=== PATIENT | female | born 1950 | race Caucasian/White ===

== ENCOUNTER 2019-12-22 16:09 | Observation (INO) ==
--- OUTSIDE RECORDS SUMMARY | 2019-12-22 16:12 | External Medical Summary | Continuity of Care Document ---
:1950 Author Name Alexa Vieyra Address Unavailable Unavailable , Care Team Providers Name Role Phone Luigi Vieyra Unavailable [email or web address] [place] Jose [email or web address] Unavailable Unavailable Unavailable Unavailable Unavailable Problems High risk medication use (V58.69) (Z79.899) Peripheral neuropathy (356.9) (G62.9) Overweight (278.02) (E66.3) Depression (311) (F32.9) Joint pain in the shoulder/clavicle region (719.41) (M25.519 ) Lower back pain (724.2) (M54.5) Rheumatoid arthritis (714.0) (M06.9) Osteoarthritis of knee (715.36) (M17.10) Hypertension (401.9) (I10) Osteopenia (733.90) (M85.80) Psoriasis (696.1) (L40.9) Type 2 diabetes mellitus (250.00) (E11.9) Osteoarthritis Of The Ankle/Foot (Multiple Joints) (715.97) Septic arthritis (711.00) (M00.9) Allergies and Adverse Reactions No Known Drug Allergies (Allergy) Medications Methotrexate 2.5 MG Oral Tablet; TAKE SIX TABLETS BY M OUT ONCE A WEEK Jarrell Meyers Start: 16-Apr-2011 Quantity: 72 Refills: 1 Folic Acid 1 MG Oral Tablet; TAKE ONE TABLET BY MOUTH EVERY DAY Jarrell Meyers Start: 16-Apr-2011 Quantity: 90 Refills: 1 Celecoxib 200 MG Oral Capsule; TAKE ONE CAPSULE BY TWICE DAILY Jarrell Meyers Start: 16-Apr-2011 Quantity: 180 Refills: 1 metFORMIN HCl - 1000 MG Oral Tablet; TAKE 1 TABLET TWICE WENDY LY. Refills: 0 Cozaar 100 MG Oral Tablet; TAKE 1 TABLET DAILY. Refills: 0 Venlafaxine HCl ER 150 MG Oral Capsule E xtended Release 24 Hour; TAKE 1 CAPSULE DAILY. Refills: 0 Glimepiride 4 MG Oral Tablet; TAKE 1 TABLET TWICE DAILY. Refills: 0 Vitamin D3 25 MCG (1000 UT) Oral Capsule; TAKE 1 CAPSULE Wendy lin Refills: 0 hydroCHLOROthiazide 25 MG Oral Tablet; TAKE 1 TABLET DAILY. Refills: 0 Xeljanz 5 MG Oral Tablet; TAKE ONE TABLET BY MOUTH TWICE WENDY Jarrell Mendoza Start: 29-Aug-2013 Quantity: 180 Refills: 1 Aspirin 81 MG TABS; TAKE 1 TABLET DAILY. Refills: 0 Stresstabs/Iron TABS Refills: 0 Fish Oil CAPS Refills: 0 Vitamin C TABS Refills: 0 Vitamin B-12 TABS Refills: 0 Gabapentin 300 MG Oral Capsule; Take 1 capsule twice daily Refills: 0 NovoLOG SOLN Refills: 0 Levemir SOLN Refills: 0 Cyclobenzaprine HCl - 5 MG Oral Tablet; TAKE ONE TABLET BY MOUTH THREE TIMES DAILY NEEDED Jarrell Meyers Start: 09-Feb-2013 Quantity: 90 Refills: 1 predniSONE 5 MG Oral Tablet; TAKE 1 TABLET DAILY. Jarrell Meyers Start: 12-Jan-2013 Quantity: 90 Refills: 1 HYDROcodone-Acetaminophen 5-325 MG Oral Tablet; TAKE 1 TABLET EVERY 8 HOURS NEEDED FOR PAIN. Jarrell Meyers Start: 09-Sep-2012 Quantity: 90 Refills: 0 Procedures History of Foot Surgery Status: Complete d Immunizations Pneumococcal polysaccharide vaccine, 23 valent On: 02-Aug-20 Pneumococcal polysaccharide vaccine, 23 valent On: 02-Aug-20 Social History - Smoking Status Ex-smoker Plan of Treatment Planned Observations Planned Goals not documented Results No Known Results Results not documented
[2019-12-22] MEDS ORDERED: KETOROLAC TROMETHAMINE 15 MG/ML VIAL IV ONE (16:42)
[2019-12-22] MEDS ORDERED: methylPREDNISolone 125 MG/2 ML VIAL IV STA (16:42)
--- NOTE | 2019-12-22 16:48 | Emergency Department Note ---
Impression & Plan COPD exacerbation, URI (upper respiratory infection), Acute dyspnea, Neutropenia, Hyperglycemia due to type 2 diabetes mellitus ED Provider Note Provider: Ulises Dent MD DATE OF SERVICE: 12/22/2019 CHIEF COMPLAINT: Cough HISTORY OF PRESENT ILLNESS: Patient is a 69-year-old female with a history of diabetes, hypertension, arthritis presenting today with report of cough and loss of taste and smell. Patient states she has sinus congestion for 10 days and completed a course of amoxicillin worsening chest congestion was given a Z-Pedro yesterday. Been using her granddaughter's nebulizer without improvement. States her shortness of breath has worsened overnight and her oxygen saturations at home have been between 86 and 92%. Patient also mentions she is suffering from a headache of 6 out of 10 in pain. States pain is little bit worse if she starts to get up and walk around. Afebrile upon arrival not hypoxic on room air. Headache started yesterday and worsens her today. Not having sore throat. Not having GI symptoms. Denies abdominal pain. Patient states earlier she was dyspneic that walk across the room became an issue. This has improved some. 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 On chronic daily prednisone. Just started on her Breo by her primary doctor. Patient denies significant leg swelling. Patient denies any travel. Patient denies sick contact. No fevers reported at home and the patient states she has been taking her temperature regularly. REVIEW OF SYSTEMS: A total of 10 review of systems was obtained and negative except as stated above in the HPI. PAST MEDICAL HISTORY: As noted above MEDICATIONS: Reviewed medication list in the room with the patient and the nurses note, significant for rituximab, methotrexate, chronic prednisone SOCIAL HISTORY: Former smoker, lives at home with daughter, son-in-law, and granddaughter with CP PHYSICAL EXAM: GENERAL: alert and oriented in no acute distress on stretcher does appear somewhat fatigued Head: normocephalic and atraumatic EYES: No injection, discharge or icterus. PERRL, EOMI. NECK: Trachea midline. Supple. ENT: Mucous membranes pink and moist. Pharynx without erythema or exudate. LUNGS: Airway patent. No retractions but some slight increased work of breathing. Breath sounds generally decreased HEART: Regular rate and rhythm. No chest wall tenderness ABDOMEN: Soft and non-tender, without guarding or rebound. SKIN: Acyanotic, warm, dry, without rashes EXTREMITIES: Without swelling, tenderness or deformity except for some mild chronic stasis changes and trace bilateral pedal edema. Patient has chronic arthritic changes to her bilateral hands. NEUROLOGICAL: No focal deficits. No aphasia. No facial droop or slurred speech. Normal strength and tone in the extremities. Sensation to gross touch normal. Ambulatory. EKG: EKG shows normal sinus rhythm with a rate of 82 bpm. No PVC. No acute ST segment elevation or depression. QTC of 462. Normal axis. CONTINUOUS CARDIAC MONITORING: was ordered and showed a heart rate of 81 bpm in normal sinus rhythm Patient's hypertension was referred to the hospitalist/PCP HOSPITAL COURSE: 1632 Patient was first seen and H&P performed. Patient maintained in airborne isolation. 1918 Patient reassessed and updated outside of the door and via phone. Patient transiently dipping with hypoxia into the high 80s now on 2 L. Still looks quite fatigued. Discussed with her options at this time. Hospitalist will be contacted Patient's laboratory studies and imaging reviewed. Differential includes Reactive airway disease, pneumonia, pneumothorax, COPD, CHF, infections, cardiac ischemia, pulmonary embolism, musculoskeletal, gastrointestinal, neurological, meningitis, CVA, SAH, as well as other pathologies. IMPRESSION/MEDICAL DECISION MAKING: Patient presentation concerning for underlying respiratory pathology primarily. Does not appear to be suffering from acute CVA and I doubt acute meningitis at this juncture. Chest x-ray is completed. EKG and troponin were sent to exclude ACS. I doubt PE. No signs of fluid overload. Denies sore throat. No other focal neurological deficit at this time. Satting well on room air does report that she was lowered on a finger pulse ox that her family had at home earlier today. Improved after nebulizer at home. States he is any better inhaler she is been using some. Using Tylenol 3 with codeine for general myalgias but not regularly. Given this I gave her a small amount of Toradol and a dose of Solu- Medrol. Given her history of smoking wonder if this is underlying reactive airway disease. Given her loss of taste and smell and current guidelines proceeded with COVID testing at this time. Basic labs and flu testing was sent. Chest x-ray obtained. Laboratory studies do show slight leukopenia without noted anemia. Platelets are just above normal. Total absolute neutrophils are low at 0.05 however lymphocytes are not changed and monocytes somewhat elevated. Patient states she did state that she had a low count number and was referred to hematology. This is likely that change. Again no reported fevers or fever here. Patient has some mild hyponatremia normal renal function. Hyperglycemia is noted. Mild hyp omagnesemia is noted. No troponin elevation or evidence of hepatic dysfunction. Negative influenza testing. Negative urine study. Patient had a coughing fit and transiently desatted to 87%. Placed on oxygen for this. Ambulated the bathroom without significant desat shortly thereafter. Given a dose of magnesium here as well as an Albuterol ipratropium MDI. On reevaluation the patient still is quite fatigued and is now having transient episodes of desaturations while on the litter. Discussed with her options but concerned about her respiratory status. Feel that further inpatient care to be warranted. Discussed with the hospitalist. Covered empirically with vancomycin and cefepime given her neutropenic status and with her dyspnea. DIAGNOSIS: COPD exacerbation, shortness of breath, URI, neutropenia, hyperglycemia secondary to type 2 diabetes DISPOSITION: Evaluated by hospitalist for further inpatient care. 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 Required: No Beliefs That Will Affect Care: None Current Living Situation: Family Other Information That Helps Us Care for You: No Feels Safe at Home: Yes Safety Concerns: Feels Safe At This Time Smoking Status: Former smoker Do You Dip or Chew Tobacco: No ; Second Hand Exposure: No ; Hx Alcohol Use: No Hx Substance Use: No Allergies Allergies Allergy/AdvReac Type Severity Reaction Status Date / Time bee venom protein (honey bee) Allergy Unknown PT STATES Verified 12/22/19 17:58 HAPPEN ALONG TIME AGO Home Meds Home Medications Medication Instructions Recorded Confirmed acetaminophen-codeine 1 tab PO Q8 PRN 12/22/19 12/22/19 ammonium lactate [Skin Treatment] 1 applic TOPICAL BID 12/22/19 12/22/19 azithromycin [Zithromax Z-Pedro] 250 mg PO UD 12/22/19 12/22/19 chlorthalidone 25 mg PO DAILY 12/22/19 12/22/19 cyclobenzaprine 5 mg PO HS 12/22/19 12/22/19 gabapentin [Neurontin] 600 mg PO BID 12/22/19 12/22/19 insulin detemir U-100 [Levemir 36 unit SUBCUT BID 12/22/19 12/22/19 FlexTouch U-100 Insuln] liraglutide [Victoza 3-Pedro] 1.8 mg SUBCUT DAILY 12/22/19 12/22/19 losartan [Cozaar] 100 mg PO DAILY 12/22/19 12/22/19 metformin [Glucophage] 1,000 mg PO BID 12/22/19 12/22/19 methotrexate sodium 5 mg PO WK 12/22/19 12/22/19 potassium chloride 10 meq PO DAILY 12/22/19 12/22/19 prednisone 5 mg PO DAILY 12/22/19 12/22/19 rituximab [Rituxan] 0 mg IV MO 12/22/19 12/22/19 simvastatin 5 mg PO QPM 12/22/19 12/22/19 sulfasalazine [Azulfidine] 1,500 mg PO TID 12/22/19 12/22/19 venlafaxine [Effexor XR] 150 mg PO DAILY 12/22/19 12/22/19 Results & Data (ED) Vital Signs Vital Signs - 24 hr 12/22/19 16:12 12/22/19 16:56 12/22/19 17:00 Temperature 37 C Temperature Source Oral Pulse Rate 87 81 Pulse Rate [Apical] 80 Pulse Rate from SpO2 Sensor Pulse Rhythm Regular Pulse Rhythm [Apical] Regular Pulse Strength [Apical] Normal Respiratory Rate 22 22 22 Respiratory Effort / Characteristics Non-Labored Spontaneous Respiratory Depth Normal Respiratory Pattern Regular Blood Pressure 161/93 H Blood Pressure [Left Arm] 118/64 Blood Pressure Mean 115 Blood Pressure Mean [Left Arm] 82 Blood Pressure Position [Left Arm] Sitting Pulse Oximetry 95 99 98 Oxygen Delivery Method Room Air Nasal Cannula Nasal Cannula Oxygen Flow Rate 2 Sepsis Recent Fever Within 48 Hours No Sepsis Action Taken by Nursing No Action Required 12/22/19 17:27 12/22/19 17:30 12/22/19 17:52 Temperature Temperature Source Pulse Rate 81 Pulse Rate [Apical] 82 83 Pulse Rate from SpO2 Sensor Pulse Rhythm Regular Pulse Rhythm [Apical] Regular Regular Pulse Strength [Apical] Normal Normal Respiratory Rate 22 18 26 H Respiratory Effort / Characteristics Non-Labored Spontaneous Non-Labored Spontaneous Respiratory Depth Normal Normal Respiratory Pattern Regular Regular Blood Pressure Blood Pressure [Left Arm] 99/43 L 137/70 Blood Pressure Mean Blood Pressure Mean [Left Arm] 61 92 Blood Pressure Position [Left Arm] Lying Lying Pulse Oximetry 98 99 95 Oxygen Delivery Method Nasal Cannula Nasal Cannula Nasal Cannula Oxygen Flow Rate 2 2 1 Sepsis Recent Fever Within 48 Hours Sepsis Action Taken by Nursing 12/22/19 18:00 12/22/19 18:01 12/22/19 18:30 Temperature Temperature Source Pulse Rate 80 80 79 Pulse Rate [Apical] Pulse Rate from SpO2 Sensor 81 78 79 Pulse Rhythm Pulse Rhythm [Apical] Pulse Strength [Apical] Respiratory Rate 24 20 17 Respiratory Effort / Characteristics Respiratory Depth Respiratory Pattern Blood Pressure 121/56 L 130/75 Blood Pressure [Left Arm] Blood Pressure Mean 85 92 Blood Pressure Mean [Left Arm] Blood Pressure Position [Left Arm] Pulse Oximetry 95 93 95 Oxygen Delivery Method Nasal Cannula Nasal Cannula Nasal Cannula Oxygen Flow Rate 1 1 1 Sepsis Recent Fever Within 48 Hours Sepsis Action Taken by Nursing 12/22/19 18:31 12/22/19 19:00 12/22/19 19:29 Temperature Temperature Source Pulse Rate 80 83 Pulse Rate [Apical] 82 Pulse Rate from SpO2 Sensor 74 83 Pulse Rhythm Pulse Rhythm [Apical] Regular Pulse Strength [Apical] Respiratory Rate 20 25 H 20 Respiratory Effort / Characteristics Non-Labored Spontaneous Respiratory Depth Normal Respiratory Pattern Blood Pressure 115/63 Blood Pressure [Left Arm] Blood Pressure Mean 68 Blood Pressure Mean [Left Arm] Blood Pressure Position [Left Arm] Pulse Oximetry 95 87 L 91 Oxygen Delivery Method Nasal Cannula Nasal Cannula Oxygen Flow Rate 1 2 Sepsis Recent Fever Within 48 Hours Sepsis Action Taken by Nursing 12/22/19 19:30 12/22/19 20:00 12/22/19 20:30 Temperature Temperature Source Pulse Rate 82 81 81 Pulse Rate [Apical] Pulse Rate from SpO2 Sensor 82 82 81 Pulse Rhythm Pulse Rhythm [Apical] Pulse Strength [Apical] Respiratory Rate 27 H 20 22 Respiratory Effort / Characteristics Respiratory Depth Respiratory Pattern Blood Pressure 126/45 L 119/62 118/58 L Blood Pressure [Left Arm] Blood Pressure Mean 80 93 67 Blood Pressure Mean [Left Arm] Blood Pressure Position [Left Arm] Pulse Oximetry 89 L 93 92 Oxygen Delivery Method Oxygen Flow Rate Sepsis Recent Fever Within 48 Hours Sepsis Action Taken by Nursing Laboratory Data Result diagrams: 12/22/19 16:56 12/22/19 16:56 Lab Results 12/22/19 12/22/19 12/22/19 Range/Units 16:56 16:56 16:56 WBC 2.55 L (4.8-10.8) K/uL RBC 4.36 (4.2-5.4) M/uL Hgb 12.8 (12.0-16.0) g/dL Hct 38.4 (37-47) % MCV 88.1 (80-100) fL MCH 29.4 (25-34) pg MCHC 33.3 (32-36) g/dL RDW Std Deviation 44.3 (36.4-46.3) fL RDW Coeff of Sandra 13.7 (11.5-14.5) % Plt Count 435 H (130-400) K/uL MPV 9.9 (7.4-10.4) fL Neutrophils % (Manual) 1.8 % Lymphocytes % (Manual) 48.2 % Monocytes % (Manual) 44.7 % Basophils % (Manual) 5.3 % Neutrophils # (Manual) 0.05 L (1.4-6.5) K/uL Total Absolute Neuts 0.05 L* (1.4-6.5) K/uL Lymphocytes # (Manual) 1.23 (1.2-3.4) K/uL Total Abs Lymphocytes 1.23 (1.2-3.4) K/uL Monocytes # (Manual) 1.14 H (0.11-0.59) K/uL Basophils # (Manual) 0.14 (0-0.2) K/uL PT 11.2 (9.0-12.0) Seconds INR 1.1 (0.9-1.1) APTT 27.1 (21.0-31.0) Seconds PTT Ratio 1.0 Sodium 131 L (136-145) mmol/L Potassium 3.7 (3.5-5.1) mmol/L Chloride 94 L (98-107) mmol/L Carbon Dioxide 29 (21-32) mmol/L Anion Gap 7.0 (3-11) BUN 14 (7-18) mg/dl Creatinine 1.03 (0.6-1.2) mg/dl Est Cr Clr Drug Dosing 52.8 ml/min Est GFR ( Amer) 64.7 Est GFR (Non-Af Amer) 55.8 BUN/Creatinine Ratio 13.6 (10-20) Glucose 344 H* (70-99) mg/dl Calcium 10.2 H (8.5-10.1) mg/dl Magnesium 1.5 L (1.8-2.4) mg/dl Total Bilirubin 0.5 (0.2-1) mg/dl AST 26 (15-37) U/L ALT 22 (12-78) U/L Alkaline Phosphatase 64 (45-117) U/L Troponin I < 0.015 (0-0.045) ng/ml Total Protein 8.3 H (6.4-8.2) gm/dl Albumin 3.4 (3.4-5.0) gm/dl Globulin 4.9 H (2.5-4.0) gm/dl Albumin/Globulin Ratio 0.7 L (0.9-2) Beta-Hydroxybutyric Acd 2.53 (0.2-2.81) mg/dl Urine Color Urine Appearance (Clear) Urine pH (4.5-7.5) Ur Specific [place] (1.000-1.030) Urine Protein (Negative) Urine Glucose (UA) (Negative) Urine Ketones (Negative) Urine Blood (Negative) Urine Nitrite (Negative) Urine Bilirubin (Negative) Urine Urobilinogen (Negative) Ur Leukocyte Esterase (Negative) Influenza Type A (PCR) (Neg) Influenza Type B (PCR) (Neg) 12/22/19 12/22/19 Range/Units 16:56 17:56 WBC (4.8-10.8) K/uL RBC (4.2-5.4) M/uL Hgb (12.0-16.0) g/dL Hct (37-47) % MCV (80-100) fL MCH (25-34) pg MCHC (32-36) g/dL RDW Std Deviation (36.4-46.3) fL RDW Coeff of Sandra (11.5-14.5) % Plt Count (130-400) K/uL MPV (7.4-10.4) fL Neutrophils % (Manual) % Lymphocytes % (Manual) % Monocytes % (Manual) % Basophils % (Manual) % Neutrophils # (Manual) (1.4-6.5) K/uL Total Absolute Neuts (1.4-6.5) K/uL Lymphocytes # (Manual) (1.2-3.4) K/uL Total Abs Lymphocytes (1.2-3.4) K/uL Monocytes # (Manual) (0.11-0.59) K/uL Basophils # (Manual) (0-0.2) K/uL PT (9.0-12.0) Seconds INR (0.9-1.1) APTT (21.0-31.0) Seconds PTT Ratio Sodium (136-145) mmol/L Potassium (3.5-5.1) mmol/L Chloride (98-107) mmol/L Carbon Dioxide (21-32) mmol/L Anion Gap (3-11) BUN (7-18) mg/dl Creatinine (0.6-1.2) mg/dl Est Cr Clr Drug Dosing ml/min Est GFR ( Amer) Est GFR (Non-Af Amer) BUN/Creatinine Ratio (10-20) Glucose (70-99) mg/dl Calcium (8.5-10.1) mg/dl Magnesium (1.8-2.4) mg/dl Total Bilirubin (0.2-1) mg/dl AST (15-37) U/L ALT (12-78) U/L Alkaline Phosphatase (45-117) U/L Troponin I (0-0.045) ng/ml Total Protein (6.4-8.2) gm/dl Albumin (3.4-5.0) gm/dl Globulin (2.5-4.0) gm/dl Albumin/Globulin Ratio (0.9-2) Beta-Hydroxybutyric Acd (0.2-2.81) mg/dl Urine Color Dark Yellow Urine Appearance Clear (Clear) Urine pH 7.0 (4.5-7.5) Ur Specific [place] 1.015 (1.000-1.030) Urine Protein Negative (Negative) Urine Glucose (UA) 3+ H (Negative) Urine Ketones Negative (Negative) Urine Blood Negative (Negative) Urine Nitrite Negative (Negative) Urine Bilirubin Negative (Negative) Urine Urobilinogen Negative (Negative) Ur Leukocyte Esterase Negative (Negative) Influenza Type A (PCR) Neg for Influ A (Neg) Influenza Type B (PCR) Neg for Influ B (Neg) Administered Medications Cyclobenzaprine HCl (Flexeril) 5 mg PO DAILY@1999 [facility] Stop: 01/21/20 21:59 Last Admin: 12/22/19 22:13 Dose: 5 mg Documented by: [id number] Gabapentin (Neurontin) 600 mg PO BID@0800,1999 [facility] Stop: 01/21/20 21:59 Last Admin: 12/22/19 22:13 Dose: 600 mg Documented by: [id number] Guaifenesin (Mucinex) 1,200 mg PO Q12@0800,1999 [facility] Stop: 01/21/20 21:59 Last Admin: 12/22/19 22:13 Dose: 1,200 mg Documented by: [id number] Lactic Acid (Amlactin) 1 gm EXT BID [facility] Stop: 01/21/20 21:59 Last Admin: 12/22/19 22:11 Dose: 1 gm Documented by: [id number] Simvastatin (Zocor) 5 mg PO DAILY@1999 [facility] Stop: 01/21/20 21:59 Last Admin: 12/22/19 22:13 Dose: 5 mg Documented by: [id number] Sulfasalazine (Azulfidine) 1,500 mg PO TID@0800,1199,1999 [facility] Stop: 01/21/20 21:59 Last Admin: 12/22/19 22:12 Dose: 1,500 mg Documented by: [id number] Discontinued Medications Albuterol (Combivent Respimat) 4 puffs INH NOW STA Stop: 12/22/19 18:12 Last Admin: 12/22/19 18:33 Dose: 4 puffs Documented by: [id number] Magnesium Sulfate/Dextrose (Magnesium Sulfate / D5w) 1 gm in 100 mls @ 100 mls/hr IV ONE ONE Stop: 12/22/19 19:10 Last Infusion: 12/22/19 19:35 Dose: 0 mls/hr Documented by: [id number] Admin: 12/22/19 18:33 Dose: 100 mls/hr Documented by: [id number] Cefepime HCl (Maxipime) 2,000 mg in 20 mls @ 5 mls/min IV NOW STA; Protocol Stop: 12/22/19 19:46 Last Admin: 12/22/19 19:56 Dose: 5 mls/min Documented by: [id number] Vancomycin HCl 1,750 mg/ (Sodium Chloride) 535 mls @ 200 mls/hr IV NOW ONE Stop: 12/22/19 22:23 Last Admin: 12/22/19 19:56 Dose: 200 mls/hr Documented by: [id number] Hydrocortisone Sodium (Succinate 100 mg/ Syringe) 2 mls @ 4 mls/min IV NOW ONE Stop: 12/22/19 22:16 Last Admin: 12/22/19 22:14 Dose: 4 mls/min Documented by: [id number] Ketorolac Tromethamine (Toradol) 10 mg IV NOW ONE Stop: 12/22/19 16:43 Last Admin: 12/22/19 16:58 Dose: 10 mg Documented by: [id number] Methylprednisolone (Solumedrol) 60 mg IV NOW STA Stop: 12/22/19 16:43 Last Admin: 12/22/19 16:58 Dose: 60 mg Documented by: [id number] Discharge Plan Visit Data Chief Complaint: Cough Stated Complaint: COUGH, SOB, 0 TASTE/SMELL ED Provider: Ulises Dent Discharge Problem: COPD exacerbation, URI (upper respiratory infection), Acute dyspnea, Neutropenia, Hyperglycemia due to type 2 diabetes mellitus Patient Disposition: Admitted As Inpatient Condition: Fair Discharge Instructions Interventions: ED Discharge Assessment Last Done: 12/22/19 21:15
[2019-12-22 17:26] LABS: Hematocrit (blood only) 38.4 % (37-47); Hemoglobin 12.8 g/dL (12.0-16.0); Mean Corpuscular Hemoglobin 29.4 pg (25-34); Mean Corpuscular Hgb Conc 33.3 g/dL (32-36); Mean Corpuscular Volume 88.1 fL (80-100); Mean Platelet Volume 9.9 fL (7.4-10.4); Platelet Count 435 K/uL (130-400); RDW Coefficient of Variation 13.7 % (11.5-14.5); RDW Standard Deviation 44.3 fL (36.4-46.3); Red Blood Count 4.36 M/uL (4.2-5.4); White Blood Count 2.55 K/uL (4.8-10.8)
[2019-12-22 17:44] LABS: INR 1.1 (0.9-1.1); Partial Thromboplastin Time 27.1 Seconds (21.0-31.0); Prothrombin Time 11.2 Seconds (9.0-12.0)
[2019-12-22 17:45] LABS: ALC (manual) 1.23 K/uL (1.2-3.4); ANC (manual) 0.05 K/uL (1.4-6.5); Basophils # (manual) 0.14 K/uL (0-0.2); Basophils % (manual) 5.3 %; Lymphocytes # (manual) 1.23 K/uL (1.2-3.4); Lymphocytes % (manual) 48.2 %; Monocytes # (manual) 1.14 K/uL (0.11-0.59); Monocytes % (manual) 44.7 %; Neutrophils # (manual) 0.05 K/uL (1.4-6.5); Neutrophils % (manual) 1.8 %
[2019-12-22 17:51] LABS: Alanine Aminotransferase 22 U/L (12-78); Albumin Globulin Ratio 0.7 (0.9-2); Albumin Level 3.4 gm/dl (3.4-5.0); Alkaline Phosphatase 64 U/L (45-117); Aspartate Aminotransferase 26 U/L (15-37); BUN Creatinine Ratio 13.6 (10-20); Bilirubin,Total 0.5 mg/dl (0.2-1); Blood Urea Nitrogen 14 mg/dl (7-18); Calcium 10.2 mg/dl (8.5-10.1); Carbon Dioxide 29 mmol/L (21-32); Chloride 94 mmol/L (98-107); Creatinine Clr Calc Pharmacy 52.8 ml/min; Est GFR (African American) 64.7; Est GFR (Non-African American) 55.8; Globulin 4.9 gm/dl (2.5-4.0); Glucose 344 mg/dl (70-99); Magnesium 1.5 mg/dl (1.8-2.4); Potassium 3.7 mmol/L (3.5-5.1); Sodium 131 mmol/L (136-145); Total Protein 8.3 gm/dl (6.4-8.2); Troponin I < 0.015 ng/ml (0-0.045)
[2019-12-22 17:57] LABS: Influenza A virus by PCR Neg for Influ A (Neg); Influenza B virus by PCR Neg for Influ B (Neg)
[2019-12-22 18:02] LABS: Beta-Hydroxybutyrate 2.53 mg/dl (0.2-2.81)
[2019-12-22 18:03] LABS: Appearance Urine Clear (Clear); Bilirubin Urine Negative (Negative); Blood Urine Negative (Negative); Color Urine Dark Yellow; Glucose Urine UA 3+ (Negative); Ketones Urine Negative (Negative); Leukocyte Esterase Urine Negative (Negative); Nitrite Urine Negative (Negative); Protein Urine Negative (Negative); Specific Gravity Urine 1.015 (1.000-1.030); Urobilinogen Urine Negative (Negative)
--- NOTE | 2019-12-22 18:06 | XRay Report ---
XR chest 1V portable CLINICAL HISTORY: Dyspnea COMPARISON STUDY: 04/25/2011 FINDINGS: The heart is mildly enlarged. There is elevation of interstitium, a finding likely secondar y to mild pulmonary vascular congestion/fluid overload. Interstitial inflammatory processes could carleen ear similar, particularly given the history of loss of taste and smell. There are no pleural effusion s. There is no lobar consolidation. Arthritic changes are present within the shoulders. IMPRESSION: 1. Mild diffuse elevation of the interstitium. While likely secondary to mild congestive failure/flui d overload, and interstitial infectious/inflammatory processes could appear similar 2. No evidence of lobar consolidation ACT 112: Negative or not required by law. Electronically signed by: Anastacio Amezcua M.D. 12/22/2019 6:05 PM
[2019-12-22] MEDS ORDERED: IPRATROPIUM BROMIDE/ALBUTEROL respimat INH INH STA (18:11)
[2019-12-22] MEDS ORDERED: MAGNESIUM SULFATE / D5W 1 GM/100 ML BAG IV ONE (18:11)
[2019-12-22] MEDS ORDERED: VANCOMYCIN HCL 1,750 MG in SODIUM CHLORIDE 0.9% 500 ML IV ONE (19:43)
[2019-12-22] MEDS ORDERED: VANCOMYCIN CONSULT ACTIVE PRN ×2 (19:43→21:39)
[2019-12-22] MEDS ORDERED: CEFEPIME 2,000 MG/20 ML VIAL IV STA (19:43)
--- NOTE | 2019-12-22 21:23 | History & Physical Report ---
Date of Service December 22, 2019 Assessment & Plan (1) Acute respiratory failure with hypoxia: Acute respiratory failure with hypoxia, with pulse ox recorded a low of 87% on room air. Failure of outpatient therapy with amoxicillin then azithromycin. Continue vancomycin IV and cefepime IV begun in the ED. Influenza a and B-. COVID 19 ordered by the ED. Add biofire upper respiratory infection panel. Duonebs every 4 hours while awake and every 2 hours when necessary. Guaifenesin extended release 600 mg p.o. twice daily Continue airborne, contact and add neutropenic precautions. Add stress dose steroids, hydrocortisone 100 mg IV every 8 hours due to chronic prednisone use. Present on Admission?: Yes (2) URI (upper respiratory infection): See above Present on Admission?: Yes (3) Rheumatoid arthritis: Patient is on multiple immunosuppressive: Methotrexate, prednisone, Rituxan and Azulfidine. ANC 50 upon admission. Patient reports that she was told that 1 of her numbers was low. She has not been given Neupogen in the past. Repeat laboratories in a.m. Present on Admission?: Yes (4) Neutropenia: See above Present on Admission?: Yes (5) Hyperglycemia due to type 2 diabetes mellitus: Continue Levemir 36 units subcu twice daily. Hold Victoza and metformin. Placed on Accu-Cheks before meals and at bedtime with NovoLog coverage per scale. Check hemoglobin A1c. Present on Admission?: Yes (6) Hypomagnesemia: Given magnesium sulfate 2 g IV in the ED, for a magnesium level upon entrance of 1.5. Recheck labs in a.m. Present on Admission?: Yes (7) Neuropathy: Continue gabapentin 600 mg p.o. twice daily. Present on Admission?: Yes (8) Hyperlipidemia: Continue simvastatin 5 mg p.o. every evening Present on Admission?: Yes (9) Anxiety and depression: Continue venlafaxine Exar 150 mg p.o. daily Present on Admission?: Yes (10) Hypertension: Hold chlorthalidone. Continue losartan. Present on Admission?: Yes Admission and Anticipated Discharge Date Admission Date: 12/22/2019 Anticipated date of discharge: 12/24/19 History of Present Illness Chief Complaint: The patient presents to the emergency department with complaint of cough, loss of taste and smell, shortness of breath and dyspnea on exertion that persisted after a 10-day course of amoxicillin and the first day of a Z- Pedro. Primary Care Provider: NO PCP The patient is a 69-year-old female with a past medical history including COPD, diabetes mellitus, hypertension, arthritis, hypercholesterolemia, anxiety with depression, and neuropathy. She presents to the emergency department with the above symptoms, unresponsive to a course of amoxicillin and a beginning course o f azithromycin. She denies any recent travels or sick exposures. She is chronically immunosuppressed on methotrexate, Rituxan and sulfasalazine. Allergies Allergy/AdvReac Type Severity Reaction Status Date / Time bee venom protein (honey bee) Allergy Unknown PT STATES Verified 12/22/19 17:58 HAPPEN ALONG TIME AGO Home Medications Home Medications Medication Instructions Recorded Confirmed Type acetaminophen-codeine 1 tab PO Q8 PRN 12/22/19 12/22/19 History ammonium lactate [Skin Treatment] 1 applic TOPICAL BID 12/22/19 12/22/19 History azithromycin [Zithromax Z-Pedro] 250 mg PO UD 12/22/19 12/22/19 History chlorthalidone 25 mg PO DAILY 12/22/19 12/22/19 History cyclobenzaprine 5 mg PO HS 12/22/19 12/22/19 History gabapentin [Neurontin] 600 mg PO BID 12/22/19 12/22/19 History insulin detemir U-100 [Levemir 36 unit SUBCUT BID 12/22/19 12/22/19 History FlexTouch U-100 Insuln] liraglutide [Victoza 3-Pedro] 1.8 mg SUBCUT DAILY 12/22/19 12/22/19 History losartan [Cozaar] 100 mg PO DAILY 12/22/19 12/22/19 History metformin [Glucophage] 1,000 mg PO BID 12/22/19 12/22/19 History methotrexate sodium 5 mg PO WK 12/22/19 12/22/19 History potassium chloride 10 meq PO DAILY 12/22/19 12/22/19 History prednisone 5 mg PO DAILY 12/22/19 12/22/19 History rituximab [Rituxan] 0 mg IV MO 12/22/19 12/22/19 History simvastatin 5 mg PO QPM 12/22/19 12/22/19 History sulfasalazine [Azulfidine] 1,500 mg PO TID 12/22/19 12/22/19 History venlafaxine [Effexor XR] 150 mg PO DAILY 12/22/19 12/22/19 History Past Med/Surg History Medical History (Updated 12/23/19 @ 03:37 by Steve Tan MD) Anxiety and depression Diabetes (Chronic) Hyperlipidemia Hypertension Neuropathy Rheumatoid arthritis Social History Preferred Language: Indonesian Communication Ability: Effective Exercise Scientist Required: No Beliefs That Will Affect Care: None Current Living Situation: Family Other Information That Helps Us Care for You: No Feels Safe at Home: Yes Safety Concerns: Feels Safe At This Time Smoking Status: Former smoker Do You Dip or Chew Tobacco: No ; Second Hand Exposure: No ; Hx Alcohol Use: No Hx Substance Use: No Review of Systems Review of Systems: The patient denies chest pain, palpitations, lower extremity swelling, sore throat, fevers, chills, sweats, weight change, nausea, vomiting, diarrhea , constipation, abdominal pain, pelvic pain, blood in urine or stool, dysuria, urinary frequency or urgency, lightheadedness, dizziness, headache, memory loss, loss of consciousness, rash, abnormal bruising or bleeding, imbalance, focal or generalized weakness, numbness or tingling in arms or legs, generalized arthralgias or myalgias, back or neck pain, or night sweats. The review of systems is otherwise negative other than for that already noted above, and at least 10 systems have been reviewed. Physical Exam Physical Exam: The patient is awake, alert and oriented 3, well developed and well nourished, normocephalic and atraumatic, lying in bed and in mild acute respiratory distress. HEENT--PERRL, EOMI, mucous membranes and oropharynx normal. Neck--supple. No JVD. No bruits. Thyroid normal, trachea midline, no adenopathy. Heart--normal S1 and S2. No murmurs, rubs or gallops. Lungs--few coarse breath sounds with scattered wheezes bilaterally. Mild respiratory distress, no accessory muscle use. Abdomen--normal bowel sounds and soft. Nontender. Nondistended. Extremities--no cyanosis or clubbing. No edema. Dermatologic--normal skin turgor, normal color, no abnormal lymph nodes, no rash. Neurologic--cranial nerves II through XII grossly intact. Rheumatologic--normal range of motion. Psychiatric--normal affect. Results & Data Results & Data ([facility]) Vital Signs (Past 12 Hours) Vital Signs Temp Pulse Pulse Resp BP BP Pulse Ox 12/22/19 21:15 88 18 117/49 L 96 12/22/19 20:30 81 22 118/58 L 92 12/22/19 20:00 81 20 119/62 93 12/22/19 19:30 82 27 H 126/45 L 89 L 12/22/19 19:29 82 20 91 12/22/19 19:00 83 25 H 115/63 87 L 12/22/19 18:31 80 20 95 12/22/19 18:30 79 17 130/75 95 12/22/19 18:01 80 20 121/56 L 93 12/22/19 18:00 80 24 95 12/22/19 17:52 83 26 H 137/70 95 12/22/19 17:30 82 18 99/43 L 99 12/22/19 17:27 81 22 98 12/22/19 17:00 80 22 118/64 98 12/22/19 16:56 81 22 99 12/22/19 16:12 98.6 F 87 22 161/93 H 95 Laboratory Results Laboratory Results WBC 2.55 K/uL (4.8-10.8) L 12/22/19 16:56 RBC 4.36 M/uL (4.2-5.4) 12/22/19 16:56 Hgb 12.8 g/dL (12.0-16.0) 12/22/19 16:56 Hct 38.4 % (37-47) 12/22/19 16:56 MCV 88.1 fL (80-100) 12/22/19 16:56 MCH 29.4 pg (25-34) 12/22/19 16:56 MCHC 33.3 g/dL (32-36) 12/22/19 16:56 RDW Std Deviation 44.3 fL (36.4-46.3) 12/22/19 16:56 RDW Coeff of Sandra 13.7 % (11.5-14.5) 12/22/19 16:56 Plt Count 435 K/uL (130-400) H 12/22/19 16:56 MPV 9.9 fL (7.4-10.4) 12/22/19 16:56 Neutrophils % (Manual) 1.8 % 12/22/19 16:56 Lymphocytes % (Manual) 48.2 % 12/22/19 16:56 Monocytes % (Manual) 44.7 % 12/22/19 16:56 Basophils % (Manual) 5.3 % 12/22/19 16:56 Neutrophils # (Manual) 0.05 K/uL (1.4-6.5) L 12/22/19 16:56 Total Absolute Neuts 0.05 K/uL (1.4-6.5) L* 12/22/19 16:56 Lymphocytes # (Manual) 1.23 K/uL (1.2-3.4) 12/22/19 16:56 Total Abs Lymphocytes 1.23 K/uL (1.2-3.4) 12/22/19 16:56 Monocytes # (Manual) 1.14 K/uL (0.11-0.59) H 12/22/19 16:56 Basophils # (Manual) 0.14 K/uL (0-0.2) 12/22/19 16:56 PT 11.2 Seconds (9.0-12.0) 12/22/19 16:56 INR 1.1 (0.9-1.1) 12/22/19 16:56 APTT 27.1 Seconds (21.0-31.0) 12/22/19 16:56 PTT Ratio 1.0 12/22/19 16:56 Sodium 131 mmol/L (136-145) L 12/22/19 16:56 Potassium 3.7 mmol/L (3.5-5.1) 12/22/19 16:56 Chloride 94 mmol/L (98-107) L 12/22/19 16:56 Carbon Dioxide 29 mmol/L (21-32) 12/22/19 16:56 Anion Gap 7.0 (3-11) 12/22/19 16:56 BUN 14 mg/dl (7-18) 12/22/19 16:56 Creatinine 1.03 mg/dl (0.6-1.2) 12/22/19 16:56 Est Cr Clr Drug Dosing 52.8 ml/min 12/22/19 16:56 Est GFR ( Amer) 64.7 12/22/19 16:56 Est GFR (Non-Af Amer) 55.8 12/22/19 16:56 BUN/Creatinine Ratio 13.6 (10-20) 12/22/19 16:56 Glucose 344 mg/dl (70-99) H* 12/22/19 16:56 POC Glucose 410 mg/dl (70-99) H* 12/22/19 22:10 Calcium 10.2 mg/dl (8.5-10.1) H 12/22/19 16:56 Magnesium 1.5 mg/dl (1.8-2.4) L 12/22/19 16:56 Total Bilirubin 0.5 mg/dl (0.2-1) 12/22/19 16:56 AST 26 U/L (15-37) 12/22/19 16:56 ALT 22 U/L (12-78) 12/22/19 16:56 Alkaline Phosphatase 64 U/L (45-117) 12/22/19 16:56 Troponin I < 0.015 ng/ml (0-0.045) 12/22/19 16:56 Total Protein 8.3 gm/dl (6.4-8.2) H 12/22/19 16:56 Albumin 3.4 gm/dl (3.4-5.0) 12/22/19 16:56 Globulin 4.9 gm/dl (2.5-4.0) H 12/22/19 16:56 Albumin/Globulin Ratio 0.7 (0.9-2) L 12/22/19 16:56 Beta-Hydroxybutyric Acd 2.53 mg/dl (0.2-2.81) 12/22/19 16:56 Urine Color Dark Yellow 12/22/19 17:56 Urine Appearance Clear (Clear) 12/22/19 17:56 Urine pH 7.0 (4.5-7.5) 12/22/19 17:56 Ur Specific [place] 1.015 (1.000-1.030) 12/22/19 17:56 Urine Protein Negative (Negative) 12/22/19 17:56 Urine Glucose (UA) 3+ (Negative) H 12/22/19 17:56 Urine Ketones Negative (Negative) 12/22/19 17:56 Urine Blood Negative (Negative) 12/22/19 17:56 Urine Nitrite Negative (Negative) 12/22/19 17:56 Urine Bilirubin Negative (Negative) 12/22/19 17:56 Urine Urobilinogen Negative (Negative) 12/22/19 17:56 Ur Leukocyte Esterase Negative (Negative) 12/22/19 17:56 Nasal Screen MRSA (PCR) Negative (Negative) 12/23/19 Unknown Influenza Type A (PCR) Neg for Influ A (Neg) 12/22/19 16:56 Influenza Type B (PCR) Neg for Influ B (Neg) 12/22/19 16:56 Diagnostic Findings [place], [place] [phone] XRay Report Patient: NAVEED ALCANTARA Date: 12/22/19 MR#: [id number]: 65 MIC[address]ROE Acct ID:[id number]: Date: 1950[facility] Zip: [place] [address] Age: 69Location: ED Sex: F Room/Bed: Att Phy:Diagnosis: COUGH, SOB, 0 TASTE/SMELL Diana Phy: PCP,NOService Date: 12/22/19 Fam Phy:Interpreting Phy: Anastacio Amezcua MD Admit Phy: Ordering Phy: Ulises Dent M.D. cc: ~ XR chest 1V portable CLINICAL HISTORY: Dyspnea COMPARISON STUDY: 04/25/2011 FINDINGS: The heart is mildly enlarged. There is elevation of interstitium, a finding likely secondary to mild pulmonary vascular congestion/fluid overload. Interstitial inflammatory processes could appear similar, particularly given the history of loss of taste and smell. There are no pleural effusions. There is no lobar consolidation. Arthritic changes are present within the shoulders. IMPRESSION: 1. Mild diffuse elevation of the interstitium. While likely secondary to mild congestive failure/fluid overload, and interstitial infectious/inflammatory processes could appear similar 2. No evidence of lobar consolidation ACT 112: Negative or not required by law. Electronically signed by: Anastacio Amezcua M.D. 12/22/2019 6:05 PM Dictated: 12/22/191802 Transcribed: 12/22/191802 Code Status & VTE Plan Code Status Full code VTE Prophylaxis Plan VTE Prophylaxis will be ordered: Yes PG Care Time/CCT Total # of Minutes Spent Total Time Spent with Patient: Total time spent is greater than 50% in coordination of care (as documented) at patient's floor/unit and/or counseling patient: Coding Level of Care Code 88483 Initial Inpt Care Lvl 3 Diagnoses Acute respiratory failure with hypoxia J96.01 URI (upper respiratory infection) J06.9 URI type: unspecified URI Rheumatoid arthritis M06.9 Neutropenia D70.9 Neutropenia type: unspecified Hyperglycemia due to type 2 diabetes mellitus E11.65; Z79.4 Diabetes mellitus adjunct faculty for medical terminology insulin use: with adjunct faculty for medical terminology use Hypomagnesemia E83.42 Neuropathy G62.9 Hyperlipidemia E78.5 Anxiety and depression F41.9; F32.9 Hypertension I10 (1) URI (upper respiratory infection) URI type: unspecified URI Qualified Code(s): J06.9 - Acute upper respiratory infection, unspecified (2) Hyperglycemia due to type 2 diabetes mellitus Diabetes mellitus adjunct faculty for medical terminology insulin use: with adjunct faculty for medical terminology use Qualified Code(s): E11.65 - Type 2 diabetes mellitus with hyperglycemia; Z79.4 - intermediate project manager (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 (3) Neutropenia Neutropenia type: unspecified Qualified Code(s): D70.9 - Neutropenia, unspecified
[2019-12-22] MEDS ORDERED: CARBOHYDRATES FOR HYPOGLYCEMIA PO PRN (21:39)
[2019-12-22] MEDS ORDERED: ACETAMINOPHEN W/CODEINE #3 1 TAB PO PRN (21:39)
[2019-12-22] MEDS ORDERED: GLUCOSE 40% GEL 15 GM TUBE PO PRN (21:39)
[2019-12-22] MEDS ORDERED: DEXTROSE 50% 50 ML SYRINGE IV PRN (21:39)
[2019-12-22] MEDS ORDERED: GLUCAGON FOR INJ 1 MG VIAL SQ PRN (21:39)
[2019-12-22] MEDS ORDERED: HYDROCORTISONE SOD SUCCINATE 100 MG/2 ML VIAL IV SCH (21:39)
[2019-12-22] MEDS ORDERED: ONDANSETRON INJ 2 MG/ML 2 ML VIAL IV PRN (21:39)
[2019-12-22] MEDS ORDERED: ALUMINUM/MAGNESIUM SUSP 30 ML UDC PO PRN (21:39)
[2019-12-22] MEDS ORDERED: MAGNESIUM HYDROXIDE SUSP 30 ML UDC PO PRN (21:39)
[2019-12-22] MEDS ORDERED: GLUCOSE 10 TABS/TUBE PO PRN (21:39)
[2019-12-22] MEDS ORDERED: ACETAMINOPHEN 325 MG TAB PO PRN (21:39)
--- NOTE | 2019-12-22 22:05 | Pharmacy Report ---
Pharmacy Abx Dose Short Note - Date of Service December 22, 2019 - Assessment & Plan Assessment 69 year old F receiving VANCOMYCIN/CEFEPIME for treatment of POSSIBLE PNEUMONIA Day # 1 of antimicrobial therapy. Plan Patient meets criteria for vancomycin AUC dosing nomogram * AUC/CHARLES is the preferred PK/PD target for vancomycin * Target AUC/CHARLES = 400-600 * AUC guided dosing is effective and associated with decreased risk of nephrotoxicity Pharmacy will continue to follow and will adjust dose/frequency as necessary. Thank you.
[2019-12-22] MEDS: AMMONIUM LACTATE 12% LOTION 225 GM BTL EXT SCH (22:11)
[2019-12-22] MEDS: sulfaSALAzine 500 MG TABLET PO SCH (22:12)
[2019-12-22] MEDS: GABAPENTIN 600 MG TAB PO SCH (22:13)
[2019-12-22] MEDS: CYCLOBENZAPRINE HCL 5 MG TAB PO SCH (22:13)
[2019-12-22] MEDS: SIMVASTATIN 5 MG TAB PO SCH (22:13)
[2019-12-22] MEDS: guaiFENesin 600 MG TABCR PO SCH (22:13)
[2019-12-22] MEDS ORDERED: HYDROCORTISONE SOD 100 MG in SYRINGE 0 ML IV ONE (22:15)
[2019-12-22] MEDS: INSULIN DETEMIR FLEXPEN/FLEX TOUCH 100 UNITS/ML 3ML SQ SCH (22:35)
[2019-12-22] MEDS: INSULIN ASPART 100 UNITS/ML 3 ML PEN SC SCH (22:35)
[2019-12-23] MEDS ORDERED: HYDROCORTISONE SOD 100 MG in SYRINGE 0 ML IV SCH
[2019-12-23 05:44] LABS: Adenovirus PCR Not Detected (NotDetected); Bordetella parapertussis PCR Not Detected (NotDetected); Bordetella pertussis PCR Not Detected (NotDetected); Chlamydia pneumoniae PCR Not Detected (NotDetected); Coronavirus 229E PCR Not Detected (NotDetected); Coronavirus HKU1 PCR Not Detected (NotDetected); Coronavirus NL63 PCR Not Detected (NotDetected); Coronavirus OC43PCR Not Detected (NotDetected); Human Metapneumovirus PCR Not Detected (NotDetected); Influenza A PCR Not Detected (NotDetected); Influenza B PCR Not Detected (NotDetected); Mycoplasma pneumoniae PCR Not Detected (NotDetected); Parainfluenza Virus 1 PCR Not Detected (NotDetected); Parainfluenza Virus 2 PCR Not Detected (NotDetected); Parainfluenza Virus 3 PCR Not Detected (NotDetected); Parainfluenza Virus 4 PCR Not Detected (NotDetected); Respiratory Syncytial VirusPCR Not Detected (NotDetected)
[2019-12-23 05:46] LABS: Rhinovirus/Enterovirus PCR DETECTED (NotDetected)
[2019-12-23 07:50] LABS: Hematocrit (blood only) 40.3 % (37-47); Hemoglobin 13.4 g/dL (12.0-16.0); Mean Corpuscular Hemoglobin 28.9 pg (25-34); Mean Corpuscular Hgb Conc 33.3 g/dL (32-36); Mean Platelet Volume 9.6 fL (7.4-10.4); Nucleated RBC # (auto) 0.02 K/uL (0-0); Nucleated RBC % (auto) 0.7 %; Platelet Count 469 K/uL (130-400); RDW Coefficient of Variation 13.9 % (11.5-14.5); RDW Standard Deviation 43.8 fL (36.4-46.3); Red Blood Count 4.63 M/uL (4.2-5.4); White Blood Count 2.45 K/uL (4.8-10.8)
[2019-12-23] MEDS ORDERED: CEFEPIME 2,000 MG in SYRINGE 7.5 ML IV SCH (08:00)
[2019-12-23] MEDS ORDERED: LOSARTAN POTASSIUM 50 MG TAB PO SCH (08:00)
[2019-12-23] MEDS ORDERED: VANCOMYCIN HCL 1,000 MG in SODIUM CHLORIDE 0.9% 250 ML IV SCH (08:00)
[2019-12-23 08:01] LABS: INR 1.1 (0.9-1.1); Partial Thromboplastin Time 28.1 Seconds (21.0-31.0); Prothrombin Time 11.4 Seconds (9.0-12.0)
[2019-12-23 08:35] LABS: Basophils # (auto) 0.08 K/uL (0-0.2); Basophils % (auto) 3.3 %; Lymphocytes # (auto) 1.05 K/uL (1.2-3.4); Lymphocytes % (auto) 42.9 %; Monocytes # (auto) 1.22 K/uL (0.11-0.59); Monocytes % (auto) 49.8 %; Neutrophils # (auto) 0.03 K/uL (1.4-6.5); Neutrophils % (auto) 1.1 %
[2019-12-23] MEDS: sulfaSALAzine 500 MG TABLET PO SCH (09:11)
[2019-12-23] MEDS: guaiFENesin 600 MG TABCR PO SCH ×2 (09:12→20:21)
[2019-12-23] MEDS: VENLAFAXINE HCL XR 150 MG CAPXR PO SCH (09:12)
[2019-12-23] MEDS: POTASSIUM CHLORIDE 10 MEQ TABCR PO SCH (09:12)
[2019-12-23] MEDS: AMMONIUM LACTATE 12% LOTION 225 GM BTL EXT SCH ×2 (09:12→20:24)
[2019-12-23 09:17] LABS: Estimated Average Glucose 209 mg/dl; Hemoglobin A1C 8.9 % (4.5-5.6)
[2019-12-23 09:27] LABS: Albumin Globulin Ratio 0.7 (0.9-2); Albumin Level 3.4 gm/dl (3.4-5.0); BUN Creatinine Ratio 16.6 (10-20); Bilirubin,Total 0.5 mg/dl (0.2-1); Calcium 10.2 mg/dl (8.5-10.1); Creatinine Clr Calc Pharmacy 53.5 ml/min; Est GFR (African American) 64.7; Est GFR (Non-African American) 55.8; Globulin 4.9 gm/dl (2.5-4.0); Magnesium 1.9 mg/dl (1.8-2.4); Potassium 4.1 mmol/L (3.5-5.1); Total Protein 8.3 gm/dl (6.4-8.2)
[2019-12-23] MEDS: INSULIN ASPART 100 UNITS/ML 3 ML PEN SC SCH ×4 (09:40→20:51)
[2019-12-23] MEDS: INSULIN DETEMIR FLEXPEN/FLEX TOUCH 100 UNITS/ML 3ML SQ SCH ×2 (09:40→20:53)
[2019-12-23] MEDS ORDERED: PHARMACY GLYCEMIC MGMT CONSULT PRN (10:24)
[2019-12-23] MEDS: GABAPENTIN 600 MG TAB PO SCH ×2 (11:22→20:22)
[2019-12-23] MEDS ORDERED: COUGH DROP (SUGAR FREE) LOZ 24 LOZ/1 BOX BUCCAL PRN (11:35)
[2019-12-23] MEDS ORDERED: INSULIN DETEMIR FLEXPEN/FLEX TOUCH 100 UNITS/ML 3ML SQ ONE (12:00)
[2019-12-23] MEDS ORDERED: INSULIN HUMAN REGULAR PER UNIT 8 UNITS in SYRINGE 7.92 ML IV ONE (12:00)
--- NOTE | 2019-12-23 14:17 | Pharmacy Report ---
Pharmacy Glycemic Short Note 2 - Date of Service December 23, 2019 - Glycemic Short BSG Results (Last 24 hours): 12/22/19 12/22/19 12/23/19 16:56 22:10 07:39 Glucose 344 H* 352 H* POC Glucose 410 H* 12/23/19 12/23/19 12/23/19 08:38 08:44 11:28 Glucose POC Glucose 326 H* 350 H* 402 H* 12/23/19 12/23/19 11:30 11:33 Glucose POC Glucose 313 H* 360 H* OUTPATIENT ANTIDIABETIC REGIMEN: * Levemir 36 units SQ BID * Victoza 1.8mg SQ daily * Metformin 1gm PO BID * HbA1c: 8.9% (12/23/19) ASSESSMENT: * Ms White is a 69yo diabetic female admitted with acute respiratory failure/hy poxia. * PMH is significant for rheumatoid arthritis (on chronic prednisone 5mg daily), COPD, neuropathy. * Patient was given broad-spectrum abx empirically on admission, which have been de-escalated today. Currently on Cefepime. * Patient received SoluMedrol 60mg IV x1 dose last evening, and then SoluCortef 100mg IV q8h --> reduced to 50mg IV q8h today. Patient has had significant steroid-induced hyperglycemia (BSGs since admission: 410, 350, 402). * Supplemental Lantus provided with lunch in addition to an IV insulin bolus. Novolog parameters adjusted to provide additional correction and prandial coverage. PLAN FOR INPATIENT GLYCEMIC CONTROL: * Hold outpatient oral diabetes medications * Basal insulin * Lantus 36 units SQ this morning (home dose), plus 15 units with lunch * Lantus at HS, per scale (see MAR for details) * Bolus insulin * NovoLog per scale ACHS plus 00 and 04 until hyperglycemia has resolved * Goal Range: Low 110 mg/dL - High 150 mg/dL * Correction Factor: 15 mg/dL/unit * Nutritional / Prandial insulin per carb ratio of 1 unit per 6 grams CHO consumed PLAN FOR DISCHARGE: * Patient's A1c (8.9%) is slightly sub-optimal. * Expect that it is reasonable to resume home regimen on discharge, as long as pt does not report having episodes of hypoglycemia.
--- NOTE | 2019-12-23 15:18 | Electrocardiogram Report ---
Test Reason : Blood Pressure : / mmHG Vent. Rate : 082 BPM Atrial Rate : 082 BPM P-R Int : 138 ms QRS Dur : 080 ms QT Int : 396 ms P-R-T Axes : 048 042 030 degrees QTc Int : 462 ms Poor data quality, interpretation may be adversely affected Normal sinus rhythm Low voltage QRS Borderline ECG When compared with ECG of 25-APR-2011 11:14, No significant change was found Confirmed by Calderon Giron ([id number]) on 12/23/2019 3:18:36 PM Referred By: REFERRED SELF Confirmed By:Calderon Giron
--- NOTE | 2019-12-23 15:23 | Hospitalist Progress Note ---
Date of Service December 23, 2019 Assessment & Plan (1) Acute respiratory failure with hypoxia: Aim O2 sats > 94%. Now appears resolved. Secondary to entero/rhinovirus bronchitis with suspected reactive airway disease component COVID-19 negative. Biofire - entero/rhinovirus positive. Procalcitonin negative, no WBC, CXR non-specific therefore PNA ruled out at this stage and will de-escalate antibiotics. Continue on doxycycline due to possible underlying COPD and initially this illness started as sinus pain. Guaifenesin extended release 600 mg p.o. twice daily. (2) Reactive airway disease with acute exacerbation: Will Rx with prednisone taper once weaned of stress hydrocortisone. Likely improvement in shortness of breath, chest tightness, wheezing due to increase in steroids. Although no definitive underlying asthma or COPD as per patient she has a remote 10 pack-year smoking history Duonebs QID + PRN (3) URI (upper respiratory infection): Entero/rhinovirus, supportive care as above. (4) Rheumatoid arthritis: Patient is on multiple immunosuppressive: Methotrexate, prednisone, Rituxan and Azulfidine. Holding methotrexate (5) Raynaud disease: Noted on exam although patient reports never having it diagnosed as this. Would recommend stopping chlorthalidone and switching to vasodilator if further anti-hypertensive required. (6) Neutropenia: Suspected secondary to current viral illness although difficult to r/o sulfasalazine, methotrexate or rituximab induced as no prior CBC in [facility]. Methotrexate recently reduced to 5mg due to low WBC as per patient recollection about 1 week prior to admission. Will hold sulfasalazine for now in addition Discussed with Dr Garrett who will review patient. (7) Hyperglycemia due to type 2 diabetes mellitus: Significant hyperglycemia due to increase in steroids therefore will try to taper. HbA1C 8.9. Hold Victoza and metformin. Continue Levemir 36 units SQ twice daily. Consult pharmacy glycemic control and recommended additional 15 units with lunch. BSG ACHS with NovoLog coverage per scale. (8) Hypomagnesemia: Mg 1.9 after 2g IV in the ED Recheck Mg in AM (9) Neuropathy: Continue gabapentin 600 mg p.o. twice daily. (10) Hyperlipidemia: Continue simvastatin 5 mg p.o. every evening (11) Anxiety and depression: Continue venlafaxine Exar 150 mg p.o. daily (12) Hypertension: Hold chlorthalidone. Given ongoing low normal BP will reduce losartan to 50mg PO daily. Admission and Anticipated Discharge Date Admission Date: December 22, 2019 Anticipated date of discharge: 12/24/19 Subjective Patient reports significant improvement in her shortness of breath and chest tightness. Currently feels well enough to be discharged although she notes she is still having some wheezing. She reports previously being prescribed inhalers with an illness similar to this which helped but notes no formal diagnosis of COPD or asthma. No palpitations, orthopnea or PND. Rediscussed HPI with patient. She confirms illness started as sinus/facial pain b/l without fever for which she was treated with Augmentin. Initially she noticed some improvement over the first 3 days but then it started getting worse again. With regards to her neutropenia she does note her rental representative recently reduced her dose of methotrexate due to concern her WBC was going down. Used to take 7.5mg weekly. Currently taking 5mg weekly (takes on Thursday). She notes her last rituximab dose was in Aug/Sep. She reports having this every 4-6 months. Review of Systems Review of Systems: All systems reviewed & are unremarkable except as noted in HPI & below Physical Exam Constitutional: well developed, + obese and comfortable; + not well nourished and no acute distress Eyes: + anicteric sclerae; normal pupil size ENMT: external ear and nose normal, oropharynx normal Neck: trachea midline Respiratory: normal respiratory effort, + cough (occasional dry) and able to speak in complete sentences; no respiratory distress, no labored breathing, no retractions and does not use accessory muscles Auscultation: + diminished lung sounds (bibasal) and + wheezes (mild expiratory); no crackles, no rales and no rhonchi Cardiovascular: Rate/Rhythm: regular rate and regular rhythm Heart Sounds: no murmur Extremities: + abnormal capillary refill (very prolonged in feet b/l, pt reports this is chronic) Gastrointestinal (Abdomen): Inspection/Auscultation: normal bowel sounds; abdomen not distended Percussion/Palpation: abdomen soft; abdomen nontender, no guarding and abdomen not rigid Musculoskeletal: 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 Purple feet with prolonged capillary refill time which patient notes as chronic Neurologic: moves all extremities and awake; not confused Psychiatric: A+Ox3, euthymic affect Results & Data Results & Data ([facility]) Vital Signs (Past 12 Hours) Vital Signs Temp Pulse Pulse Resp BP BP Pulse Ox 12/23/19 11:25 37 C 80 18 125/44 L 95 12/23/19 09:16 94 12/23/19 08:46 36.6 C 75 18 124/71 97 12/23/19 04:35 36.5 C 73 20 125/77 97 PG Care Time/CCT Total # of Minutes Spent Total Time Spent with Patient: Total time spent is greater than 50% in coordination of care (as documented) at patient's floor/unit and/or counseling patient: Coding Level of Care Code 45728 Subseq Hosp Care Lvl 3 Diagnoses Acute respiratory failure with hypoxia J96.01 Reactive airway disease with acute exacerbation J45.901 URI (upper respiratory infection) J06.9 URI type: unspecified URI Rheumatoid arthritis M06.9 Raynaud disease I73.00 Neutropenia D70.9 Neutropenia type: unspecified Hyperglycemia due to type 2 diabetes mellitus E11.65; Z79.4 Diabetes mellitus meterman insulin use: with shelter use Hypomagnesemia E83.42 Neuropathy G62.9 Hyperlipidemia E78.5 Anxiety and depression F41.9; F32.9 Hypertension I10 (1) Hyperglycemia due to type 2 diabetes mellitus Diabetes mellitus meterman insulin use: with shelter use Qualified Code(s): E11.65 - Type 2 diabetes mellitus with hyperglycemia; Z79.4 - [facility] (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 (2) URI (upper respiratory infection) URI type: unspecified URI Qualified Code(s): J06.9 - Acute upper respiratory infection, unspecified (3) Neutropenia Neutropenia type: unspecified Qualified Code(s): D70.9 - Neutropenia, unspec ified
[2019-12-23] MEDS: HYDROCORTISONE SOD 50 MG in SYRINGE 0 ML IV SCH (15:50)
--- NOTE | 2019-12-23 16:56 | Oncology Consultation ---
Date of Consultation December 23, 2019 Assessment & Plan (1) Neutropenia: Ms. White is severely neutropenic. Her other cell lines are preserved and she has no circulating immature forms, so I strongly doubt she has leukemia or another myeloid neoplasm. Acute viral infections can absolutely cause neutropenia, but the timing here is interesting, as her counts may have been low prior to the onset of her viral symptoms. Medications, including antibiotics, can also cause an acute agranulocytosis, but again her cytopenias may predate her antibiotic therapy. She is on methotrexate, but her MCV is normal and we typically see macrocytosis in the case of methotrexate toxicity. I would check her B12 and folate levels. I would also check a copper level. I would also image her abdomen to look for splenomegaly. The complex of neutropenia, splenomegaly, and RA is sometimes associated with Felty syndrome, the treatment of which would involve a change in her DMARD therapy for RA. If her counts do not improve through the weekend, we could consider a bone marrow biopsy next week. Present on Admission?: Yes History of Present Illness Reason for Consultation: Neutropenia Attending Physician: Yusuf Bermudez MD History of Present Illness Ms. White is a 69 year old woman with a history of DM, HTN, COPD, and rheumatoid arthritis. She is treated for the latter disease with Rituxan every 4 months, weekly methotrexate, and sulfasalazine. She came to the ER yesterday complaining of cough, shortness of breath, and loss of sense of taste. She also has had some headaches, chills, and night sweats, though no fevers at home. These symptoms have been ongoing for about 2 weeks and persisted despite both amoxicillin and a Z-pedro. She tested negative for COVID-19 and a broad viral panel revealed an entero/rhinovirus. Notably, she has been feeling unwell a bit longer, closer to a month. Around that time, her grouter helper told her that her WBCs were low (she can't recall how low) and instructed her to lower her methotrexate dose. She denies any weight loss, palpable lymph nodes, or abnormal bleeding or bruising. She denies any abdominal pain, bloating, nausea, or changes in her bowel habits. She has chronically edematous and cold feet. She typically wears compression stockings but forgot to bring them with her. Allergies Allergy/AdvReac Type Severity Reaction Status Date / Time bee venom protein (honey bee) Allergy Unknown PT STATES Verified 12/22/19 17:58 HAPPEN ALONG TIME AGO Home Medications Home Medications Medication Instructions Recorded Confirmed Type acetaminophen-codeine 1 tab PO Q8 PRN 12/22/19 12/22/19 History ammonium lactate [Skin Treatment] 1 applic TOPICAL BID 12/22/19 12/22/19 History azithromycin [Zithromax Z-Pedro] 250 mg PO UD 12/22/19 12/22/19 History chlorthalidone 25 mg PO DAILY 12/22/19 12/22/19 History cyclobenzaprine 5 mg PO HS 12/22/19 12/22/19 History gabapentin [Neurontin] 600 mg PO BID 12/22/19 12/22/19 History insulin detemir U-100 [Levemir 36 unit SUBCUT BID 12/22/19 12/22/19 History FlexTouch U-100 Insuln] liraglutide [Victoza 3-Pedro] 1.8 mg SUBCUT DAILY 12/22/19 12/22/19 History losartan [Cozaar] 100 mg PO DAILY 12/22/19 12/22/19 History metformin [Glucophage] 1,000 mg PO BID 12/22/19 12/22/19 History methotrexate sodium 5 mg PO WK 12/22/19 12/22/19 History potassium chloride 10 meq PO DAILY 12/22/19 12/22/19 History prednisone 5 mg PO DAILY 12/22/19 12/22/19 History rituximab [Rituxan] 0 mg IV MO 12/22/19 12/22/19 History simvastatin 5 mg PO QPM 12/22/19 12/22/19 History sulfasalazine [Azulfidine] 1,500 mg PO TID 12/22/19 12/22/19 History venlafaxine [Effexor XR] 150 mg PO DAILY 12/22/19 12/22/19 History Patient History Medical History Anxiety and depression Diabetes (Chronic) Hyperlipidemia Hypertension Neuropathy Rheumatoid arthritis Social History Preferred Language: Iranian Communication Ability: Effective Cloud Security Architect Required: No Beliefs That Will Affect Care: None Current Living Situation: Family Other Information That Helps Us Care for You: No Feels Safe at Home: Yes Safety Concerns: Feels Safe At This Time Smoking Status: Former smoker Do You Dip or Chew Tobacco: No ; Second Hand Exposure: No ; Hx Alcohol Use: No Hx Substance Use: No Review of Systems Review of Systems: All systems reviewed & are unremarkable except as noted in HPI & below Physical Exam Constitutional: + obese and comfortable; no acute distress Eyes: + anicteric sclerae Respiratory: normal respiratory effort, lungs clear to auscultation Cardiovascular: RRR, no murmur, no edema She has 1+ pedal edema bilaterally, but both of her feet are cold and purple, though she moves them without issue and has no tenderness Gastrointestinal (Abdomen): Inspection/Auscultation: normal bowel sounds; abdomen not distended Percussion/Palpation: abdomen soft; abdomen nontender Skin: no rashes, warm and dry Psychiatric: A+Ox3, euthymic affect Lymphatic: no cervical or axillary lymphadenopathy Results & Data Vital Signs (Past 12 Hours) Vital Signs Temp Pulse Pulse Resp BP BP Pulse Ox 12/23/19 15:45 36.7 C 97 H 19 103/55 L 97 12/23/19 15:10 97 H 12/23/19 11:25 37 C 80 18 125/44 L 95 12/23/19 09:16 94 12/23/19 08:46 36.6 C 75 18 124/71 97 Laboratory Results Abnormal lab results 12/22/19 12/22/19 12/22/19 Range/Units 16:56 16:56 17:56 WBC 2.55 L (4.8-10.8) K/uL Plt Count 435 H (130-400) K/uL Neut # (Auto) (1.4-6.5) K/uL Lymph # (Auto) (1.2-3.4) K/uL Thayer # (Auto) (0.11-0.59) K/uL Absolute Nucleated RBC (0-0) K/uL Neutrophils # (Manual) 0.05 L (1.4-6.5) K/uL Total Absolute Neuts 0.05 L* (1.4-6.5) K/uL Monocytes # (Manual) 1.14 H (0.11-0.59) K/uL Sodium 131 L (136-145) mmol/L Chloride 94 L (98-107) mmol/L Glucose 344 H* (70-99) mg/dl POC Glucose (70-99) mg/dl Hemoglobin A1c (4.5-5.6) % Calcium 10.2 H (8.5-10.1) mg/dl Magnesium 1.5 L (1.8-2.4) mg/dl Total Protein 8.3 H (6.4-8.2) gm/dl Globulin 4.9 H (2.5-4.0) gm/dl Albumin/Globulin Ratio 0.7 L (0.9-2) Urine Glucose (UA) 3+ H (Negative) Entero/Rhino (PCR) (NotDetected) 12/22/19 12/23/19 12/23/19 Range/Units 22:10 07:39 07:39 WBC 2.45 L (4.8-10.8) K/uL Plt Count 469 H (130-400) K/uL Neut # (Auto) 0.03 L* (1.4-6.5) K/uL Lymph # (Auto) 1.05 L (1.2-3.4) K/uL Thayer # (Auto) 1.22 H (0.11-0.59) K/uL Absolute Nucleated RBC 0.02 H (0-0) K/uL Neutrophils # (Manual) (1.4-6.5) K/uL Total Absolute Neuts (1.4-6.5) K/uL Monocytes # (Manual) (0.11-0.59) K/uL Sodium (136-145) mmol/L Chloride (98-107) mmol/L Glucose (70-99) mg/dl POC Glucose 410 H* (70-99) mg/dl Hemoglobin A1c 8.9 H (4.5-5.6) % Calcium (8.5-10.1) mg/dl Magnesium (1.8-2.4) mg/dl Total Protein (6.4-8.2) gm/dl Globulin (2.5-4.0) gm/dl Albumin/Globulin Ratio (0.9-2) Urine Glucose (UA) (Negative) Entero/Rhino (PCR) (NotDetected) 12/23/19 12/23/19 12/23/19 Range/Units 07:39 08:38 08:44 WBC (4.8-10.8) K/uL Plt Count (130-400) K/uL Neut # (Auto) (1.4-6.5) K/uL Lymph # (Auto) (1.2-3.4) K/uL Thayer # (Auto) (0.11-0.59) K/uL Absolute Nucleated RBC (0-0) K/uL Neutrophils # (Manual) (1.4-6.5) K/uL Total Absolute Neuts (1.4-6.5) K/uL Monocytes # (Manual) (0.11-0.59) K/uL Sodium 133 L (136-145) mmol/L Chloride 96 L (98-107) mmol/L Glucose 352 H* (70-99) mg/dl POC Glucose 326 H* 350 H* (70-99) mg/dl Hemoglobin A1c (4.5-5.6) % Calcium 10.2 H (8.5-10.1) mg/dl Magnesium (1.8-2.4) mg/dl Total Protein 8.3 H (6.4-8.2) gm/dl Globulin 4.9 H (2.5-4.0) gm/dl Albumin/Globulin Ratio 0.7 L (0.9-2) Urine Glucose (UA) (Negative) Entero/Rhino (PCR) (NotDetected) 12/23/19 12/23/19 12/23/19 Range/Units 11:28 11:30 11:33 WBC (4.8-10.8) K/uL Plt Count (130-400) K/uL Neut # (Auto) (1.4-6.5) K/uL Lymph # (Auto) (1.2-3.4) K/uL Thayer # (Auto) (0.11-0.59) K/uL Absolute Nucleated RBC (0-0) K/uL Neutrophils # (Manual) (1.4-6.5) K/uL Total Absolute Neuts (1.4-6.5) K/uL Monocytes # (Manual) (0.11-0.59) K/uL Sodium (136-145) mmol/L Chloride (98-107) mmol/L Glucose (70-99) mg/dl POC Glucose 402 H* 313 H* 360 H* (70-99) mg/dl Hemoglobin A1c (4.5-5.6) % Calcium (8.5-10.1) mg/dl Magnesium (1.8-2.4) mg/dl Total Protein (6.4-8.2) gm/dl Globulin (2.5-4.0) gm/dl Albumin/Globulin Ratio (0.9-2) Urine Glucose (UA) (Negative) Entero/Rhino (PCR) (NotDetected) 12/23/19 12/23/19 Range/Units 16:48 Unknown WBC (4.8-10.8) K/uL Plt Count (130-400) K/uL Neut # (Auto) (1.4-6.5) K/uL Lymph # (Auto) (1.2-3.4) K/uL Thayer # (Auto) (0.11-0.59) K/uL Absolute Nucleated RBC (0-0) K/uL Neutrophils # (Manual) (1.4-6.5) K/uL Total Absolute Neuts (1.4-6.5) K/uL Monocytes # (Manual) (0.11-0.59) K/uL Sodium (136-145) mmol/L Chloride (98-107) mmol/L Glucose (70-99) mg/dl POC Glucose 172 H (70-99) mg/dl Hemoglobin A1c (4.5-5.6) % Calcium (8.5-10.1) mg/dl Magnesium (1.8-2.4) mg/dl Total Protein (6.4-8.2) gm/dl Globulin (2.5-4.0) gm/dl Albumin/Globulin Ratio (0.9-2) Urine Glucose (UA) (Negative) Entero/Rhino (PCR) DETECTED A* (NotDetected) (1) Neutropenia Neutropenia type: unspecified Qualified Code(s): D70.9 - Neutropenia, unspecified
--- NOTE | 2019-12-23 18:57 | Ultrasound Report ---
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 COMPARISON: None. : FINDINGS: Mild splenomegaly with maximum dimension 12 cm. Spleen is uniform in echogenicity. No abnormal perisp lenic fluid collections. IMPRESSION: Mild splenomegaly with a maximum dimension 12 cm. ACT 112: Negative or not required by law. The above report was generated using voice recognition software. It may contain grammatical, syntax or spelling errors. Electronically signed by: Jude Sandoval M.D. 12/23/2019 6:56 PM
[2019-12-23] MEDS: ALBUT/IPRATROP 3MG/0.5MG NEB 3 ML VIAL NEB SCH (19:00)
[2019-12-23] MEDS: CYCLOBENZAPRINE HCL 5 MG TAB PO SCH (20:21)
[2019-12-23] MEDS: SIMVASTATIN 5 MG TAB PO SCH (20:22)
[2019-12-23] MEDS: DOXYCYCLINE HYCLATE 100 MG CAP PO SCH (20:51)
[2019-12-24] MEDS: INSULIN ASPART 100 UNITS/ML 3 ML PEN SC SCH ×4 (00:33→12:29)
[2019-12-24] MEDS: HYDROCORTISONE SOD 50 MG in SYRINGE 0 ML IV SCH (00:39)
[2019-12-24] MEDS: ALBUT/IPRATROP 3MG/0.5MG NEB 3 ML VIAL NEB SCH ×2 (06:59→11:07)
[2019-12-24 07:31] LABS: Hematocrit (blood only) 38.5 % (37-47); Hemoglobin 12.4 g/dL (12.0-16.0); Mean Corpuscular Hemoglobin 29.2 pg (25-34); Mean Corpuscular Hgb Conc 32.2 g/dL (32-36); Mean Corpuscular Volume 90.6 fL (80-100); Mean Platelet Volume 9.6 fL (7.4-10.4); Nucleated RBC # (auto) 0.05 K/uL (0-0); Nucleated RBC % (auto) 0.9 %; Platelet Count 549 K/uL (130-400); RDW Coefficient of Variation 13.9 % (11.5-14.5); RDW Standard Deviation 45.5 fL (36.4-46.3); Red Blood Count 4.25 M/uL (4.2-5.4); White Blood Count 5.52 K/uL (4.8-10.8)
[2019-12-24 07:55] LABS: Basophils # (auto) 0.23 K/uL (0-0.2); Basophils % (auto) 4.2 %; Immature Granulocytes # (auto) 0.52 K/uL (0.00-0.02); Immature Granulocytes % (auto) 9.4 %; Lymphocytes # (auto) 2.15 K/uL (1.2-3.4); Lymphocytes % (auto) 38.9 %; Monocytes # (auto) 1.98 K/uL (0.11-0.59); Monocytes % (auto) 35.9 %; Neutrophils # (auto) 0.64 K/uL (1.4-6.5); Neutrophils % (auto) 11.6 %
[2019-12-24] MEDS ORDERED: sulfaSALAzine 500 MG TABLET PO SCH ×2 (08:00→09:00)
[2019-12-24] MEDS ORDERED: LOSARTAN POTASSIUM 50 MG TAB PO SCH (08:00)
[2019-12-24] MEDS ORDERED: predniSONE 10 MG TABLET PO SCH ×2 (08:00→09:00)
[2019-12-24 08:07] LABS: Albumin Level 3.2 gm/dl (3.4-5.0); BUN Creatinine Ratio 26.5 (10-20); Est GFR (African American) 71.3; Est GFR (Non-African American) 61.5; Magnesium 1.8 mg/dl (1.8-2.4); Potassium 3.5 mmol/L (3.5-5.1)
[2019-12-24 08:10] LABS: Albumin Globulin Ratio 0.7 (0.9-2); Bilirubin,Total 0.4 mg/dl (0.2-1); Globulin 4.5 gm/dl (2.5-4.0); Total Protein 7.7 gm/dl (6.4-8.2)
[2019-12-24] MEDS: INSULIN DETEMIR FLEXPEN/FLEX TOUCH 100 UNITS/ML 3ML SQ SCH (08:18)
[2019-12-24] MEDS: DOXYCYCLINE HYCLATE 100 MG CAP PO SCH (08:23)
[2019-12-24] MEDS: POTASSIUM CHLORIDE 10 MEQ TABCR PO SCH (08:24)
[2019-12-24] MEDS: VENLAFAXINE HCL XR 150 MG CAPXR PO SCH (08:24)
[2019-12-24] MEDS: GABAPENTIN 600 MG TAB PO SCH (08:24)
[2019-12-24] MEDS: guaiFENesin 600 MG TABCR PO SCH (08:25)
[2019-12-24] MEDS: AMMONIUM LACTATE 12% LOTION 225 GM BTL EXT SCH (08:30)
[2019-12-24] MEDS ORDERED: FOLIC ACID 1 MG TAB PO SCH (09:00)
--- NOTE | 2019-12-24 10:07 | Pharmacy Report ---
Pharmacy Glycemic Short Note 2 - Date of Service December 24, 2019 - Glycemic Short BSG Results (Last 24 hours): 12/23/19 12/23/19 12/23/19 11:28 11:30 11:33 Glucose POC Glucose 402 H* 313 H* 360 H* 12/23/19 12/23/19 12/24/19 16:48 20:36 00:29 Glucose POC Glucose 172 H 161 H 168 H 12/24/19 12/24/19 12/24/19 03:53 06:35 07:38 Glucose 138 H POC Glucose 121 H 149 H OUTPATIENT ANTIDIABETIC REGIMEN: * Levemir 36 units SQ BID * Victoza 1.8mg SQ daily * Metformin 1gm PO BID * HbA1c: 8.9% (12/23/19) ASSESSMENT: * Ms White is a 69yo diabetic female admitted with acute respiratory failure/hypoxia. * PMH is significant for rheumatoid arthritis (on chronic prednisone 5mg daily), COPD, neuropathy. * Patient was given broad-spectrum abx empirically on admission, which have been de-escalated to doxycycline PO. * Patient received SoluMedrol 60mg IV x1 dose last evening, and then SoluCortef 100mg IV q8h --> reduced to 50mg IV q8h yesterday and further reduced to Prednisone taper (to receive 40mg today x 2 then decrease by 10mg). Step down in steroid dosing should yield significant improvement in hyperglycemia. Will empirically decrease insulin regimen. PLAN FOR INPATIENT GLYCEMIC CONTROL: * Hold outpatient oral diabetes medications * Basal insulin: decrease * Lantus 36 units SQ BID (this is outpatient dosing) * Since outpatient dosing can often times be too much for controlled CHO intake inhouse - will set a scale to receive 30 units if BSG <140 * Bolus insulin: loosen parameters * NovoLog per scale ACHS plus 00 and 04 until hyperglycemia has resolved * Goal Range: Low 110 mg/dL - High 150 mg/dL * Correction Factor: 20 mg/dL/unit * Nutritional / Prandial insulin per carb ratio of 1 unit per 7 grams CHO consumed PLAN FOR DISCHARGE: * Patient's A1c (8.9%) is slightly sub-optimal. * Patient may need to titrate Levemir dosing vs adding bolus insulin to achieve A1c <7.5%
--- NOTE | 2019-12-24 14:59 | Discharge Summary ---
Date of Service December 24, 2019 Admission HPI Per Admitting Provider The patient is a 69-year-old female with a past medical history including COPD, diabetes mellitus, hypertension, arthritis, hypercholesterolemia, anxiety with depression, and neuropathy. She presents to the emergency department with the above symptoms, unresponsive to a course of amoxicillin and a beginning course of azithromycin. She denies any recent travels or sick exposures. She is chronically immunosuppressed on methotrexate, Rituxan and sulfasalazine. Principal Diagnosis Acute respiratory failure with hypoxia Entero/rhinovirus bronchitis Exacerbation of reactive airway disease Neutropenia Discharge Exam Constitutional well developed, + obese and comfortable; + not well nourished and no acute distress ENMT external ear and nose normal, oropharynx normal Neck trachea midline Respiratory normal respiratory effort, + cough (occasional dry) and able to speak in complete sentences; no respiratory distress, no labored breathing, no retractions and does not use accessory muscles Auscultation: + diminished lung sounds (bibasal); no crackles, no rales, no rhonchi and no wheezes Cardiovascular Rate/Rhythm: regular rate and regular rhythm Heart Sounds: no murmur Extremities: + abnormal capillary refill (very prolonged in feet b/l, pt reports this is chronic) Gastrointestinal (Abdomen) Inspection/Auscultation: normal bowel sounds; abdomen not distended Percussion/Palpation: abdomen soft; abdomen nontender, no guarding and abdomen not rigid Skin no rashes, warm and dry Neurologic moves all extremities and awake; not confused Psychiatric A+Ox3, euthymic affect Discharge Data Allergies Allergy/AdvReac Type Severity Reaction Status Date / Time bee venom protein (honey bee) Allergy Unknown PT STATES Verified 12/22/19 17:58 HAPPEN ALONG TIME AGO Consultations 12/22/19 20:15 ED Decision to Admit Stat 12/22/19 21:39 Consult Case Management - Discharge Planning Routine 12/23/19 11:58 Consult Hematology Routine 12/23/19 16:41 Consult Health Information Management Routine Ordered Studies 12/23/19 17:51 US abdomen limited Routine Hospital Course (1) Acute respiratory failure with hypoxia: Magdalene White is a 69 year old female admitted to [facility] from December 21 to 2019 due to shortness of breath, cough and hypoxia. COVID-19 testing was negative. Viral panel positive for entero- rhinovirus causing bronchitis. She was also noted to be neutropenic which improved after IV hydrocortisone given due to concern for chronic prednisone use and adrenal insufficiency. Neutropenia thought to be viral induced however sulfasalazine was temporarily held and recommended half her normal dose on dis charge. If neutrophil count dose not improve recommend referral to hematology. Given wheezing on exam and noted possible history of COPD/asthma she was treated with a tapering dose of prednisone and her inhalers were re-prescribed. No bacterial pneumonia suspected but given possible COPD diagnosis she was treated with doxycycline. Type 2 diabetes mellitus - HbA1C 8.9%. No changes to her diabetic regimen was made but recommended she calls her PCP if glucose values consistently > 200. Hypertension - recommend discontinuing chlorthalidone due to low blood pressures during this illness. Given Raynaud's could consider calcium channel kaylan if she requires a anti-hypertensive in the future. (2) Reactive airway disease with acute exacerbation: (3) URI (upper respiratory infection): (4) Rheumatoid arthritis: (5) Raynaud disease: (6) Neutropenia: (7) Hyperglycemia due to type 2 diabetes mellitus: (8) Hypomagnesemia: (9) Neuropathy: (10) Hyperlipidemia: (11) Anxiety and depression: (12) Hypertension: Total Time Total Time Spent Total Time Spent (In Minutes): 40 Total Time Includes: Examination of the Patient, Discharge Planning and Medication Reconciliation Discharge Plan Discharge Items Patient Disposition: Home - Home Health Services Reason For Visit: Shortness of breath, cough Discharge Diagnosis: Entero/rhinovirus bronchitis Exacerbation of reactive airway disease Neutropenia (low neutrophil count) Condition on Discharge: Fair Activity: Resume your previous activity Non-emergency contact: Primary Care Provider Call non-emergency contact if: you have any medication questions and your symptoms worsen Follow-up/Referrals: Lexis Liang [Other] (Follow up with CBC prior to appointment within the next 1-2 weeks. Can be telehealth.) Diet: Carb Consistent or DM2 Ambulatory Orders: Complete Blood Count with Diff (Routine) Timeframe: 1 Week Location: Determined by Patient Ordered By: Yusuf Amezcua Attending Provider Instructions: You were admitted to [facility] from December 21 to 2019 due to shortness of breath, cough and low oxygen saturations. COVID-19 testing was negative. You tested positive for entero-rhinovirus causing bronchitis. Your neutrophil count was noted to be very low which on hematology review suspect this reflects viral suppression which is temporary due to your current viral illness. Neutrophils improved to 0.64 K/uL on discharge. On discussion with hematology we recommend continuing on your recently reduced dose of methotrexate at 5mg per week but also reducing the sulfasalazine to just 1500 mg once daily (rather than twice a day) as these medications may also be contributing towards your reduced neutrophil count. After repeat blood tests in 1 week please discuss whether this can be increased back to your usual dosing with you director of collections. If your neutrophils do not return to normal please discuss possible referral to hematology with your primary care physician. Your shortness of breath improved with nebulizers and steroids therefore suspect the virus caused exacerbation of your underlying reactive airway disease (?COPD/asthma). Please continue on tapering dose prednisone and doxycycline for treatment of presumed COPD exacerbation. Bacterial pneumonia was ruled out at this time but you remain at risk from developing this during your recovery. If you start developing a fever, worsening shortness of breath or cough please call your PCP or in an emergency return to the ER. Type 2 diabetes mellitus - HbA1C 8.9%. Generally we recommend a goal of <7% and your diabetes control should be further discussed with your PCP. Current glucose measurements are likely to be higher while on prednisone. If consistently over 200 recommend discussing management with your primary care physician. Hypertension - recommend discontinuing chlorthalidone due to low blood pressures during this illness. Please follow up with your PCP for ongoing blood pressure management. Kind regards, Dr Yusuf Bermudez Pending Studies at Discharge: Yes (copper) Stand-Alone Forms: [employer], Smoking Cessation Medications and DC Order Prescriptions: New prednisone 10 mg tablet See Rx Instructions .ROUTE .COMPLEX Qty: 20 RF: 0 doxycycline hyclate 100 mg Capsule 100 mg PO BID@0800,1999 5 Days Qty: 10 RF: 0 Breo Ellipta 100-25 mcg/dose blister with device 1 puffs INH DAILY Qty: 60 RF: 0 albuterol sulfate [Ventolin HFA] 90 mcg/actuation HFA aerosol inhaler 2 puffs INH Q6H PRN (Reason: shortness of breath or wheezing) Qty: 6.7 RF: 0 Continued ammonium lactate [Skin Treatment] 12 % lotion 1 applic TOPICAL BID RF: 0 prednisone 5 mg tablet 5 mg PO DAILY RF: 0 venlafaxine [Effexor XR] 150 mg capsule,extended release 24hr 150 mg PO DAILY RF: 0 potassium chloride 10 mEq tablet extended release 10 meq PO DAILY RF: 0 acetaminophen-codeine 300-30 mg tablet 1 tab PO Q8 PRN (Reason: Pain) RF: 0 methotrexate sodium 2.5 mg tablet 5 mg PO WK RF: 0 simvastatin 5 mg tablet 5 mg PO QPM RF: 0 metformin [Glucophage] 1,000 mg tablet 1,000 mg PO BID RF: 0 gabapentin [Neurontin] 300 mg capsule 600 mg PO BID RF: 0 losartan [Cozaar] 100 mg tablet 100 mg PO DAILY RF: 0 cyclobenzaprine 5 mg tablet 5 mg PO HS RF: 0 Levemir FlexTouch U-100 Insuln 100 unit/mL (3 mL) insulin pen 36 unit SUBCUT BID RF: 0 Victoza 3-Pedro 0.6 mg/0.1 mL (18 mg/3 mL) pen injector 1.8 mg SUBCUT DAILY RF: 0 Changed sulfasalazine [Azulfidine] 500 mg tablet 1,500 mg PO DAILY Qty: 0 RF: 0 Rituxan 10 mg/mL Concentrate 0 mg IV UD Qty: 0 RF: 0 Discontinued azithromycin [Zithromax Z-Pedro] 250 mg tablet 250 mg PO UD RF: 0 chlorthalidone 25 mg tablet 25 mg PO DAILY RF: 0 Discharge Orders: Discharge Order (Routine); Ordered 12/24/19 Ordered By: Yusuf Bermudez Admission Data Admit Date/Time: 12/22/19 20:40 Attending Provider: Yusuf Bermudez Admit Provider: Steve Tan Primary Care Provider: PCP,NO Other Providers: Steve Tan ; Migue Garrett Other Interventions: Discharge Summary Assessment (RN) Last Done: 12/24/19 15:08 DC Date/Time DO NOT enter until pt leaves facility: 12/24/19 18:03 Coding Level of Care Code D/C Day Management >30 mins Diagnoses Acute respiratory failure with hypoxia J96.01 Reactive airway disease with acute exacerbation J45.901 URI (upper respiratory infection) J06.9 URI type: unspecified URI Rheumatoid arthritis M06.9 Raynaud disease I73.00 Neutropenia D70.9 Neutropenia type: unspecified Hyperglycemia due to type 2 diabetes mellitus E11.65; Z79.4 Diabetes mellitus penitentiary insulin use: with intermediate project manager use Hypomagnesemia E83.42 Neuropathy G62.9 Hyperlipidemia E78.5 Anxiety and depression F41.9; F32.9 Hypertension I10
== END 2019-12-24 18:03 | disposition home health service (06) ==
LOC: ED 16:09 → INTOOBSV 20:40 → 2W 20:40 → SUATTDRO 20:40 → 2W 21:15

== ENCOUNTER 2019-12-27 16:19 | Inpatient (IN) ==
[2019-12-27] MEDS ORDERED: ALBUT/IPRATROP 3MG/0.5MG NEB 3 ML VIAL NEB STA ×2 (16:39→18:28)
[2019-12-27 16:52] LABS: Hematocrit (blood only) 40.9 % (37-47); Mean Corpuscular Hemoglobin 28.6 pg (25-34); Mean Corpuscular Hgb Conc 31.8 g/dL (32-36); Mean Corpuscular Volume 89.9 fL (80-100); Mean Platelet Volume 9.6 fL (7.4-10.4); Nucleated RBC # (auto) 0.08 K/uL (0-0); Nucleated RBC % (auto) 0.5 %; Platelet Count 453 K/uL (130-400); RDW Coefficient of Variation 14.3 % (11.5-14.5); RDW Standard Deviation 46.6 fL (36.4-46.3); Red Blood Count 4.55 M/uL (4.2-5.4); White Blood Count 15.29 K/uL (4.8-10.8)
--- NOTE | 2019-12-27 16:58 | Emergency Department Note ---
History of Present Illness General Chief complaint: Illness Stated complaint: HYPOXIA, LETHARGIC Time Seen by Provider: 12/27/19 16:27 History of Present Illness Provider complaint: Difficulty in breathing lethargy. Onset (ago): day(s) 2 69-year-old female with history of COPD presents emergency department for difficulty breathing. She reports increasing fatigue. She also reports chest pain and heaviness. She reports cough with yellow productive sputum. No hemoptysis. No dysuria. No hematuria. No melena or hematochezia. No nausea vomiting diarrhea or abdominal pain. Home Medications Home Medications Medication Instructions Recorded Confirmed Type Levemir FlexTouch U-100 Insuln 36 unit SUBCUT BID 12/22/19 12/27/19 History Victoza 3-Pedro 1.8 mg SUBCUT DAILY 12/22/19 12/27/19 History acetaminophen-codeine 1 tab PO Q8H PRN 12/22/19 12/27/19 History ammonium lactate [Skin Treatment] 1 applic TOPICAL BID 12/22/19 12/27/19 History cyclobenzaprine 5 mg PO HS 12/22/19 12/27/19 History gabapentin [Neurontin] 600 mg PO TID 12/22/19 12/27/19 History losartan [Cozaar] 100 mg PO DAILY 12/22/19 12/27/19 History metformin [Glucophage] 1,000 mg PO BID 12/22/19 12/27/19 History methotrexate sodium 5 mg PO WK 12/22/19 12/27/19 History potassium chloride 10 meq PO DAILY 12/22/19 12/27/19 History prednisone 5 mg PO DAILY 12/22/19 12/27/19 History simvastatin 5 mg PO QPM 12/22/19 12/27/19 History venlafaxine [Effexor XR] 150 mg PO DAILY 12/22/19 12/27/19 History doxycycline hyclate 100 mg PO BID@0800,2000 5 Days #10 12/24/19 12/27/19 Rx cap fluticasone furoate-vilanterol 1 puffs INH DAILY #60 ea 12/24/19 12/27/19 Rx [Breo Ellipta] prednisone See Rx Instructions .ROUTE 12/24/19 12/27/19 Rx .COMPLEX #20 tab Rituxan 0 mg IV DIRECTED 12/27/19 12/27/19 History albuterol sulfate [Ventolin HFA] 2 puffs INH Q6H PRN 12/27/19 12/27/19 History sulfasalazine 500 mg PO QPM 12/27/19 12/27/19 History sulfasalazine [Azulfidine] 1,000 mg PO QAM 12/27/19 12/27/19 History Allergies Allergy/AdvReac Type Severity Reaction Status Date / Time bee venom protein (honey bee) Allergy Unknown Unknown Verified 12/27/19 18:03 Past Med/Surg History Medical History Anxiety and depression Diabetes (Chronic) Hyperlipidemia Hypertension Neuropathy Rheumatoid arthritis Social History Preferred Language: Yi Communication Ability: Effective Fun House Attendant Required: No Beliefs That Will Affect Care: None Current Living Situation: Family Feels Safe at Home: Yes Smoking Status: Former smoker Second Hand Exposure: No ; Hx Alcohol Use: No Hx Substance Use: No Review of Systems A total of 10 systems reviewed and were otherwise negative Physical Exam Vital Signs Vital Signs - 24 hr 12/27/19 16:29 12/27/19 16:30 12/27/19 16:32 Temperature 37 C Temperature Source Oral Pulse Rate 81 83 Pulse Rate from SpO2 Sensor 80 82 Pulse Rhythm Regular Respiratory Rate 16 22 Respiratory Effort / Characteristics SOB on Exertion Respiratory Depth Normal Blood Pressure 128/62 Blood Pressure Mean 107 Pulse Oximetry 88 L 96 96 Oxygen Delivery Method Room Air Room Air Oxygen Flow Rate Sepsis Recent Fever Within 48 Hours No Sepsis Action Taken by Nursing No Action Required Oxygen Flow Rate - Titration 3 Pulse Oximetry Post Tiitration 97 12/27/19 16:45 12/27/19 17:00 12/27/19 17:15 Temperature Temperature Source Pulse Rate 81 85 86 Pulse Rate from SpO2 Sensor 85 Pulse Rhythm Respiratory Rate 22 22 17 Respiratory Effort / Characteristics Respiratory Depth Blood Pressure 140/78 Blood Pressure Mean 90 Pulse Oximetry 87 L Oxygen Delivery Method Room Air Oxygen Flow Rate Sepsis Recent Fever Within 48 Hours Sepsis Action Taken by Nursing Oxygen Flow Rate - Titration Pulse Oximetry Post Tiitration 12/27/19 17:30 12/27/19 17:31 12/27/19 17:45 Temperature Temperature Source Pulse Rate 83 83 84 Pulse Rate from SpO2 Sensor 83 83 85 Pulse Rhythm Respiratory Rate 15 17 16 Respiratory Effort / Characteristics Respiratory Depth Blood Pressure 129/71 Blood Pressure Mean 88 Pulse Oximetry 92 93 91 Oxygen Delivery Method Oxygen Flow Rate 2 2 Sepsis Recent Fever Within 48 Hours Sepsis Action Taken by Nursing Oxygen Flow Rate - Titration Pulse Oximetry Post Tiitration 12/27/19 18:00 12/27/19 18:01 Temperature Temperature Source Pulse Rate 86 90 Pulse Rate from SpO2 Sensor 86 90 Pulse Rhythm Respiratory Rate 18 21 Respiratory Effort / Characteristics Respiratory Depth Blood Pressure 121/78 Blood Pressure Mean 97 Pulse Oximetry 92 92 Oxygen Delivery Method Oxygen Flow Rate Sepsis Recent Fever Within 48 Hours Sepsis Action Taken by Nursing Oxygen Flow Rate - Titration Pulse Oximetry Post Tiitration Physical Exam GENERAL: She is oriented to person, place, and time. She appears well-developed and well-nourished. She does not appear distressed. HENT: Exam performed. -Head: Normocephalic and atraumatic. -Right Ear: External ear normal. No mastoid tenderness. -Left Ear: External ear normal. No mastoid tenderness. -Mouth/Throat: The oropharynx is clear and moist. No trismus in the jaw. No dental abscesses or uvula swelling. No oropharyngeal exudate or tonsillar abscesses. EYES: Conjunctivae and EOM are normal. Pupils are equal, round, and reactive to light. Right eye exhibits no discharge. Left eye exhibits no discharge. No scleral icterus. NECK: Normal range of motion. Neck supple. No JVD present. No spinous process tenderness present. No carotid bruit present. No rigidity. No tracheal deviation and normal range of motion present. No Brudzinski's sign and no Kernig's sign noted. CV: Normal rate, regular rhythm, normal heart sounds and intact distal pulses. There is no peripheral edema. Palpable radial pulses bue. PULM/CHEST: Inspiratory rales and expiratory wheezes bilaterally. -Chest Wall: She exhibits no tenderness. ABD: The abdomen is soft. Bowel sounds are normal. She has no distension. No mass is present. There is no tenderness. There is no rebound, no guarding, no Su's sign and no tenderness at McBurney's point. Rovsig negative MUSC/SKEL: Normal range of motion. There is no peripheral edema, tenderness or deformity. LYMPH: No cervical adenopathy. NEURO: She is alert and oriented to person, place, and time. She has normal strength. No cranial nerve deficit or sensory deficit. Coordination and gait normal. GCS eye subscore is 4. GCS verbal subscore is 5. GCS motor subscore is 6. Cerebellar tests wnl. SKIN: Skin is warm and dry. She is not diaphoretic. PSYCH: She has a normal mood and affect. Behavior is normal. Judgment and thought content normal. Course Course 162: The patient was evaluated in room B7. A complete history and physical exam was performed. Patient was placed on night monitor and continuous pulse oximeter. Patient was found to be hypoxic on room air 88%. Patient was placed on 2 L nasal cannula which improved her oxygen saturation to 95%. EMR reviewed. Patient was admitted to the hospital on December 22, 2019 and discharge from the hospital 3 days ago on December 24, 2019. She has a history of COPD, diabetes, hypertension, arthritis, hyperlipidemia, anxiety and depression. Her rapid COVID-19 testing was negative. She is neutropenic. She is on multiple immunosuppressive drugs including methotrexate, prednisone, Rituxan. She was discharged without home oxygen but was discharged with prednisone, doxycycline, Brilinta, and albuterol inhaler. Her bio Modanisa upper respiratory panel was positive for entero-/rhinovirus. Cardiac monitoring: An order was placed for continuous cardiac monitoring. The monitor shows a rate of 90 with sinus rhythm 1750: Vital signs stable on 2 L supplemental oxygen via nasal cannula. Labs show leukocytosis of 15.29. Lactic acid elevated 2.3. Magnesium is 1.3. Needs Humira placed in the emergency department. Chest x-ray shows cardiomegaly with vascular congestion left greater than right opacities. Given the patient's recent admission, being on multiple immunosuppressive drugs, the patient would be treated for pneumonia. Vanco and cefepime will be ordered empirically. Patient will be admitted to the [facility] team. Discussed with BURTON Ha who stated to admit to Dr. Fitzgerald. Administered Medications Magnesium Sulfate/Dextrose (Magnesium Sulfate / D5w) 1 gm in 100 mls @ 100 mls/hr IV Q1H JULIAN Stop: 12/27/19 19:59 Last Admin: 12/27/19 17:53 Dose: 100 mls/hr Documented by: [id number] Discontinued Medications Albuterol (Duoneb) 3 ml NEB NOW STA Stop: 12/27/19 16:40 Last Admin: 12/27/19 17:03 Dose: 3 ml Documented by: [id number] Cefepime HCl (Maxipime) 2,000 mg in 20 mls @ 5 mls/min IV NOW STA; Protocol Stop: 12/27/19 17:49 Last Admin: 12/27/19 17:54 Dose: 5 mls/min Documented by: [id number] Critical Care Time Critical Care Time: Yes Total Critical Care Time: 49 I have personally spent greater than 49 minutes of critical care time in the direct management of this patient. This includes bedside care, interpretation of diagnostic studies, and testing, discussion with consultants, patient, and family members, and other required patient management activities. This 49 minutes is in excess of all separately billable procedures. Medical Decision Making Laboratory Data Result diagrams: 12/27/19 16:05 12/27/19 16:05 Lab Results 12/27/19 12/27/19 12/27/19 Range/Units 16:05 16:05 16:05 WBC 15.29 H (4.8-10.8) K/uL RBC 4.55 (4.2-5.4) M/uL Hgb 13.0 (12.0-16.0) g/dL Hct 40.9 (37-47) % MCV 89.9 (80-100) fL MCH 28.6 (25-34) pg MCHC 31.8 L (32-36) g/dL RDW Std Deviation 46.6 H (36.4-46.3) fL RDW Coeff of Sandra 14.3 (11.5-14.5) % Plt Count 453 H (130-400) K/uL MPV 9.6 (7.4-10.4) fL Absolute Nucleated RBC 0.08 H (0-0) K/uL Nucleated RBC % (auto) 0.5 % Neutrophils % (Manual) 70.2 % Lymphocytes % (Manual) 14.0 % Monocytes % (Manual) 8.8 % Metamyelocytes % (Man) 2.6 % Myelocytes % (Man) 4.4 % Neutrophils # (Manual) 10.73 H (1.4-6.5) K/uL Total Absolute Neuts 10.73 H (1.4-6.5) K/uL Lymphocytes # (Manual) 2.14 (1.2-3.4) K/uL Total Abs Lymphocytes 2.14 (1.2-3.4) K/uL Monocytes # (Manual) 1.35 H (0.11-0.59) K/uL Metamyelocytes # (Man) 0.40 H (0-0) K/uL Myelocytes # (Manual) 0.67 H (0-0) K/uL PT 11.0 (9.0-12.0) Seconds INR 1.0 (0.9-1.1) APTT 27.5 (21.0-31.0) Seconds PTT Ratio 1.0 VBG pH (7.36-7.41) VBG pCO2 (38-50) mmHg VBG pO2 mmHg VBG HCO3 mmol/L VBG O2 Saturation % VBG Base Excess mEq/L Barometric Pressure mm/Hg Sodium (136-145) mmol/L Potassium (3.5-5.1) mmol/L Chloride (98-107) mmol/L Carbon Dioxide (21-32) mmol/L Anion Gap (3-11) BUN (7-18) mg/dl Creatinine (0.6-1.2) mg/dl Est Cr Clr Drug Dosing ml/min Est GFR ( Amer) Est GFR (Non-Af Amer) BUN/Creatinine Ratio (10-20) Glucose (70-99) mg/dl Lactate (0.4-2.0) mmol/L Calcium (8.5-10.1) mg/dl Magnesium (1.8-2.4) mg/dl Total Bilirubin (0.2-1) mg/dl AST (15-37) U/L ALT (12-78) U/L Alkaline Phosphatase (45-117) U/L Troponin I (0-0.045) ng/ml NT-Pro-B Natriuret Pep (0-900) pg/ml Total Protein (6.4-8.2) gm/dl Albumin (3.4-5.0) gm/dl Globulin (2.5-4.0) gm/dl Albumin/Globulin Ratio (0.9-2) Procalcitonin 0.11 (0-0.5) ng/ml 12/27/19 12/27/19 12/27/19 Range/Units 16:05 16:44 16:44 WBC (4.8-10.8) K/uL RBC (4.2-5.4) M/uL Hgb (12.0-16.0) g/dL Hct (37-47) % MCV (80-100) fL MCH (25-34) pg MCHC (32-36) g/dL RDW Std Deviation (36.4-46.3) fL RDW Coeff of Sandra (11.5-14.5) % Plt Count (130-400) K/uL MPV (7.4-10.4) fL Absolute Nucleated RBC (0-0) K/uL Nucleated RBC % (auto) % Neutrophils % (Manual) % Lymphocytes % (Manual) % Monocytes % (Manual) % Metamyelocytes % (Man) % Myelocytes % (Man) % Neutrophils # (Manual) (1.4-6.5) K/uL Total Absolute Neuts (1.4-6.5) K/uL Lymphocytes # (Manual) (1.2-3.4) K/uL Total Abs Lymphocytes (1.2-3.4) K/uL Monocytes # (Manual) (0.11-0.59) K/uL Metamyelocytes # (Man) (0-0) K/uL Myelocytes # (Manual) (0-0) K/uL PT (9.0-12.0) Seconds INR (0.9-1.1) APTT (21.0-31.0) Seconds PTT Ratio VBG pH 7.41 (7.36-7.41) VBG pCO2 51 H (38-50) mmHg VBG pO2 55 mmHg VBG HCO3 31 mmol/L VBG O2 Saturation 84.3 % VBG Base Excess 5.6 mEq/L Barometric Pressure 723.6 mm/Hg Sodium 133 L (136-145) mmol/L Potassium 4.3 (3.5-5.1) mmol/L Chloride 98 (98-107) mmol/L Carbon Dioxide 32 (21-32) mmol/L Anion Gap 3.0 (3-11) BUN 14 (7-18) mg/dl Creatinine 0.91 (0.6-1.2) mg/dl Est Cr Clr Drug Dosing 60.5 ml/min Est GFR ( Amer) 75.1 Est GFR (Non-Af Amer) 64.8 BUN/Creatinine Ratio 15.3 (10-20) Glucose 163 H (70-99) mg/dl Lactate 2.3 H* (0.4-2.0) mmol/L Calcium 10.5 H (8.5-10.1) mg/dl Magnesium 1.3 L (1.8-2.4) mg/dl Total Bilirubin 0.4 (0.2-1) mg/dl AST 17 (15-37) U/L ALT 23 (12-78) U/L Alkaline Phosphatase 77 (45-117) U/L Troponin I < 0.015 (0-0.045) ng/ml NT-Pro-B Natriuret Pep 378 (0-900) pg/ml Total Protein 7.8 (6.4-8.2) gm/dl Albumin 3.2 L (3.4-5.0) gm/dl Globulin 4.6 H (2.5-4.0) gm/dl Albumin/Globulin Ratio 0.7 L (0.9-2) Procalcitonin (0-0.5) ng/ml Imaging Data Radiologist's Impression: XR chest 1V portable HISTORY: 69 years-old Female SEPSIS acute sepsis COMPARISON: Chest radiograph 12/22/2019 TECHNIQUE: Portable AP view of the chest FINDINGS: Cardiac silhouette is enlarged. Pulmonary vascular congestion with mild interstitial coarsening persists. Calcified plaque of the thoracic aortic arch. No pneumothorax or large pleural effusion. Mild right hemidiaphragmatic elevation. Mild left greater than right bibasilar opacities. IMPRESSION: 1. Cardiomegaly with pulmonary vascular congestion and interstitial coarsening suggestive of pulmonary edema versus chronic fibrotic changes. 2. Left greater than right bibasilar opacities suggest probable atelectasis/scarring. Pneumonitis considered less likely. ACT 112: Negative or not required by law. The above report was generated using voice recognition software. It may contain grammatical, syntax or spelling errors. Electronically signed by: Calvin Albrecht M.D. 12/27/2019 5:02 PM Dictated: 12/27/191700 Transcribed: 12/27/191700 ECG Data Indication: + SOB/dyspnea Rate (beats per minute): 82 Rhythm: + normal sinus ECG Intervals/blocks: + Normal QRS, + Normal VA and + Normal QT-c ECG ST segments: + Normal ST segments [facility] Narrative 1625: The patient was evaluated in room B7. A complete history and physical exam was performed. Patient was placed on night monitor and continuous pulse oximeter. Patient was found to be hypoxic on room air 88%. Patient was placed on 2 L nasal cannula which improved her oxygen saturation to 95%. EMR reviewed. Patient was admitted to the hospital on December 22, 2019 and discharge from the hospital 3 days ago on December 24, 2019. She has a history of COPD, diabetes, hypertension, arthritis, hyperlipidemia, anxiety and depression. Her rapid COVID-19 testing was negative. She is neutropenic. She is on multiple immunosuppressive drugs including methotrexate, prednisone, Rituxan. She was discharged without home oxygen but was discharged with prednisone, doxycycline, Brilinta, and albuterol inhaler. Her bio fire upper respiratory panel was positive for entero-/rhinovirus. Cardiac monitoring: An order was placed for continuous cardiac monitoring. The monitor shows a rate of 90 with sinus rhythm 1750: Vital signs stable on 2 L supplemental oxygen via nasal cannula. Labs show leukocytosis of 15.29. Lactic acid elevated 2.3. Magnesium is 1.3. Needs Humira placed in the emergency department. Chest x-ray shows cardiomegaly with vascular congestion left greater than right opacities. Given the patient's recent admission, being on multiple immunosuppressive drugs, the patient would be treated for pneumonia. Vanco and cefepime will be ordered empirically. Patient will be admitted to the [facility] hospitalist team. Discussed with BURTON Ha who stated to admit to Dr. Fitzgerald. Impression & Plan Hypoxia, COPD exacerbation, Hypomagnesemia Discharge Plan Visit Data Chief Complaint: Illness Stated Complaint: HYPOXIA, LETHARGIC ED Provider: Martin Larry Discharge Problem: Hypoxia, COPD exacerbation, Hypomagnesemia Patient Disposition: Admitted As Inpatient Forms Stand Alone Forms: My [facility] Prescriptions Prescriptions: No Action sulfasalazine 500 mg tablet 500 mg PO QPM RF: 0 sulfasalazine [Azulfidine] 500 mg tablet 1,000 mg PO QAM RF: 0 albuterol sulfate [Ventolin HFA] 90 mcg/actuation HFA aerosol inhaler 2 puffs INH Q6H PRN (Reason: Shortness Of Breath Or Wheezing) RF: 0 Rituxan 10 mg/mL concentrate 0 mg IV DIRECTED RF: 0 ammonium lactate [Skin Treatment] 12 % lotion 1 applic TOPICAL BID RF: 0 prednisone 5 mg tablet 5 mg PO DAILY RF: 0 venlafaxine [Effexor XR] 150 mg capsule,extended release 24hr 150 mg PO DAILY RF: 0 potassium chloride 10 mEq tablet extended release 10 meq PO DAILY RF: 0 acetaminophen-codeine 300-30 mg tablet 1 tab PO Q8H PRN (Reason: Pain) RF: 0 methotrexate sodium 2.5 mg tablet 5 mg PO WK RF: 0 simvastatin 5 mg tablet 5 mg PO QPM RF: 0 metformin [Glucophage] 1,000 mg tablet 1,000 mg PO BID RF: 0 gabapentin [Neurontin] 300 mg capsule 600 mg PO TID RF: 0 losartan [Cozaar] 100 mg tablet 100 mg PO DAILY RF: 0 cyclobenzaprine 5 mg tablet 5 mg PO HS RF: 0 Levemir FlexTouch U-100 Insuln 100 unit/mL (3 mL) insulin pen 36 unit SUBCUT BID RF: 0 Victoza 3-Pedro 0.6 mg/0.1 mL (18 mg/3 mL) pen injector 1.8 mg SUBCUT DAILY RF: 0 prednisone 10 mg tablet See Rx Instructions .ROUTE .COMPLEX Qty: 20 RF: 0 doxycycline hyclate 100 mg Capsule 100 mg PO BID@0800,2000 5 Days Qty: 10 RF: 0 Breo Ellipta 100-25 mcg/dose blister with device 1 puffs INH DAILY Qty: 60 RF: 0 Referrals Referrals: PCP,NO [Primary Care Provider] -
[2019-12-27 17:04] LABS: Partial Thromboplastin Time 27.5 Seconds (21.0-31.0)
--- NOTE | 2019-12-27 17:04 | XRay Report ---
XR chest 1V portable HISTORY: 69 years-old Female SEPSIS acute sepsis COMPARISON: Chest radiograph 12/22/2019 TECHNIQUE: Portable AP view of the chest FINDINGS: Cardiac silhouette is enlarged. Pulmonary vascular congestion with mild interstitial coarsening persi sts. Calcified plaque of the thoracic aortic arch. No pneumothorax or large pleural effusion. Mild ri ght hemidiaphragmatic elevation. Mild left greater than right bibasilar opacities. IMPRESSION: 1. Cardiomegaly with pulmonary vascular congestion and interstitial coarsening suggestive of pulmonar y edema versus chronic fibrotic changes. 2. Left greater than right bibasilar opacities suggest probable atelectasis/scarring. Pneumonitis con sidered less likely. ACT 112: Negative or not required by law. The above report was generated using voice recognition software. It may contain grammatical, syntax o r spelling errors. Electronically signed by: Calvin Albrecht M.D. 12/27/2019 5:02 PM
[2019-12-27 17:10] LABS: Alanine Aminotransferase 23 U/L (12-78); Albumin Level 3.2 gm/dl (3.4-5.0); Aspartate Aminotransferase 17 U/L (15-37); BUN Creatinine Ratio 15.3 (10-20); Blood Urea Nitrogen 14 mg/dl (7-18); Calcium 10.5 mg/dl (8.5-10.1); Carbon Dioxide 32 mmol/L (21-32); Chloride 98 mmol/L (98-107); Creatinine Clr Calc Pharmacy 60.5 ml/min; Est GFR (African American) 75.1; Est GFR (Non-African American) 64.8; Glucose 163 mg/dl (70-99); Magnesium 1.3 mg/dl (1.8-2.4); Potassium 4.3 mmol/L (3.5-5.1); Sodium 133 mmol/L (136-145)
[2019-12-27 17:15] LABS: Albumin Globulin Ratio 0.7 (0.9-2); Alkaline Phosphatase 77 U/L (45-117); Bilirubin,Total 0.4 mg/dl (0.2-1); Globulin 4.6 gm/dl (2.5-4.0); NT Pro B Type Natriuretic Pept 378 pg/ml (0-900); Total Protein 7.8 gm/dl (6.4-8.2); Troponin I < 0.015 ng/ml (0-0.045)
[2019-12-27 17:17] LABS: ALC (manual) 2.14 K/uL (1.2-3.4); ANC (manual) 10.73 K/uL (1.4-6.5); Lymphocytes # (manual) 2.14 K/uL (1.2-3.4); Metamyelocytes % (manual) 2.6 %; Monocytes # (manual) 1.35 K/uL (0.11-0.59); Monocytes % (manual) 8.8 %; Myelocytes # (manual) 0.67 K/uL (0-0); Myelocytes % (manual) 4.4 %; Neutrophils # (manual) 10.73 K/uL (1.4-6.5); Neutrophils % (manual) 70.2 %
[2019-12-27 17:23] LABS: Base Excess VBG 5.6 mEq/L; Oxygen Saturation VBG 84.3 %; pH VBG 7.41 (7.36-7.41)
[2019-12-27] MEDS ORDERED: CEFEPIME 2,000 MG/20 ML VIAL IV STA (17:46)
[2019-12-27] MEDS ORDERED: VANCOMYCIN CONSULT ACTIVE PRN (17:46)
[2019-12-27] MEDS ORDERED: VANCOMYCIN HCL 1,750 MG in SODIUM CHLORIDE 0.9% 500 ML IV ONE (17:46)
[2019-12-27] MEDS: MAGNESIUM SULFATE / D5W 1 GM/100 ML BAG IV SCH ×2 (17:53→19:02)
[2019-12-27] MEDS ORDERED: methylPREDNISolone 125 MG/2 ML VIAL IV SCH (18:53)
--- NOTE | 2019-12-27 18:54 | History & Physical Report ---
Date of Service December 27, 2019 Assessment & Plan (1) Acute respiratory failure with hypoxia: Presented with continued shortness of breath, productive cough, evidence of pneumonia and/or atelectasis and interstitial thickening on chest x-ray With diffuse wheezing on examination and pulse ox 88% on room air on admission with some tachypnea -Recently treated with doxycycline, prednisone burst and recent admission-bio fire positive for entero-/rhinovirus at that time and negative for COVID-19 Remains afebrile Previous notes reviewed-primary care doctor reported that PFTs from 12/2018 reported as normal but with 18% improvement with bronchodilators suggestive of small airways disease VBG here is normal with pH 7.41/51 With cardiomegaly and pulmonary vascular congestion seen on chest x-ray, however proBNP is normal and do not suspect CHF -Admit to medical floor with telemetry -Continue O2 via nasal cannula to keep pulse ox greater than 92% -Start methylprednisolone 60 mg IV every 12 hours -Antibiotics for suspected pneumonia as below -Start DuoNebs every 6 hours scheduled -Continue home Breo Ellipta -Consult pulmonology as this is her second admission in 1 week for acute hypoxic respiratory failure (2) Pneumonia: With chest x-ray showing interstitial coarsening, left greater than right opacities versus atelectasis Remains afebrile but is fatigued, with productive cough With positive entero-/rhinovirus on [facility] last time, COVID-19 negative Failed course of doxycycline Procalcitonin mildly elevated from previous at 0.11-repeat in the morning Leukocytosis likely secondary to high-dose prednisone recently She is immunocompromised given all of her immunosuppressive drugs and chronic prednisone -MRSA swab from last admission a few days ago was negative-no need to continue vancomycin although she did receive 1 dose in the ER here -Continue cefepime to cover gram-negative pneumonia and start azithromycin to cover for atypicals-of note QT was 479 on admission-check ECG in the morning -Consult pulmonology as above -Follow chest x-ray -Check Legionella antigen and mycoplasma -Follow blood cultures and will check sputum culture (3) Reactive airway disease with acute exacerbation: As above (4) Hypomagnesemia: Magnesium 1.3 on admission, unclear why -Replaced with 2 g of IV magnesium sulfate in the ER -Follow magnesium level in the morning (5) Thrombocytosis: Platelet count elevated here at 453 although is improved from previous of 549 a couple of days ago and likely secondary to acute phase reactant -Follow CBC (6) Leukocytosis: WBC count elevated here at 15 but also has been on a recent burst of prednisone Likely secondary to steroids but could be due to infection as well When she was here a few days ago, she had significant neutropenia and was seen by hematology-this was thought to be possibly secondary to viral suppression and is now resolved (7) Chronic steroid use: On prednisone 5 mg daily for RA -Now on IV Solu-Medrol as above for asthma exacerbation (8) Neuropathy: Continue home gabapentin (9) Hyperlipidemia: Continue home simvastatin (10) Anxiety and depression: Stable -Continue home Effexor (11) Hypertension: Blood pressures are controlled Recently was discontinued from her chlorthalidone for low blood pressure -Continue home losartan (12) Rheumatoid arthritis: Follows with rheumatology has chronic joint pains all over and history of right ankle fusion -On chronic prednisone as above -Also on rituximab-on hold -Also recently decreased on her dose of sulfasalazine down to 1500 mg daily- continue here -On methotrexate which is recently reduced to 5 mg once weekly-on hold while here (13) Diabetes: On Lantus and Victoza at home as well as metformin At risk for hyperglycemia here with IV steroids -Continue Lantus and add NovoLog sliding scale insulin -Holding Victoza and metformin from home Accu-Cheks q. before meals and at bedtime Diabetic diet Hemoglobin A1c checked a few days ago and was high at 8.9% Needs diabetic education and counseling (14) DVT prophylaxis: Lovenox SQ Disposition-admit to medical floor with telemetry, expected least a 2 midnight stay History of Present Illness Chief Complaint: Shortness of breath, cough, fatigue Primary Care Provider: NO PCP This patient is a 69-year-old female with a history of reactive airways disease, DM 2, HTN, rheumatoid arthritis on chronic prednisone and immunosuppressant drugs, HL, anxiety/depression, neuropathy, who was recently admitted for acute respiratory failure with hypoxia and acute bronchitis from entero-rhinovirus from 12/21-12/23. Of note, she was negative for COVID-19 at that time. She was treated with higher doses of prednisone, nebulizers, and doxycycline and discharged home on a prednisone taper and continue doxycycline. She reports since discharge she never felt any better and has continued to have a productive cough of yellow sputum and shortness of breath with wheezing. She reports a lot of fatigue but has been ambulatory and getting around her house. She denies any nausea or vomiting, no diarrhea or abdominal pain. She denies fever/sweats/chills. She has had a sore throat and tongue. Has a mild headache but no facial pain or rhinorrhea. When she presented to the ER, she was found to be diffusely wheezing and hypoxemic with a pulse ox of 88% on room air. She was placed on 2 L and came up to the mid 90s on her pulse ox. She was given a nebulizer treatment, IV magnesium, IV cefepime and vancomycin in the ER with mild improvement. She was afebrile and vital signs were otherwise stable. Allergies Allergy/AdvReac Type Severity Reaction Status Date / Time bee venom protein (honey bee) Allergy Unknown Unknown Verified 12/27/19 18:03 Home Medications Home Medications Medication Instructions Recorded Confirmed Type Levemir FlexTouch U-100 Insuln 36 unit SUBCUT BID 12/22/19 12/27/19 History Victoza 3-Pedro 1.8 mg SUBCUT DAILY 12/22/19 12/27/19 History acetaminophen-codeine 1 tab PO Q8H PRN 12/22/19 12/27/19 History ammonium lactate [Skin Treatment] 1 applic TOPICAL BID 12/22/19 12/27/19 History cyclobenzaprine 5 mg PO HS 12/22/19 12/27/19 History gabapentin [Neurontin] 600 mg PO TID 12/22/19 12/27/19 History losartan [Cozaar] 100 mg PO DAILY 12/22/19 12/27/19 History metformin [Glucophage] 1,000 mg PO BID 12/22/19 12/27/19 History methotrexate sodium 5 mg PO WK 12/22/19 12/27/19 History potassium chloride 10 meq PO DAILY 12/22/19 12/27/19 History prednisone 5 mg PO DAILY 12/22/19 12/27/19 History simvastatin 5 mg PO QPM 12/22/19 12/27/19 History venlafaxine [Effexor XR] 150 mg PO QPM 12/22/19 12/27/19 History doxycycline hyclate 100 mg PO BID@0800,2000 5 Days #10 12/24/19 12/27/19 Rx cap fluticasone furoate-vilanterol 1 puffs INH DAILY #60 ea 12/24/19 12/27/19 Rx [Breo Ellipta] prednisone See Rx Instructions .ROUTE 12/24/19 12/27/19 Rx .COMPLEX #20 tab Rituxan 0 mg IV DIRECTED 12/27/19 12/27/19 History albuterol sulfate [Ventolin HFA] 2 puffs INH Q6H PRN 12/27/19 12/27/19 History sulfasalazine 500 mg PO QPM 12/27/19 12/27/19 History sulfasalazine [Azulfidine] 1,000 mg PO QAM 12/27/19 12/27/19 History Past Med/Surg History Medical History Anxiety and depression Chronic steroid use Diabetes (Chronic) Hyperlipidemia Hypertension Neuropathy Rheumatoid arthritis Splenomegaly Surgical History History of ankle fusion History of section History of repair of left hip joint Family History (Updated 12/27/19 @ 20:07 by Rosio Grider MD) Other Family history non-contributory Social History Preferred Language: Irish Communication Ability: Effective Carding Doubler Required: No Beliefs That Will Affect Care: None marital status: / Current Living Situation: Alone 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 Feels Safe at Home: Yes Smoking Status: Former smoker packs per day: 1 ; Years Smoked: 20 ; Number of Years Since Quit: 20 ; Second Hand Exposure: No ; Hx Alcohol Use: No Hx Substance Use: No Review of Systems Review of Systems: All systems reviewed & are unremarkable except as noted in HPI & below (Also having some echoing in the right ear with a feeling of fullnes s) Denies dysuria or hematuria, no hematochezia, no nausea/vomiting/diarrhea, no abdominal pain, no chest pain, no skin rashes Has chronic joint pains but not worse than usual Physical Exam Constitutional: WD/WN, vitals as above + ill appearing and + obese Eyes: PERRL, conjunctivae normal, anicteric sclerae ENMT: external ear and nose normal, oropharynx normal Ears: + TM abnormality (Mild erythema of the right TM); no hearing impairment, no external ear abnormality and no EAC abnormality Nose: no turbinate abnormality, no nasal mucous membrane abnormality, no nasal discharge, no sinus tenderness and nasal mucous membranes not dry Mouth: + oropharynx abnormality (White exudate on the tongue and mild erythema of the posterior oropharynx) Neck: trachea midline, no thyromegaly Respiratory: normal respiratory effort Auscultation: + rhonchi (Bilateral lower lung blum right greater than left) and + wheezes (Diffuse expiratory wheezes in all lung blum); no crackles Cardiovascular: RRR, no murmur, no edema Chest (Breasts): Chest: normal inspection of chest Gastrointestinal (Abdomen): normal bowel sounds, soft, nontender, no hepatosplenomegaly Musculoskeletal: Extremities: extremities normal to inspection; no cyanosis and no clubbing Skin: + lesion (Right distal medial leg with small fluid-filled clear blister with mild surrounding erythema) and + erythema (Left lower abdomen with 5 cm circular region of mild erythema and induration surrounding a needle injection site) Neurologic: moves all extremities and awake; no focal motor deficits Psychiatric: A+Ox3, euthymic affect Lymphatic: no lymphedema Results & Data Results & Data ([facility]) Vital Signs (Past 12 Hours) Vital Signs Temp Pulse Resp BP Pulse Ox 12/27/19 18:01 90 21 92 12/27/19 18:00 86 18 121/78 92 12/27/19 17:45 84 16 91 12/27/19 17:31 83 17 93 12/27/19 17:30 83 15 129/71 92 12/27/19 17:15 86 17 87 L 12/27/19 17:00 85 22 140/78 12/27/19 16:45 81 22 12/27/19 16:32 83 22 96 12/27/19 16:30 37 C 81 16 128/62 96 12/27/19 16:29 88 L Laboratory Results 12/27/19 12/27/19 12/27/19 Range/Units 19:32 16:44 16:44 WBC (4.8-10.8) K/uL RBC (4.2-5.4) M/uL Hgb (12.0-16.0) g/dL Hct (37-47) % MCV (80-100) fL MCH (25-34) pg MCHC (32-36) g/dL RDW Std Deviation (36.4-46.3) fL RDW Coeff of Sandra (11.5-14.5) % Plt Count (130-400) K/uL MPV (7.4-10.4) fL Absolute Nucleated RBC (0-0) K/uL Nucleated RBC % (auto) % Neutrophils % (Manual) % Lymphocytes % (Manual) % Monocytes % (Manual) % Metamyelocytes % (Man) % Myelocytes % (Man) % Neutrophils # (Manual) (1.4-6.5) K/uL Total Absolute Neuts (1.4-6.5) K/uL Lymphocytes # (Manual) (1.2-3.4) K/uL Total Abs Lymphocytes (1.2-3.4) K/uL Monocytes # (Manual) (0.11-0.59) K/uL Metamyelocytes # (Man) (0-0) K/uL Myelocytes # (Manual) (0-0) K/uL PT (9.0-12.0) Seconds INR (0.9-1.1) APTT (21.0-31.0) Seconds PTT Ratio VBG pH 7.41 (7.36-7.41) VBG pCO2 51 H (38-50) mmHg VBG pO2 55 mmHg VBG HCO3 31 mmol/L VBG O2 Saturation 84.3 % VBG Base Excess 5.6 mEq/L Barometric Pressure 723.6 mm/Hg Sodium (136-145) mmol/L Potassium (3.5-5.1) mmol/L Chloride (98-107) mmol/L Carbon Dioxide (21-32) mmol/L Anion Gap (3-11) BUN (7-18) mg/dl Creatinine (0.6-1.2) mg/dl Est Cr Clr Drug Dosing ml/min Est GFR ( Amer) Est GFR (Non-Af Amer) BUN/Creatinine Ratio (10-20) Glucose (70-99) mg/dl Lactate 1.1 2.3 H* (0.4-2.0) mmol/L Calcium (8.5-10.1) mg/dl Magnesium (1.8-2.4) mg/dl Total Bilirubin (0.2-1) mg/dl AST (15-37) U/L ALT (12-78) U/L Alkaline Phosphatase (45-117) U/L Troponin I (0-0.045) ng/ml NT-Pro-B Natriuret Pep (0-900) pg/ml Total Protein (6.4-8.2) gm/dl Albumin (3.4-5.0) gm/dl Globulin (2.5-4.0) gm/dl Albumin/Globulin Ratio (0.9-2) Procalcitonin (0-0.5) ng/ml 12/27/19 12/27/19 12/27/19 Range/Units 16:05 16:05 16:05 WBC 15.29 H (4.8-10.8) K/uL RBC 4.55 (4.2-5.4) M/uL Hgb 13.0 (12.0-16.0) g/dL Hct 40.9 (37-47) % MCV 89.9 (80-100) fL MCH 28.6 (25-34) pg MCHC 31.8 L (32-36) g/dL RDW Std Deviation 46.6 H (36.4-46.3) fL RDW Coeff of Sandra 14.3 (11.5-14.5) % Plt Count 453 H (130-400) K/uL MPV 9.6 (7.4-10.4) fL Absolute Nucleated RBC 0.08 H (0-0) K/uL Nucleated RBC % (auto) 0.5 % Neutrophils % (Manual) 70.2 % Lymphocytes % (Manual) 14.0 % Monocytes % (Manual) 8.8 % Metamyelocytes % (Man) 2.6 % Myelocytes % (Man) 4.4 % Neutrophils # (Manual) 10.73 H (1.4-6.5) K/uL Total Absolute Neuts 10.73 H (1.4-6.5) K/uL Lymphocytes # (Manual) 2.14 (1.2-3.4) K/uL Total Abs Lymphocytes 2.14 (1.2-3.4) K/uL Monocytes # (Manual) 1.35 H (0.11-0.59) K/uL Metamyelocytes # (Man) 0.40 H (0-0) K/uL Myelocytes # (Manual) 0.67 H (0-0) K/uL PT 11.0 (9.0-12.0) Seconds INR 1.0 (0.9-1.1) APTT 27.5 (21.0-31.0) Seconds PTT Ratio 1.0 VBG pH (7.36-7.41) VBG pCO2 (38-50) mmHg VBG pO2 mmHg VBG HCO3 mmol/L VBG O2 Saturation % VBG Base Excess mEq/L Barometric Pressure mm/Hg Sodium 133 L (136-145) mmol/L Potassium 4.3 (3.5-5.1) mmol/L Chloride 98 (98-107) mmol/L Carbon Dioxide 32 (21-32) mmol/L Anion Gap 3.0 (3-11) BUN 14 (7-18) mg/dl Creatinine 0.91 (0.6-1.2) mg/dl Est Cr Clr Drug Dosing 60.5 ml/min Est GFR ( Amer) 75.1 Est GFR (Non-Af Amer) 64.8 BUN/Creatinine Ratio 15.3 (10-20) Glucose 163 H (70-99) mg/dl Lactate (0.4-2.0) mmol/L Calcium 10.5 H (8.5-10.1) mg/dl Magnesium 1.3 L (1.8-2.4) mg/dl Total Bilirubin 0.4 (0.2-1) mg/dl AST 17 (15-37) U/L ALT 23 (12-78) U/L Alkaline Phosphatase 77 (45-117) U/L Troponin I < 0.015 (0-0.045) ng/ml NT-Pro-B Natriuret Pep 378 (0-900) pg/ml Total Protein 7.8 (6.4-8.2) gm/dl Albumin 3.2 L (3.4-5.0) gm/dl Globulin 4.6 H (2.5-4.0) gm/dl Albumin/Globulin Ratio 0.7 L (0.9-2) Procalcitonin (0-0.5) ng/ml 12/27/19 Range/Units 16:05 WBC (4.8-10.8) K/uL RBC (4.2-5.4) M/uL Hgb (12.0-16.0) g/dL Hct (37-47) % MCV (80-100) fL MCH (25-34) pg MCHC (32-36) g/dL RDW Std Deviation (36.4-46.3) fL RDW Coeff of Sandra (11.5-14.5) % Plt Count (130-400) K/uL MPV (7.4-10.4) fL Absolute Nucleated RBC (0-0) K/uL Nucleated RBC % (auto) % Neutrophils % (Manual) % Lymphocytes % (Manual) % Monocytes % (Manual) % Metamyelocytes % (Man) % Myelocytes % (Man) % Neutrophils # (Manual) (1.4-6.5) K/uL Total Absolute Neuts (1.4-6.5) K/uL Lymphocytes # (Manual) (1.2-3.4) K/uL Total Abs Lymphocytes (1.2-3.4) K/uL Monocytes # (Manual) (0.11-0.59) K/uL Metamyelocytes # (Man) (0-0) K/uL Myelocytes # (Manual) (0-0) K/uL PT (9.0-12.0) Seconds INR (0.9-1.1) APTT (21.0-31.0) Seconds PTT Ratio VBG pH (7.36-7.41) VBG pCO2 (38-50) mmHg VBG pO2 mmHg VBG HCO3 mmol/L VBG O2 Saturation % VBG Base Excess mEq/L Barometric Pressure mm/Hg Sodium (136-145) mmol/L Potassium (3.5-5.1) mmol/L Chloride (98-107) mmol/L Carbon Dioxide (21-32) mmol/L Anion Gap (3-11) BUN (7-18) mg/dl Creatinine (0.6-1.2) mg/dl Est Cr Clr Drug Dosing ml/min Est GFR ( Amer) Est GFR (Non-Af Amer) BUN/Creatinine Ratio (10-20) Glucose (70-99) mg/dl Lactate (0.4-2.0) mmol/L Calcium (8.5-10.1) mg/dl Magnesium (1.8-2.4) mg/dl Total Bilirubin (0.2-1) mg/dl AST (15-37) U/L ALT (12-78) U/L Alkaline Phosphatase (45-117) U/L Troponin I (0-0.045) ng/ml NT-Pro-B Natriuret Pep (0-900) pg/ml Total Protein (6.4-8.2) gm/dl Albumin (3.4-5.0) gm/dl Globulin (2.5-4.0) gm/dl Albumin/Globulin Ratio (0.9-2) Procalcitonin 0.11 (0-0.5) ng/ml Diagnostic Findings Chest x-ray image personally reviewed by me and agree with the following report: XR chest 1V portable HISTORY: 69 years-old Female SEPSIS acute sepsis COMPARISON: Chest radiograph 12/22/2019 TECHNIQUE: Portable AP view of the chest FINDINGS: Cardiac silhouette is enlarged. Pulmonary vascular congestion with mild interstitial coarsening persists. Calcified plaque of the thoracic aortic arch. No pneumothorax or large pleural effusion. Mild right hemidiaphragmatic elevation. Mild left greater than right bibasilar opacities. IMPRESSION: 1. Cardiomegaly with pulmonary vascular congestion and interstitial coarsening suggestive of pulmonary edema versus chronic fibrotic changes. 2. Left greater than right bibasilar opacities suggest probable atelectasis/scarring. Pneumonitis considered less likely. ECG Additional Comments: ECG with normal sinus rhythm, QTC 479, no ischemic changes Code Status & VTE Plan Code Status Full code VTE Prophylaxis Plan VTE Prophylaxis will be ordered: Yes PG Care Time/CCT Total # of Minutes Spent Total Time Spent with Patient: Total time spent is greater than 50% in coordination of care (as documented) at patient's floor/unit and/or counseling patient: Coding Level of Care Code 98679 Initial Inpt Care Lvl 3 Diagnoses Acute respiratory failure with hypoxia J96.01 Pneumonia J18.9 Reactive airway disease with acute exacerbation J45.901 Hypomagnesemia E83.42 Thrombocytosis D47.3 Leukocytosis D72.829 Chronic steroid use Neuropathy G62.9 Hyperlipidemia E78.5 Anxiety and depression F41.9; F32.9 Hypertension I10 Rheumatoid arthritis M06.9 Diabetes E11.9 DVT prophylaxis Z29.9
[2019-12-27] MEDS ORDERED: AZITHROMYCIN 500 MG in DEXTROSE 5% 250 ML IV ONE (20:17)
[2019-12-27] MEDS ORDERED: CARBOHYDRATES FOR HYPOGLYCEMIA PO PRN (20:26)
[2019-12-27] MEDS ORDERED: ACETAMINOPHEN 325 MG TAB PO PRN (20:26)
[2019-12-27] MEDS ORDERED: DEXTROSE 50% 50 ML SYRINGE IV PRN (20:26)
[2019-12-27] MEDS ORDERED: MAGNESIUM HYDROXIDE SUSP 30 ML UDC PO PRN (20:26)
[2019-12-27] MEDS ORDERED: ACETAMINOPHEN W/CODEINE #3 1 TAB PO PRN (20:26)
[2019-12-27] MEDS ORDERED: GLUCOSE 40% GEL 15 GM TUBE PO PRN (20:26)
[2019-12-27] MEDS ORDERED: GLUCAGON FOR INJ 1 MG VIAL SQ PRN (20:26)
[2019-12-27] MEDS ORDERED: POLYETHYLENE (MIRALAX) 17 GM PACK PO PRN (20:26)
[2019-12-27] MEDS ORDERED: ALUMINUM/MAGNESIUM SUSP 30 ML UDC PO PRN (20:26)
[2019-12-27] MEDS ORDERED: GLUCOSE 10 TABS/TUBE PO PRN (20:26)
[2019-12-27] MEDS: ALBUT/IPRATROP 3MG/0.5MG NEB 3 ML VIAL NEB SCH (21:17)
[2019-12-27] MEDS: ENOXAPARIN INJ 40 MG/0.4 ML SYR SQ SCH (21:32)
[2019-12-27] MEDS: NYSTATIN SUSP 500,000 U/5 ML UDC PO SCH (21:33)
[2019-12-27] MEDS: sulfaSALAzine 500 MG TABLET PO SCH (21:33)
[2019-12-27] MEDS: SIMVASTATIN 5 MG TAB PO SCH (21:33)
[2019-12-27] MEDS: AMMONIUM LACTATE 12% LOTION 225 GM BTL EXT SCH (21:33)
[2019-12-27] MEDS: GABAPENTIN 300 MG CAP PO SCH (21:33)
[2019-12-27] MEDS: INSULIN DETEMIR FLEXPEN/FLEX TOUCH 100 UNITS/ML 3ML SQ SCH (21:34)
[2019-12-27] MEDS: INSULIN ASPART 100 UNITS/ML 3 ML PEN SC SCH (21:35)
[2019-12-27 23:08] LABS: Appearance Urine Clear (Clear); Bilirubin Urine Negative (Negative); Blood Urine Negative (Negative); Color Urine Dark Yellow; Glucose Urine UA Negative (Negative); Ketones Urine Negative (Negative); Leukocyte Esterase Urine Negative (Negative); Nitrite Urine Negative (Negative); Protein Urine Negative (Negative); Specific Gravity Urine 1.018 (1.000-1.030); Urobilinogen Urine Negative (Negative); pH Urine 5.5 (4.5-7.5)
[2019-12-27] MEDS: CEFEPIME 2,000 MG in SYRINGE 7.5 ML IV SCH (23:50)
[2019-12-28 06:20] LABS: Basophils # (auto) 0.08 K/uL (0-0.2); Basophils % (auto) 0.6 %; Eosinophils # (auto) 0.01 K/uL (0-0.5); Eosinophils % (auto) 0.1 %; Hematocrit (blood only) 37.7 % (37-47); Hemoglobin 12.1 g/dL (12.0-16.0); Immature Granulocytes # (auto) 0.69 K/uL (0.00-0.02); Immature Granulocytes % (auto) 4.8 %; Lymphocytes # (auto) 1.34 K/uL (1.2-3.4); Lymphocytes % (auto) 9.2 %; Mean Corpuscular Hemoglobin 29.2 pg (25-34); Mean Corpuscular Hgb Conc 32.1 g/dL (32-36); Mean Corpuscular Volume 90.8 fL (80-100); Mean Platelet Volume 9.4 fL (7.4-10.4); Monocytes # (auto) 0.65 K/uL (0.11-0.59); Monocytes % (auto) 4.5 %; Neutrophils # (auto) 11.74 K/uL (1.4-6.5); Neutrophils % (auto) 80.8 %; Nucleated RBC # (auto) 0.04 K/uL (0-0); Nucleated RBC % (auto) 0.3 %; Platelet Count 428 K/uL (130-400); RDW Coefficient of Variation 14.4 % (11.5-14.5); RDW Standard Deviation 47.1 fL (36.4-46.3); Red Blood Count 4.15 M/uL (4.2-5.4); White Blood Count 14.51 K/uL (4.8-10.8)
[2019-12-28 06:37] LABS: BUN Creatinine Ratio 17.7 (10-20); Creatinine Clr Calc Pharmacy 57.1 ml/min; Est GFR (African American) 72.2; Est GFR (Non-African American) 62.3; Magnesium 1.7 mg/dl (1.8-2.4); Potassium 4.7 mmol/L (3.5-5.1)
[2019-12-28] MEDS: ALBUT/IPRATROP 3MG/0.5MG NEB 3 ML VIAL NEB SCH ×4 (07:10→18:59)
[2019-12-28] MEDS: AMMONIUM LACTATE 12% LOTION 225 GM BTL EXT SCH ×2 (07:29→19:43)
[2019-12-28] MEDS: LOSARTAN POTASSIUM 50 MG TAB PO SCH (07:30)
[2019-12-28] MEDS: VENLAFAXINE HCL XR 150 MG CAPXR PO SCH (07:30)
[2019-12-28] MEDS: sulfaSALAzine 500 MG TABLET PO SCH ×2 (07:30→19:46)
[2019-12-28] MEDS: NYSTATIN SUSP 500,000 U/5 ML UDC PO SCH ×4 (07:30→19:42)
[2019-12-28] MEDS: FLUTICASONE/VILANTEROL 100/25MCG 14 PUFFS/INHALER INH SCH (07:30)
[2019-12-28] MEDS: methylPREDNISolone 60 MG in SYRINGE 0 ML IV SCH ×2 (07:30→19:43)
[2019-12-28] MEDS: GABAPENTIN 300 MG CAP PO SCH ×3 (07:30→19:44)
--- NOTE | 2019-12-28 08:06 | XRay Report ---
XR chest 2V PA/lateral CLINICAL HISTORY: 69 years-old Female presenting with f/u pneumonia. TECHNIQUE: PA and lateral views of the chest were obtained. COMPARISON: 12/27/2019. FINDINGS: Atherosclerosis of the aortic arch. Cardiac silhouette enlarged. Minimal vague linear and hazy bibasi lar opacities, left greater than right, stable from prior. No new focal opacity. No large effusion or pneumothorax. Underlying lung parenchymal heterogeneity. Degenerative changes of the thoracic spine. Advanced degenerative changes of the glenohumeral joints. Upper abdomen normal. IMPRESSION: 1. Persistent bibasilar opacities, possibly atelectasis or less likely aspiration or infiltrates. Th e appearance is unchanged. 2. Mild cardiomegaly. Parenchymal heterogeneity could relate to mild congestion or underlying chroni c lung disease. ACT 112: Negative or not required by law. Electronically signed by: Marcos Hood M.D. 12/28/2019 8:05 AM
[2019-12-28] MEDS: CEFEPIME 2,000 MG in SYRINGE 7.5 ML IV SCH (08:57)
[2019-12-28] MEDS: INSULIN ASPART 100 UNITS/ML 3 ML PEN SC SCH ×4 (08:58→19:45)
[2019-12-28] MEDS: INSULIN DETEMIR FLEXPEN/FLEX TOUCH 100 UNITS/ML 3ML SQ SCH ×2 (08:58→19:46)
--- NOTE | 2019-12-28 12:03 | Pulmonary Consultation ---
Date of Consultation December 28, 2019 Assessment & Plan (1) Acute respiratory failure with hypoxia: Patient appears to have a protracted acute respiratory illness likely bronchitis related to her recent viral infection. Her chest x-rays do demonstrate some degree of possible interstitial lung disease. I am going to obtain a high-res CT of her chest to evaluate her airways and parenchyma more closely. It would not be surprising if she has some ILD related to her rheumatoid arthritis. Currently she sounds quite bronchospastic and and I agree with continuing Solu-Medrol for today. She can likely transition to prednisone the next day or 2. I discontinued her antibiotics as her procalcitonin was negative twice and she does not have evidence of bacterial pneumonia. She also has some mild volume overload and may benefit from some gentle IV diuresis. She should also get out of the bed and participate with physical therapy. Weight loss is also advised. Continue duo nebs PRN. She will need outpatient pulmonary function testing. We would be happy to see her in the clinic as well. Pulmonary will continue to follow. Please call with questions. (2) Rheumatoid arthritis: (3) Chronic steroid use: (4) Acute dyspnea: History of Present Illness Reason for Consultation: Acute respiratory failure with 2 recent admissions Requesting Physician: Dr. Rosio Grider Attending Physician: Rosio Grider MD History of Present Illness 69-year-old female with a past medical history of rheumatoid arthritis on methotrexate, Rituxan and prednisone, type 2 diabetes mellitus and obesity who presented to the hospital due to shortness of breath. Patient was recently discharged on 12/24/2023 shortness of breath, cough and hypoxia. She had COVID- 19 testing at that time that was negative. She had a viral panel PCR that was positive for enterovirus/rhinovirus. She was presumed to have bronchitis related to a viral illness at that time. She was also found to have neutropenia and hematology was consulted. She underwent an abdominal ultrasound which demonstrated some mild splenomegaly. She was readmitted to the hospital on 12/27/2019 and started on azithromycin and cefepime for presumptive pneumonia. She was also started on Solu-Medrol and has been receiving 60 mg of IV twice daily Solu-Medrol. She relates to me that over the last 3 weeks she has had a hard time recovering from her initial illness. She denies any sick contacts. She lives with her 2 children. She has no pets. However 1 of her children has chickens outside. She denies any fevers. She does have a dry hacking cough. She does not use oxygen at home. She was a smoker roughly 15 years ago. She smoked for 20 years. Prior to this illness she denies the use of inhalers. She notes that she has been using albuterol at home and also was prescribed the Brio Ellipta inhaler. She notes some improvement with the albuterol. No recent travel history. Chest x-ray from 12/28/2019 demonstrates some mild cardiomegaly and some mild atelectasis. Procalcitonin was unremarkable. She has not had a fever since being here. Saturating in the high 90s on 2 L of nasal cannula. Lastly, patient notes that she had a bronchoscopy sometime last year at [facility] in [place]. She does not recall the mule spinner name. She also apparently had pulmonary function test previously. Allergies Allergy/AdvReac Type Severity Reaction Status Date / Time bee venom protein (honey bee) Allergy Unknown Unknown Verified 12/27/19 18:03 Home Medications Home Medications Medication Instructions Recorded Confirmed Type Levemir FlexTouch U-100 Insuln 36 unit SUBCUT BID 12/22/19 12/27/19 History Victoza 3-Pedro 1.8 mg SUBCUT DAILY 12/22/19 12/27/19 History acetaminophen-codeine 1 tab PO Q8H PRN 12/22/19 12/27/19 History ammonium lactate [Skin Treatment] 1 applic TOPICAL BID 12/22/19 12/27/19 History cyclobenzaprine 5 mg PO HS 12/22/19 12/27/19 History gabapentin [Neurontin] 600 mg PO TID 12/22/19 12/27/19 History losartan [Cozaar] 100 mg PO DAILY 12/22/19 12/27/19 History metformin [Glucophage] 1,000 mg PO BID 12/22/19 12/27/19 History methotrexate sodium 5 mg PO WK 12/22/19 12/27/19 History potassium chloride 10 meq PO DAILY 12/22/19 12/27/19 History prednisone 5 mg PO DAILY 12/22/19 12/27/19 History simvastatin 5 mg PO QPM 12/22/19 12/27/19 History venlafaxine [Effexor XR] 150 mg PO QPM 12/22/19 12/27/19 History doxycycline hyclate 100 mg PO BID@0800,1999 5 Days #10 12/24/19 12/27/19 Rx cap fluticasone furoate-vilanterol 1 puffs INH DAILY #60 ea 12/24/19 12/27/19 Rx [Breo Ellipta] prednisone See Rx Instructions .ROUTE 12/24/19 12/27/19 Rx .COMPLEX #20 tab Rituxan 0 mg IV DIRECTED 12/27/19 12/27/19 History albuterol sulfate [Ventolin HFA] 2 puffs INH Q6H PRN 12/27/19 12/27/19 History sulfasalazine 500 mg PO QPM 12/27/19 12/27/19 History sulfasalazine [Azulfidine] 1,000 mg PO QAM 12/27/19 12/27/19 History Patient History Medical History Anxiety and depression Chronic steroid use Diabetes (Chronic) Hyperlipidemia Hypertension Neuropathy Rheumatoid arthritis Splenomegaly Surgical History History of ankle fusion History of section History of repair of left hip joint Family History Other Family history non-contributory Social History Preferred Language: Comoran Communication Ability: Effective Wood Hacker Required: No Beliefs That Will Affect Care: None marital status: / Current Living Situation: Family 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 No apparent distress. Laying in bed. Eyes: PERRL, conjunctivae normal, anicteric sclerae ENMT: external ear and nose normal, oropharynx normal Neck: trachea midline, no thyromegaly Respiratory: Mild expiratory wheezes noted bilaterally. No significant tachypnea. Cardiovascular: RRR, no murmur, no edema Gastrointestinal (Abdomen): normal bowel sounds, soft, nontender, no hepatosplenomegaly Musculoskeletal: no cyanosis or clubbing, extremities motor strength 5/5 Skin: no rashes, warm and dry Neurologic: patellar DTR's 2+ bilat, sensation intact Psychiatric: A+Ox3, euthymic affect Results & Data Results & Data ([facility]) Vital Signs (Past 12 Hours) Vital Signs Temp Pulse Pulse Resp BP Pulse Ox 12/28/19 11:20 97.9 F 82 16 116/55 L 97 12/28/19 11:18 82 18 85 L 12/28/19 07:16 97.9 F 74 16 113/70 92 12/28/19 07:08 79 16 92 12/28/19 04:00 98.1 F 77 18 113/72 91 12/28/19 03:12 90 I personally reviewed the patient's laboratory data, chest imaging and recent notes PG Care Time/CCT Total # of Minutes Spent Total Time Spent with Patient: Total time spent is greater than 50% in coordination of care (as documented) at patient's floor/unit and/or counseling patient: Coding Level of Care Code 97228 Initial Inpt Care Lvl 3 Diagnoses Acute respiratory failure with hypoxia J96.01 Rheumatoid arthritis M06.9 Chronic steroid use Acute dyspnea R06.00
--- NOTE | 2019-12-28 12:16 | Electrocardiogram Report ---
Test Reason : Blood Pressure : / mmHG Vent. Rate : 082 BPM Atrial Rate : 082 BPM P-R Int : 138 ms QRS Dur : 082 ms QT Int : 406 ms P-R-T Axes : 056 071 036 degrees QTc Int : 474 ms Normal sinus rhythm Possible Left atrial enlargement Low voltage QRS Borderline ECG When compared with ECG of 22-DEC-2019 16:45, No significant change was found Confirmed by Isai Don ([id number]) on 12/28/2019 12:16:09 PM Referred By: REFERRED SELF Confirmed By:Wilfred Don
--- NOTE | 2019-12-28 12:56 | Hospitalist Progress Note ---
Date of Service December 28, 2019 Assessment & Plan (1) Acute respiratory failure with hypoxia: Presented with continued shortness of breath, productive cough, evidence of pneumonia and/or atelectasis and interstitial thickening on chest x-ray With diffuse wheezing on examination and pulse ox 88% on room air on admission with some tachypnea -Recently treated with doxycycline, prednisone burst and recent admission-Tigerlily positive for entero-/rhinovirus at that time and negative for COVID-19 Remains afebrile Previous notes reviewed-primary care doctor reported that PFTs from 12/2018 reported as normal but with 18% improvement with bronchodilators suggestive of small airways disease VBG here is normal with pH 7.41/51 With cardiomegaly and pulmonary vascular congestion seen on chest x-ray, however proBNP is normal and do not suspect CHF Improved today symptomatically, but remains on oxygen intermittently and continues with diffuse rhonchi and wheezing Appreciate pulmonology consultation-with concern for ILD given history of rheumatoid arthritis -High-resolution CT chest ordered -Continue O2 via nasal cannula to keep pulse ox greater than 92% -Continue methylprednisolone 60 mg IV every 12 hours -Antibiotics for suspected pneumonia were started but will now be discontinued as procalcitonin remains negative x2 -cont DuoNebs every 6 hours scheduled -Continue home Breo Ellipta (2) Pneumonia: With chest x-ray showing interstitial coarsening, left greater than right opacities versus atelectasis Remains afebrile but is fatigued, with productive cough With positive entero-/rhinovirus on Tigerlily last time, COVID-19 negative Failed course of doxycycline Procalcitonin mildly elevated from previous at 0.11-repeat down to 0.09 making bacterial infection not likely Leukocytosis likely secondary to high-dose prednisone She is immunocompromised given all of her immunosuppressive drugs and chronic prednisone -dc antibiotics as per Pulm (received Cefepime, Vanc, azithro -high res chest CT today ordered -follow Legionella antigen and mycoplasma -Follow blood cultures and sputum culture pending (3) Reactive airway disease with acute exacerbation: As above (4) Hypomagnesemia: Magnesium 1.3 on admission, unclear why -Replaced with 2 g of IV magnesium sulfate in the ER -Magnesium level still mildly low today at 1.7 -Give 1 g of IV magnesium sulfate and follow level in the morning (5) Thrombocytosis: Platelet count elevated here at 453 on admission although is improved from previous of 549 a couple of days ago and likely secondary to acute phase reactant Continues to trend downward today to 428 -Follow CBC (6) Leukocytosis: WBC count elevated here at 15 on admission but also has been on a recent burst of prednisone Likely secondary to steroids but could be due to infection as well WBC count down to 14.5 today When she was here a few days ago, she had significant neutropenia and was seen by hematology-this was thought to be possibly secondary to viral suppression and is now resolved (7) Chronic steroid use: On prednisone 5 mg daily for RA -Now on IV Solu-Medrol as above for asthma exacerbation (8) Neuropathy: Continue home gabapentin (9) Hyperlipidemia: Continue home simvastatin (10) Anxiety and depression: Stable -Continue home Effexor (11) Hypertension: Blood pressures are controlled Recently was discontinued from her chlorthalidone for low blood pressure -Continue home losartan (12) Rheumatoid arthritis: Follows with rheumatology has chronic joint pains all over and history of right ankle fusion -On chronic prednisone as above -Also on rituximab-on hold -Also recently decreased on her dose of sulfasalazine down to 1500 mg daily- continue here -On methotrexate which is recently reduced to 5 mg once weekly-on hold while here (13) Diabetes: With significant hyperglycemia here secondary to IV steroids On Lantus and Victoza at home as well as metformin -Continue Lantus but increase dose to 45 units twice daily today -Tighten NovoLog sliding scale insulin down to correction factor of 20 and carb ratio of 1-10 -Holding Victoza and metformin from home Accu-Cheks q. before meals and at bedtime Diabetic diet Hemoglobin A1c checked a few days ago and was high at 8.9% Needs diabetic education and counseling (14) DVT prophylaxis: Lovenox SQ Disposition-continued stay on medical floor with telemetry Admission and Anticipated Discharge Date Admission Date: December 27, 2019 Subjective Patient reports feeling much improved today. She is less short of breath and is coughing less. Denies chest pain. Still having some sensation of echo in her right ear. Denies nausea or vomiting, no abdominal pain. Telemetry with normal sinus rhythm with rates in the 70s to 80s and some PVCs I discussed the case with the flame annealing machine setter Review of Systems Review of Systems: All systems reviewed & are unremarkable except as noted in HPI & below (mouth and tongue burning is improved) Physical Exam Constitutional: WD/WN, vitals as above + obese ENMT: Mouth: + oropharynx abnormality (White exudate on the tongue and mild erythema of the posterior oropharynx much improved from previous) Neck: trachea midline, no thyromegaly Respiratory: normal respiratory effort Auscultation: + rhonchi (Bilateral lower lung blum right greater than left) and + wheezes (Diffuse expiratory wheezes in all lung blum); no crackles Cardiovascular: RRR, no murmur, no edema Chest (Breasts): Chest: normal inspection of chest Gastrointestinal (Abdomen): normal bowel sounds, soft, nontender, no hepatosplenomegaly Musculoskeletal: Extremities: extremities normal to inspection; no cyanosis and no clubbing Skin: + lesion (Right distal medial leg with small fluid-filled clear blister with mild surrounding erythema) and + erythema (Left lower abdomen with 5 cm circular region of mild erythema and induration surrounding a needle injection site much improved from previous) Neurologic: moves all extremities and awake; no focal motor deficits Psychiatric: A+Ox3, euthymic affect Lymphatic: no lymphedema Results & Data Results & Data ([facility]) Vital Signs (Past 12 Hours) Vital Signs Temp Pulse Pulse Resp BP Pulse Ox 12/28/19 11:20 36.6 C 82 16 116/55 L 97 12/28/19 11:18 82 18 85 L 12/28/19 07:16 36.6 C 74 16 113/70 92 12/28/19 07:08 79 16 92 12/28/19 04:00 36.7 C 77 18 113/72 91 12/28/19 03:12 90 Laboratory Results 12/28/19 12/28/19 12/28/19 Range/Units 16:43 16:41 11:28 WBC (4.8-10.8) K/uL RBC (4.2-5.4) M/uL Hgb (12.0-16.0) g/dL Hct (37-47) % MCV (80-100) fL MCH (25-34) pg MCHC (32-36) g/dL RDW Std Deviation (36.4-46.3) fL RDW Coeff of Sandra (11.5-14.5) % Plt Count (130-400) K/uL MPV (7.4-10.4) fL Immature Gran % (Auto) % Neut % (Auto) % Lymph % (Auto) % [place] % (Auto) % Eos % (Auto) % Baso % (Auto) % Immature Gran # (Auto) (0.00-0.02) K/uL Neut # (Auto) (1.4-6.5) K/uL Lymph # (Auto) (1.2-3.4) K/uL [place] # (Auto) (0.11-0.59) K/uL Eos # (Auto) (0-0.5) K/uL Baso # (Auto) (0-0.2) K/uL Absolute Nucleated RBC (0-0) K/uL Nucleated RBC % (auto) % Sodium (136-145) mmol/L Potassium (3.5-5.1) mmol/L Chloride (98-107) mmol/L Carbon Dioxide (21-32) mmol/L Anion Gap (3-11) BUN (7-18) mg/dl Creatinine (0.6-1.2) mg/dl Est Cr Clr Drug Dosing ml/min Est GFR ( Amer) Est GFR (Non-Af Amer) BUN/Creatinine Ratio (10-20) Glucose (70-99) mg/dl POC Glucose 295 H 302 H* 372 H* (70-99) mg/dl Lactate (0.4-2.0) mmol/L Calcium (8.5-10.1) mg/dl Magnesium (1.8-2.4) mg/dl Procalcitonin (0-0.5) ng/ml Urine Color Urine Appearance (Clear) Urine pH (4.5-7.5) Ur Specific [place] (1.000-1.030) Urine Protein (Negative) Urine Glucose (UA) (Negative) Urine Ketones (Negative) Urine Blood (Negative) Urine Nitrite (Negative) Urine Bilirubin (Negative) Urine Urobilinogen (Negative) Ur Leukocyte Esterase (Negative) Urine Legionella Ag Mycoplasma pneumon IgG Mycoplasma pneumon IgM 12/28/19 12/28/19 12/28/19 Range/Units 11:26 07:26 05:42 WBC (4.8-10.8) K/uL RBC (4.2-5.4) M/uL Hgb (12.0-16.0) g/dL Hct (37-47) % MCV (80-100) fL MCH (25-34) pg MCHC (32-36) g/dL RDW Std Deviation (36.4-46.3) fL RDW Coeff of Sandra (11.5-14.5) % Plt Count (130-400) K/uL MPV (7.4-10.4) fL Immature Gran % (Auto) % Neut % (Auto) % Lymph % (Auto) % [place] % (Auto) % Eos % (Auto) % Baso % (Auto) % Immature Gran # (Auto) (0.00-0.02) K/uL Neut # (Auto) (1.4-6.5) K/uL Lymph # (Auto) (1.2-3.4) K/uL [place] # (Auto) (0.11-0.59) K/uL Eos # (Auto) (0-0.5) K/uL Baso # (Auto) (0-0.2) K/uL Absolute Nucleated RBC (0-0) K/uL Nucleated RBC % (auto) % Sodium (136-145) mmol/L Potassium (3.5-5.1) mmol/L Chloride (98-107) mmol/L Carbon Dioxide (21-32) mmol/L Anion Gap (3-11) BUN (7-18) mg/dl Creatinine (0.6-1.2) mg/dl Est Cr Clr Drug Dosing ml/min Est GFR ( Amer) Est GFR (Non-Af Amer) BUN/Creatinine Ratio (10-20) Glucose (70-99) mg/dl POC Glucose 341 H* 228 H (70-99) mg/dl Lactate (0.4-2.0) mmol/L Calcium (8.5-10.1) mg/dl Magnesium (1.8-2.4) mg/dl Procalcitonin 0.09 (0-0.5) ng/ml Urine Color Urine Appearance (Clear) Urine pH (4.5-7.5) Ur Specific [place] (1.000-1.030) Urine Protein (Negative) Urine Glucose (UA) (Negative) Urine Ketones (Negative) Urine Blood (Negative) Urine Nitrite (Negative) Urine Bilirubin (Negative) Urine Urobilinogen (Negative) Ur Leukocyte Esterase (Negative) Urine Legionella Ag Mycoplasma pneumon IgG Mycoplasma pneumon IgM 12/28/19 12/28/19 12/27/19 Range/Units 05:42 05:42 21:41 WBC 14.51 H (4.8-10.8) K/uL RBC 4.15 L (4.2-5.4) M/uL Hgb 12.1 (12.0-16.0) g/dL Hct 37.7 (37-47) % MCV 90.8 (80-100) fL MCH 29.2 (25-34) pg MCHC 32.1 (32-36) g/dL RDW Std Deviation 47.1 H (36.4-46.3) fL RDW Coeff of Sandra 14.4 (11.5-14.5) % Plt Count 428 H (130-400) K/uL MPV 9.4 (7.4-10.4) fL Immature Gran % (Auto) 4.8 % Neut % (Auto) 80.8 % Lymph % (Auto) 9.2 % [place] % (Auto) 4.5 % Eos % (Auto) 0.1 % Baso % (Auto) 0.6 % Immature Gran # (Auto) 0.69 H (0.00-0.02) K/uL Neut # (Auto) 11.74 H (1.4-6.5) K/uL Lymph # (Auto) 1.34 (1.2-3.4) K/uL [place] # (Auto) 0.65 H (0.11-0.59) K/uL Eos # (Auto) 0.01 (0-0.5) K/uL Baso # (Auto) 0.08 (0-0.2) K/uL Absolute Nucleated RBC 0.04 H (0-0) K/uL Nucleated RBC % (auto) 0.3 % Sodium 133 L (136-145) mmol/L Potassium 4.7 (3.5-5.1) mmol/L Chloride 98 (98-107) mmol/L Carbon Dioxide 34 H (21-32) mmol/L Anion Gap 1.0 L (3-11) BUN 17 (7-18) mg/dl Creatinine 0.94 (0.6-1.2) mg/dl Est Cr Clr Drug Dosing 57.1 ml/min Est GFR ( Amer) 72.2 Est GFR (Non-Af Amer) 62.3 BUN/Creatinine Ratio 17.7 (10-20) Glucose 259 H (70-99) mg/dl POC Glucose (70-99) mg/dl Lactate (0.4-2.0) mmol/L Calcium 10.0 (8.5-10.1) mg/dl Magnesium 1.7 L (1.8-2.4) mg/dl Procalcitonin (0-0.5) ng/ml Urine Color Dark Yellow Urine Appearance Clear (Clear) Urine pH 5.5 (4.5-7.5) Ur Specific [place] 1.018 (1.000-1.030) Urine Protein Negative (Negative) Urine Glucose (UA) Negative (Negative) Urine Ketones Negative (Negative) Urine Blood Negative (Negative) Urine Nitrite Negative (Negative) Urine Bilirubin Negative (Negative) Urine Urobilinogen Negative (Negative) Ur Leukocyte Esterase Negative (Negative) Urine Legionella Ag Mycoplasma pneumon IgG Mycoplasma pneumon IgM 12/27/19 12/27/19 12/27/19 Range/Units 21:41 20:29 19:32 WBC (4.8-10.8) K/uL RBC (4.2-5.4) M/uL Hgb (12.0-16.0) g/dL Hct (37-47) % MCV (80-100) fL MCH (25-34) pg MCHC (32-36) g/dL RDW Std Deviation (36.4-46.3) fL RDW Coeff of Sandra (11.5-14.5) % Plt Count (130-400) K/uL MPV (7.4-10.4) fL Immature Gran % (Auto) % Neut % (Auto) % Lymph % (Auto) % [place] % (Auto) % Eos % (Auto) % Baso % (Auto) % Immature Gran # (Auto) (0.00-0.02) K/uL Neut # (Auto) (1.4-6.5) K/uL Lymph # (Auto) (1.2-3.4) K/uL [place] # (Auto) (0.11-0.59) K/uL Eos # (Auto) (0-0.5) K/uL Baso # (Auto) (0-0.2) K/uL Absolute Nucleated RBC (0-0) K/uL Nucleated RBC % (auto) % Sodium (136-145) mmol/L Potassium (3.5-5.1) mmol/L Chloride (98-107) mmol/L Carbon Dioxide (21-32) mmol/L Anion Gap (3-11) BUN (7-18) mg/dl Creatinine (0.6-1.2) mg/dl Est Cr Clr Drug Dosing ml/min Est GFR ( Amer) Est GFR (Non-Af Amer) BUN/Creatinine Ratio (10-20) Glucose (70-99) mg/dl POC Glucose 195 H (70-99) mg/dl Lactate 1.1 (0.4-2.0) mmol/L Calcium (8.5-10.1) mg/dl Magnesium (1.8-2.4) mg/dl Procalcitonin (0-0.5) ng/ml Urine Color Urine Appearance (Clear) Urine pH (4.5-7.5) Ur Specific [place] (1.000-1.030) Urine Protein (Negative) Urine Glucose (UA) (Negative) Urine Ketones (Negative) Urine Blood (Negative) Urine Nitrite (Negative) Urine Bilirubin (Negative) Urine Urobilinogen (Negative) Ur Leukocyte Esterase (Negative) Urine Legionella Ag Pending Mycoplasma pneumon IgG Mycoplasma pneumon IgM 12/27/19 Range/Units 16:44 WBC (4.8-10.8) K/uL RBC (4.2-5.4) M/uL Hgb (12.0-16.0) g/dL Hct (37-47) % MCV (80-100) fL MCH (25-34) pg MCHC (32-36) g/dL RDW Std Deviation (36.4-46.3) fL RDW Coeff of Sandra (11.5-14.5) % Plt Count (130-400) K/uL MPV (7.4-10.4) fL Immature Gran % (Auto) % Neut % (Auto) % Lymph % (Auto) % [place] % (Auto) % Eos % (Auto) % Baso % (Auto) % Immature Gran # (Auto) (0.00-0.02) K/uL Neut # (Auto) (1.4-6.5) K/uL Lymph # (Auto) (1.2-3.4) K/uL [place] # (Auto) (0.11-0.59) K/uL Eos # (Auto) (0-0.5) K/uL Baso # (Auto) (0-0.2) K/uL Absolute Nucleated RBC (0-0) K/uL Nucleated RBC % (auto) % Sodium (136-145) mmol/L Potassium (3.5-5.1) mmol/L Chloride (98-107) mmol/L Carbon Dioxide (21-32) mmol/L Anion Gap (3-11) BUN (7-18) mg/dl Creatinine (0.6-1.2) mg/dl Est Cr Clr Drug Dosing ml/min Est GFR ( Amer) Est GFR (Non-Af Amer) BUN/Creatinine Ratio (10-20) Glucose (70-99) mg/dl POC Glucose (70-99) mg/dl Lactate (0.4-2.0) mmol/L Calcium (8.5-10.1) mg/dl Magnesium (1.8-2.4) mg/dl Procalcitonin (0-0.5) ng/ml Urine Color Urine Appearance (Clear) Urine pH (4.5-7.5) Ur Specific [place] (1.000-1.030) Urine Protein (Negative) Urine Glucose (UA) (Negative) Urine Ketones (Negative) Urine Blood (Negative) Urine Nitrite (Negative) Urine Bilirubin (Negative) Urine Urobilinogen (Negative) Ur Leukocyte Esterase (Negative) Urine Legionella Ag Mycoplasma pneumon IgG Pending Mycoplasma pneumon IgM Pending PG Care Time/CCT Total # of Minutes Spent Total Time Spent with Patient: Total time spent is greater than 50% in coordination of care (as documented) at patient's floor/unit and/or counseling patient: Coding Level of Care Code 19430 Subseq Hosp Care Lvl 3 Diagnoses Acute respiratory failure with hypoxia J96.01 Pneumonia J18.9 Reactive airway disease with acute exacerbation J45.901 Hypomagnesemia E83.42 Thrombocytosis D47.3 Leukocytosis D72.829 Chronic steroid use Neuropathy G62.9 Hyperlipidemia E78.5 Anxiety and depression F41.9; F32.9 Hypertension I10 Rheumatoid arthritis M06.9 Diabetes E11.9 DVT prophylaxis Z29.9
--- NOTE | 2019-12-28 16:48 | CT Scan Report ---
HIGH-RESOLUTION CT SCAN OF THE CHEST WITHOUT IV CONTRAST CLINICAL HISTORY: Rheumatoid arthritis. COMPARISON STUDY: Chest x-ray dated 12/28/2019. TECHNIQUE: Inspiratory and expiratory high-resolution CT scan of the thorax was performed from the th oracic inlet to the upper abdomen. Images are reviewed in the axial, sagittal, and coronal planes. IV contrast was not administered for this examination as per the referring clinician. A dose lowering technique was utilized adhering to the principles of ALARA. The expiratory series is degraded by bladimir on artifact. CT DOSE: 960.06 mGy.cm FINDINGS: Thyroid: Imaged portions of the thyroid gland are normal in size and attenuation. Thoracic aorta: There is advanced atherosclerotic calcification of the thoracic aorta, which is pascual l in caliber and demonstrates standard 3-vessel arch anatomy. Heart: The heart is normal in size and without pericardial effusion. The coronary arteries are densel y calcified. Lungs and pleural spaces: There is mild subpleural reticulation seen at the lung bases with foci of b ibasilar parenchymal scarring. This is greatest in the right middle lobe and lingula. Mild bronchiect asis is noted in the right middle lobe and lingula. Tiny foci of tree-in-bud nodularity are seen in t he right upper lobe. There is no honeycombing. Mucus plugging is seen in the lower lobes. The trachea and central airways are clear. There is no airspace consolidation typical for pneumonia or pleural e ffusion. Multiple foci of air trapping are noted on the expiratory series. A calcified granuloma is n oted in the left upper lobe. Mediastinum: There is no mediastinal lymphadenopathy. Shyanne: Not well assessed without IV contrast. Axillae: There is no axillary lymphadenopathy. Upper abdomen: There are calcified gallstones. A tiny hiatal hernia is noted. The partially visualize d kidneys demonstrate cortical atrophy. Skeletal structures: The skeletal structures are osteopenic. Degenerative change is noted throughout the thoracic spine. Advanced arthritic change is seen in the shoulders. There are healed right-sided rib fractures. No lytic or blastic bony lesions are seen. IMPRESSION: 1. Parenchymal changes as detailed above. Although some of this could represent early changes of inte rstitial lung disease, a chronic infectious/inflammatory process such as atypical mycobacterium/MATTEO i s favored. Pulmonology follow-up is recommended. 2. Tiny foci of tree-in-bud nodularity suggest a mild infectious/inflammatory pneumonitis. 3. There is no lobar consolidation or pleural effusion. 4. Cholelithiasis. 5. Advanced coronary artery calcification. ACT 112: Negative or not required by law. Electronically signed by: Luis A Vasquez M.D. 12/28/2019 4:47 PM
[2019-12-28] MEDS: ENOXAPARIN INJ 40 MG/0.4 ML SYR SQ SCH (19:43)
[2019-12-28] MEDS: SIMVASTATIN 5 MG TAB PO SCH (19:44)
[2019-12-28] MEDS ORDERED: AZITHROMYCIN 250 MG TAB PO SCH (20:00)
[2019-12-28] MEDS ORDERED: INSULIN DETEMIR FLEXPEN/FLEX TOUCH 100 UNITS/ML 3ML SQ SCH (20:00)
[2019-12-29 06:12] LABS: Basophils # (auto) 0.04 K/uL (0-0.2); Basophils % (auto) 0.3 %; Eosinophils # (auto) 0.01 K/uL (0-0.5); Eosinophils % (auto) 0.1 %; Hematocrit (blood only) 38.9 % (37-47); Hemoglobin 12.4 g/dL (12.0-16.0); Immature Granulocytes # (auto) 0.41 K/uL (0.00-0.02); Immature Granulocytes % (auto) 3.2 %; Lymphocytes # (auto) 1.45 K/uL (1.2-3.4); Lymphocytes % (auto) 11.3 %; Mean Corpuscular Hemoglobin 28.5 pg (25-34); Mean Corpuscular Hgb Conc 31.9 g/dL (32-36); Mean Corpuscular Volume 89.4 fL (80-100); Mean Platelet Volume 9.5 fL (7.4-10.4); Monocytes # (auto) 0.69 K/uL (0.11-0.59); Monocytes % (auto) 5.4 %; Neutrophils # (auto) 10.21 K/uL (1.4-6.5); Neutrophils % (auto) 79.7 %; Platelet Count 376 K/uL (130-400); RDW Coefficient of Variation 14.2 % (11.5-14.5); RDW Standard Deviation 46.1 fL (36.4-46.3); Red Blood Count 4.35 M/uL (4.2-5.4); White Blood Count 12.81 K/uL (4.8-10.8)
[2019-12-29 06:43] LABS: Calcium 9.9 mg/dl (8.5-10.1); Creatinine Clr Calc Pharmacy 59.5 ml/min; Est GFR (African American) 75.1; Est GFR (Non-African American) 64.8; Magnesium 1.5 mg/dl (1.8-2.4); Potassium 4.1 mmol/L (3.5-5.1)
[2019-12-29] MEDS: ALBUT/IPRATROP 3MG/0.5MG NEB 3 ML VIAL NEB SCH ×4 (07:05→19:32)
[2019-12-29] MEDS: AMMONIUM LACTATE 12% LOTION 225 GM BTL EXT SCH ×2 (07:52→21:37)
[2019-12-29] MEDS: VENLAFAXINE HCL XR 150 MG CAPXR PO SCH (07:53)
[2019-12-29] MEDS: FLUTICASONE/VILANTEROL 100/25MCG 14 PUFFS/INHALER INH SCH (07:53)
[2019-12-29] MEDS: NYSTATIN SUSP 500,000 U/5 ML UDC PO SCH ×4 (07:53→21:36)
[2019-12-29] MEDS: LOSARTAN POTASSIUM 50 MG TAB PO SCH (07:53)
[2019-12-29] MEDS: sulfaSALAzine 500 MG TABLET PO SCH ×2 (07:53→21:35)
[2019-12-29] MEDS: GABAPENTIN 300 MG CAP PO SCH ×3 (07:54→21:36)
[2019-12-29] MEDS: methylPREDNISolone 60 MG in SYRINGE 0 ML IV SCH ×2 (07:54→21:43)
[2019-12-29] MEDS: INSULIN ASPART 100 UNITS/ML 3 ML PEN SC SCH ×4 (07:59→21:33)
[2019-12-29] MEDS: INSULIN DETEMIR FLEXPEN/FLEX TOUCH 100 UNITS/ML 3ML SQ SCH ×2 (08:00→21:33)
[2019-12-29] MEDS: MAGNESIUM SULFATE / D5W 1 GM/100 ML BAG IV SCH ×2 (09:54→10:59)
[2019-12-29] MEDS: MAGNESIUM CHLORIDE 64MG DELAYED REL TAB PO SCH ×2 (14:10→21:35)
--- NOTE | 2019-12-29 14:41 | Pulmonology Progress Note ---
Date of Service December 29, 2019 Assessment & Plan (1) Acute exacerbation of bronchiectasis: High-resolution CT chest performed yesterday demonstrating areas of bronchiectasis with nodular infiltrates. This may be compatible with chronic infectious etiology such as nontuberculous Mycobacterium versus ABPA/ABPM (IgE ordered although no significant peripheral eosniphilia present) versus other chronic infectious etiology. Less likely malignancy. Rheumatoid arthritis can also cause bronchiectasis along with immunosuppression. (Immunglobulin panel ordered.) She is on methotrexate which can also cause interstitial lung disease. She should follow-up with her management assistant regarding continued treatment of her rheumatoid. 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 I would like to see if she also had previous pulmonary function testing. The patient is not a very good historian. She is also very overweight which may be contributing to her dyspnea. Again, I would not be surprised that she has some degree of diastolic heart failure and probably would benefit from some as needed diuretic therapy. With regards to her bronchiectasis, I recommend continuing flutter valve treatment 4-5 times a day. I went over how to use her flutter valve today and she demonstrated the ability to use it in front of me. I also ordered for vest therapy and for twice daily nebulized hypertonic saline. Airway clearance is a staple treatment of bronchiectasis. I do not think that she is acutely infected with a typical bacterial organism and thus I do not think that antibiotics are needed acutely. If her AFB sputum in the morning is positive in the future, then she may in fact need outpatient treatment for nontuberculous Mycobacterium in the near future. For now, recommend continuing steroids then transitioning to oral prednisone at 40 mg for total 10 days. In summary, please continue airway clearance therapy with flutter valve/vest therapy/hypertonic saline, obtain 3 subsequent morning AFB sputum's and continue prednisone for a total of 10 days at 40 mg daily. (2) Abnormal CT scan, chest: (3) Acute respiratory failure with hypoxia: (4) Rheumatoid arthritis: Admission and Anticipated Discharge Date Admission Date: December 27, 2019 Subjective Patient is sitting up in bed. She is still coughing intermittently. She complains of green sputum today. She has not really been using her flutter valve very effectively. A sputum sample for AFB was ordered and was not completed. She denies any fevers. She notes that her shortness of breath is about 50% better. Physical Exam Constitutional: WD/WN, vitals as above + obese ENMT: Mouth: + oropharynx abnormality (White exudate on the tongue and mild erythema of the posterior oropharynx much improved from previous) Neck: trachea midline, no thyromegaly Respiratory: normal respiratory effort Auscultation: + rhonchi (Bilateral lower lung blum right greater than left) and + wheezes (Diffuse expiratory wheezes in all lung blum); no crackles Cardiovascular: RRR, no murmur, no edema Chest (Breasts): Chest: normal inspection of chest Gastrointestinal (Abdomen): normal bowel sounds, soft, nontender, no hepatosplenomegaly Musculoskeletal: Extremities: extremities normal to inspection; no cyanosis and no clubbing Skin: + lesion (Right distal medial leg with small fluid-filled clear blister with mild surrounding erythema) and + erythema (Left lower abdomen with 5 cm circular region of mild erythema and induration surrounding a needle injection site much improved from previous) Neurologic: moves all extremities and awake; no focal motor deficits Psychiatric: A+Ox3, euthymic affect Lymphatic: no lymphedema Results & Data Results & Data ([facility]) Vital Signs (Past 12 Hours) Vital Signs Temp Pulse Pulse Resp BP Pulse Ox 12/29/19 11:16 78 14 94 12/29/19 11:10 97.5 F L 75 18 123/74 90 12/29/19 07:32 74 12/29/19 07:11 83 18 90 12/29/19 06:15 97.9 F 75 18 130/67 91 12/29/19 03:22 98.2 F 83 20 110/64 92 PG Care Time/CCT Total # of Minutes Spent Total Time Spent with Patient: Total time spent is greater than 50% in coordination of care (as documented) at patient's floor/unit and/or counseling patient: Coding Level of Care Code 32288 Subseq Hosp Care Lvl 3 Diagnoses Acute exacerbation of bronchiectasis J47.[address] scan, chest R93.89 Acute respiratory failure with hypoxia J96.01 Rheumatoid arthritis M06.9
[2019-12-29] MEDS: SODIUM CHLOR 7% 4 ML NEB NEB SCH (19:32)
--- NOTE | 2019-12-29 20:03 | Hospitalist Progress Note ---
Date of Service December 29, 2019 Assessment & Plan (1) Acute exacerbation of bronchiectasis: With chest x-ray showing interstitial coarsening, left greater than right opacities versus atelectasis Remains afebrile but is fatigued, with productive cough which is all improving With positive entero-/rhinovirus on bio fire a few days prior to admission, COVID-19 negative Failed course of doxycycline prior to admission Procalcitonin mildly elevated from previous at 0.11-repeat down to 0.09 making bacterial infection not likely Leukocytosis likely secondary to high-dose prednisone She is immunocompromised given all of her immunosuppressive drugs and chronic prednisone High resolution CT of the chest with nodules and bronchiectasis, mucous plugging-consideration for MATTEO versus ABPA/ABPM versus other chronic infectious etiology and less likely malignancy as per pulmonology RA can also cause bronchiectasis along with immunosuppression as per pulmonology-she is on methotrexate which can also cause interstitial lung disease -IgE ordered and immunoglobulin panel ordered -We will need follow-up with rheumatology to determine if she should continue on her current regimen of medications -Request old pulmonary records to see if has had cultures, PFTs. Patient reports she had a bronchoscopy -Discontinued all previous antibiotics as per Pulm (received Cefepime, Vanc, azithro) -follow Legionella antigen and mycoplasma -Follow blood cultures and sputum culture pending -AFB of sputum ordered Supplemental O2 as needed -Continue IV Solu-Medrol for now and then convert to prednisone 40 mg daily x10- day total course (2) Abnormal CT scan, chest: As above (3) Acute respiratory failure with hypoxia: As above Persists with wheezing and rhonchi but improved from previous Now off oxygen at rest Previous notes reviewed-primary care doctor reported that PFTs from 12/2018 reported as normal but with 18% improvement with bronchodilators suggestive of small airways disease VBG here is normal with pH 7.41/51 With cardiomegaly and pulmonary vascular congestion seen on chest x-ray, however proBNP is normal and do not suspect CHF -cont DuoNebs every 6 hours scheduled -Continue home Breo Ellipta -Continue steroids as above -Will need two-step walk test prior to discharge (4) Hyponatremia: Sodium remains mildly low at 132 -Check serum osmolality, urine osmolality and urine sodium -Check TSH -No utility in checking a.m. cortisol as she has been on steroids -Legionella antigen is pending -Follow BMP (5) Hypomagnesemia: Magnesium 1.3 on admission, unclear etiology Magnesium continues to be low despite multiple rounds of IV replacement -Give another 2 g of IV magnesium sulfate today -Start magnesium chloride 64 mg p.o. twice daily -Follow level in the morning (6) Thrombocytosis: Platelet count elevated here at 453 on admission although is improved from previous of 549 a couple of days ago and likely secondary to acute phase reactant Continues to trend downward today to normal level of 376 -Follow CBC (7) Leukocytosis: WBC count elevated here at 15 on admission but also has been on a recent burst of prednisone Likely secondary to steroids but could be due to infection as well WBC count continues to trend downward to 12.8 When she was here a few days ago, she had significant neutropenia and was seen by hematology-this was thought to be possibly secondary to viral suppression and is now resolved (8) Chronic steroid use: On prednisone 5 mg daily for RA -Now on IV Solu-Medrol as above for asthma exacerbation (9) Neuropathy: Continue home gabapentin (10) Hyperlipidemia: Continue home simvastatin (11) Anxiety and depression: Stable -Continue home Effexor (12) Hypertension: Blood pressures are controlled Recently was discontinued from her chlorthalidone for low blood pressure -Continue home losartan (13) Rheumatoid arthritis: Follows with rheumatology has chronic joint pains all over and history of right ankle fusion -On chronic prednisone as above -Also on rituximab-on hold -Also recently decreased on her dose of sulfasalazine down to 1500 mg daily- continue here for now -On methotrexate which is recently reduced to 5 mg once weekly-on hold while here -She should follow-up closely with her clinical informaticist given her ongoing pulmonary issues to see if she should continue on her current regimen (14) Diabetes: With significant hyperglycemia here secondary to IV steroids which is improving now since increasing her Lantus and NovoLog On Lantus and Victoza at home as well as metformin -Continue Lantus 45 units twice daily -Continue NovoLog sliding scale insulin with correction factor of 20 and carb ratio of 1-10 -Holding Victoza and metformin from home Accu-Cheks q. before meals and at bedtime Diabetic diet Hemoglobin A1c checked a few days ago and was high at 8.9% Needs diabetic education and counseling (15) DVT prophylaxis: Lovenox SQ Disposition-continued stay on medical floor with telemetry, but will likely be ready for discharge in the next 1 to 2 days To step prior to discharge Home with home health eventually PT/OT ordered Admission and Anticipated Discharge Date Admission Date: December 27, 2019 Subjective Patient reports feeling better today, less cough and less short of breath. She is weaned off oxygen. Denies chest pain. No diarrhea or abdominal pains. She is eating. I discussed her case with the oil expert. Telemetry with normal sinus rhythm with rates in the 70s to 80s Review of Systems Review of Systems: All systems reviewed & are unremarkable except as noted in HPI & below Physical Exam Constitutional: WD/WN, vitals as above + obese Eyes: + anicteric sclerae Neck: trachea midline, no thyromegaly Respiratory: normal respiratory effort Auscultation: + rhonchi (Bilateral lower lung blum right greater than left although improved from yesterday) and + wheezes (Diffuse expiratory wheezes in all lung blum although slightly improved today); no crackles Cardiovascular: RRR, no murmur, no edema Chest (Breasts): Chest: normal inspection of chest Gastrointestinal (Abdomen): normal bowel sounds, soft, nontender, no hepatosplenomegaly Musculoskeletal: Extremities: extremities normal to inspection; no cyanosis and no clubbing Neurologic: moves all extremities and awake; no focal motor deficits Psychiatric: A+Ox3, euthymic affect Lymphatic: no lymphedema Results & Data Results & Data ([facility]) Vital Signs (Past 12 Hours) Vital Signs Temp Pulse Pulse Resp BP Pulse Ox 12/29/19 19:38 78 18 94 12/29/19 19:26 36.6 C 82 18 121/74 92 12/29/19 15:43 92 H 18 92 12/29/19 15:40 36.6 C 95 H 18 123/79 91 12/29/19 15:22 95 H 12/29/19 11:16 78 14 94 12/29/19 11:10 36.4 C L 75 18 123/74 90 Laboratory Results 12/29/19 12/29/19 12/29/19 Range/Units 16:36 11:27 07:45 WBC (4.8-10.8) K/uL RBC (4.2-5.4) M/uL Hgb (12.0-16.0) g/dL Hct (37-47) % MCV (80-100) fL MCH (25-34) pg MCHC (32-36) g/dL RDW Std Deviation (36.4-46.3) fL RDW Coeff of Sandra (11.5-14.5) % Plt Count (130-400) K/uL MPV (7.4-10.4) fL Immature Gran % (Auto) % Neut % (Auto) % Lymph % (Auto) % [place] % (Auto) % Eos % (Auto) % Baso % (Auto) % Immature Gran # (Auto) (0.00-0.02) K/uL Neut # (Auto) (1.4-6.5) K/uL Lymph # (Auto) (1.2-3.4) K/uL [place] # (Auto) (0.11-0.59) K/uL Eos # (Auto) (0-0.5) K/uL Baso # (Auto) (0-0.2) K/uL Sodium (136-145) mmol/L Potassium (3.5-5.1) mmol/L Chloride (98-107) mmol/L Carbon Dioxide (21-32) mmol/L Anion Gap (3-11) BUN (7-18) mg/dl Creatinine (0.6-1.2) mg/dl Est Cr Clr Drug Dosing ml/min Est GFR ( Amer) Est GFR (Non-Af Amer) BUN/Creatinine Ratio (10-20) Glucose (70-99) mg/dl POC Glucose 293 H 197 H 169 H (70-99) mg/dl Calcium (8.5-10.1) mg/dl Magnesium (1.8-2.4) mg/dl 12/29/19 12/29/19 Range/Units 05:37 05:37 WBC 12.81 H (4.8-10.8) K/uL RBC 4.35 (4.2-5.4) M/uL Hgb 12.4 (12.0-16.0) g/dL Hct 38.9 (37-47) % MCV 89.4 (80-100) fL MCH 28.5 (25-34) pg MCHC 31.9 L (32-36) g/dL RDW Std Deviation 46.1 (36.4-46.3) fL RDW Coeff of Sandra 14.2 (11.5-14.5) % Plt Count 376 (130-400) K/uL MPV 9.5 (7.4-10.4) fL Immature Gran % (Auto) 3.2 % Neut % (Auto) 79.7 % Lymph % (Auto) 11.3 % [place] % (Auto) 5.4 % Eos % (Auto) 0.1 % Baso % (Auto) 0.3 % Immature Gran # (Auto) 0.41 H (0.00-0.02) K/uL Neut # (Auto) 10.21 H (1.4-6.5) K/uL Lymph # (Auto) 1.45 (1.2-3.4) K/uL [place] # (Auto) 0.69 H (0.11-0.59) K/uL Eos # (Auto) 0.01 (0-0.5) K/uL Baso # (Auto) 0.04 (0-0.2) K/uL Sodium 132 L (136-145) mmol/L Potassium 4.1 (3.5-5.1) mmol/L Chloride 100 (98-107) mmol/L Carbon Dioxide 31 (21-32) mmol/L Anion Gap 1.0 L (3-11) BUN 24 H (7-18) mg/dl Creatinine 0.91 (0.6-1.2) mg/dl Est Cr Clr Drug Dosing 59.5 ml/min Est GFR ( Amer) 75.1 Est GFR (Non-Af Amer) 64.8 BUN/Creatinine Ratio 26.0 H (10-20) Glucose 252 H (70-99) mg/dl POC Glucose (70-99) mg/dl Calcium 9.9 (8.5-10.1) mg/dl Magnesium 1.5 L (1.8-2.4) mg/dl PG Care Time/CCT Total # of Minutes Spent Total Time Spent with Patient: Total time spent is greater than 50% in coordination of care (as documented) at patient's floor/unit and/or counseling patient: Coding Level of Care Code 96096 Subseq Hosp Care Lvl 3 Diagnoses Acute exacerbation of bronchiectasis J47.[address] scan, chest R93.89 Acute respiratory failure with hypoxia J96.01 Hyponatremia E87.1 Hypomagnesemia E83.42 Thrombocytosis D47.3 Leukocytosis D72.829 Chronic steroid use Neuropathy G62.9 Hyperlipidemia E78.5 Anxiety and depression F41.9; F32.9 Hypertension I10 Rheumatoid arthritis M06.9 Diabetes E11.9 DVT prophylaxis Z29.9
[2019-12-29] MEDS: SIMVASTATIN 5 MG TAB PO SCH (21:35)
[2019-12-29] MEDS: ENOXAPARIN INJ 40 MG/0.4 ML SYR SQ SCH (21:36)
[2019-12-29] MEDS: FLUTICASONE PROPIONATE NA SPR 16 GM BTL SCH (21:43)
[2019-12-29] MEDS ORDERED: COUGH DROP (SUGAR FREE) LOZ 24 LOZ/1 BOX BUCCAL STA (21:50)
[2019-12-30 05:47] LABS: Basophils # (auto) 0.04 K/uL (0-0.2); Basophils % (auto) 0.4 %; Eosinophils # (auto) 0.01 K/uL (0-0.5); Eosinophils % (auto) 0.1 %; Hematocrit (blood only) 37.4 % (37-47); Hemoglobin 12.1 g/dL (12.0-16.0); Immature Granulocytes # (auto) 0.23 K/uL (0.00-0.02); Immature Granulocytes % (auto) 2.1 %; Lymphocytes # (auto) 1.14 K/uL (1.2-3.4); Lymphocytes % (auto) 10.6 %; Mean Corpuscular Hemoglobin 28.7 pg (25-34); Mean Corpuscular Hgb Conc 32.4 g/dL (32-36); Mean Corpuscular Volume 88.8 fL (80-100); Mean Platelet Volume 9.7 fL (7.4-10.4); Monocytes # (auto) 0.37 K/uL (0.11-0.59); Monocytes % (auto) 3.4 %; Neutrophils # (auto) 8.97 K/uL (1.4-6.5); Neutrophils % (auto) 83.4 %; Platelet Count 342 K/uL (130-400); RDW Coefficient of Variation 14.4 % (11.5-14.5); RDW Standard Deviation 46.1 fL (36.4-46.3); Red Blood Count 4.21 M/uL (4.2-5.4); White Blood Count 10.76 K/uL (4.8-10.8)
[2019-12-30 06:27] LABS: BUN Creatinine Ratio 25.8 (10-20); Calcium 9.6 mg/dl (8.5-10.1); Est GFR (African American) 71.3; Est GFR (Non-African American) 61.5
[2019-12-30 06:40] LABS: Immunoglobulin M 49.4 mg/dl (40-230); Phosphorus 3.1 mg/dl (2.5-4.9); Thyroid Stimulating Hormone 0.642 uIu/ml (0.300-4.500)
[2019-12-30 07:08] LABS: Potassium 4.1 mmol/L (3.5-5.1)
[2019-12-30 07:09] LABS: Magnesium 1.8 mg/dl (1.8-2.4)
[2019-12-30] MEDS: SODIUM CHLOR 7% 4 ML NEB NEB SCH ×2 (07:10→18:44)
[2019-12-30] MEDS: ALBUT/IPRATROP 3MG/0.5MG NEB 3 ML VIAL NEB SCH ×4 (07:10→18:44)
[2019-12-30] MEDS: VENLAFAXINE HCL XR 150 MG CAPXR PO SCH (08:07)
[2019-12-30] MEDS: GABAPENTIN 300 MG CAP PO SCH ×2 (08:07→13:36)
[2019-12-30] MEDS: MAGNESIUM CHLORIDE 64MG DELAYED REL TAB PO SCH (08:07)
[2019-12-30] MEDS: LOSARTAN POTASSIUM 50 MG TAB PO SCH (08:08)
[2019-12-30] MEDS: NYSTATIN SUSP 500,000 U/5 ML UDC PO SCH ×3 (08:08→17:24)
[2019-12-30] MEDS: FLUTICASONE PROPIONATE NA SPR 16 GM BTL SCH (08:09)
[2019-12-30] MEDS: AMMONIUM LACTATE 12% LOTION 225 GM BTL EXT SCH (08:44)
[2019-12-30] MEDS: FLUTICASONE/VILANTEROL 100/25MCG 14 PUFFS/INHALER INH SCH (08:44)
[2019-12-30] MEDS: INSULIN DETEMIR FLEXPEN/FLEX TOUCH 100 UNITS/ML 3ML SQ SCH (08:45)
[2019-12-30] MEDS: sulfaSALAzine 500 MG TABLET PO SCH (08:45)
[2019-12-30] MEDS: INSULIN ASPART 100 UNITS/ML 3 ML PEN SC SCH ×3 (08:46→17:24)
[2019-12-30] MEDS ORDERED: predniSONE 20 MG TAB PO SCH (09:00)
--- NOTE | 2019-12-30 16:49 | Discharge Summary ---
Date of Service December 30, 2019 Admission HPI Per Admitting Provider This patient is a 69-year-old female with a history of reactive airways disease, DM 2, HTN, rheumatoid arthritis on chronic prednisone and immunosuppressant drugs, HL, anxiety/depression, neuropathy, who was recently admitted for acute respiratory failure with hypoxia and acute bronchitis from entero-rhinovirus from 12/21-12/23. Of note, she was negative for COVID-19 at that time. She was treated with higher doses of prednisone, nebulizers, and doxycycline and discharged home on a prednisone taper and continue doxycycline. She reports since discharge she never felt any better and has continued to have a productive cough of yellow sputum and shortness of breath with wheezing. She reports a lot of fatigue but has been ambulatory and getting around her house. She denies any nausea or vomiting, no diarrhea or abdominal pain. She denies fever/sweats/chills. She has had a sore throat and tongue. Has a mild headache but no facial pain or rhinorrhea. When she presented to the ER, she was found to be diffusely wheezing and hypoxemic with a pulse ox of 88% on room air. She was placed on 2 L and came up to the mid 90s on her pulse ox. She was given a nebulizer treatment, IV magnesium, IV cefepime and vancomycin in the ER with mild improvement. She was afebrile and vital signs were otherwise stable. Principal Diagnosis Acute exacerbation of bronchiectasis, Acute respiratory failure with hypoxia Discharge Exam Constitutional WD/WN, vitals as above + obese Eyes + anicteric sclerae ENMT Ears: + TM abnormality (Mild erythema of the right TM); no hearing impairment, no external ear abnormality and no EAC abnormality Mouth: + oropharynx abnormality (White exudate on the tongue now almost completely resolved) Neck trachea midline, no thyromegaly Respiratory normal respiratory effort Auscultation: + rhonchi (Bilateral lower lung blum right greater than left although improved from yesterday) and + wheezes (Diffuse expiratory wheezes in all lung blum although slightly improved today); no crackles Cardiovascular Rate/Rhythm: regular rate and regular rhythm Heart Sounds: no murmur Extremities: + edema (trace pitting edema feet bilat) Chest (Breasts) Chest: normal inspection of chest Gastrointestinal (Abdomen) normal bowel sounds, soft, nontender, no hepatosplenomegaly Musculoskeletal Extremities: extremities normal to inspection; no cyanosis and no clubbing Neurologic moves all extremities and awake; no focal motor deficits Psychiatric A+Ox3, euthymic affect Lymphatic no lymphedema Discharge Data Allergies Allergy/AdvReac Type Severity Reaction Status Date / Time bee venom protein (honey bee) Allergy Unknown Unknown Verified 12/27/19 18:03 Consultations 12/27/19 17:47 ED Decision to Admit Stat 12/27/19 20:26 Consult Case Management - Discharge Planning Routine Consult Pulmonology Routine 12/29/19 14:53 Consult Case Management - Discharge Planning Routine 12/29/19 19:51 Consult Health Information Management Routine Ordered Studies 12/28/19 12:30 CT chest HighResolution wo con Urgent CXR Hospital Course (1) Acute exacerbation of bronchiectasis: With chest x-ray showing interstitial coarsening, left greater than right opacities versus atelectasis Remained afebrile, with improved fatigued, with productive cough which is improved since admission With positive entero-/rhinovirus on bio fire a few days prior to admission, COVID-19 negative Failed course of doxycycline prior to admission Procalcitonin mildly elevated from previous at 0.11-repeat down to 0.09 making typical bacterial infection not likely Leukocytosis likely secondary to high-dose prednisone She is immunocompromised given all of her immunosuppressive drugs and chronic prednisone High resolution CT of the chest with nodules and bronchiectasis, mucous plugging-consideration for MATTEO versus ABPA/ABPM versus other chronic infectious etiology and less likely malignancy as per pulmonology RA can also cause bronchiectasis along with immunosuppression as per pulmonology-she is on methotrexate which can also cause interstitial lung disease -IgE ordered -pending at time of discharge -immunoglobulin panel ordered and normal -Will need follow-up with rheumatology to determine if she should continue on her current regimen of medications -Requested old pulmonary records-bronchoscopy 06/2019 with inflammation, mucus, neg bx for malignancy and +culture for H. flu and Rea which was treated -Discontinued all previous antibiotics as per Pulm (received Cefepime, Vanc, azithro) - Legionella antigen negative, mycoplasma titer pending but Biofire Mycoplasma negative -Follow blood cultures-no growth to date; and sputum culture normal wendy -AFB of sputum PENDING at time of discharge-to be followed up on by Pulm -Two step walk test performed and she DID NOT QUALIFY for oxygen at home -continue prednisone 40 mg daily x 8 more days for a total of a 10 day course of steroids and then return to her usual 5mg daily -has Pulm f/u scheduled within 1 week (2) Abnormal CT scan, chest: As above (3) Acute respiratory failure with hypoxia: As above-now resolved Previous notes reviewed-primary care doctor reported that PFTs from 12/2018 reported as normal but with 18% improvement with bronchodilators suggestive of small airways disease VBG here is normal with pH 7.41/51 With cardiomegaly and pulmonary vascular congestion seen on chest x-ray, however proBNP is normal and do not suspect CHF -received DuoNebs every 6 hours scheduled and will go home with Breo ELlipta and Albuterol MDI -no home O2 needed (4) Hyponatremia: Sodium was mildly low at 132 and now up to 135 - serum osmolality actually slightly high at 301, urine osmolality 263 and urine sodium 26 -TSH normal -Legionella antigen negative (5) Hypomagnesemia: Magnesium 1.3 on admission, unclear etiology Magnesium now improved after replacement -continue magnesium chloride 64 mg p.o. twice daily after dc (6) Thrombocytosis: Platelet count elevated here at 453 on admission although is improved from previous of 549 a couple of days prior to admission and likely secondary to acute phase reactant Continues to trend downward to normal level of 376 (7) Leukocytosis: WBC count elevated here at 15 on admission but also has been on a recent burst of prednisone Likely secondary to steroids but could be due to infection as well WBC count continues to trend downward to 12.8 When she was here a few days ago, she had significant neutropenia and was seen by hematology-this was thought to be possibly secondary to viral suppression and is now resolved (8) Chronic steroid use: On prednisone 5 mg daily for RA -was on IV Solu-Medrol as above for bronchiectasis exacerbation and now on prednisone 40mg daily x 8 more days then return to home dose (9) Neuropathy: Continue home gabapentin (10) Hyperlipidemia: Continue home simvastatin (11) Anxiety and depression: Stable -Continue home Effexor (12) Hypertension: Blood pressures are controlled Recently was discontinued from her chlorthalidone for low blood pressure -Continue home losartan (13) Rheumatoid arthritis: Follows with rheumatology has chronic joint pains all over and history of right ankle fusion -On chronic prednisone as above -Also on rituximab -Also recently decreased on her dose of sulfasalazine down to 1500 mg daily- continue for now -On methotrexate which is recently reduced to 5 mg once weekly-continue for now -She should follow-up closely with her livestock farmers given her ongoing pulmonary issues to see if she should continue on her current regimen (14) Diabetes: With significant hyperglycemia here secondary to IV steroids which is improving now since increasing her Lantus and NovoLog Now on ppo prednisone and glucose much improved On Lantus and Victoza at home as well as metformin Hemoglobin A1c checked a few days ago and was high at 8.9% Resume home regimen on discharge (15) Oral candidiasis: secondary to steroid use and Breo -rinse mouth after inhaler use -Nystatin swish and swallow for 10 more days (16) DVT prophylaxis: Lovenox SQ was provided Disposition-stable for dc to home with home health Was evaluated by PT/OT Total Time Total Time Spent Total Time Spent (In Minutes): 45 min Discussed all care with patient's granddaughter on the phone with pt's permission Total Time Includes: Examination of the Patient, Discharge Planning, Medication Reconciliation and Communication With Other Providers (Pulmonology) Discharge Plan Discharge Items Patient Disposition: Home - Home Health Services Reason For Visit: ACUTE RESPIRATORY FAILURE WITH HYPOXIA,HYPOMAGNESE Discharge Diagnosis: Acute exacerbation of bronchiectasis Condition on Discharge: Fair Activity: As commented below Bathing: No limitations Exercise/Sports: As tolerated Non-emergency contact: Primary Care Provider and Pole Tester Call non-emergency contact if: you have any medication questions, your symptoms worsen, you have a fever and your temperature is above 101 Follow-up/Referrals: daniel leung [Other] Sang Ralph MD [Physician] - 01/05/20 1:00 pm (you are scheduled for a telemedicine appoinment with the lung doctor, Dr. ralph, on January 04 at 1:00 pm please follow the information emailed to you from the office regarding set up of your portal which is needed to complete the telemdeicine call) Diet: Carb Consistent or DM2 Addtl Attending Provider Instructions: You have chronic scarring and mucus stuck in your lungs and this is called "bronchiectasis." This could be from your Rheumatoid arthritis or from the medication used to treat Rheumatoid arthritis. This puts you at risk for recurrent infections. In order to prevent infections, it is very important to try to keep the mucus cleared out of your lungs. This can be accomplished with a flutter valve to be used 4-5 times per day and with vibration therapy of the chest (please talk to your Pole Tester about obtaining a vibration vest at home). You gave a sputum sample for an atypical bacterial lung infection called MATTEO. The result is pending at the time of your discharge and the Pole Tester will follow up on this when it is available. Please contact your Boiler Erector and let him know you've been hospitalized with recurrent lung infections to see if he wants to change your medication regimen. Please finish out 8 more days of prednisone at 40mg once daily. You were tested to see if you needed oxygen before discharge and you did not. The lowest your oxygen level got with walking around was 93%. Follow up with Dr. Ralph, the Pole Tester, as scheduled for you. Please also follow up with your PCP. Pending Studies at Discharge: Yes (AFB smear, Sputum culture, Final blood cultu re result (no growth to date), ) Studies:: IgE level Stand-Alone Forms: My [facility] Medications and DC Order Prescriptions: New nystatin 100,000 unit/mL Suspension 5 ml PO 0800,1200,1600,1999 10 Days Qty: 200 RF: 0 magnesium chloride [Mag 64] 64 mg Tablet,Delayed Release (Dr/Ec) 64 mg PO BID@0800,2000 Qty: 60 RF: 0 fluticasone propionate 50 mcg/actuation [place],Suspension 2 spray NA DAILY Qty: 18.2 RF: 0 Continued sulfasalazine 500 mg tablet 500 mg PO QPM RF: 0 sulfasalazine [Azulfidine] 500 mg tablet 1,000 mg PO QAM RF: 0 albuterol sulfate [Ventolin HFA] 90 mcg/actuation HFA aerosol inhaler 2 puffs INH Q6H PRN (Reason: Shortness Of Breath Or Wheezing) RF: 0 Rituxan 10 mg/mL concentrate 0 mg IV DIRECTED RF: 0 ammonium lactate [Skin Treatment] 12 % lotion 1 applic TOPICAL BID RF: 0 prednisone 5 mg tablet 5 mg PO DAILY RF: 0 venlafaxine [Effexor XR] 150 mg capsule,extended release 24hr 150 mg PO QPM RF: 0 acetaminophen-codeine 300-30 mg tablet 1 tab PO Q8H PRN (Reason: Pain) RF: 0 methotrexate sodium 2.5 mg tablet 5 mg PO WK RF: 0 simvastatin 5 mg tablet 5 mg PO QPM RF: 0 metformin [Glucophage] 1,000 mg tablet 1,000 mg PO BID RF: 0 gabapentin [Neurontin] 300 mg capsule 600 mg PO TID RF: 0 losartan [Cozaar] 100 mg tablet 100 mg PO DAILY RF: 0 Levemir FlexTouch U-100 Insuln 100 unit/mL (3 mL) insulin pen 36 unit SUBCUT BID RF: 0 Victoza 3-Pedro 0.6 mg/0.1 mL (18 mg/3 mL) pen injector 1.8 mg SUBCUT DAILY RF: 0 Breo Ellipta 100-25 mcg/dose blister with device 1 puffs INH DAILY Qty: 60 RF: 0 Changed prednisone 10 mg tablet 40 mg PO DAILY Qty: 32 RF: 0 cyclobenzaprine 5 mg tablet 5 mg PO HS PRN (Reason: for neck pain) Qty: 0 RF: 0 Discontinued potassium chloride 10 mEq tablet extended release 10 meq PO DAILY RF: 0 doxycycline hyclate 100 mg Capsule 100 mg PO BID@0800,2000 5 Days Qty: 10 RF: 0 Discharge Orders: Discharge Order (Routine); Ordered 12/30/19 Ordered By: Rosio Grider Admission Data Admit Date/Time: 12/27/19 18:53 Attending Provider: Rosio Grider Admit Provider: Rosio Grider Primary Care Provider: PCP,NO Other Providers: Yusuf Fitzgerald Vyacheslav Coding Level of Care Code D/C Day Management >30 mins Diagnoses Acute exacerbation of bronchiectasis J47.[address] scan, chest R93.89 Acute respiratory failure with hypoxia J96.01 Hyponatremia E87.1 Hypomagnesemia E83.42 Thrombocytosis D47.3 Leukocytosis D72.829 Chronic steroid use Neuropathy G62.9 Hyperlipidemia E78.5 Anxiety and depression F41.9; F32.9 Hypertension I10 Rheumatoid arthritis M06.9 Diabetes E11.9 Oral candidiasis B37.0 DVT prophylaxis Z29.9
[2019-12-30 21:45] LABS: Mycoplasma pneumoniae Ab, IgG <=0.90 (<=0.90); Mycoplasma pneumoniae Ab, IgM 19 U/mL (<770)
== END 2019-12-30 17:30 | disposition home health service (06) | DRG 190 ==
LOC: ED 16:19 → 2W 18:53

== ENCOUNTER 2020-04-04 22:53 | Inpatient (IN) ==
[2020-04-04 23:53] LABS: Hemoglobin 12.9 g/dL (12.0-16.0); Mean Corpuscular Hemoglobin 29.9 pg (25-34); Mean Corpuscular Hgb Conc 34.9 g/dL (32-36); Mean Corpuscular Volume 85.8 fL (80-100); Mean Platelet Volume 9.4 fL (7.4-10.4); Platelet Count 225 K/uL (130-400); RDW Coefficient of Variation 14.5 % (11.5-14.5); RDW Standard Deviation 45.2 fL (36.4-46.3); Red Blood Count 4.31 M/uL (4.2-5.4); White Blood Count 3.47 K/uL (4.8-10.8)
--- NOTE | 2020-04-04 23:54 | Emergency Department Note ---
Impression & Plan Hypokalemia, Suppurative parotitis, Neutropenia ED Provider Note NAME: NAVEED ALCANTARA AGE: 69 SEX: F ARRIVES VIA: Walk-In INFORMANT: Patient ED PROVIDER(S): Shaylee Krueger DO CHIEF COMPLAINT: Fever and lump to the left side of the neck PLAN: Disposition: Admitted to the [facility] service Condition: Good MEDICAL DECISION MAKING: This is a 69-year-old female patient who presents to the emergency department with a 24-hour history of lump in the left side of her neck and intermittent fever over the past 12-16 hours. The patient is noted to be neutropenic. She does have a history of this. She was found to be hypokalemic and potassium was replaced with a K rider. Patient was found to be hyperglycemic. CT scan of the soft tissues of the neck show evidence of parotitis. Because of the patient's immunocompromise state with neutropenia and diabetes, she will be treated for separative parotitis with IV vancomycin and IV Unasyn. I discussed the case with the [facility] service. They will evaluate her for further management. Triage Nursing notes reviewed and agree them. Prior medical records reviewed Vital Signs: reviewed and stable Differential diagnosis: Cervical lymphadenopathy, Jatinder's angina, parotitis, thyroidomegaly ER treatment provided: IV Unasyn IV vancomycin IV potassium IV normal saline Laboratory studies: See below Imaging studies: As per stat rad CT of the soft tissues of the neck: Impression: Enlarged heterogeneously enhancing left parotid gland. This may represent parotitis. Notably, no calculus is seen in Stensen's duct. Right parotid gland appears normal. Likely reactive cervical lymphadenopathy involving left level 2 and and 3. Incidental wall thickening of the esophagus. Recommend correlation for esophagitis. Atherosclerosis of the carotid bifurcations. Degenerative changes seen in the cervical spine which yields varying degrees of foraminal narrowing. No high- grade spinal canal stenosis is seen. HPI: 69/F arrives for evaluation of lump in the left side of her neck. The patient noticed a painful lump in the left side of her neck approximately 24-26 hours ago. Throughout the day today, the patient noted intermittent fevers. She measured it at 100.1. She mentioned it to her granddaughter who suggested she come to the emergency department to have it evaluated. The patient states that she participated in her usual activities today but felt somewhat more fatigued. ROS: See above HPI for pertinent positives & negatives. A total of 10 systems reviewed and were otherwise negative. PAST MEDICAL HISTORY:Rheumatoid arthritis, diabetes PAST SURGICAL HISTORY:See Below FAMILY HISTORY:See Below SOCIAL HISTORY:See Below HOME MEDICATIONS:See list ALLERGIES:See list VITALS:See Below PHYSICAL EXAMINATION: HEENT: Head - normocephalic and atraumatic. Pupils are equal, round, and reactive to light. Extraocular eye muscles are intact, and sclera are anic teric. Nose - moist nasal mucosa without discharge. Mouth - moist buccal mucosa. Oropharynx is nonerythematous and there is no tonsillar exudate or edema noted. Neck: Supple; large painful palpable mass to the left side of the neck. There is some mild overlying erythema to the skin. Heart: Regular rate and rhythm. There is a normal S1 and S2 with no murmurs, clicks, or gallops appreciated. Lungs: Clear to auscultation bilaterally with no wheezes, rales, or rhonchi. Chest: There were no axillary lymph nodes palpated. Abdomen: Soft, completely nontender, nondistended, with good bowel sounds. There are no palpable pulsatile masses or hepatosplenomegaly. There is no guarding, rigidity, or rebound noted. Extremities: No evidence of cyanosis, clubbing, or edema. There are easily palpable peripheral pulses. Skin: warm and dry with good turgor and no rashes. ED COURSE: Times/Reassessments: 2325: The patient was evaluated in room C 11. A complete history and physical was performed. An order was placed for continuous cardiac monitoring. The patient was in a normal sinus rhythm at a rate of 95. An IV lock was initiated and labs were drawn as above. 0145: I reevaluated the patient at this time. She was comfortable. I explained to the patient that she would require admission to the hospital and that she would be receiving IV antibiotics. I also explained that her potassium level was low along with sodium and chloride. 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 Home Meds Home Medications Medication Instructions Recorded Confirmed Levemir FlexTouch U-100 Insuln 38 unit SUBCUT BID 12/22/19 04/05/20 acetaminophen-codeine 1 tab PO Q8H PRN 12/22/19 04/05/20 gabapentin [Neurontin] 600 mg PO TID 12/22/19 04/05/20 losartan [Cozaar] 100 mg PO DAILY 12/22/19 04/05/20 metformin [Glucophage] 1,000 mg PO BID 12/22/19 04/05/20 methotrexate sodium 5 mg PO WK 12/22/19 04/05/20 prednisone 5 mg PO DAILY 12/22/19 04/05/20 simvastatin 5 mg PO QPM 12/22/19 04/05/20 venlafaxine [Effexor XR] 150 mg PO QPM 12/22/19 04/05/20 Rituxan 0 mg IV DIRECTED 12/27/19 04/05/20 albuterol sulfate [Ventolin HFA] 2 puffs INH Q6H PRN 12/27/19 04/05/20 sulfasalazine [Azulfidine] 1,500 mg PO BID 12/27/19 04/05/20 chlorthalidone 25 mg PO DAILY 04/05/20 04/05/20 cyclobenzaprine 5 mg PO HS 04/05/20 04/05/20 liraglutide [Victoza 3-Pedro] 1.8 mg SUBCUT DAILY 04/05/20 04/05/20 Previous Rx's Medication Instructions Recorded magnesium chloride [Mag 64] 64 mg PO BID@0800,2000 #60 tab 12/30/19 lidocaine 1 patch TOP DAILY PRN #15 ea 03/08/20 oxycodone [Roxicodone] 5 mg PO Q8H PRN #9 tab 03/08/20 Results & Data (ED) Vital Signs Vital Signs - 24 hr 04/04/20 23:02 04/05/20 01:20 Temperature 37.6 C H Temperature Source Oral Pulse Rate 95 H Pulse Rate [Finger] 91 H Respiratory Rate 18 18 Respiratory Effort / Characteristics Non-Labored Spontaneous Non-Labored Respiratory Depth Normal Normal Blood Pressure 116/68 Blood Pressure [Left Arm] 125/58 L Blood Pressure Mean 84 Blood Pressure Mean [Left Arm] 80 Pulse Oximetry 96 93 Oxygen Delivery Method Room Air Room Air Sepsis Recent Fever Within 48 Hours No Sepsis New/Unexplained Change in Mental Status N/A Sepsis Action Taken by Nursing No Action Required Laboratory Data Result diagrams: 04/04/20 23:45 04/04/20 23:45 Lab Results 04/04/20 04/04/20 04/05/20 Range/Units 23:45 23:45 02:14 WBC 3.47 L (4.8-10.8) K/uL RBC 4.31 (4.2-5.4) M/uL Hgb 12.9 (12.0-16.0) g/dL Hct 37.0 (37-47) % MCV 85.8 (80-100) fL MCH 29.9 (25-34) pg MCHC 34.9 (32-36) g/dL RDW Std Deviation 45.2 (36.4-46.3) fL RDW Coeff of Sandra 14.5 (11.5-14.5) % Plt Count 225 (130-400) K/uL MPV 9.4 (7.4-10.4) fL Neutrophils % (Manual) 0.9 % Lymphocytes % (Manual) 27.8 % Reactive Lymphs % (Man) 42.6 % Monocytes % (Manual) 27.0 % Basophils % (Manual) 1.7 % Neutrophils # (Manual) 0.03 L (1.4-6.5) K/uL Total Absolute Neuts 0.03 L* (1.4-6.5) K/uL Lymphocytes # (Manual) 0.96 L (1.2-3.4) K/uL Reactive Lymphs # 1.48 K/uL Total Abs Lymphocytes 2.44 (1.2-3.4) K/uL Monocytes # (Manual) 0.94 H (0.11-0.59) K/uL Basophils # (Manual) 0.06 (0-0.2) K/uL RBC Morphology Unremarkable Sodium 130 L (136-145) mmol/L Potassium 3.0 L (3.5-5.1) mmol/L Chloride 93 L (98-107) mmol/L Carbon Dioxide 29 (21-32) mmol/L Anion Gap 8.0 (3-11) BUN 17 (7-18) mg/dl Creatinine 0.95 (0.6-1.2) mg/dl Est Cr Clr Drug Dosing 57.3 ml/min Est GFR ( Amer) 71.3 Est GFR (Non-Af Amer) 61.5 BUN/Creatinine Ratio 18.1 (10-20) Glucose 272 H (70-99) mg/dl Lactate 1.7 (0.4-2.0) mmol/L Calcium 9.1 (8.5-10.1) mg/dl Total Bilirubin 0.9 (0.2-1) mg/dl AST 15 (15-37) U/L ALT 22 (12-78) U/L Alkaline Phosphatase 49 (45-117) U/L Total Protein 7.3 (6.4-8.2) gm/dl Albumin 3.5 (3.4-5.0) gm/dl Globulin 3.8 (2.5-4.0) gm/dl Albumin/Globulin Ratio 0.9 (0.9-2) Administered Medications Acetaminophen/Codeine Phosphate (Tylenol W/Codeine #3) 1 tab PO Q8H PRN PRN Reason: Pain Stop: 05/05/20 04:20 Last Admin: 04/05/20 05:17 Dose: 1 tab Documented by: [id number] Potassium Chloride/Sodium Chloride (Normal Saline W/20 Meq Kcl) 20 meq in 1,000 mls @ 100 mls/hr IV .Q10H JULIAN Stop: 04/06/20 00:29 Last Admin: 04/05/20 05:20 Dose: 100 mls/hr Documented by: [id number] Ioversol (Optiray 320 100ml) 100 ml IV ONCE PRN PRN Reason: Interaction Checking Stop: 04/09/20 00:27 Last Admin: 04/05/20 00:28 Dose: 93 ml Documented by: [id number] Discontinued Medications Sodium Chloride (Nss) 500 mls @ 999 mls/hr IV .Q31M ONE Stop: 04/05/20 01:17 Last Infusion: 04/05/20 01:49 Dose: 0 mls/hr Documented by: [id number] Admin: 04/05/20 01:05 Dose: 999 mls/hr Documented by: [id number] Potassium Chloride (K Carlos / Wtr) 10 meq in 100 mls @ 100 mls/hr IV ONE ONE Stop: 04/05/20 01:46 Last Infusion: 04/05/20 04:39 Dose: 0 mls/hr Documented by: [id number] Admin: 04/05/20 01:06 Dose: 100 mls/hr Documented by: [id number] Ampicillin Sodium/Sulbactam Sodium 3,000 mg/ Sodium Chloride 108 mls @ 200 mls/hr IV NOW STA; Protocol Stop: 04/05/20 02:09 Last Admin: 04/05/20 04:37 Dose: Not Given Documented by: [id number] Vancomycin HCl 1,750 mg/ (Sodium Chloride) 535 mls @ 200 mls/hr IV NOW ONE Stop: 04/05/20 04:17 Last Admin: 04/05/20 03:30 Dose: 200 mls/hr Documented by: [id number] Discharge Plan Visit Data *Final* Discharge Date/Time: 04/05/20 02:00 Chief Complaint: Fever Stated Complaint: SWOLLEN GLANDES 101.1 FEVER ED Provider: Shaylee Krueger Discharge Problem: Hypokalemia, Suppurative parotitis, Neutropenia Patient Disposition: Admitted As Inpatient Discharge Problem: Neutropenia Qualifiers: Neutropenia type: unspecified Qualified Code(s): D70.9 - Neutropenia, unspecified
[2020-04-05 00:10] LABS: Albumin Level 3.5 gm/dl (3.4-5.0); BUN Creatinine Ratio 18.1 (10-20); Calcium 9.1 mg/dl (8.5-10.1); Creatinine Clr Calc Pharmacy 57.3 ml/min; Est GFR (African American) 71.3; Est GFR (Non-African American) 61.5
[2020-04-05 00:13] LABS: Albumin Globulin Ratio 0.9 (0.9-2); Bilirubin,Total 0.9 mg/dl (0.2-1); Globulin 3.8 gm/dl (2.5-4.0); Total Protein 7.3 gm/dl (6.4-8.2)
[2020-04-05] MEDS ORDERED: IOVERSOL 100ml IV PRN (00:28)
[2020-04-05] MEDS ORDERED: SODIUM CHLORIDE 0.9% 500 ML IV ONE (00:47)
[2020-04-05] MEDS ORDERED: POTASSIUM CHLORIDE / WTR 10 MEQ/100 ML PLCT IV ONE (00:47)
[2020-04-05 00:52] LABS: RBC Morphology Unremarkable
[2020-04-05 00:56] LABS: ALC (manual) 2.44 K/uL (1.2-3.4); ANC (manual) 0.03 K/uL (1.4-6.5); Basophils # (manual) 0.06 K/uL (0-0.2); Basophils % (manual) 1.7 %; Lymphocytes # (manual) 0.96 K/uL (1.2-3.4); Lymphocytes % (manual) 27.8 %; Monocytes # (manual) 0.94 K/uL (0.11-0.59); Neutrophils # (manual) 0.03 K/uL (1.4-6.5); Neutrophils % (manual) 0.9 %; Reactive Lymphocytes # (manual) 1.48 K/uL; Reactive Lymphocytes % (manual) 42.6 %
[2020-04-05] MEDS ORDERED: VANCOMYCIN CONSULT ACTIVE PRN ×2 (01:37→04:29)
[2020-04-05] MEDS ORDERED: AMPICILLIN/SULBACTAM SOD 3,000 MG in 0.9 % SODIUM CHLORIDE 100 ML IV STA (01:37)
[2020-04-05] MEDS ORDERED: VANCOMYCIN HCL 1,750 MG in SODIUM CHLORIDE 0.9% 500 ML IV ONE (01:37)
--- NOTE | 2020-04-05 03:43 | History & Physical Report ---
Date of Service April 05, 2020 Assessment & Plan (1) Parotid swelling: Patient with progressive swelling and tenderness of the left parotid gland over the last 48hours. No stone appreciated on CT imaging. ?Parotitis - could be secondary to obstruction vs infectious, bacterial/viral vs inflammatory Patient with history of RA/xerostomia, ?Sjogren's. Time couse seems rapid for malignancy. Patient is immunocompromised - on chronic steroids, Sulfasalazine, Rituxan and MTX. She is neutropenic as well. -Admit to medical floor -Encourage PO intake, patient may use heat for comfort -Vancomycin and Unasyn - broad coverage in immunocompromised host -ENT consultation appreciated -Tylenol with Codeine as needed for pain Present on Admission?: Yes (2) Neutropenia: Patient leukopenic with neutropenia and lymphopenia. Severely neutropenic with ANC=0.03. Her Hgb/Hct/MCV and MCH as well as her platelet counts are normal. She was evaluated by Heme/Onc for this issue in the past - last on 12/23/19. Thought to be secondary to acute viral infection or possibly secondary to medication effects. Recommendations were to continue monitoring and pursue additional workup such as bone marrow biopsy if neutropenia persisted. Afebrile at this time. -Neutropenic precautions -Broad spectrum antibiotics -Hematology followup on discharge for possible BMB Present on Admission?: Yes (3) Rheumatoid arthritis: Chronic. -Continue Sulfasalazine, Prednisone and MTX Present on Admission?: Yes (4) Anxiety and depression: Chronic. Stable -Continue Venlafaxine 150mg po qPM Present on Admission?: Yes (5) Neuropathy: Chronic. Stable -Continue Gabapentin 600mg po TID Present on Admission?: Yes (6) Hypertension: Blood pressure stable, 116/68 -Continue Chlorthalidone 25mg po daily -Continue Losartan 100mg po daily -Continue to monitor Present on Admission?: Yes (7) Hyponatremia: Zq=947. Cl low at 93. Patient has had this issue in the past. ?Chlorthalidone contributing to hyponatremia and hypokalemia. Per review of last DC summary from 12/30/19, Chlorthalidone was discontinued for low blood pressure -NSS as below -Monitor Na levels, I/Os Present on Admission?: Yes (8) Hypokalemia: K=3. She was administered 20mEq in ER -NSS with 20mEq KCl x 2 -Continue to monitor Present on Admission?: Yes (9) Diabetes: Blood sugar elevated at 272. Last OmrD3F=5.9 in December 2019 -Continue Levemir 38u BID -Continue Victoza -Hold Metformin -Goal blood sugar 100 - 140 F/E/N - NSS with KCl x 20mEq at 100mL/hr x 2L, K repletion, continue PO magnesium, monitor Na and K levels, CC/Heart healthy diet as tolerated Ppx - Low risk for DVT Code - Full Dispo - Admit to medical floor Present on Admission?: Yes Admission and Anticipated Discharge Date Admission Date: April 05, 2020 History of Present Illness Chief Complaint: left facial swelling Primary Care Provider: DO Magdalene Gaona is a 70yo C female with history of HTN/HLP/DM and RA on chronic steroids, Sulfasalazine and Rituxan presenting with acute swelling of left face. She reports swelling of the left side of her face which began on the evening of 04/03/20. Swelling and pain progressed which prompted her to come to the ER. She has had some subjective fevers and fatigue. Denies difficulty swallowing, neck pain or stiffness, dental pain, ear pain, cough, SOB, drooling or trismus. Denies nausea/vomiting/diarrhea/abdominal pain/CP/SOB/cough. She has hoarseness of her voice at baseline which is unchanged. Her facial swelling does not seem to be associated with meals. She denies drainage or foul taste in her mouth. Patient has RA and complains of chronic dry eye and dry mouth. She has never had parotitis or facial swelling before. Patient denies recent travel or contact with Covid-19 positive individuals. ER Course: Amp-Sulbactam, KCL, Vancomycin, NSS Allergies Allergy/AdvReac Type Severity Reaction Status Date / Time bee venom protein (honey bee) Allergy Unknown THROAT Verified 04/05/20 00:59 SWELLED, HIVES INSIDE AND OUT. Home Medications Home Medications Medication Instructions Recorded Confirmed Type Levemir FlexTouch U-100 Insuln 38 unit SUBCUT BID 12/22/19 04/05/20 History acetaminophen-codeine 1 tab PO Q8H PRN 12/22/19 04/05/20 History gabapentin [Neurontin] 600 mg PO TID 12/22/19 04/05/20 History losartan [Cozaar] 100 mg PO DAILY 12/22/19 04/05/20 History metformin [Glucophage] 1,000 mg PO BID 12/22/19 04/05/20 History methotrexate sodium 5 mg PO WK 12/22/19 04/05/20 History prednisone 5 mg PO DAILY 12/22/19 04/05/20 History simvastatin 5 mg PO QPM 12/22/19 04/05/20 History venlafaxine [Effexor XR] 150 mg PO QPM 12/22/19 04/05/20 History Rituxan 0 mg IV DIRECTED 12/27/19 04/05/20 History albuterol sulfate [Ventolin HFA] 2 puffs INH Q6H PRN 12/27/19 04/05/20 History sulfasalazine [Azulfidine] 1,500 mg PO BID 12/27/19 04/05/20 History magnesium chloride [Mag 64] 64 mg PO BID@0800,2000 #60 tab 12/30/19 04/05/20 Rx lidocaine 1 patch TOP DAILY PRN #15 ea 03/08/20 04/05/20 Rx oxycodone [Roxicodone] 5 mg PO Q8H PRN #9 tab 03/08/20 04/05/20 Rx chlorthalidone 25 mg PO DAILY 04/05/20 04/05/20 History cyclobenzaprine 5 mg PO HS 04/05/20 04/05/20 History liraglutide [Victoza 3-Pedro] 0.6 mg SUBCUT DAILY 04/05/20 04/05/20 History liraglutide [Victoza 3-Pedro] 1.8 mg SUBCUT DAILY 04/05/20 04/05/20 History Past Med/Surg History Social History Smoking Status: Never smoker Tobacco Type: Cigarettes packs per day: 1; Number of Years Since Quit: 20; Second Hand Exposure: No; Hx Alcohol Use: No Hx Substance Use: No Preferred Language: [place] Islander Communication Ability: Effective Floodplain Manager Required: No Beliefs That Will Affect Care: None marital status: / Current Living Situation: Family 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 Feels Safe at Home: Yes Review of Systems Review of Systems: All systems reviewed & are unremarkable except as noted in HPI & below Physical Exam 2 Physical Exam: General: patient resting comfortably, NAD, non-toxic in appearance, AA&O x 4 Skin: warm, dry, intact, Raynaud discoloration present at fingers and toes bilaterally HEENT: NC/AT, PERRL, EOMI, anicteric sclera, conjunctiva without injection, external ear normal to inspection and nontender, nares patent, moist mucus membranes, edentulous, no oropharyngeal lesions, no palpable mass or stone at left buccal surface, neck supple, trachea midline, no thyromegaly, firm mass present on left side of face extending from posterior auricular region to below the angle of the jaw. Firm, fixed, tender, no fluctuance or fluid appreciated, +hoarseness of voice at baseline per patient Heart: +S1/S2, regular, no m/r/g Lungs: equal air entry bilaterally, no rales/rhonchi/wheezes Abd: +BS, soft, NT/ND, no masses/organomegaly/ascites Ext: cool distal extremities with Raynaud's discoloration at fingers and toes, palpable pulses 2+, ulnar deviation of fingers, hypertrophy of MCP joints Neuro: nonfocal, patient AA&O x 4, speech intact, no facial droop, moving all extremities on command with equal strength 5/5 Results & Data Results & Data ([facility]) Vital Signs (Past 12 Hours) Vital Signs Temp Pulse Pulse Resp BP BP Pulse Ox 04/05/20 01:20 91 H 18 125/58 L 93 04/04/20 23:02 37.6 C H 95 H 18 116/68 96 Laboratory Results Lab Results 04/04/20 04/04/20 04/05/20 Range/Units 23:45 23:45 02:14 WBC 3.47 L (4.8-10.8) K/uL RBC 4.31 (4.2-5.4) M/uL Hgb 12.9 (12.0-16.0) g/dL Hct 37.0 (37-47) % MCV 85.8 (80-100) fL MCH 29.9 (25-34) pg MCHC 34.9 (32-36) g/dL RDW Std Deviation 45.2 (36.4-46.3) fL RDW Coeff of Sandra 14.5 (11.5-14.5) % Plt Count 225 (130-400) K/uL MPV 9.4 (7.4-10.4) fL Neutrophils % (Manual) 0.9 % Lymphocytes % (Manual) 27.8 % Reactive Lymphs % (Man) 42.6 % Monocytes % (Manual) 27.0 % Basophils % (Manual) 1.7 % Neutrophils # (Manual) 0.03 L (1.4-6.5) K/uL Total Absolute Neuts 0.03 L* (1.4-6.5) K/uL Lymphocytes # (Manual) 0.96 L (1.2-3.4) K/uL Reactive Lymphs # 1.48 K/uL Total Abs Lymphocytes 2.44 (1.2-3.4) K/uL Monocytes # (Manual) 0.94 H (0.11-0.59) K/uL Basophils # (Manual) 0.06 (0-0.2) K/uL RBC Morphology Unremarkable Sodium 130 L (136-145) mmol/L Potassium 3.0 L (3.5-5.1) mmol/L Chloride 93 L (98-107) mmol/L Carbon Dioxide 29 (21-32) mmol/L Anion Gap 8.0 (3-11) BUN 17 (7-18) mg/dl Creatinine 0.95 (0.6-1.2) mg/dl Est Cr Clr Drug Dosing 57.3 ml/min Est GFR ( Amer) 71.3 Est GFR (Non-Af Amer) 61.5 BUN/Creatinine Ratio 18.1 (10-20) Glucose 272 H (70-99) mg/dl Lactate 1.7 (0.4-2.0) mmol/L Calcium 9.1 (8.5-10.1) mg/dl Total Bilirubin 0.9 (0.2-1) mg/dl AST 15 (15-37) U/L ALT 22 (12-78) U/L Alkaline Phosphatase 49 (45-117) U/L Total Protein 7.3 (6.4-8.2) gm/dl Albumin 3.5 (3.4-5.0) gm/dl Globulin 3.8 (2.5-4.0) gm/dl Albumin/Globulin Ratio 0.9 (0.9-2) Diagnostic Findings CT Neck with IV contrast - per STAT-rad: Enlarged heterogenously enhancing left parotid gland. This may represent parotiditis. Notably, no calculus is seen in Stensen's duct. Right parotid gland appears normal. Likely reactive cervical lymphadenopathy involving left level II and III incidnetal wall thickening of the esophagus. Recommend correlation for esophagitis. Atherosclerosis of the carotid bifurcations. Degenerative changes in michael cervical spine which yields varying degrees of foraminal narrowing. No high grade spinal canal stenosis is seen. Code Status & VTE Plan Code Status FULL VTE Prophylaxis Plan VTE Prophylaxis will be ordered: Yes PG Care Time/CCT Total # of Minutes Spent Total Time Spent with Patient: Total time spent is greater than 50% in coordination of care (as documented) at patient's floor/unit and/or counseling patient: Coding Level of Care Code 56444 Initial Inpt Care Lvl 3 Diagnoses Parotid swelling R60.9 Neutropenia D70.9 Neutropenia type: unspecified Rheumatoid arthritis M06.9 Rheumatoid arthritis location: unspecified site Rheumatoid factor presence: unspecified presence Anxiety and depression F41.9; F32.9 Neuropathy G62.9 Hypertension I10 Hypertension type: essential hypertension Hyponatremia E87.1 Hypokalemia E87.6 Diabetes E11.42; Z79.4 Diabetes mellitus type: type 2 Diabetes mellitus mcfp insulin use: with watermelon harvesting supervisor use Diabetes mellitus complication status: with neurologic complications Diabetes mellitus complication detail: with polyneuropathy (1) Rheumatoid arthritis Rheumatoid arthritis location: unspecified site Rheumatoid factor presence: unspecified presence Qualified Code(s): M06.9 - Rheumatoid arthritis, unspecified (2) Hypertension Hypertension type: essential hypertension Qualified Code(s): I10 - Essential (primary) hypertension (3) Diabetes Diabetes mellitus type: type 2 Diabetes mellitus watermelon harvesting supervisor insulin use: with mcfp use Diabetes mellitus complication status: with neurologic complications Diabetes mellitus complication detail: with polyneuropathy Qualified Code(s): E11.42 - Type 2 diabetes mellitus with diabetic polyneuropathy; Z79.4 - snf (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 (4) Neutropenia Neutropenia type: unspecified Qualified Code(s): D70.9 - Neutropenia, unspecified
[2020-04-05] MEDS ORDERED: LIDOCAINE 5% 1 PATCH TD PRN (04:21)
[2020-04-05] MEDS ORDERED: ALBUTEROL HFA 8 GM INHALER INH PRN (04:21)
[2020-04-05] MEDS ORDERED: GLUCOSE 10 TABS/TUBE PO PRN (04:23)
[2020-04-05] MEDS ORDERED: GLUCAGON FOR INJ 1 MG VIAL SQ PRN (04:23)
[2020-04-05] MEDS ORDERED: CARBOHYDRATES FOR HYPOGLYCEMIA PO PRN (04:23)
[2020-04-05] MEDS ORDERED: DEXTROSE 50% 50 ML SYRINGE IV PRN (04:23)
[2020-04-05] MEDS ORDERED: GLUCOSE 40% GEL 15 GM TUBE PO PRN (04:23)
[2020-04-05] MEDS ORDERED: NSS + 20MEQ KCL 20 MEQ/1,000 ML BAG IV SCH (04:30)
[2020-04-05] MEDS: ACETAMINOPHEN W/CODEINE #3 1 TAB PO PRN ×3 (05:17→22:50)
--- NOTE | 2020-04-05 07:25 | CT Scan Report ---
CT soft tissue neck w con CT DOSE: 657.41 mGy.cm CLINICAL HISTORY: Painful left sided neck mass TECHNIQUE: Helical images were acquired during intravenous administration of 93 cc of Optiray 320. A dose lowering technique was utilized adhering to the principles of ALARA. COMPARISON STUDY: None. FINDINGS: There are no suspicious apical pulmonary nodules. There is mild septal thickening. No thyroid masses are visualized. There is hyperenhancement of the left parotid gland indicative of a parotiditis. There is mild infilt ration of the surrounding fat. There are no pathologically enlarged cervical lymph nodes. No necrotic nodes are evident. There are no fluid collections suspicious for abscess. There is no evidence of airway compromise. No mucosal space masses are visualized. There is borderline esophageal wall thickening. There is left nasal cavity mucosal thickening. There is mucosal thickening within the left ethmoid si nuses and left maxillary sinus. IMPRESSION: 1. Enlarged hyperenhancing left parotid gland indicative of a parotiditis. ACT 112: Negative or not required by law. Electronically signed by: Anastacio Amezcua M.D. 04/05/2020 7:24 AM
--- NOTE | 2020-04-05 08:04 | Pharmacy Report ---
Pharmacy Abx Dose Short Note - Date of Service April 05, 2020 - Assessment & Plan Assessment * 69 year old F admitted for L parotiditis, immunocompromise, neutropenia * Patient has a h/o neutropenia as well as RA and receives MTX, prednisone and rituximab * Empiric Vancomycin + Unasyn ordered on admission. Vancomycin dosing per pharmacy consult * Neutrophil count 30, no fever recorded since admission * Renal fxn appears to be at baseline Plan Vancomycin * 1750mg (~21mg/kg) loading dose given * Patient meets criteria for AUC dosing nomogram * AUC/CHARLES is the preferred PK/PD target for vancomycin Target AUC/CHARLES = 400-600 AUC guided dosing is effective and associated with decreased risk of nephrotoxicity * Trough level ordered with 4th maint dose Pharmacy will continue to follow and will adjust dose/frequency as necessary. Thank you.
[2020-04-05] MEDS ORDERED: NON-FORMULARY MEDICATION (Liraglutide [Victoza 3-Pak] 0.6 MG) SQ SCH (09:00)
[2020-04-05] MEDS ORDERED: INSULIN DETEMIR FLEXPEN/FLEX TOUCH 100 UNITS/ML 3ML SQ SCH (09:00)
[2020-04-05] MEDS: AMPICILLIN/SULBACTAM SOD 3,000 MG in 0.9 % SODIUM CHLORIDE 100 ML IV SCH ×3 (09:14→20:29)
[2020-04-05] MEDS: INSULIN ASPART 100 UNITS/ML 3 ML PEN SC SCH ×5 (09:16→23:47)
[2020-04-05] MEDS: predniSONE 5 MG TAB PO SCH (09:17)
[2020-04-05] MEDS: sulfaSALAzine 500 MG TABLET PO SCH ×2 (09:17→21:10)
[2020-04-05] MEDS: MAGNESIUM CHLORIDE 64MG DELAYED REL TAB PO SCH ×2 (09:18→21:10)
[2020-04-05] MEDS: LOSARTAN POTASSIUM 50 MG TAB PO SCH (09:18)
[2020-04-05] MEDS: GABAPENTIN 300 MG CAP PO SCH ×3 (09:18→21:12)
[2020-04-05] MEDS: VICTOZA~ORDER AWAITING ACTION SCH ×2 (09:18→16:22)
[2020-04-05] MEDS: OXYCODONE HCL IR 5 MG TAB (IMMEDIATE RELEASE) PO PRN ×2 (09:27→21:15)
--- NOTE | 2020-04-05 11:55 | ENT Consultation ---
Date of Consultation April 05, 2020 Assessment & Plan (1) Acute parotitis: - Acute parotitis without abscess or drainable collection as in Ms. White case is treated medically. Recommend IV abx to cover staph and strep which are the two most common pathogens to cause parotitis. Currently on vancomycin. Defer to medical team on abx choices. In addition, recommend hydration, sialogogues, frequent massage of the gland and warm compresses. - No surgical intervention required at this time - Will discuss patient with Dr. Heller tomorrow morning as he will be taking over inpatient services at that time for Otolaryngology. - Call for any questions. Present on Admission?: Yes History of Present Illness Attending Physician: Avani Silva MD History of Present Illness 69 yo female admitted with neutropenia and left sided parotitis. States that the left sided facial swelling started two days ago and has gradually worsened. She had CT scan of the neck which I reviewed. She has no collection or drainable abscess. Currently on IV vancomycin. She has been using warm compresses but has not had any sialogogues. Not massaging the gland. Has history of RA. Has history of chronic xerostomia. Allergies Allergy/AdvReac Type Severity Reaction Status Date / Time bee venom protein (honey bee) Allergy Unknown THROAT Verified 04/05/20 00:59 SWELLED, HIVES INSIDE AND OUT. Home Medications Home Medications Medication Instructions Recorded Confirmed Type Levemir FlexTouch U-100 Insuln 38 unit SUBCUT BID 12/22/19 04/05/20 History acetaminophen-codeine 1 tab PO Q8H PRN 12/22/19 04/05/20 History gabapentin [Neurontin] 600 mg PO TID 12/22/19 04/05/20 History losartan [Cozaar] 100 mg PO DAILY 12/22/19 04/05/20 History metformin [Glucophage] 1,000 mg PO BID 12/22/19 04/05/20 History methotrexate sodium 5 mg PO WK 12/22/19 04/05/20 History prednisone 5 mg PO DAILY 12/22/19 04/05/20 History simvastatin 5 mg PO QPM 12/22/19 04/05/20 History venlafaxine [Effexor XR] 150 mg PO QPM 12/22/19 04/05/20 History Rituxan 0 mg IV DIRECTED 12/27/19 04/05/20 History albuterol sulfate [Ventolin HFA] 2 puffs INH Q6H PRN 12/27/19 04/05/20 History sulfasalazine [Azulfidine] 1,500 mg PO BID 12/27/19 04/05/20 History magnesium chloride [Mag 64] 64 mg PO BID@0800,2000 #60 tab 12/30/19 04/05/20 Rx lidocaine 1 patch TOP DAILY PRN #15 ea 03/08/20 04/05/20 Rx oxycodone [Roxicodone] 5 mg PO Q8H PRN #9 tab 03/08/20 04/05/20 Rx chlorthalidone 25 mg PO DAILY 04/05/20 04/05/20 History cyclobenzaprine 5 mg PO HS 04/05/20 04/05/20 History liraglutide [Victoza 3-Pedro] 1.8 mg SUBCUT DAILY 04/05/20 04/05/20 History Patient History Social History Smoking Status: Former smoker Tobacco Type: Cigarettes packs per day: 1; Number of Years Since Quit: 20; Second Hand Exposure: No; Hx Alcohol Use: No Hx Substance Use: No Preferred Language: Serbian Communication Ability: Effective Tests Superintendent Required: No Beliefs That Will Affect Care: None marital status: / Current Living Situation: Alone 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 Oral cavity extremely dry. No purulence noted at left Leslee duct Neck: trachea midline, no thyromegaly Respiratory: normal respiratory effort Cardiovascular: Rate/Rhythm: regular rate Vessels: no JVD Lymphatic: + cervical lymphadenopathy Results & Data ([facility]) Vital Signs (Past 12 Hours) Vital Signs Temp Pulse Resp BP Pulse Ox 04/05/20 07:31 36.9 C 89 16 120/73 97 04/05/20 03:40 37.2 C 18 04/05/20 03:30 37.2 C 92 H 18 140/79 95 04/05/20 01:20 91 H 18 125/58 L 93
[2020-04-05] MEDS: VANCOMYCIN HCL 1,250 MG in SODIUM CHLORIDE 0.9% 250 ML IV SCH (16:16)
[2020-04-05] MEDS ORDERED: PHARMACY GLYCEMIC MGMT CONSULT PRN (18:25)
[2020-04-05] MEDS ORDERED: INSULIN HUMAN REGULAR PER UNIT 8 UNITS in SYRINGE 7.92 ML IV STA (18:46)
[2020-04-05] MEDS: POTASSIUM CHLORIDE / WTR 10 MEQ/100 ML PLCT IV SCH ×4 (19:12→23:36)
[2020-04-05] MEDS: CYCLOBENZAPRINE HCL 5 MG TAB PO SCH (21:11)
[2020-04-05] MEDS: VENLAFAXINE HCL XR 150 MG CAPXR PO SCH (21:12)
[2020-04-05] MEDS: SIMVASTATIN 5 MG TAB PO SCH (21:13)
[2020-04-05] MEDS: INSULIN DETEMIR FLEXPEN/FLEX TOUCH 100 UNITS/ML 3ML SQ SCH (21:18)
[2020-04-05] MEDS ORDERED: COUGH DROP (SUGAR FREE) LOZ 24 LOZ/1 BOX BUCCAL ONE (21:24)
--- NOTE | 2020-04-05 21:29 | Hospitalist Progress Note ---
Date of Service April 05, 2020 Assessment & Plan (1) Parotid swelling: Magdalene White is a 69 year old female diabetic w/ hx of chronic immunosuppression for RA who presents w/ 2 days of L parotid swelling in the setting of severe neutropenia. Stable. 1. Parotitis -progressive swelling and tenderness of the left parotid gland over 2 days -no abscess or drainage noted - CT soft tissue neck showed Enlarged hyperenhancing left parotid gland indicative of a parotiditis. -consulted ENT; they recommended medical management recommended and no surgical intervention at this time. plan: IV antibiotics. The parotitis is not suppurative, but the patient is immunocompromised. Vancomycin + Unasyn. 2. neutropenia with low ANC -home fever did not reach criteria for neutropenic fever -medical management of parotitis w/ abx takes immunosuppression into account -follow cbc 3. rheumatoid arthritis -at home, on MTX, sulfasalazine, and rituximab 4. Diabetes -basal + sliding scale in the hospital -attempted to titrate, but glucoses still at low 300s plan: pharmacy glycemic consult placed FEN-diabetic diet. d/c IVF SCD Full code Admission and Anticipated Discharge Date Admission Date: April 05, 2020 Supervising Physician Co-Signing Physician Notes Resident Physician Supervision Note: I independently interviewed and examined the patient and verified the woodson history and physical, reviewed labs and image studies, discussed the case with the resident Dr. Valadez and agree with the findings and care plan. Subjective Magdalene White is a 69 year old female w/ hx of RA (on MTX, sulfasalazine, and rituximab) HTN, HLD, and DM who presents w/ 2 days of acute L parotid region swelling. Was doing usual activities. No hx similar. Fever of 100.1C recorded at home. Overnight subjective: -L face swelling is painful and bothering the patient. -denies hearing loss. Reports some tinnitus. Denies fever, chills, cp, sob, other symptoms. -per nursing, issues w/ sugar control, low 300s most of day even after increasing basal and sliding scale insulin. Review of Systems Review of Systems: Constitutional: Denies fever, chills Eyes: Denies vision change ENT: Denies hearing loss. Painful at L face near ear. Cardiovascular: Denies Chest pain Respiratory: Denies shortness of breath Gastrointestinal: Denies abdominal pain, nausea, vomiting, constipation, diarrhea Genitourinary: Denies urinary symptoms including dysuria Musculoskeletal: Denies weakness Neurological: Denies headache, numbness, tingling, focal weakness Physical Exam Physical Exam: General: A&Ox3. NAD. Cooperative. Large body habitus. HEENT: L parotid region has swollen and tender region approx. 1 inch in diameter. There is some erythema over the area. No drainage. No abscesses noted in posterior oropharynx. No cervical lymphadenopathy. Pulm: CTAB. -wheezes, -rales, -rhonchi. No respiratory distress. Cardiac: RRR, -mrg. Radial pulses intact and symmetrical. Abdominal: Nontender, nondistended, soft. Skin: Bilateral feet appear red and flushed. Results & Data Results & Data ([facility]) Vital Signs (Past 12 Hours) Vital Signs Temp Pulse Resp BP Pulse Ox 04/05/20 15:55 37.1 C 85 17 100/65 93
[2020-04-05] MEDS ORDERED: MoRPHine SULFATE 2 MG/ML CARP IV PRN (23:24)
[2020-04-06] MEDS: AMPICILLIN/SULBACTAM SOD 3,000 MG in 0.9 % SODIUM CHLORIDE 100 ML IV SCH ×4 (01:16→20:44)
[2020-04-06] MEDS: INSULIN ASPART 100 UNITS/ML 3 ML PEN SC SCH ×5 (03:52→21:15)
[2020-04-06] MEDS: VANCOMYCIN HCL 1,250 MG in SODIUM CHLORIDE 0.9% 250 ML IV SCH ×2 (04:08→16:10)
[2020-04-06 05:55] LABS: Hematocrit (blood only) 42.2 % (37-47); Hemoglobin 14.1 g/dL (12.0-16.0); Mean Corpuscular Hemoglobin 29.5 pg (25-34); Mean Corpuscular Hgb Conc 33.4 g/dL (32-36); Mean Corpuscular Volume 88.3 fL (80-100); Mean Platelet Volume 10.3 fL (7.4-10.4); Nucleated RBC # (auto) 0.03 K/uL (0-0); Nucleated RBC % (auto) 0.6 %; Platelet Count 273 K/uL (130-400); RDW Coefficient of Variation 14.6 % (11.5-14.5); RDW Standard Deviation 47.1 fL (36.4-46.3); Red Blood Count 4.78 M/uL (4.2-5.4); White Blood Count 4.63 K/uL (4.8-10.8)
[2020-04-06 06:42] LABS: RBC Morphology Unremarkable
[2020-04-06 06:43] LABS: ALC (manual) 2.04 K/uL (1.2-3.4); ANC (manual) 0.37 K/uL (1.4-6.5); Basophils # (manual) 0.08 K/uL (0-0.2); Basophils % (manual) 1.8 %; Blast Cells % (manual) 0.9 %; Eosinophils # (manual) 0.37 K/uL (0-0.5); Lymphocytes # (manual) 2.04 K/uL (1.2-3.4); Lymphocytes % (manual) 44.1 %; Monocytes # (manual) 1.72 K/uL (0.11-0.59); Monocytes % (manual) 37.2 %; Neutrophils # (manual) 0.37 K/uL (1.4-6.5)
[2020-04-06 06:45] LABS: Blast # (manual) 0.04 K/uL (0-0)
[2020-04-06 06:47] LABS: BUN Creatinine Ratio 16.5 (10-20); Calcium 8.6 mg/dl (8.5-10.1); Creatinine Clr Calc Pharmacy 52.4 ml/min; Est GFR (African American) 63.9; Est GFR (Non-African American) 55.2; Potassium 3.3 mmol/L (3.5-5.1)
[2020-04-06 07:04] LABS: Estimated Average Glucose 209 mg/dl; Hemoglobin A1C 8.9 % (4.5-5.6)
--- NOTE | 2020-04-06 08:43 | Pharmacy Report ---
Glycemic Control Consultation - Date of Service April 06, 2020 - Scope Scope: Glycemic Pharmacist consulted for glycemic control and to write orders per [facility] inpatient glycemic control protocol. - Objective Weight: 85 kg Accuchecks BSG (last 24hrs): 04/05/20 04/05/20 04/05/20 08:26 08:28 08:46 Glucose POC Glucose 326 H* 288 H 345 H* 04/05/20 04/05/20 04/05/20 12:05 12:09 17:08 Glucose POC Glucose 334 H* 315 H* 325 H* 04/05/20 04/05/20 04/05/20 17:10 20:28 23:37 Glucose POC Glucose 319 H* 204 H 159 H 04/06/20 04/06/20 04/06/20 03:42 05:20 08:25 Glucose 119 H POC Glucose 114 H 166 H Laboratory Data (last 24hrs): 04/06/20 05:20 Potassium 3.3 L Carbon Dioxide 29 Anion Gap 7.0 Creatinine 1.04 Est Cr Clr Drug Dosing 52.4 HbA1c: Hemoglobin A1c 8.9 % (4.5-5.6) H 04/06/20 05:20 - Recent Pertinent Medications Outpatient Anti-diabetic Regimen: * Levemir 38 units SC BID * Victoza 1.8 mg SC daily * Metformin 1 g PO BIDM * A1c = 8.9 % (04/06/20) Risk Factors for Insulin Resistance: * Steroids: prednisone 5 mg PO daily * Infection: Acute parotitis (Unasyn and vancomycin) * Diet: T2DM - Assessment & Plan Assessment & Plan: ASSESSMENT: * AM is a 69 year old female admitted for acute parotitis requiring IV antibiotics * Patient is neutropenic possibly secondary to acute viral infection vs. medication-induced * --Outpatient medications include rituximab, prednisone, and methotrexate * Currently receiving vancomycin and Unasyn for acute parotitis * BSGs significantly elevated yesterday (ranging 159-345 mg/dL) - pharmacy consulted last evening * Patient received 172 units of insulin yesterday (78 units of basal, 86 units of correctional/prandial, and an 8 unit IV bolus) * Fasting BSG of 166 mg/dL this morning PLAN FOR INPATIENT GLYCEMIC CONTROL: * Holding outpatient oral diabetes medications * Basal insulin * Levemir 40 units SQ BID * Bolus insulin * NovoLog per scale ACHS or Q6hrs while NPO * Goal Range: Low 110 mg/dL - High 140 mg/dL * Correction Factor: 12 mg/dL/unit * Nutritional / Prandial insulin per carb ratio of 1 unit per 3.5 grams CHO consumed * Please note that the plan above was derived based on current level of insulin resistance and hospital stress. These recommendations are appropriate for inpatient admission only. Plan of care upon discharge will need to be reassessed to avoid potential outpatient hypo/hyperglycemia. Thank you.
[2020-04-06] MEDS: ACETAMINOPHEN W/CODEINE #3 1 TAB PO PRN ×2 (08:47→20:43)
[2020-04-06] MEDS: LOSARTAN POTASSIUM 50 MG TAB PO SCH (08:48)
[2020-04-06] MEDS: sulfaSALAzine 500 MG TABLET PO SCH ×2 (08:48→20:41)
[2020-04-06] MEDS: GABAPENTIN 300 MG CAP PO SCH ×3 (08:49→20:43)
[2020-04-06] MEDS: predniSONE 5 MG TAB PO SCH (08:49)
[2020-04-06] MEDS: MAGNESIUM CHLORIDE 64MG DELAYED REL TAB PO SCH ×2 (08:49→20:41)
[2020-04-06] MEDS: INSULIN DETEMIR FLEXPEN/FLEX TOUCH 100 UNITS/ML 3ML SQ SCH ×2 (08:51→21:15)
[2020-04-06] MEDS: OXYCODONE HCL IR 5 MG TAB (IMMEDIATE RELEASE) PO PRN (17:06)
--- NOTE | 2020-04-06 20:06 | Hospitalist Progress Note ---
Date of Service April 06, 2020 Assessment & Plan (1) Parotid swelling: Magdalene White is a 69 year old female diabetic w/ hx of chronic immunosuppression for RA who presents w/ 2 days of L parotid swelling in the setting of severe neutropenia. Stable. 1. Parotitis -progressive swelling and tenderness of the left parotid gland over 2 days -no abscess or drainage noted - CT soft tissue neck showed Enlarged hyperenhancing left parotid gland indicative of a parotiditis. -consulted ENT; they recommended medical management recommended and no surgical intervention at this time. plan: IV antibiotics. The parotitis is not suppurative, but the patient is immunocompromised. Vancomycin + Unasyn. 2. neutropenia with low ANC -home fever did not reach criteria for neutropenic fever -medical management of parotitis w/ abx takes immunosuppression into account -follow cbc 3. rheumatoid arthritis -at home, on MTX, sulfasalazine, and rituximab 4. Diabetes -basal + sliding scale in the hospital. pharm consulted. -glucoses improved today, mid 100s. FEN-diabetic diet. d/c'd IVF 40mg Lovenox SC Full code (2) Acute parotitis: Admission and Anticipated Discharge Date Admission Date: April 05, 2020 Supervising Physician Co-Signing Physician Notes Resident Physician Supervision Note: I independently interviewed and examined the patient and verified the woodson history and physical, reviewed labs and image studies, discussed the case with the resident Dr. Valadez and agree with the findings and care plan. Subjective Pain at L parotid region continues and has slightly worsened. Some L ear discomfort. Now, she has more pain when eating, but tolerating fluids ok. Denies fever, chills, nausea, vomiting, chest pain, shortness of breath. Review of Systems Review of Systems: Constitutional: Denies fever, chills ENT: As per HPI Cardiovascular: Denies Chest pain Respiratory: Denies shortness of breath Gastrointestinal:Denies abdominal pain, nausea, vomiting, constipation, diarrhea Genitourinary: Denies urinary symptoms including dysuria Musculoskeletal: Denies weakness Neurological: Denies headache, numbness, tingling, focal weakness Physical Exam Physical Exam: General: A&Ox3. NAD. Cooperative. HEENT: L parotid region has swollen and tender region approx. There is some erythema over the area. No drainage. Pulm: CTAB A&P. -wheezes, -rales, -rhonchi. No respiratory distress. Cardiac: RRR, -mrg. Radial pulses intact and symmetrical. Abdominal: Nontender, nondistended, soft. Results & Data Results & Data ([facility]) Vital Signs (Past 12 Hours) Vital Signs Temp Pulse Resp BP Pulse Ox 04/06/20 15:45 36.4 C L 75 17 104/66 95
[2020-04-06] MEDS: CYCLOBENZAPRINE HCL 5 MG TAB PO SCH (20:42)
[2020-04-06] MEDS: SIMVASTATIN 5 MG TAB PO SCH (20:42)
[2020-04-06] MEDS: VENLAFAXINE HCL XR 150 MG CAPXR PO SCH (20:42)
[2020-04-06] MEDS ORDERED: ENOXAPARIN INJ 40 MG/0.4 ML SYR SQ ONE (22:00)
[2020-04-07] MEDS: AMPICILLIN/SULBACTAM SOD 3,000 MG in 0.9 % SODIUM CHLORIDE 100 ML IV SCH ×4 (01:57→20:38)
[2020-04-07] MEDS ORDERED: VANCOMYCIN TROUGH ONE (03:30)
[2020-04-07 04:04] LABS: Hematocrit (blood only) 36.7 % (37-47); Hemoglobin 12.4 g/dL (12.0-16.0); Mean Corpuscular Hemoglobin 29.4 pg (25-34); Mean Corpuscular Hgb Conc 33.8 g/dL (32-36); Mean Platelet Volume 9.9 fL (7.4-10.4); Nucleated RBC # (auto) 0.02 K/uL (0-0); Nucleated RBC % (auto) 0.4 %; Platelet Count 259 K/uL (130-400); RDW Coefficient of Variation 15.1 % (11.5-14.5); RDW Standard Deviation 46.1 fL (36.4-46.3); Red Blood Count 4.22 M/uL (4.2-5.4)
[2020-04-07 04:22] LABS: ANC (manual) 1.06 K/uL (1.4-6.5); Basophils % (manual) 1.7 %; Eosinophils # (manual) 0.39 K/uL (0-0.5); Eosinophils % (manual) 6.9 %; Lymphocytes % (manual) 48.3 %; Monocytes # (manual) 1.16 K/uL (0.11-0.59); Monocytes % (manual) 20.7 %; Myelocytes # (manual) 0.19 K/uL (0-0); Myelocytes % (manual) 3.4 %; Neutrophils # (manual) 1.06 K/uL (1.4-6.5); RBC Morphology Unremarkable
[2020-04-07 04:25] LABS: BUN Creatinine Ratio 18.9 (10-20); Calcium 8.4 mg/dl (8.5-10.1); Creatinine Clr Calc Pharmacy 49.1 ml/min; Est GFR (African American) 59.1
[2020-04-07] MEDS: VANCOMYCIN HCL 1,250 MG in SODIUM CHLORIDE 0.9% 250 ML IV SCH ×2 (05:29→16:28)
[2020-04-07] MEDS: ACETAMINOPHEN W/CODEINE #3 1 TAB PO PRN (07:22)
--- NOTE | 2020-04-07 08:24 | Pharmacy Report ---
Pharmacy Abx Dose Short Note - Date of Service April 07, 2020 - Assessment & Plan Laboratory Tests 04/07/20 04/07/20 04/07/20 03:40 03:40 04:42 WBC 5.60 Neutrophils # (Manual) 1.06 L Creatinine 1.11 Est Cr Clr Drug Dosing 49.1 Vancomycin Trough 17.6 Assessment 69 year old F receiving IV Vancomycin & Unasyn for treatment of L parotid infection, pt immunocompromised with neutropenia. Day # 3 of antimicrobial therapy. Afebrile, renal function stable. Blood Cultures show no growth after 48 hours. Plan Vancomycin * Patient meets criteria for vancomycin AUC dosing nomogram AUC/CHARLES is the preferred PK/PD target for vancomycin Target AUC/CHARLES = 400-600 Trough level of 17.6 mcg/mL is predicted to achieve target AUC/CHARLES AUC guided dosing is effective and associated with decreased risk of nephrotoxicity * Trough level ordered for: 04/09/20 Pharmacy will continue to follow and will adjust dose/frequency as necessary. Thank you.
[2020-04-07] MEDS ORDERED: NovoLIN-N (NPH) PER UNIT CHARGE SQ ONE (08:30)
[2020-04-07] MEDS: GABAPENTIN 300 MG CAP PO SCH ×3 (09:04→20:45)
[2020-04-07] MEDS: predniSONE 5 MG TAB PO SCH (09:05)
[2020-04-07] MEDS: LOSARTAN POTASSIUM 50 MG TAB PO SCH (09:05)
[2020-04-07] MEDS: MAGNESIUM CHLORIDE 64MG DELAYED REL TAB PO SCH ×2 (09:06→20:45)
[2020-04-07] MEDS: sulfaSALAzine 500 MG TABLET PO SCH ×2 (09:06→20:45)
[2020-04-07] MEDS: INSULIN DETEMIR FLEXPEN/FLEX TOUCH 100 UNITS/ML 3ML SQ SCH ×2 (09:12→21:17)
[2020-04-07] MEDS: INSULIN ASPART 100 UNITS/ML 3 ML PEN SC SCH ×4 (09:13→21:17)
--- NOTE | 2020-04-07 09:49 | Pharmacy Report ---
Pharmacy Glycemic Short Note 2 - Date of Service April 07, 2020 - Glycemic Short BSG Results (Last 24 hours): 04/06/20 04/06/20 04/06/20 12:02 17:13 21:06 Glucose POC Glucose 208 H 164 H 153 H 04/07/20 03:40 Glucose 99 POC Glucose OUTPATIENT ANTIDIABETIC REGIMEN: * Levemir 38 units SC BID * Victoza 1.8 mg SC daily * Metformin 1 g PO BIDM * A1c = 8.9 % (04/06/20) Risk Factors for Insulin Resistance: * Steroids: prednisone 5 mg PO daily * Infection: Acute parotitis (Unasyn and vancomycin) * Diet: T2DM ASSESSMENT: * AM is a 69 year old female admitted for acute parotitis requiring IV antibiotics * Patient is currently receiving an average of 133 units of insulin per day: * 80 units of basal insulin * 53 units of prandial/correctional insulin * BSGs ranging 144- 208 over the past 24hrs * Risk factors for insulin resistance are constant over the past 24hrs * Steroid dosing unchanged * Continues on IV antibiotics for acute parotitis * From 04/06: Per discussion with life educator, mealtime insulin may be difficult given patient's arthritis. However, patient is agreeable to once daily NPH to be given with prednisone in order to help bring her BSGs into a safer range. Will consider this while inpatient in order to make appropriate discharge recommendation. * Start NPH 15 units SQ once daily in the morning (to be given with prednisone) * Will need to back off Novolog carb coverage as NPH dose is titrated PLAN FOR INPATIENT GLYCEMIC CONTROL: * Hold outpatient oral diabetes medications * Basal insulin * Lantus 40 units SQ BID * NPH 15 units SQ this morning x 1 (reassess dose tomorrow) * Bolus insulin - loosen CR * NovoLog per scale ACHS or Q6hrs while NPO * Goal Range: Low 110 mg/dL - High 140 mg/dL * Correction Factor: 12 mg/dL/unit * Nutritional / Prandial insulin per carb ratio of 1 unit per 4 grams CHO consumed PLAN FOR DISCHARGE: * A1c = 8.9% (04/06/20) * Patient experiencing post prandial hyperglycemia at home ( specifically with lunch and dinner). She is agreeable to the addition of once daily NPH to help combat steroid induced hyperglycemia. * dose to be determined (starte 04/07) Thank you.
--- NOTE | 2020-04-07 14:34 | Hospitalist Progress Note ---
Date of Service April 07, 2020 Assessment & Plan (1) Parotid swelling: Magdalene White is a 69 year old female diabetic w/ hx of chronic immunosuppression for RA who presents w/ 2 days of L parotid swelling in the setting of severe neutropenia. Stable. 1. Parotitis -progressive swelling and tenderness of the left parotid gland over 2 days -no abscess or drainage noted - CT soft tissue neck showed Enlarged hyperenhancing left parotid gland indicative of a parotiditis. -consulted ENT; they recommended medical management recommended and no surgical intervention at this time. plan: IV antibiotics. The parotitis is not suppurative, but the patient is immunocompromised. Vancomycin + Unasyn. 2. Left arm cellulitis - New-onset erythematous, edematous area that is painful to touch - Concern for cellulitis/?thrombophlebitis from IV site. - Already on abx - monitor clinically 3. neutropenia with low ANC -home fever did not reach criteria for neutropenic fever -medical management of parotitis w/ abx takes immunosuppression into account -follow cbc 4. rheumatoid arthritis -at home, on MTX, sulfasalazine, and rituximab, prednisone (hemodynamically stable - not need for stress dose) 5. Diabetes -basal + sliding scale in the hospital. pharm consulted. -glucoses improved today, mid 100s. FEN-diabetic diet. d/c'd IVF 40mg Lovenox SC Full code (2) Acute parotitis: (3) Skin abnormality: Admission and Anticipated Discharge Date Admission Date: April 05, 2020 Supervising Physician Co-Signing Physician Notes Resident Physician Supervision Note: I independently interviewed and examined the patient and verified the woodson history and physical, reviewed labs and image studies, discussed the case with the resident Dr. Gerardo and agree with the findings and care plan. Subjective Mrs. White continues to have L parotid region pain. She reports more pain when eating but has tolerated oral intake well. Her only new complaint today is a lump on her left arm in the triceps area. She says it is painful to the touch. Denies recent hiking, tick bites, fever, chills, nausea, vomiting, chest pain, shortness of breath. Review of Systems Review of Systems: Constitutional: Denies fever, chills ENT: per HPI Cardiovascular: Denies Chest pain Respiratory: Denies shortness of breath Gastrointestinal:Denies abdominal pain, nausea, vomiting, constipation, diarrhea Genitourinary: Denies urinary symptoms including dysuria Musculoskeletal: Denies weakness Neurological: Denies headache, numbness, tingling, focal weakness Skin: per HPI Physical Exam Constitutional: WD/WN, vitals as above no acute distress, seated comfortably at bedside chair. ENMT: Tenderness in L parotid area. Pain with movement of jaw. Respiratory: normal respiratory effort, lungs clear to auscultation Cardiovascular: RRR, no murmur, no edema Heart Sounds: normal S1 and normal S2 Musculoskeletal: no cyanosis or clubbing, extremities motor strength 5/5 Skin: warm, reddish, well-demarcated lump on upper left triceps, painful to palpation Psychiatric: A+Ox3, euthymic affect Speech: normal rate/rhythm/volume of speech Results & Data Results & Data ([facility]) Vital Signs (Past 12 Hours) Vital Signs Temp Pulse Resp BP Pulse Ox 04/07/20 06:55 37.2 C 84 16 110/68 92 Resident Activity Tracking Resident Involvement: Resident Care Provided Care Provided: Adult Hospital Medicine
[2020-04-07] MEDS: CYCLOBENZAPRINE HCL 5 MG TAB PO SCH (20:45)
[2020-04-07] MEDS: SIMVASTATIN 5 MG TAB PO SCH (20:45)
[2020-04-07] MEDS: VENLAFAXINE HCL XR 150 MG CAPXR PO SCH (20:45)
[2020-04-08] MEDS: AMPICILLIN/SULBACTAM SOD 3,000 MG in 0.9 % SODIUM CHLORIDE 100 ML IV SCH ×3 (01:25→13:41)
[2020-04-08] MEDS: VANCOMYCIN HCL 1,250 MG in SODIUM CHLORIDE 0.9% 250 ML IV SCH (05:22)
[2020-04-08 08:11] LABS: Basophils # (auto) 0.09 K/uL (0-0.2); Basophils % (auto) 1.6 %; Eosinophils # (auto) 0.15 K/uL (0-0.5); Eosinophils % (auto) 2.7 %; Hematocrit (blood only) 36.9 % (37-47); Hemoglobin 12.4 g/dL (12.0-16.0); Immature Granulocytes # (auto) 0.26 K/uL (0.00-0.02); Immature Granulocytes % (auto) 4.7 %; Lymphocytes # (auto) 2.24 K/uL (1.2-3.4); Lymphocytes % (auto) 40.3 %; Mean Corpuscular Hemoglobin 28.9 pg (25-34); Mean Corpuscular Hgb Conc 33.6 g/dL (32-36); Mean Platelet Volume 9.3 fL (7.4-10.4); Monocytes # (auto) 0.99 K/uL (0.11-0.59); Monocytes % (auto) 17.8 %; Neutrophils # (auto) 1.83 K/uL (1.4-6.5); Neutrophils % (auto) 32.9 %; Platelet Count 268 K/uL (130-400); RDW Coefficient of Variation 14.4 % (11.5-14.5); RDW Standard Deviation 44.8 fL (36.4-46.3); Red Blood Count 4.29 M/uL (4.2-5.4); White Blood Count 5.56 K/uL (4.8-10.8)
--- NOTE | 2020-04-08 08:19 | Hospitalist Progress Note ---
Date of Service April 08, 2020 Assessment & Plan (1) Parotid swelling: Magdalene White is a 69 year old female diabetic w/ hx of chronic immunosuppression for RA who presents w/ 2 days of L parotid swelling in the setting of severe neutropenia. Stable. 1. Parotitis -swelling and tenderness of the left parotid gland over 2 days -no abscess or drainage noted - pain and swelling have improved from yesterday - CT soft tissue neck showed Enlarged hyperenhancing left parotid gland indicative of a parotiditis. -consulted ENT; they recommended medical management recommended and no surgical intervention at this time. plan: IV antibiotics with possible transition to PO antibiotics today pending repeat PE later today?. The parotitis is not suppurative, but the patient is immunocompromised. Vancomycin + Unasyn, transition to Augmentin - today is abx day 4 2. Left arm cellulitis - New-onset erythematous, edematous area that is painful to touch - Concern for cellulitis/?thrombophlebitis from IV site. - Already on abx - continue to monitor clinically 3. neutropenia with low ANC, resolved -home fever did not reach criteria for neutropenic fever -medical management of parotitis w/ abx takes immunosuppression into account -ANC up to 1.83 today -continue to follow cbc 4. rheumatoid arthritis -at home, on MTX, sulfasalazine, and rituximab, prednisone (hemodynamically stable - no need for stress dose) 5. Diabetes -basal + sliding scale in the hospital. pharm consulted. -glucoses improved today, 80s -neuropathy of bilateral lower extremities: counseled today about regular foot exams and follow up in outpatient setting FEN-diabetic diet. d/c'd IVF 40mg Lovenox SC Full code Dispo: possible discharge later today pending repeat physical exam to monitor for left parotid/left arm swelling/redness/tenderness (2) Acute parotitis: (3) Skin abnormality: Admission and Anticipated Discharge Date Admission Date: April 05, 2020 Subjective Magdalene White is a 69 year old female diabetic w/ hx of chronic immunosuppression for RA who presents w/ 2 days of L parotid swelling in the setting of severe neutropenia. She is doing well with no acute events overnight. Continuing on Vanc/Unasyn IV for parotitis and left arm cellulitis. Reports decreased left ear pain and left cheek pain/swelling. Reports stable mild tenderness of lesion on left upper arm. Review of Systems Constitutional: no fever and no chills Respiratory: no dyspnea and no wheezing Cardiovascular: no chest pain and no palpitations Gastrointestinal: no nausea and no vomiting Genitourinary: no difficulty urinating Physical Exam Constitutional: WD/WN, vitals as above ENMT: moderate pain to palpation of left tragus and left parotid gland area Neck: normal visual inspection Respiratory: normal respiratory effort, lungs clear to auscultation Cardiovascular: RRR, no murmur, no edema Vessels: dorsalis pedis pulses present Gastrointestinal (Abdomen): Inspection/Auscultation: normal bowel sounds; abdomen not distended Percussion/Palpation: abdomen nontender Musculoskeletal: Head/Neck/Chest: normocephalic and head atraumatic Skin: ~3x5 cm warm, erythematous, mildly indurated lesion on left posterior upper arm, no fluctuance, no drainage Bilateral feet swelling Neurologic: decreased sensation in bilateral feet Psychiatric: A+Ox3, euthymic affect Lymphatic: + cervical lymphadenopathy Results & Data Results & Data ([facility]) Vital Signs (Past 12 Hours) Vital Signs Temp Pulse Resp BP BP Pulse Ox 04/08/20 07:08 37.0 C 74 16 105/59 L 94 04/07/20 23:35 37.3 C 77 16 123/72 94 04/07/20 20:37 74 122/72 CBC w Diff Results Results CBC w Diff: RBC 4.29 M/uL (4.2-5.4) 04/08/20 WBC 5.56 K/uL (4.8-10.8) 04/08/20 Hgb 12.4 g/dL (12.0-16.0) 04/08/20 Hct 36.9 % (37-47) L 04/08/20 MCV 86.0 fL (80-100) 04/08/20 MCH 28.9 pg (25-34) 04/08/20 MCHC 33.6 g/dL (32-36) 04/08/20 RDW Standard Deviation 44.8 fL (36.4-46.3) 04/08/20 RDW Coefficient of Variation 14.4 % (11.5-14.5) 04/08/20 Plt Count 268 K/uL (130-400) 04/08/20 MPV 9.3 fL (7.4-10.4) 04/08/20 Nucleated Red Blood Cells % (auto) 0.4 % 04/07/20 Nucleated RBC Absolute Count (auto) 0.02 K/uL (0-0) H 04/07/20 Neutrophils (%) (Auto) 32.9 % 04/08/20 Lymphocytes (%) (Auto) 40.3 % 04/08/20 Monocytes # (Auto) 0.99 K/uL (0.11-0.59) H 04/08/20 Eosinophils # (Auto) 0.15 K/uL (0-0.5) 04/08/20 Immature Granulocyte % (Auto) 4.7 % 04/08/20 Neutrophils # (Auto) 1.83 K/uL (1.4-6.5) 04/08/20 Lymphocytes # (Auto) 2.24 K/uL (1.2-3.4) 04/08/20 Monocytes # (Auto) 0.99 K/uL (0.11-0.59) H 04/08/20 Eosinophils # (Auto) 0.15 K/uL (0-0.5) 04/08/20 Basophils # (Auto) 0.09 K/uL (0-0.2) 04/08/20 Immature Granulocyte # (Auto) 0.26 K/uL (0.00-0.02) H 04/08/20 ANC 1.06 K/uL (1.4-6.5) L 04/07/20 ALC 2.70 K/uL (1.2-3.4) 04/07/20 Neutrophils % (Manual) 19.0 % 04/07/20 Lymphocytes % (Manual) 48.3 % 04/07/20 Reactive Lymphocytes % (Manual) 42.6 % 04/04/20 Monocytes % (Manual) 20.7 % 04/07/20 Eosinophils % (Manual) 6.9 % 04/07/20 Basophils % (Manual) 1.7 % 04/07/20 Metamyelocytes % (manual) 2.6 % 12/27/19 Myelocytes % (Manual) 3.4 % 04/07/20 Blast Cells % (Manual) 0.9 % 04/06/20 Neutrophils # (Manual) 1.06 K/uL (1.4-6.5) L 04/07/20 Lymphocytes # (Manual) 2.70 K/uL (1.2-3.4) 04/07/20 Reactive Lymphocytes # 1.48 K/uL 04/04/20 Monocytes # (Manual) 1.16 K/uL (0.11-0.59) H 04/07/20 Eosinophils # (Manual) 0.39 K/uL (0-0.5) 04/07/20 Basophils # (Manual) 0.10 K/uL (0-0.2) 04/07/20 Metamyelocytes # (Manual) 0.40 K/uL (0-0) H 12/27/19 Myelocytes # (Manual) 0.19 K/uL (0-0) H 04/07/20 Blast Cells # (Manual) 0.04 K/uL (0-0) H 04/06/20 Hypersegmented Neutrophils 1+ 01/06/20 Red Blood Cell Morphology Unremarkable 04/07/20 Chemistry (BMP) Results BMP Results: Sodium 140 mmol/L (136-145) 04/08/20 Potassium 3.5 mmol/L (3.5-5.1) 04/08/20 Chloride 105 mmol/L (98-107) 04/08/20 BUN 15 mg/dl (7-18) 04/08/20 Creatinine 0.79 mg/dl (0.6-1.2) 04/08/20 Glucose 99 mg/dl (70-99) 04/07/20
[2020-04-08 08:50] LABS: Creatinine Clr Calc Pharmacy 68.9 ml/min; Est GFR (African American) 89.1; Est GFR (Non-African American) 76.9; Potassium 3.5 mmol/L (3.5-5.1)
[2020-04-08] MEDS ORDERED: metHOTREXate sodium 2.5 MG TAB PO SCH (09:00)
[2020-04-08] MEDS ORDERED: NovoLIN-N (NPH) PER UNIT CHARGE SQ ONE (09:00)
[2020-04-08] MEDS: INSULIN DETEMIR FLEXPEN/FLEX TOUCH 100 UNITS/ML 3ML SQ SCH (09:41)
[2020-04-08] MEDS: INSULIN ASPART 100 UNITS/ML 3 ML PEN SC SCH ×2 (09:41→13:40)
[2020-04-08] MEDS: GABAPENTIN 300 MG CAP PO SCH ×2 (09:46→13:40)
[2020-04-08] MEDS: predniSONE 5 MG TAB PO SCH (09:47)
[2020-04-08] MEDS: sulfaSALAzine 500 MG TABLET PO SCH (09:47)
[2020-04-08] MEDS: LOSARTAN POTASSIUM 50 MG TAB PO SCH (09:48)
[2020-04-08] MEDS: MAGNESIUM CHLORIDE 64MG DELAYED REL TAB PO SCH (09:48)
--- NOTE | 2020-04-08 14:12 | Discharge Summary ---
Date of Service April 08, 2020 Admission HPI Per Admitting Provider Magdalene Wihte is a 70yo C female with history of HTN/HLP/DM and RA on chronic steroids, Sulfasalazine and Rituxan presenting with acute swelling of left face. She reports swelling of the left side of her face which began on the evening of 04/03/20. Swelling and pain progressed which prompted her to come to the ER. She has had some subjective fevers and fatigue. Denies difficulty swallowing, neck pain or stiffness, dental pain, ear pain, cough, SOB, drooling or trismus. Denies nausea/vomiting/diarrhea/abdominal pain/CP/SOB/cough. She has hoarseness of her voice at baseline which is unchanged. Her facial swelling does not seem to be associated with meals. She denies drainage or foul taste in her mouth. Patient has RA and complains of chronic dry eye and dry mouth. She has never had parotitis or facial swelling before. Patient denies recent travel or contact with Covid-19 positive individuals. ER Course: Amp-Sulbactam, KCL, Vancomycin, NSS Admission Exam Per Admitting Provider General: patient resting comfortably, NAD, non-toxic in appearance, AA&O x 4 Skin: warm, dry, intact, Raynaud discoloration present at fingers and toes bilaterally HEENT: NC/AT, PERRL, EOMI, anicteric sclera, conjunctiva without injection, external ear normal to inspection and nontender, nares patent, moist mucus membranes, edentulous, no oropharyngeal lesions, no palpable mass or stone at left buccal surface, neck supple, trachea midline, no thyromegaly, firm mass present on left side of face extending from posterior auricular region to below the angle of the jaw. Firm, fixed, tender, no fluctuance or fluid appreciated, +hoarseness of voice at baseline per patient Heart: +S1/S2, regular, no m/r/g Lungs: equal air entry bilaterally, no rales/rhonchi/wheezes Abd: +BS, soft, NT/ND, no masses/organomegaly/ascites Ext: cool distal extremities with Raynaud's discoloration at fingers and toes, palpable pulses 2+, ulnar deviation of fingers, hypertrophy of MCP joints Neuro: nonfocal, patient AA&O x 4, speech intact, no facial droop, moving all extremities on command with equal strength 5/5 Principal Diagnosis Acute Parotitis Discharge Exam Constitutional WD/WN, vitals as above ENMT preauricular lymphadenopathy with moderate tenderness to palpation of tragus and parotid gland area Neck normal visual inspection Respiratory normal respiratory effort, lungs clear to auscultation Cardiovascular RRR, no murmur, no edema Vessels: dorsalis pedis pulses present Gastrointestinal (Abdomen) Inspection/Auscultation: normal bowel sounds; abdomen not distended Percussion/Palpation: abdomen nontender Musculoskeletal Head/Neck/Chest: normocephalic and head atraumatic Psychiatric A+Ox3, euthymic affect Lymphatic + cervical lymphadenopathy Discharge Data Allergies Allergy/AdvReac Type Severity Reaction Status Date / Time bee venom protein (honey bee) Allergy Unknown THROAT Verified 04/05/20 00:59 SWELLED, HIVES INSIDE AND OUT. Consultations 04/05/20 01:42 ED Decision to Admit Stat 04/05/20 04:11 Consult Physician Routine Ordered Studies 04/04/20 23:34 CT soft tissue neck w con Urgent Hospital Course (1) Parotid swelling: Magdalene White is a 69 year old female diabetic w/ hx of chronic immunosuppression for RA who presented to [facility] on 04/05/2020 with two days of L parotid swelling in the setting of severe neutropenia. She was treated with Vancomycin/Unasyn for nonsupperative parotitis that was diagnosed via CT. She also developed a warm, erythematous, mildly indurated patch on her left posterior upper arm on 04/07 that was thought to be cellulitis vs thrombophlebitis. She was continued on the same IV antibiotics for coverage of L parotitis as well as possible left arm cellulitis. Cellulitis and L parotid swelling, tenderness, and associated lymphadenopathy have all improved during hospitalization. She will be discharged to her home, as she lives alone and has no issues with ADLs or iADLs. (2) Acute parotitis: (3) Skin abnormality: Total Time Total Time Spent Total Time Spent (In Minutes): See Attending Attestation Discharge Plan Discharge Items Patient Disposition: Home - Self-Care Reason For Visit: PAROTITIS, LEUKOPENIA, HYPOKALEMIA Discharge Diagnosis: Acute Parotitis Condition on Discharge: Good Activity: Resume your previous activity Non-emergency contact: Primary Care Provider Call non-emergency contact if: you have any medication questions, your symptoms worsen, your pain is worsening and you have a fever Follow-up/Referrals: Lexis Liang DO [Primary Care Provider] - Diet: Carb Consistent or DM2 and Heart Healthy Addtl Attending Provider Instructions: You were admitted to [facility] on 04/05/2020 with an infection of your left parotid gland (on your left cheek). This diagnosis was confirmed by imaging, and you were started on IV antibiotics for treatment of this infection. You also developed a possible superficial skin infection (cellulitis) on the back of your left upper arm. This infection, as well as your parotid gland infection, has improved with IV antibiotic therapy during your hospitalization. You will be discharged with an oral antibiotic, called Augmentin, that you should take as prescribed (twice daily) for 10 days, starting tonight. Please contact your PCP if you develop fever or worsening cheek pain/swelling, or worsening left arm pain/swelling. Pending Studies at Discharge: No Stand-Alone Forms: My [facility], Smoking Cessation Medications and DC Order Prescriptions: New amoxicillin-pot clavulanate [Augmentin] 875-125 mg tablet 1 tab PO BID 10 Days Qty: 20 RF: 0 insulin NPH isoph U-100 human 100 unit/mL suspension 15 units SQ DAILY Qty: 10 RF: 3 Continued sulfasalazine [Azulfidine] 500 mg tablet 1,500 mg PO BID RF: 0 albuterol sulfate [Ventolin HFA] 90 mcg/actuation HFA aerosol inhaler 2 puffs INH Q6H PRN (Reason: Shortness Of Breath Or Wheezing) RF: 0 Rituxan 10 mg/mL concentrate 0 mg IV DIRECTED RF: 0 magnesium chloride [Mag 64] 64 mg Tablet,Delayed Release (Dr/Ec) 64 mg PO BID@0800,2000 Qty: 60 RF: 0 chlorthalidone 25 mg tablet 25 mg PO DAILY RF: 0 cyclobenzaprine 5 mg tablet 5 mg PO HS RF: 0 Victoza 3-Pedro 0.6 mg/0.1 mL (18 mg/3 mL) pen injector 1.8 mg SUBCUT DAILY RF: 0 prednisone 5 mg tablet 5 mg PO DAILY RF: 0 venlafaxine [Effexor XR] 150 mg capsule,extended release 24hr 150 mg PO QPM RF: 0 acetaminophen-codeine 300-30 mg tablet 1 tab PO Q8H PRN (Reason: Pain) RF: 0 methotrexate sodium 2.5 mg tablet 5 mg PO WK RF: 0 simvastatin 5 mg tablet 5 mg PO QPM RF: 0 metformin [Glucophage] 1,000 mg tablet 1,000 mg PO BID RF: 0 gabapentin [Neurontin] 300 mg capsule 600 mg PO TID RF: 0 losartan [Cozaar] 100 mg tablet 100 mg PO DAILY RF: 0 Levemir FlexTouch U-100 Insuln 100 unit/mL (3 mL) insulin pen 38 unit SUBCUT BID RF: 0 lidocaine 5 % adhesive patch,medicated 1 patch TOP DAILY PRN (Reason: pain) Qty: 15 RF: 0 oxycodone [Roxicodone] 5 mg tablet 5 mg PO Q8H PRN (Reason: pain) Qty: 9 RF: 0 Discharge Orders: Discharge Order (Routine); Ordered 04/08/20 Ordered By: Heiu Dudley/Other Patient Handouts: Diabetes: Keeping Feet Healthy, Diabetes: Inspecting Your Feet, Diabetes: Living Your Life, ED Salivary Gland Infection, Isophane Insulin NPH injection Admission Data Admit Date/Time: 04/05/20 03:07 Attending Provider: Avani Silva Admit Provider: Deandra Rios Primary Care Provider: Lexis Liang Other Providers: Deandra Rios ; Davin Husain Other Interventions: Discharge Summary Assessment (RN) Last Done: 04/08/20 15:12 DC Date/Time DO NOT enter until pt leaves facility: 04/08/20 15:58 Supervising Physician Co-Signing Physician Notes Resident Physician Supervision Note: I independently interviewed and examined the patient and verified the woodson history and physical, reviewed labs and image studies, discussed the case with the resident Dr. Rivera and agree with the findings and care plan. Resident Activity Tracking Resident Involvement: Resident Care Provided Care Provided: Adult Hospital Medicine
[2020-04-09] MEDS ORDERED: VANCOMYCIN TROUGH ONE (03:30)
== END 2020-04-08 15:58 | disposition home or self-care (01) | DRG 155 ==
LOC: ED 22:53 → 3E 04-05 02:00 → SUATTDRO 04-05 03:07

== ENCOUNTER 2022-11-25 11:50 | Inpatient (IN) ==
[2022-11-25] MEDS ORDERED: SODIUM CHLORIDE 0.9% 1000ML 500 ML IV SCH (12:45)
--- NOTE | 2022-11-25 13:01 | XRay Report ---
XR chest 1V portable HISTORY: 72 years-old Female Sepsis acute sepsis COMPARISON: 12/28/2019 TECHNIQUE: AP view of the chest FINDINGS: Cardiac silhouette is enlarged. Atherosclerosis of the aorta. Progressively worsened reticular inters titial coarsening. No pneumothorax, large pleural effusion or lobar airspace consolidation. Healed ch ronic fracture deformity of the mid left humerus. Degenerative changes of the shoulders and spine. IMPRESSION: Cardiomegaly with reticular interstitial opacities have progressively worsened compared t o the study from 2019. Worsening fibrosis versus a nonspecific superimposed infectious or inflammator y pneumonitis considered. ACT 112: Negative or not required by law. The above report was generated using voice recognition software. It may contain grammatical, syntax o r spelling errors. Electronically signed by: Naveen Albrecht M.D. 11/25/2022 12:59 PM
[2022-11-25 13:12] LABS: Basophils # (auto) 0.11 K/uL (0-0.2); Basophils % (auto) 0.6 %; Eosinophils # (auto) 0.01 K/uL (0-0.50); Eosinophils % (auto) 0.1 %; Immature Granulocytes # (auto) 0.31 K/uL (0.01-0.20); Immature Granulocytes % (auto) 1.7 %; Lymphocytes # (auto) 0.74 K/uL (1.2-3.4); Mean Corpuscular Hemoglobin 24.9 pg (25.0-34.0); Mean Corpuscular Hgb Conc 31.4 g/dL (32.0-36.0); Mean Corpuscular Volume 79.2 fL (80.0-100.0); Monocytes % (auto) 4.8 %; Neutrophils # (auto) 16.51 K/uL (1.40-6.50); Neutrophils % (auto) 88.8 %; Platelet Count 371 K/uL (130-400); RDW Coefficient of Variation 18.3 % (11.5-14.5); RDW Standard Deviation 50.3 fL (36.4-46.3); Red Blood Count 4.42 M/uL (4.20-5.40); White Blood Count 18.58 K/ul (4.8-10.8)
[2022-11-25 13:28] LABS: Alanine Aminotransferase 10 U/L (7-52); Albumin Level 3.4 gm/dl (3.4-5.0); Alkaline Phosphatase 78 U/L (34-104); Anion Gap 13 (3-11); Aspartate Aminotransferase 15 U/L (13-39); BUN Creatinine Ratio 17.1 (10-20); Bilirubin Direct 0.3 mg/dl (0-0.2); Blood Urea Nitrogen 19 mg/dl (6-23); Calcium 9.3 mg/dl (8.5-10.1); Carbon Dioxide 28 mmol/L (21-32); Chloride 93 mmol/L (98-107); Est GFR (African American) 57.9 ml/min; Est GFR (Non-African American) 49.9 ml/min; Glucose 212 mg/dl (70-99(Fasting)); Magnesium 1.1 mg/dl (1.7-2.4); Sodium 134 mmol/L (136-145); Total Protein 6.8 gm/dl (6.0-8.3)
[2022-11-25 13:51] LABS: Troponin I High Sensitivity 22.8 pg/ml (0-14)
[2022-11-25] MEDS ORDERED: VANCOMYCIN HCL 1,500 MG in SODIUM CHLORIDE 0.9% 500 ML IV ONE (13:57)
[2022-11-25] MEDS ORDERED: CEFEPIME 2,000 MG/20 ML VIAL IV STA (13:57)
[2022-11-25] MEDS ORDERED: SODIUM CHLORIDE 0.9% 1000ML 1,000 ML IV ONE ×2 (13:57→16:06)
[2022-11-25] MEDS ORDERED: VANCOMYCIN CONSULT ACTIVE PRN (13:57)
[2022-11-25] MEDS ORDERED: SODIUM CHLORIDE 0.9% 1000ML 500 ML IV ONE (14:00)
[2022-11-25 14:19] LABS: Appearance Urine Turbid (Clear); Bacteria Urine Automated Negative (Negative); Bilirubin Urine Negative (Negative); Blood Urine Negative (Negative); Color Urine Dark Yellow; Epithelial Cell Urine Auto >30 /lpf (0-5); Glucose Urine UA Negative (Negative); Ketones Urine Trace (Negative); Leukocyte Esterase Urine Trace (Negative); Nitrite Urine Negative (Negative); Protein Urine 2+ (Negative); RBC Urine Automated 0-4 /hpf (0-4); Specific Gravity Urine 1.023 (1.000-1.030); Urobilinogen Urine Negative (Negative)
[2022-11-25] MEDS ORDERED: OPTIRAY 320 500ml IV ONE (14:38)
--- NOTE | 2022-11-25 15:27 | CT Scan Report ---
CT angio chest PE protocol CT DOSE: 584.75 mGy.cm HISTORY: 72 years-old Female with SOB, recent left rib fx, hypoxic, septic. Acute shortness of sherita th with sepsis TECHNIQUE: Multiple CTA images of the chest were obtained after the intravenous administration of 110 ml Optiray. Coronal and sagittal MIPS were obtained from the axial data set and were submitted for review. All measurements were obtained according to NASCET criteria. A dose lowering technique was u tilized adhering to the principles of ALARA. COMPARISON: Chest radiograph of same day, chest CT 12/28/2019 FINDINGS: CTA: The heart is normal in size without pericardial effusion. Moderate coronary artery calcifications. At herosclerosis of the thoracic aorta without aneurysm. Patency of the imaged great vessels. No pulmona ry emboli identified. CT CHEST: No dominant thyroid nodule identified. Enlarged mediastinal lymph nodes include an index right paratr acheal lymph node on image 209 measuring 1.3 cm, previously 8 mm. Subcarinal conglomerate lymphadenop athy measures up to 3.3 x 1.7 cm, also increased in size from prior. Mild associate bilateral hilar l ymphadenopathy. Trace pleural effusions. No pneumothorax. Bronchial wall thickening with extensive bilateral reticulo nodular opacities/perifissural micronodules. Mixed groundglass densities with bibasilar predominant c onsolidation, most pronounced within the left greater than right basal segments of the lower lobes wi th air bronchograms. Cholelithiasis. No acute process of the imaged upper abdomen. Hepatic steatosis. Degenerative changes of the shoulders and spine. Healing subacute appearing fractures of the left third through sixth rib s, some of which demonstrate minimal displacement. Mild superior endplate compression of the T6 verte bral body with mild inferior endplate compression at T3, new from prior. No retropulsion. IMPRESSION: 1. No pulmonary emboli identified. 2. Progressively worsened extensive reticular nodular densities with perifissural micronodules and br onchial wall thickening compared to the 2019 study compatible with a chronic infectious or inflammato ry pneumonitis/bronchiolitis. Follow-up with pulmonology recommended. 3. There are new superimposed bilateral airspace opacities, most pronounced within the left greater t chaudrhy right lower lobes suggestive of multifocal pneumonia. 4. Pathologically enlarged mediastinal and hilar lymph nodes. 5. Trace pleural effusions. 6. Cholelithiasis. 7. Healing subacute left-sided rib fractures. Age-indeterminate mild T3 and T6 compression deformitie s without retropulsion are new from prior. ACT 112: Negative or not required by law. The above report was generated using voice recognition software. It may contain grammatical, syntax o r spelling errors. Electronically signed by: Naveen Albrecht M.D. 11/25/2022 3:26 PM
--- NOTE | 2022-11-25 16:17 | Emergency Department Note ---
Impression & Plan Sepsis, Multifocal pneumonia ED Provider Note INFORMANT: Patient and daughter ED PROVIDER(S): Luis Gaitan MD CHIEF COMPLAINT: Dizziness PLAN: Disposition: Admitted Condition: Guarded Outpatient prescription management: none Referral: None MEDICAL DECISION MAKING: Patient presented to the emergency department complaining of dizziness and not feeling well. This was worse with standing. She did have some respiratory symptoms. Patient's vital signs revealed hypotension. Patient was also hypoxic. Chest x-ray was performed because she had low O2 saturations and this was concerning for worsening chronic lung disease but also superimposed infection. With her low blood pressure patient was started on fluid resuscitation. Cultures were obtained. Blood work revealed a significant leukocytosis. Mild anemia. She had elevated inflammatory markers. Patient's lactate was elevated. She was given multiple boluses of fluid to meet the 30 mg/kg requirement. Patient's troponin was positive and her magnesium was low. She was given IV cefepime and vancomycin for broad-spectrum antibiotic coverage. The patient also was given IV magnesium. The patient's blood pressure did improve. She was still mildly low however record review indicates that she was hovering between 95 and 105 last April. Patient's condition warranted chest CT imaging and this was performed. This revealed multifocal pneumonia but no thromboembolic disease. Patient is going to require hospitalization. [facility] Patient was e valuated in the ER admitted for further management. Discussed with military technology manager After review of the information above and other included data, I feel the patient is admission. Triage Nursing notes reviewed and agree them. Vital Signs: reviewed and remarkable for hypotension and hypoxia Prior /Outside records reviewed: none Differential diagnosis: Sepsis, UTI, pneumonia, metabolic, electrolyte abnormalities, cardiac sources, intracerebral event, toxicologic, neurologic, as well as other pathologies. Diagnostics, as interpreted by me: ECG: Twelve-lead ECG reveals normal sinus rhythm at 95 bpm. Low voltage QRS. No ST elevation or depression. Cardiac Monitoring: Cardiac monitoring ordered by me: The patient was placed on continuous cardiac monitoring and observed. It revealed a normal sinus rhythm at 97 beats per minute without ectopy or evidence of dysrhythmia. Medical decision rules: none Imaging studies: Chest x-ray and CT scan of the chest concerning for multifocal pneumonia. HPI: The patient is a 72year old female who presents to the Emergency Room with complaints of dizziness and fatigue. This started about a week ago and is worsening. Daughter notes that the patient had a concussion from a fall about a month ago. Patient denies any new headaches or falls. Daughter notes no confusion. She also had broken ribs noted on prior ED visit at [place]. The patient also notes the following associated symptoms, pain in the left lower back in the area of the broken ribs, cough, shortness of breath. The patient has been using a lidocaine patch for relieving factors. Current pain is rated as 0/10. Pt denies LOC, headache, fevers, chills, diaphoresis, visual changes, neck pain, chest pain, nausea, vomiting, abdominal pain, back pain, melena, hematochezia, urinary symptoms, numbness, lymphadenopathy, rash, or other complaints. PAST MEDICAL HISTORY: See Below, bronchiectasis PAST SURGICAL HISTORY: See Below, SOCIAL HISTORY: See Below, retired HOME MEDICATIONS: See Below ALLERGIES: See Below VITALS: See Below PHYSICAL EXAMINATION: GENERAL: Awake, tired appearing, in no distress HENT: Normocephalic, atraumatic. Oropharynx unremarkable. EYES: Normal conjunctiva. Sclera non-icteric. NECK: Inspection normal. Non-tender. Supple. No nuchal rigidity. FROM. No masses. RESPIRATORY: Scattered rhonchi bilaterally. No wheezes. Increased respiratory effort. CARDIAC: Normal rate. Normal rhythm. No murmurs. No rubs. Extremities warm and well perfused. Pulses equal. No JVD. GI: Soft, non-distended. No tenderness to palpation. No rebound or guarding. No masses. RECTAL: Deferred. MUSCULOSKELETAL: Atraumatic. Chest examination reveals no tenderness. The back is symmetrical on inspection without obvious abnormality. Lidocaine patch noted in the left lower rib area. Mild tenderness to palpation in that area. There is no CVA tenderness to palpation. No joint edema. LOWER EXTREMITIES: Calves are equal size bilaterally and non-tender. No edema. No discoloration. NEURO: Normal sensorium. No sensory or motor deficits noted. SKIN: No rash or jaundice noted. CRITICAL CARE: I have personally spent greater than 40 minutes of critical care time in the di rect management of this patient. This includes bedside care, interpretation of diagnostic studies, and testing, discussion with consultants, patient, and family members, and other required patient management activities. These minutes are in excess of all separately billable procedures. Past Med/Surg History Medical History (Updated 11/25/22 @ 17:35 by Christopher Castrejon PA-C) Abnormal CT scan, chest Acute exacerbation of bronchiectasis Anxiety and depression Bronchiectasis without complication Chronic steroid use Diabetes Hyperlipidemia Hypertension Neuropathy Rheumatoid arthritis Rheumatoid arthritis Splenomegaly Surgical History History of ankle fusion History of section History of repair of left hip joint Family History Other Family history non-contributory Social History Smoking Status: Never smoker Tobacco Type: Cigarettes packs per day: 1; Second Hand Exposure: No; Hx Alcohol Use: No Hx Substance Use: No Preferred Language: Spanish Communication Ability: Effective Hand Trimmer Required: No Beliefs That Will Affect Care: None marital status: Current Living Situation: Alone 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 Home Meds Home Medications Medication Instructions Recorded Confirmed acetaminophen 300 mg-codeine 30 mg 1 tab PO Q8H PRN Pain 12/22/19 11/25/22 tablet gabapentin 300 mg capsule 600 mg PO BID 12/22/19 11/25/22 (Neurontin) insulin detemir U-100 100 unit/mL 22 unit subcut DAILYBB 12/22/19 11/25/22 (3 mL) subcutaneous pen (Levemir FlexTouch U-100 Insulin) methotrexate sodium 2.5 mg tablet 10 mg PO WK 12/22/19 11/25/22 prednisone 5 mg tablet 5 mg PO DAILY 12/22/19 11/25/22 simvastatin 5 mg tablet 5 mg PO QPM 12/22/19 11/25/22 venlafaxine 150 mg 150 mg PO QPM 12/22/19 11/25/22 capsule,extended release 24 hr (Effexor XR) albuterol sulfate 90 mcg/actuation 2 puffs inhalation Q6H PRN 12/27/19 11/25/22 aerosol inhaler (Ventolin HFA) Shortness Of Breath Or Wheezing rituximab 10 mg/mL 0 mg IV DIRECTED 12/27/19 11/25/22 concentrate,intravenous (Rituxan) sulfasalazine 500 mg tablet 1,500 mg PO BID 12/27/19 11/25/22 (Azulfidine) chlorthalidone 25 mg tablet 25 mg PO DAILY 04/05/20 11/25/22 cyclobenzaprine 5 mg tablet 5 mg PO HS 04/05/20 11/25/22 cevimeline 30 mg capsule 30 mg PO TID 11/25/22 11/25/22 famotidine 40 mg tablet 40 mg PO BID 11/25/22 11/25/22 hydroxychloroquine 200 mg tablet 200 mg PO BID 11/25/22 11/25/22 insulin NPH isoph U-100 human 100 15 units subcut QDB diabetes 11/25/22 11/25/22 unit/mL subcutaneous suspension losartan 50 mg tablet 50 mg PO DAILY 11/25/22 11/25/22 magnesium oxide 400 mg (241.3 mg 400 mg PO BID 11/25/22 11/25/22 magnesium) tablet metformin 1,000 mg tablet 1,000 mg PO BID 11/25/22 11/25/22 oxycodone 5 mg tablet 5 mg PO Q6H PRN Pain 11/25/22 11/25/22 potassium chloride 10 mEq 10 meq PO DAILY 11/25/22 11/25/22 tablet,extended release semaglutide 1 mg/dose (4 mg/3 mL) 1 mg subcut WK 11/25/22 11/25/22 subcutaneous pen injector (Ozempic) Previous Rx's Medication Instructions Recorded lidocaine 5 % topical patch 1 patch topical DAILY PRN pain #15 03/08/20 ea Results & Data (ED) Vital Signs Vital Signs - 24 hr 11/25/22 12:25 11/25/22 12:39 11/25/22 13:44 Pulse Rate 98 H 97 H 87 Pulse Rate [Apical] Pulse Rate from SpO2 Sensor Pulse Rhythm Regular Pulse Rhythm [Apical] Pulse Strength [Apical] Respiratory Rate 18 16 Respiratory Effort / Characteristics Non-Labored Spontaneous Respiratory Depth Normal Blood Pressure 75/48 L Blood Pressure [Right Arm] Blood Pressure Mean 57 Blood Pressure Mean [Right Arm] Blood Pressure Position Sitting Pulse Oximetry 86 L 95 Oxygen Delivery Method Room Air Nasal Cannula Oxygen Flow Rate 2 Sepsis Recent Fever Within 48 Hours No Sepsis New/Unexplained Change in Mental Status N/A Sepsis Action Taken by Nursing No Action Required 11/25/22 12:36 11/25/22 12:36 11/25/22 12:40 Pulse Rate 95 H Pulse Rate [Apical] Pulse Rate from SpO2 Sensor 95 H Pulse Rhythm Pulse Rhythm [Apical] Pulse Strength [Apical] Respiratory Rate 23 Respiratory Effort / Characteristics Respiratory Depth Blood Pressure 83/50 L 78/42 L Blood Pressure [Right Arm] Blood Pressure Mean 61 54 Blood Pressure Mean [Right Arm] Blood Pressure Position Pulse Oximetry 93 Oxygen Delivery Method Oxygen Flow Rate Sepsis Recent Fever Within 48 Hours Sepsis New/Unexplained Change in Mental Status Sepsis Action Taken by Nursing 11/25/22 12:40 11/25/22 12:50 11/25/22 13:00 Pulse Rate 94 H 89 Pulse Rate [Apical] Pulse Rate from SpO2 Sensor 89 Pulse Rhythm Pulse Rhythm [Apical] Pulse Strength [Apical] Respiratory Rate 24 20 Respiratory Effort / Characteristics Respiratory Depth Blood Pressure 87/60 L Blood Pressure [Right Arm] Blood Pressure Mean 69 Blood Pressure Mean [Right Arm] Blood Pressure Position Pulse Oximetry 92 Oxygen Delivery Method Oxygen Flow Rate Sepsis Recent Fever Within 48 Hours Sepsis New/Unexplained Change in Mental Status Sepsis Action Taken by Nursing 11/25/22 13:00 11/25/22 13:10 11/25/22 13:20 Pulse Rate 89 91 H 91 H Pulse Rate [Apical] Pulse Rate from SpO2 Sensor 90 90 90 Pulse Rhythm Pulse Rhythm [Apical] Pulse Strength [Apical] Respiratory Rate 24 24 24 Respiratory Effort / Characteristics Respiratory Depth Blood Pressure Blood Pressure [Right Arm] Blood Pressure Mean Blood Pressure Mean [Right Arm] Blood Pressure Position Pulse Oximetry 95 92 92 Oxygen Delivery Method Oxygen Flow Rate Sepsis Recent Fever Within 48 Hours Sepsis New/Unexplained Change in Mental Status Sepsis Action Taken by Nursing 11/25/22 13:30 11/25/22 13:30 11/25/22 15:55 Pulse Rate 87 Pulse Rate [Apical] 80 Pulse Rate from SpO2 Sensor 87 Pulse Rhythm Pulse Rhythm [Apical] Regular Pulse Strength [Apical] Normal Respiratory Rate 23 16 Respiratory Effort / Characteristics Non-Labored Spontaneous Respiratory Depth Normal Blood Pressure 95/54 L Blood Pressure [Right Arm] 89/50 L Blood Pressure Mean 67 Blood Pressure Mean [Right Arm] 63 Blood Pressure Position Pulse Oximetry 95 94 Oxygen Delivery Method Nasal Cannula Oxygen Flow Rate 2 Sepsis Recent Fever Within 48 Hours Sepsis New/Unexplained Change in Mental Status Sepsis Action Taken by Nursing 11/25/22 16:35 11/25/22 16:42 Pulse Rate 81 Pulse Rate [Apical] 97 H Pulse Rate from SpO2 Sensor Pulse Rhythm Pulse Rhythm [Apical] Pulse Strength [Apical] Respiratory Rate 16 Respiratory Effort / Characteristics Non-Labored Spontaneous Respiratory Depth Normal Blood Pressure Blood Pressure [Right Arm] 93/55 L Blood Pressure Mean Blood Pressure Mean [Right Arm] 67 Blood Pressure Position Pulse Oximetry 99 Oxygen Delivery Method Room Air Oxygen Flow Rate Sepsis Recent Fever Within 48 Hours Sepsis New/Unexplained Change in Mental Status Sepsis Action Taken by Nursing Laboratory Data 11/25/22 12:35 11/25/22 12:35 Lab Results 11/25/22 11/25/22 11/25/22 Range/Units 12:35 12:35 12:35 WBC 18.58 H (4.8-10.8) K/ul RBC 4.42 (4.20-5.40) M/uL Hgb 11.0 L (12.0-16.0) g/dl Hct 35.0 L (37.0-47.0) % MCV 79.2 L (80.0-100.0) fL MCH 24.9 L (25.0-34.0) pg MCHC 31.4 L (32.0-36.0) g/dL RDW Std Deviation 50.3 H (36.4-46.3) fL RDW Coeff of Sandra 18.3 H (11.5-14.5) % Plt Count 371 (130-400) K/uL MPV 9.0 L (9.4-12.4) fL Immature Gran % (Auto) 1.7 % Neut % (Auto) 88.8 % Lymph % (Auto) 4.0 % Hitchcock % (Auto) 4.8 % Eos % (Auto) 0.1 % Baso % (Auto) 0.6 % Neut # (Auto) 16.51 H (1.40-6.50) K/uL Lymph # (Auto) 0.74 L (1.2-3.4) K/uL Hitchcock # (Auto) 0.90 H (0.11-0.59) K/uL Eos # (Auto) 0.01 (0-0.50) K/uL Baso # (Auto) 0.11 (0-0.2) K/uL Immature Gran # (Auto) 0.31 H (0.01-0.20) K/uL Sodium 134 L (136-145) mmol/L Potassium 4.0 (3.5-5.1) mmol/L Chloride 93 L (98-107) mmol/L Carbon Dioxide 28 (21-32) mmol/L Anion Gap 13 H (3-11) BUN 19 (6-23) mg/dl Creatinine 1.11 (0.6-1.2) mg/dl Est Cr Clr Drug Dosing Not Reportable Est GFR ( Amer) 57.9 ml/min Est GFR (Non-Af Amer) 49.9 ml/min BUN/Creatinine Ratio 17.1 (10-20) Glucose 212 H (70-99(Fasting)) mg/dl POC Glucose (70-99) mg/dl Lactate (0.4-2.0) mmol/L Calcium 9.3 (8.5-10.1) mg/dl Magnesium 1.1 L (1.7-2.4) mg/dl Total Bilirubin 1.0 (0.2-1.0) mg/dl Direct Bilirubin 0.3 H (0-0.2) mg/dl AST 15 (13-39) U/L ALT 10 (7-52) U/L Alkaline Phosphatase 78 (34-104) U/L Troponin I High Sens 22.8 H (0-14) pg/ml Total Protein 6.8 (6.0-8.3) gm/dl Albumin 3.4 (3.4-5.0) gm/dl Procalcitonin 0.81 H (0-0.5) ng/ml TSH (0.300-4.500) uIu/ml Random Cortisol mcg/dl Urine Color Urine Appearance (Clear) Urine pH (4.5-7.5) Ur Specific Leary (1.000-1.030) Urine Protein (Negative) Urine Glucose (UA) (Negative) Urine Ketones (Negative) Urine Blood (Negative) Urine Nitrite (Negative) Urine Bilirubin (Negative) Urine Urobilinogen (Negative) Ur Leukocyte Esterase (Negative) Urine WBC (Auto) (0-5) /hpf Urine RBC (Auto) (0-4) /hpf U Hyaline Cast (Auto) (0-5) /lpf U Epithel Cells (Auto) (0-5) /lpf Urine Bacteria (Auto) (Negative) Adenovirus (PCR) (NotDetected) B. pertussis DNA (PCR) (NotDetected) B.parapertussis DNA PCR (NotDetected) C. pneumoniae DNA (PCR) (NotDetected) Coronavirus OC43 (PCR) (NotDetected) Coronavirus HKU1 (PCR) (NotDetected) Coronavirus 229E (PCR) (NotDetected) SARS-CoV-2 (PCR) (NotDetected) Coronavirus NL63 (PCR) (NotDetected) Human Metapneumovir PCR (NotDetected) Influenza Type A (PCR) (NotDetected) Influenza Type B (PCR) (NotDetected) M. pneumoniae (PCR) (NotDetected) Parainfluenza 1 (PCR) (NotDetected) Parainfluenza 2 (PCR) (NotDetected) Parainfluenza 3 (PCR) (NotDetected) Parainfluenza 4 (PCR) (NotDetected) RSV (PCR) (NotDetected) Entero/Rhino (PCR) (NotDetected) 11/25/22 11/25/22 11/25/22 Range/Units 12:35 13:14 13:42 WBC (4.8-10.8) K/ul RBC (4.20-5.40) M/uL Hgb (12.0-16.0) g/dl Hct (37.0-47.0) % MCV (80.0-100.0) fL MCH (25.0-34.0) pg MCHC (32.0-36.0) g/dL RDW Std Deviation (36.4-46.3) fL RDW Coeff of Sandra (11.5-14.5) % Plt Count (130-400) K/uL MPV (9.4-12.4) fL Immature Gran % (Auto) % Neut % (Auto) % Lymph % (Auto) % Hitchcock % (Auto) % Eos % (Auto) % Baso % (Auto) % Neut # (Auto) (1.40-6.50) K/uL Lymph # (Auto) (1.2-3.4) K/uL Hitchcock # (Auto) (0.11-0.59) K/uL Eos # (Auto) (0-0.50) K/uL Baso # (Auto) (0-0.2) K/uL Immature Gran # (Auto) (0.01-0.20) K/uL Sodium (136-145) mmol/L Potassium (3.5-5.1) mmol/L Chloride (98-107) mmol/L Carbon Dioxide (21-32) mmol/L Anion Gap (3-11) BUN (6-23) mg/dl Creatinine (0.6-1.2) mg/dl Est Cr Clr Drug Dosing Est GFR ( Amer) ml/min Est GFR (Non-Af Amer) ml/min BUN/Creatinine Ratio (10-20) Glucose (70-99(Fasting)) mg/dl POC Glucose (70-99) mg/dl Lactate 4.2 H* (0.4-2.0) mmol/L Calcium (8.5-10.1) mg/dl Magnesium (1.7-2.4) mg/dl Total Bilirubin (0.2-1.0) mg/dl Direct Bilirubin (0-0.2) mg/dl AST (13-39) U/L ALT (7-52) U/L Alkaline Phosphatase (34-104) U/L Troponin I High Sens (0-14) pg/ml Total Protein (6.0-8.3) gm/dl Albumin (3.4-5.0) gm/dl Procalcitonin (0-0.5) ng/ml TSH (0.300-4.500) uIu/ml Random Cortisol 13.11 mcg/dl Urine Color Dark Yellow Urine Appearance Turbid A (Clear) Urine pH 5.0 (4.5-7.5) Ur Specific Leary 1.023 (1.000-1.030) Urine Protein 2+ H (Negative) Urine Glucose (UA) Negative (Negative) Urine Ketones Trace H (Negative) Urine Blood Negative (Negative) Urine Nitrite Negative (Negative) Urine Bilirubin Negative (Negative) Urine Urobilinogen Negative (Negative) Ur Leukocyte Esterase Trace H (Negative) Urine WBC (Auto) 1-5 (0-5) /hpf Urine RBC (Auto) 0-4 (0-4) /hpf U Hyaline Cast (Auto) 10-30 H (0-5) /lpf U Epithel Cells (Auto) >30 H (0-5) /lpf Urine Bacteria (Auto) Negative (Negative) Adenovirus (PCR) (NotDetected) B. pertussis DNA (PCR) (NotDetected) B.parapertussis DNA PCR (NotDetected) C. pneumoniae DNA (PCR) (NotDetected) Coronavirus OC43 (PCR) (NotDetected) Coronavirus HKU1 (PCR) (NotDetected) Coronavirus 229E (PCR) (NotDetected) SARS-CoV-2 (PCR) (NotDetected) Coronavirus NL63 (PCR) (NotDetected) Human Metapneumovir PCR (NotDetected) Influenza Type A (PCR) (NotDetected) Influenza Type B (PCR) (NotDetected) M. pneumoniae (PCR) (NotDetected) Parainfluenza 1 (PCR) (NotDetected) Parainfluenza 2 (PCR) (NotDetected) Parainfluenza 3 (PCR) (NotDetected) Parainfluenza 4 (PCR) (NotDetected) RSV (PCR) (NotDetected) Entero/Rhino (PCR) (NotDetected) 11/25/22 11/25/22 11/25/22 Range/Units 15:04 17:38 17:38 WBC (4.8-10.8) K/ul RBC (4.20-5.40) M/uL Hgb (12.0-16.0) g/dl Hct (37.0-47.0) % MCV (80.0-100.0) fL MCH (25.0-34.0) pg MCHC (32.0-36.0) g/dL RDW Std Deviation (36.4-46.3) fL RDW Coeff of Sandra (11.5-14.5) % Plt Count (130-400) K/uL MPV (9.4-12.4) fL Immature Gran % (Auto) % Neut % (Auto) % Lymph % (Auto) % Hitchcock % (Auto) % Eos % (Auto) % Baso % (Auto) % Neut # (Auto) (1.40-6.50) K/uL Lymph # (Auto) (1.2-3.4) K/uL Hitchcock # (Auto) (0.11-0.59) K/uL Eos # (Auto) (0-0.50) K/uL Baso # (Auto) (0-0.2) K/uL Immature Gran # (Auto) (0.01-0.20) K/uL Sodium (136-145) mmol/L Potassium (3.5-5.1) mmol/L Chloride (98-107) mmol/L Carbon Dioxide (21-32) mmol/L Anion Gap (3-11) BUN (6-23) mg/dl Creatinine (0.6-1.2) mg/dl Est Cr Clr Drug Dosing Est GFR ( Amer) ml/min Est GFR (Non-Af Amer) ml/min BUN/Creatinine Ratio (10-20) Glucose (70-99(Fasting)) mg/dl POC Glucose (70-99) mg/dl Lactate 3.1 H* 1.6 (0.4-2.0) mmol/L Calcium (8.5-10.1) mg/dl Magnesium (1.7-2.4) mg/dl Total Bilirubin (0.2-1.0) mg/dl Direct Bilirubin (0-0.2) mg/dl AST (13-39) U/L ALT (7-52) U/L Alkaline Phosphatase (34-104) U/L Troponin I High Sens (0-14) pg/ml Total Protein (6.0-8.3) gm/dl Albumin (3.4-5.0) gm/dl Procalcitonin (0-0.5) ng/ml TSH 0.692 (0.300-4.500) uIu/ml Random Cortisol mcg/dl Urine Color Urine Appearance (Clear) Urine pH (4.5-7.5) Ur Specific Leary (1.000-1.030) Urine Protein (Negative) Urine Glucose (UA) (Negative) Urine Ketones (Negative) Urine Blood (Negative) Urine Nitrite (Negative) Urine Bilirubin (Negative) Urine Urobilinogen (Negative) Ur Leukocyte Esterase (Negative) Urine WBC (Auto) (0-5) /hpf Urine RBC (Auto) (0-4) /hpf U Hyaline Cast (Auto) (0-5) /lpf U Epithel Cells (Auto) (0-5) /lpf Urine Bacteria (Auto) (Negative) Adenovirus (PCR) (NotDetected) B. pertussis DNA (PCR) (NotDetected) B.parapertussis DNA PCR (NotDetected) C. pneumoniae DNA (PCR) (NotDetected) Coronavirus OC43 (PCR) (NotDetected) Coronavirus HKU1 (PCR) (NotDetected) Coronavirus 229E (PCR) (NotDetected) SARS-CoV-2 (PCR) (NotDetected) Coronavirus NL63 (PCR) (NotDetected) Human Metapneumovir PCR (NotDetected) Influenza Type A (PCR) (NotDetected) Influenza Type B (PCR) (NotDetected) M. pneumoniae (PCR) (NotDetected) Parainfluenza 1 (PCR) (NotDetected) Parainfluenza 2 (PCR) (NotDetected) Parainfluenza 3 (PCR) (NotDetected) Parainfluenza 4 (PCR) (NotDetected) RSV (PCR) (NotDetected) Entero/Rhino (PCR) (NotDetected) 11/25/22 11/25/22 11/25/22 Range/Units 17:49 18:31 18:34 WBC (4.8-10.8) K/ul RBC (4.20-5.40) M/uL Hgb (12.0-16.0) g/dl Hct (37.0-47.0) % MCV (80.0-100.0) fL MCH (25.0-34.0) pg MCHC (32.0-36.0) g/dL RDW Std Deviation (36.4-46.3) fL RDW Coeff of Sandra (11.5-14.5) % Plt Count (130-400) K/uL MPV (9.4-12.4) fL Immature Gran % (Auto) % Neut % (Auto) % Lymph % (Auto) % Hitchcock % (Auto) % Eos % (Auto) % Baso % (Auto) % Neut # (Auto) (1.40-6.50) K/uL Lymph # (Auto) (1.2-3.4) K/uL Hitchcock # (Auto) (0.11-0.59) K/uL Eos # (Auto) (0-0.50) K/uL Baso # (Auto) (0-0.2) K/uL Immature Gran # (Auto) (0.01-0.20) K/uL Sodium (136-145) mmol/L Potassium (3.5-5.1) mmol/L Chloride (98-107) mmol/L Carbon Dioxide (21-32) mmol/L Anion Gap (3-11) BUN (6-23) mg/dl Creatinine (0.6-1.2) mg/dl Est Cr Clr Drug Dosing Est GFR ( Amer) ml/min Est GFR (Non-Af Amer) ml/min BUN/Creatinine Ratio (10-20) Glucose (70-99(Fasting)) mg/dl POC Glucose 135 H (70-99) mg/dl Lactate (0.4-2.0) mmol/L Calcium (8.5-10.1) mg/dl Magnesium (1.7-2.4) mg/dl Total Bilirubin (0.2-1.0) mg/dl Direct Bilirubin (0-0.2) mg/dl AST (13-39) U/L ALT (7-52) U/L Alkaline Phosphatase (34-104) U/L Troponin I High Sens 15.0 H D (0-14) pg/ml Total Protein (6.0-8.3) gm/dl Albumin (3.4-5.0) gm/dl Procalcitonin (0-0.5) ng/ml TSH (0.300-4.500) uIu/ml Random Cortisol mcg/dl Urine Color Urine Appearance (Clear) Urine pH (4.5-7.5) Ur Specific Leary (1.000-1.030) Urine Protein (Negative) Urine Glucose (UA) (Negative) Urine Ketones (Negative) Urine Blood (Negative) Urine Nitrite (Negative) Urine Bilirubin (Negative) Urine Urobilinogen (Negative) Ur Leukocyte Esterase (Negative) Urine WBC (Auto) (0-5) /hpf Urine RBC (Auto) (0-4) /hpf U Hyaline Cast (Auto) (0-5) /lpf U Epithel Cells (Auto) (0-5) /lpf Urine Bacteria (Auto) (Negative) Adenovirus (PCR) Not Detected (NotDetected) B. pertussis DNA (PCR) Not Detected (NotDetected) B.parapertussis DNA PCR Not Detected (NotDetected) C. pneumoniae DNA (PCR) Not Detected (NotDetected) Coronavirus OC43 (PCR) Not Detected (NotDetected) Coronavirus HKU1 (PCR) Not Detected (NotDetected) Coronavirus 229E (PCR) Not Detected (NotDetected) SARS-CoV-2 (PCR) Not Detected (NotDetected) Coronavirus NL63 (PCR) Not Detected (NotDetected) Human Metapneumovir PCR Not Detected (NotDetected) Influenza Type A (PCR) Not Detected (NotDetected) Influenza Type B (PCR) Not Detected (NotDetected) M. pneumoniae (PCR) Not Detected (NotDetected) Parainfluenza 1 (PCR) Not Detected (NotDetected) Parainfluenza 2 (PCR) Not Detected (NotDetected) Parainfluenza 3 (PCR) Not Detected (NotDetected) Parainfluenza 4 (PCR) Not Detected (NotDetected) RSV (PCR) Not Detected (NotDetected) Entero/Rhino (PCR) DETECTED A* (NotDetected) Administered Medications Magnesium Sulfate/Dextrose (Magnesium Sulfate / D5w) 1 gm in 100 mls @ 50 mls/hr IV Q2H JULIAN Stop: 11/25/22 20:29 Last Infusion: 11/25/22 19:52 Dose: 0 mls/hr Documented By: Admin: 11/25/22 17:44 Dose: 50 mls/hr Documented By: PIERRE Discontinued Medications Guaifenesin (Guaifenesin Sugar Free 200 Mg/10 Ml Udc) 200 mg PO NOW ONE Stop: 11/25/22 17:31 Last Admin: 11/25/22 19:04 Dose: 200 mg Documented By: VALORIE Hydrocortisone Sodium Succinate (Hydrocortisone Sod Succinate 100 Mg/2 Ml Vial) 50 mg IV NOW STA Stop: 11/25/22 16:32 Last Admin: 11/25/22 17:31 Dose: 50 mg Documented By: AMS Sodium Chloride (Nss 1000ml) 500 mls @ 999 mls/hr IV .Q31M JULIAN Stop: 11/25/22 13:15 Last Infusion: 11/25/22 14:06 Dose: 0 mls/hr Documented By: Admin: 11/25/22 12:45 Dose: 999 mls/hr Documented By: S Sodium Chloride (Nss 1000ml) 1,000 mls @ 999 mls/hr IV .Q1H1M ONE Stop: 11/25/22 14:57 Last Infusion: 11/25/22 18:38 Dose: 0 mls/hr Documented By: Admin: 11/25/22 14:06 Dose: 999 mls/hr Documented By: PIERRE Cefepime HCl (Maxipime) 2,000 mg in 20 mls @ 5 mls/min IV NOW STA; Protocol Stop: 11/25/22 14:00 Last Admin: 11/25/22 15:01 Dose: 5 mls/min Documented By: PIERRE Vancomycin HCl 1,500 mg/ (Sodium Chloride) 530 mls @ 200 mls/hr IV NOW ONE Stop: 11/25/22 16:35 Last Admin: 11/25/22 15:47 Dose: 200 mls/hr Documented By: AMS Sodium Chloride (Nss 1000ml) 500 mls @ 999 mls/hr IV .Q31M ONE Stop: 11/25/22 14:30 Last Infusion: 11/25/22 18:38 Dose: 0 mls/hr Documented By: Admin: 11/25/22 15:25 Dose: 999 mls/hr Documented By: AMS Sodium Chloride (Nss 1000ml) 1,000 mls @ 999 mls/hr IV .Q1H1M ONE Stop: 11/25/22 17:06 Last Infusion: 11/25/22 18:38 Dose: 0 mls/hr Documented By: Admin: 11/25/22 16:45 Dose: 999 mls/hr Documented By: PIERRE Metronidazole (Flagyl) 500 mg in 100 mls @ 100 mls/hr IV NOW ONE Stop: 11/25/22 18:14 Last Admin: 11/25/22 19:04 Dose: 100 mls/hr Documented By: VALORIE Ioversol (Optiray 320 500ml) 110 ml IV ONCE ONE Stop: 11/25/22 14:39 Last Admin: 11/25/22 14:39 Dose: 110 ml Documented By: RACHAEL Imaging Data Radiologist's Impression: Chest X-Ray 11/25/22 12:40 XR chest 1V portable HISTORY: 72 years-old Female Sepsis acute sepsis COMPARISON: 12/28/2019 TECHNIQUE: AP view of the chest FINDINGS: Cardiac silhouette is enlarged. Atherosclerosis of the aorta. Progressively w orsened reticular interstitial coarsening. No pneumothorax, large pleural effusion or lobar airspace consolidation. Healed chronic fracture deformity of the mid left humerus. Degenerative changes of the shoulders and spine. IMPRESSION: Cardiomegaly with reticular interstitial opacities have progressively worsened compared to the study from 2019. Worsening fibrosis versus a nonspecific superimposed infectious or inflammatory pneumonitis considered. ACT 112: Negative or not required by law. The above report was generated using voice recognition software. It may contain grammatical, syntax or spelling errors. Electronically signed by: Naveen Albrecht M.D. 11/25/2022 12:59 PM Chest CTA 11/25/22 13:59 CT angio chest PE protocol CT DOSE: 584.75 mGy.cm HISTORY: 72 years-old Female with SOB, recent left rib fx, hypoxic, septic. Acute shortness of breath with sepsis TECHNIQUE: Multiple CTA images of the chest were obtained after the intravenous administration of 110 ml Optiray. Coronal and sagittal MIPS were obtained from the axial data set and were submitted for review. All measurements were obtained according to NASCET criteria. A dose lowering technique was utilized adhering to the principles of ALARA. COMPARISON: Chest radiograph of same day, chest CT 12/28/2019 FINDINGS: CTA: The heart is normal in size without pericardial effusion. Moderate coronary artery calcifications. Atherosclerosis of the thoracic aorta without aneurysm. Patency of the imaged great vessels. No pulmonary emboli identified. CT CHEST: No dominant thyroid nodule identified. Enlarged mediastinal lymph nodes include an index right paratracheal lymph node on image 209 measuring 1.3 cm, previously 8 mm. Subcarinal conglomerate lymphadenopathy measures up to 3.3 x 1.7 cm, also increased in size from prior. Mild associate bilateral hilar lymphadenopathy. Trace pleural effusions. No pneumothorax. Bronchial wall thickening with extensive bilateral reticulonodular opacities/perifissural micronodules. Mixed groundglass densities with bibasilar predominant consolidation, most pronounced within the left greater than right basal segments of the lower lobes with air bronchograms. Cholelithiasis. No acute process of the imaged upper abdomen. Hepatic steatosis. Degenerative changes of the shoulders and spine. Healing subacute appearing fractures of the left third through sixth ribs, some of which demonstrate minimal displacement. Mild superior endplate compression of the T6 vertebral body with mild inferior endplate compression at T3, new from prior. No retropulsion. IMPRESSION: 1. No pulmonary emboli identified. 2. Progressively worsened extensive reticular nodular densities with perifissural micronodules and bronchial wall thickening compared to the 2020 study compatible with a chronic infectious or inflammatory pneumonitis/bronchiolitis. Follow-up with pulmonology recommended. 3. There are new superimposed bilateral airspace opacities, most pronounced within the left greater than right lower lobes suggestive of multifocal pneumonia. 4. Pathologically enlarged mediastinal and hilar lymph nodes. 5. Trace pleural effusions. 6. Cholelithiasis. 7. Healing subacute left-sided rib fractures. Age-indeterminate mild T3 and T6 compression deformities without retropulsion are new from prior. ACT 112: Negative or not required by law. The above report was generated using voice recognition software. It may contain grammatical, syntax or spelling errors. Electronically signed by: Naveen Albrecht M.D. 11/25/2022 3:26 PM Discharge Plan Visit Data Chief Complaint: Vertigo Stated Complaint: DIZZY,HX CONCUSSION ED Provider: Luis Gaitan Discharge Problem: Sepsis, Multifocal pneumonia Forms Stand Alone Forms: [facility] Prescriptions Prescriptions: No Action sulfasalazine [Azulfidine] 500 mg tablet 1,500 mg PO BID Rx Instructions: PT STATES "TAKING", UNABLE TO VERIFY THIS MED. albuterol sulfate [Ventolin HFA] 90 mcg/actuation HFA aerosol inhaler 2 puffs INH Q6H PRN (Reason: Shortness Of Breath Or Wheezing) Rituxan 10 mg/mL concentrate 0 mg IV DIRECTED Rx Instructions: EVERY 4 MONTHS DIRECTED BY chlorthalidone 25 mg tablet 25 mg PO DAILY cyclobenzaprine 5 mg tablet 5 mg PO HS prednisone 5 mg tablet 5 mg PO DAILY venlafaxine [Effexor XR] 150 mg capsule,extended release 24hr 150 mg PO QPM acetaminophen-codeine 300-30 mg tablet 1 tab PO Q8H PRN (Reason: Pain) methotrexate sodium 2.5 mg tablet 10 mg PO WK Rx Instructions: TAKE THIS MEDICATION EVERY THURSDAY simvastatin 5 mg tablet 5 mg PO QPM gabapentin [Neurontin] 300 mg capsule 600 mg PO BID Rx Instructions: TAKES AT DINNER AND HS, MAY TAKE ADDITIONAL DOSE IF NEEDED FOR PAIN. Levemir FlexTouch U-100 Insuln 100 unit/mL (3 mL) insulin pen 22 unit SUBCUT DAILYBB lidocaine 5 % adhesive patch,medicated 1 patch TOP DAILY PRN (Reason: pain) Qty: 15 0RF Rx Instructions: leave on most painful area for 12 hrs losartan 50 mg tablet 50 mg PO DAILY famotidine 40 mg tablet 40 mg PO BID potassium chloride 10 mEq tablet extended release 10 meq PO DAILY magnesium oxide 400 mg (241.3 mg magnesium) tablet 400 mg PO BID metformin 1,000 mg tablet 1,000 mg PO BID cevimeline 30 mg capsule 30 mg PO TID hydroxychloroquine 200 mg tablet 200 mg PO BID oxycodone 5 mg tablet 5 mg PO Q6H PRN (Reason: Pain) Ozempic 1 mg/dose (4 mg/3 mL) pen injector 1 mg SUBCUT WK Rx Instructions: TAKES ON SATURDAYS insulin NPH isoph U-100 human 100 unit/mL suspension 15 units SQ QDB Rx Instructions: ADMINISTER WITH PREDNISONE, DAILY Referrals Referrals: Pascual Perez CRNP [Primary Care Provider] -
[2022-11-25] MEDS ORDERED: HYDROCORTISONE SOD SUCCINATE 100 MG/2 ML VIAL IV STA (16:31)
[2022-11-25] MEDS ORDERED: GLUCOSE 40% GEL 15 GM TUBE PO PRN (17:04)
[2022-11-25] MEDS ORDERED: GLUCAGON FOR INJ 1 MG VIAL SQ PRN (17:04)
[2022-11-25] MEDS ORDERED: DEXTROSE 50% 50 ML SYRINGE IV PRN (17:04)
[2022-11-25] MEDS ORDERED: GLUCOSE 10 TAB/TUBE PO PRN (17:04)
--- NOTE | 2022-11-25 17:11 | History & Physical Report ---
Date of Service November 25, 2022 Assessment & Plan (1) Sepsis: Plan: -Admit to the PCU on tele -The patient is currently afebrile, with soft but improved BP and currently stable on RA -At this time it appears the source of the patient's sepsis is her multifocal pneumonia -She has a significant leukocytosis with left shift, initial lactate of 4.2, down to 3.1 after initial IV fluids -BP is still soft with systolics in the 90's and diastolics in the 50's -The patient has a history of chronic Prednisone therapy, will give her a stress dose of 50 mg IV Hydrocortisone for possible adrenal insufficiency -S/P 2L NSS bolus in the ED, was receiving a 3rd L, will stop and switch to LR at 100 mL/hr x 2 bags for now -Was initially given a dose of vancomycin and Cefepime in the ED, will continue with 2g Cefepime q8h, add on Flagyl IV q8h for anaerobic coverage, and obtain MRSA swab >If MRSA swab is positive will add additional MRSA coverage -Continue to trend lactate until it clears, repeat lactate ordered on admission, was initially at 4.2 --> 3.1 at 2 hour repeat and initial 2L NSS bolus -Will continue with incentive spirometry, flutter therapy, QID DuoNebs prn, scheduled Robitussin, and prn O2 to keep SpO2 at or above 95% -Will obtain full respiratory biofire, legionella urine testing, and sputum culture with gram stain -Follow blood and urine cultures as well -Will consult Pulmonology to follow with her chronic respiratory disease and mediastinal lymphadenopathy with possible bronchiolitis on CT of the chest and her immunocompromised state -Start BL SCD's for DVT PPX, hold chemical PPX until CT of the head results -AM CBC, CMP, Mag, PT/INR (2) Dizziness: Plan: -Patient has been experiencing dizziness with imbalance while walking over the past week -Patient denies symptoms at rest, unilateral weakness/numbness/tingling, vision/hearing/taste changes -Differential includes but is not limited to acute stroke, continued symptoms from recent concussion, vestibular abnormality, orthostatic hypotension, malignancy -The patient had a fall and hit her head approximately 1 month ago in [place], was apparently diagnosed with a severe concussion and discharged the same day from the ED -Will obtain STAT Head CT for further evaluation, if needed will get MRI of the brain -Fall precautions ordered, will obtain orthostatic vitals -PT/OT consults ordered (3) Rheumatoid arthritis: Plan: -Hold methotrexate, sulfasalazine, Hydroxychloroquine, and rituxan with her acute illness (4) Hypomagnesemia: Plan: -Noted to be 1.1 today in the ED, potassium is stable at 4.0 -Likely due to poor oral intake recently and continued diuretic use -Was ordered 2gm IV mag by the ED, has not yet been started -Will order an additional 2gm IV to be given starting at 8 pm when first 2 bags have been given -Continue to monitor daily electrolytes (5) Elevated troponin: Plan: -Initial high sen trop elevated at 22.8, no acute ST segment or T-wave changes -Patient is asymptomatic -Likely due to demand from her acute illness, will repeat another high sen trop STAT -Continue to monitor on tele (6) Hypertension: Plan: -Initial hypotensive on arrival at 75/48 -Improved after her initial sepsis fluid bolus -Random cortisol level ordered STAT on admission -Will give 50 mg IV Hydrocortisone for possible adrenal insufficiency -Continue to monitor -Hold amlodipine and losartan for now (7) Multifocal pneumonia: Plan: -See sepsis (8) Hyperlipidemia: Plan: -Continue statin (9) Anxiety and depression: Plan: -Continue Venlafaxine (10) Diabetes: Plan: -Hold metformin and Ozempic -Monitor BSG ACHS, goal is 110-160 with steroid therapy -Start with 10 units Lantus BID, correction factor of 50 and carb ratio of 15 -DM II diet -Adjust regimen as needed Plan The patient was discussed with Dr. Clayton at the time of the admission History of Present Illness Chief Complaint: Dizziness/ambulatory dysfunction Primary Care Provider: FOREIGN Parikh White is a 72 year old female with a PMH significant for RA on Sulfasalazine, Rituxan, methotrexate, and hydroxychloroquine, Raynaud disease, Severe reactive lung disease on chronic prednisone therapy, DM II, HTN, hyperlipidemia, anxiety and depression who presented to the [facility] ED on 11/25/22 with a chief complaint of dizziness and ambulatory dysfunction. In the ED the patient was found to be hypotensive at 75/48 and hypoxic at 86% on RA. Labs were remarkable for a leukocytosis of 18 with left shift of 16, Hgb of 11 (down from 13.6 as of 09/12/20), platelets of 371, lymphocyte count of 0.74, stable cr of 1.11, glucose of 212, corrected sodium of 136, mag of 1.1, AG of 13 with bicarb of 28, lactate of 3.1, LFTs WNL, initial high sensitivity trop of 22.8, procal of 0.81, UA with turbid color, 2+ protein, trace ketones, negative bacteria and negative nitrites. Chest xray was read as Cardiomegaly with reticular interstitial opacities have progressively worsened compared to the study from 2020. Worsening fibrosis versus a nonspecific superimposed infectious or inflammatory pneumonitis considered.. CTA of the chest with PE protocol was read as 1. No pulmonary emboli identified. 2. Progressively worsened extensive reticular nodular densities with perifissural micronodules and bronchial wall thickening compared to the 2020 study compatible with a chronic infectious or inflammatory pneumonitis/bronchiol itis. Follow-up with pulmonology recommended. 3. There are new superimposed bilateral airspace opacities, most pronounced within the left greater than right lower lobes suggestive of multifocal pneumonia. 4. Pathologically enlarged mediastinal and hilar lymph nodes. 5. Trace pleural effusions. 6. Cholelithiasis. 7. Healing subacute left-sided rib fractures. Age-indeterminate mild T3 and T6 compression deformities without retropulsion are new from prior.. Prior to admission the patient was given a total of 2L NSS bolus and ordered an additional liter of NSS was being started, one dose of vancomycin, one dose of cefepime, and ordered 2 bags of IV magnesium. At the time of the exam the patient was lying in bed in no acute distress with her Daughter sitting bedside, history was obtained from both. They state that over the past 3-4 days the patient has been experiencing dizziness and ambulatory dysfunction. The patient states that she is asymptomatic at rest and does not think that her symptoms start until she begins to walk. She states that she will experienced a [id number] sensation where she feels intermittently confused. She denies any changes in the vision, hearing, taste, smell, or sensation when these episodes occur. She denies loss of consciousness or permanent confusion when these episodes occur. They explain that she had a fall approximately one month ago in [place] where she hit her head and was diagnosed with a severe concussion; She is no on anticoagulation. She states that she did receive imaging of her brain and was discharged from the ED the same day. She denies recent fevers or chills, chest pain, heart palpitations, abd pain, nausea, vomiting, diarrhea, dysuria, hematuria, melena, LE swelling or other falls since last month. She has a chronic dry cough with her reactive airway disease but has been experiencing a productive cough with yellow-green sputum over the past week. The patient states that she is currently asymptomatic at rest and feels slightly better than when she came into the ED. She and her daughter explain that she was at the [facility] earlier today to receive a routine injection in her left eye for macular degeneration, there were no complications. She currently has some eye discomfort which she states occurs after every eye injection. She wishes to be a Full Code and for her Daughter and her Son to make decisions for her if she could not make them herself. Of note, at the beginning of my exam the patient was on 4L NC. Upon inspection it was noted that the patient has acrylic nails on the hand which had the pulse oximetry sensor. A pulse oximetry sticker was placed on the patient's forehead and she was noted to be stable on RA for the rest of my exam. Please refer to Dr. Clayton's attestation for any changes to the treatment plan Allergies Allergy/AdvReac Type Severity Reaction Status Date / Time bee venom protein (honey bee) Allergy Unknown THROAT Verified 11/25/22 15:48 SWELLED, HIVES INSIDE AND OUT. Home Medications Medication Instructions Recorded Confirmed Type acetaminophen 300 mg-codeine 30 mg 1 tab PO Q8H PRN Pain 12/22/19 11/25/22 History tablet gabapentin 300 mg capsule 600 mg PO BID 12/22/19 11/25/22 History (Neurontin) insulin detemir U-100 100 unit/mL 22 unit subcut DAILYBB 12/22/19 11/25/22 History (3 mL) subcutaneous pen (Levemir FlexTouch U-100 Insulin) methotrexate sodium 2.5 mg tablet 10 mg PO WK 12/22/19 11/25/22 History prednisone 5 mg tablet 5 mg PO DAILY 12/22/19 11/25/22 History simvastatin 5 mg tablet 5 mg PO QPM 12/22/19 11/25/22 History venlafaxine 150 mg 150 mg PO QPM 12/22/19 11/25/22 History capsule,extended release 24 hr (Effexor XR) albuterol sulfate 90 mcg/actuation 2 puffs inhalation Q6H PRN 12/27/19 11/25/22 History aerosol inhaler (Ventolin HFA) Shortness Of Breath Or Wheezing rituximab 10 mg/mL 0 mg IV DIRECTED 12/27/19 11/25/22 History concentrate,intravenous (Rituxan) sulfasalazine 500 mg tablet 1,500 mg PO BID 12/27/19 11/25/22 History (Azulfidine) lidocaine 5 % topical patch 1 patch topical DAILY PRN pain #15 03/08/20 11/25/22 Rx ea chlorthalidone 25 mg tablet 25 mg PO DAILY 04/05/20 11/25/22 History cyclobenzaprine 5 mg tablet 5 mg PO HS 04/05/20 11/25/22 History cevimeline 30 mg capsule 30 mg PO TID 11/25/22 11/25/22 History famotidine 40 mg tablet 40 mg PO BID 11/25/22 11/25/22 History hydroxychloroquine 200 mg tablet 200 mg PO BID 11/25/22 11/25/22 History insulin NPH isoph U-100 human 100 15 units subcut QDB diabetes 11/25/22 11/25/22 History unit/mL subcutaneous suspension losartan 50 mg tablet 50 mg PO DAILY 11/25/22 11/25/22 History magnesium oxide 400 mg (241.3 mg 400 mg PO BID 11/25/22 11/25/22 History magnesium) tablet metformin 1,000 mg tablet 1,000 mg PO BID 11/25/22 11/25/22 History oxycodone 5 mg tablet 5 mg PO Q6H PRN Pain 11/25/22 11/25/22 History potassium chloride 10 mEq 10 meq PO DAILY 11/25/22 11/25/22 History tablet,extended release semaglutide 1 mg/dose (4 mg/3 mL) 1 mg subcut WK 11/25/22 11/25/22 History subcutaneous pen injector (Ozempic) Past Med/Surg History Medical History (Updated 11/25/22 @ 17:35 by Christopher Castrejon PA-C) Abnormal CT scan, chest Acute exacerbation of bronchiectasis Anxiety and depression Bronchiectasis without complication Chronic steroid use Diabetes Hyperlipidemia Hypertension Neuropathy Rheumatoid arthritis Rheumatoid arthritis Splenomegaly Surgical History History of ankle fusion History of section History of repair of left hip joint Family History Other Family history non-contributory Social History Smoking Status: Never smoker Tobacco Type: Cigarettes packs per day: 1; Second Hand Exposure: No; Hx Alcohol Use: No Hx Substance Use: No Preferred Language: Lao Communication Ability: Effective Flat Bed Knitter Required: No Beliefs That Will Affect Care: None marital status: Current Living Situation: Alone 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 Physical Exam Physical Exam: Physical Exam: General: In no acute distress, stated age, is ill appearing but non-toxic HEENT: Normocephalic, atraumatic, no scleral icterus, pupils around round, symmetrical, and reactive to light, left eye currently with some irritation but the patient denies vision changes, moist mucus membranes, trachea midline, no thyromegaly Chest/Pulm: No respiratory distress, symmetrical chest expansion, scattered rhonchi and wheezing noted throughout Cardiac: RRR, no murmurs noted Abdomen: Negative for ascites and bruising, normoactive bowel sounds, soft, non-tender to palpation throughout Musculoskeletal: Patient with limited ROM and chronic pain from previous LUE injury and surgery, otherwise no acute trauma noted Extremities: Radial, dorsalis pedis, and posterior tibial pulses are intact and symmetrical, no edema noted in the BL LE's Skin: Warm, dry, no rashes, patient with well-healing skin tear on the left great toe which is currently scabbed and without signs of infection Neuro: Alert and oriented to person, place, month, year, and president, no focal defects, CN II-XII tested and intact, no tremors noted, symmetrical strength in the BL LE's Psych: No acute distress, calm and cooperative during the exam Results & Data Results & Data Vital Signs (Past 12 Hours) Vital Signs Pulse Pulse Resp BP BP Pulse Ox O2 Del Method 11/25/22 16:42 97 H 16 93/55 L 99 Room Air 11/25/22 16:35 81 11/25/22 15:55 80 16 89/50 L 94 Nasal Cannula 11/25/22 13:30 87 23 95 11/25/22 13:30 95/54 L 11/25/22 13:20 91 H 24 92 11/25/22 13:10 91 H 24 92 11/25/22 13:00 89 24 95 11/25/22 13:00 87/60 L 11/25/22 12:50 89 20 92 11/25/22 12:40 94 H 24 11/25/22 12:40 78/42 L 11/25/22 12:36 95 H 23 93 11/25/22 12:36 83/50 L 11/25/22 13:44 87 16 95 Nasal Cannula 11/25/22 12:39 97 H 11/25/22 12:25 98 H 18 75/48 L 86 L Room Air O2 Flow Rate 11/25/22 16:42 11/25/22 16:35 11/25/22 15:55 2 11/25/22 13:30 11/25/22 13:30 11/25/22 13:20 11/25/22 13:10 11/25/22 13:00 11/25/22 13:00 11/25/22 12:50 11/25/22 12:40 11/25/22 12:40 11/25/22 12:36 11/25/22 12:36 11/25/22 13:44 2 11/25/22 12:39 11/25/22 12:25 Laboratory Results Abnormal lab results 11/25/22 11/25/22 11/25/22 Range/Units 12:35 12:35 12:35 WBC 18.58 H (4.8-10.8) K/ul Hgb 11.0 L (12.0-16.0) g/dl Hct 35.0 L (37.0-47.0) % MCV 79.2 L (80.0-100.0) fL MCH 24.9 L (25.0-34.0) pg MCHC 31.4 L (32.0-36.0) g/dL RDW Std Deviation 50.3 H (36.4-46.3) fL RDW Coeff of Sandra 18.3 H (11.5-14.5) % MPV 9.0 L (9.4-12.4) fL Neut # (Auto) 16.51 H (1.40-6.50) K/uL Lymph # (Auto) 0.74 L (1.2-3.4) K/uL Walton # (Auto) 0.90 H (0.11-0.59) K/uL Immature Gran # (Auto) 0.31 H (0.01-0.20) K/uL Sodium 134 L (136-145) mmol/L Chloride 93 L (98-107) mmol/L Anion Gap 13 H (3-11) Glucose 212 H (70-99(Fasting)) mg/dl Lactate (0.4-2.0) mmol/L Magnesium 1.1 L (1.7-2.4) mg/dl Direct Bilirubin 0.3 H (0-0.2) mg/dl Troponin I High Sens 22.8 H (0-14) pg/ml Procalcitonin 0.81 H (0-0.5) ng/ml Urine Appearance (Clear) Urine Protein (Negative) Urine Ketones (Negative) Ur Leukocyte Esterase (Negative) U Hyaline Cast (Auto) (0-5) /lpf U Epithel Cells (Auto) (0-5) /lpf 11/25/22 11/25/22 11/25/22 Range/Units 13:14 13:42 15:04 WBC (4.8-10.8) K/ul Hgb (12.0-16.0) g/dl Hct (37.0-47.0) % MCV (80.0-100.0) fL MCH (25.0-34.0) pg MCHC (32.0-36.0) g/dL RDW Std Deviation (36.4-46.3) fL RDW Coeff of Sandra (11.5-14.5) % MPV (9.4-12.4) fL Neut # (Auto) (1.40-6.50) K/uL Lymph # (Auto) (1.2-3.4) K/uL Walton # (Auto) (0.11-0.59) K/uL Immature Gran # (Auto) (0.01-0.20) K/uL Sodium (136-145) mmol/L Chloride (98-107) mmol/L Anion Gap (3-11) Glucose (70-99(Fasting)) mg/dl Lactate 4.2 H* 3.1 H* (0.4-2.0) mmol/L Magnesium (1.7-2.4) mg/dl Direct Bilirubin (0-0.2) mg/dl Troponin I High Sens (0-14) pg/ml Procalcitonin (0-0.5) ng/ml Urine Appearance Turbid A (Clear) Urine Protein 2+ H (Negative) Urine Ketones Trace H (Negative) Ur Leukocyte Esterase Trace H (Negative) U Hyaline Cast (Auto) 10-30 H (0-5) /lpf U Epithel Cells (Auto) >30 H (0-5) /lpf Diagnostic Findings Chest X-Ray 11/25/22 12:40 XR chest 1V portable HISTORY: 72 years-old Female Sepsis acute sepsis COMPARISON: 12/28/2019 TECHNIQUE: AP view of the chest FINDINGS: Cardiac silhouette is enlarged. Atherosclerosis of the aorta. Progressively worsened reticular interstitial coarsening. No pneumothorax, large pleural effusion or lobar airspace consolidation. Healed chronic fracture deformity of the mid left humerus. Degenerative changes of the shoulders and spine. IMPRESSION: Cardiomegaly with reticular interstitial opacities have progressively worsened compared to the study from 2019. Worsening fibrosis versus a nonspecific superimposed infectious or inflammatory pneumonitis considered. ACT 112: Negative or not required by law. The above report was generated using voice recognition software. It may contain grammatical, syntax or spelling errors. Electronically signed by: Naveen Albrecht M.D. 11/25/2022 12:59 PM Chest CTA 11/25/22 13:59 CT angio chest PE protocol CT DOSE: 584.75 mGy.cm HISTORY: 72 years-old Female with SOB, recent left rib fx, hypoxic, septic. Acute shortness of breath with sepsis TECHNIQUE: Multiple CTA images of the chest were obtained after the intravenous administration of 110 ml Optiray. Coronal and sagittal MIPS were obtained from the axial data set and were submitted for review. All measurements were obtained according to NASCET criteria. A dose lowering technique was utilized ad gen to the principles of ALARA. COMPARISON: Chest radiograph of same day, chest CT 12/28/2019 FINDINGS: CTA: The heart is normal in size without pericardial effusion. Moderate coronary osman ry calcifications. Atherosclerosis of the thoracic aorta without aneurysm. Patency of the imaged great vessels. No pulmonary emboli identified. CT CHEST: No dominant thyroid nodule identified. Enlarged mediastinal lymph nodes include an index right paratracheal lymph node on image 209 measuring 1.3 cm, previously 8 mm. Subcarinal conglomerate lymphadenopathy measures up to 3.3 x 1.7 cm, also increased in size from prior. Mild associate bilateral hilar lymphadenopathy. Trace pleural effusions. No pneumothorax. Bronchial wall thickening with extensive bilateral reticulonodular opacities/perifissural micronodules. Mixed groundglass densities with bibasilar predominant consolidation, most pronounced within the left greater than right basal segments of the lower lobes with air bronchograms. Cholelithiasis. No acute process of the imaged upper abdomen. Hepatic steatosis. Degenerative changes of the shoulders and spine. Healing subacute appearing fractures of the left third through sixth ribs, some of which demonstrate minimal displacement. Mild superior endplate compression of the T6 vertebral body with mild inferior endplate compression at T3, new from prior. No retropulsion. IMPRESSION: 1. No pulmonary emboli identified. 2. Progressively worsened extensive reticular nodular densities with perifissural micronodules and bronchial wall thickening compared to the 2019 s tudy compatible with a chronic infectious or inflammatory pneumonitis/bronchiolitis. Follow-up with pulmonology recommended. 3. There are new superimposed bilateral airspace opacities, most pronounced within the left greater than right lower lobes suggestive of multifocal pneumonia. 4. Pathologically enlarged mediastinal and hilar lymph nodes. 5. Trace pleural effusions. 6. Cholelithiasis. 7. Healing subacute left-sided rib fractures. Age-indeterminate mild T3 and T6 compression deformities without retropulsion are new from prior. ACT 112: Negative or not required by law. The above report was generated using voice recognition software. It may contain grammatical, syntax or spelling errors. Electronically signed by: Naveen Albrecht M.D. 11/25/2022 3:26 PM ECG Additional Comments: Normal sinus rhythm Possible Left atrial enlargement Low voltage QRS Borderline ECG When compared with ECG of 27-DEC-2019 16:51, Nonspecific T wave abnormality now evident in Anterior leads Code Status & VTE Plan Code Status Full code VTE Prophylaxis Plan VTE Prophylaxis will be ordered: Yes Supervising Physician Co-Signing Physician Notes Patient seen and examined, chart reviewed, case discussed with Christopher Castrejon PA-C and I agree with the assessment and plan as above except as otherwise noted Labs and images reviewed Magdalene is a 72-year-old female with history of rheumatoid arthritis on immunosuppressants, Raynaud's, restrictive lung disease on chronic prednisone, DM 2, hypertension, hyperlipidemia who presented with dizziness and ambulatory dysfunction. She was hypotensive and hypoxic on ER assessment. She is admitted for sepsis with leukocytosis and left shift. CT consistent with multifocal pneumonia. At bedside assessment she is nondistressed, feeling much improved following fluids and antibiotics. Lungs are diffusely coarse, skin is warm and dry, cap refill is brisk. Heart rate is with regular rate at time of assessment. Given chronic prednisone use and hypotension despite fluids she was given IV hydrocortisone for secondary AI. Agree with continuing broad-spectrum antibiotics with additional anaerobic coverage due to severe presentation and history of restrictive lung disease. MRSA nares pending, if negative additional vancomycin.. PG Care Time/CCT Total # of Minutes Spent Total Time Spent with Patient: Total time spent is greater than 50% in coordination of care (as documented) at patient's floor/unit and/or counseling patient: [place] [address] INT INP/OBS CARE 3/75MIN Patient Type Established Medical Decision Making High Complexity Diagnoses Sepsis A41.9 Dizziness R42 Rheumatoid arthritis M06.9 Rheumatoid arthritis location: unspecified site Rheumatoid factor presence: unspecified presence Hypomagnesemia E83.42 Elevated troponin R77.8 Hypertension I10 Hypertension type: essential hypertension Multifocal pneumonia J18.9 Hyperlipidemia E78.5 Anxiety and depression F41.9; F32.9 Diabetes E11.42; Z79.4 Diabetes mellitus complication detail: with polyneuropathy Diabetes mellitus complication status: with neurologic complications Diabetes mellitus skilled nursing insulin use: with skilled nursing use Diabetes mellitus type: type 2 (3) Rheumatoid arthritis Rheumatoid arthritis location: unspecified site Rheumatoid factor presence: unspecified presence Qualified Code(s): M06.9 - Rheumatoid arthritis, unspecified (6) Hypertension Hypertension type: essential hypertension Qualified Code(s): I10 - Essential (primary) hypertension (10) Diabetes Diabetes mellitus complication detail: with polyneuropathy Diabetes mellitus complication status: with neurologic complications 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
[2022-11-25] MEDS ORDERED: metroNIDAZOLE 500 MG/100 ML BAG IV ONE (17:15)
[2022-11-25] MEDS ORDERED: ARTIFICIAL TEARS OP PRN (17:29)
[2022-11-25] MEDS ORDERED: guaiFENesin SUGAR FREE 200 MG/10 ML UDC PO ONE (17:30)
[2022-11-25] MEDS: MAGNESIUM SULFATE / D5W 1 GM/100 ML BAG IV SCH ×3 (17:44→22:33)
[2022-11-25 19:49] LABS: Adenovirus PCR Not Detected (NotDetected); Bordetella parapertussis PCR Not Detected (NotDetected); Bordetella pertussis PCR Not Detected (NotDetected); Chlamydia pneumoniae PCR Not Detected (NotDetected); Coronavirus 229E PCR Not Detected (NotDetected); Coronavirus CoV-2 (COVID19)PCR Not Detected (NotDetected); Coronavirus HKU1 PCR Not Detected (NotDetected); Coronavirus NL63 PCR Not Detected (NotDetected); Coronavirus OC43PCR Not Detected (NotDetected); Human Metapneumovirus PCR Not Detected (NotDetected); Influenza A PCR Not Detected (NotDetected); Influenza B PCR Not Detected (NotDetected); Mycoplasma pneumoniae PCR Not Detected (NotDetected); Parainfluenza Virus 1 PCR Not Detected (NotDetected); Parainfluenza Virus 2 PCR Not Detected (NotDetected); Parainfluenza Virus 3 PCR Not Detected (NotDetected); Parainfluenza Virus 4 PCR Not Detected (NotDetected); Respiratory Syncytial VirusPCR Not Detected (NotDetected)
[2022-11-25 19:55] LABS: Rhinovirus/Enterovirus PCR DETECTED (NotDetected)
[2022-11-25] MEDS: ALBUT/IPRATROP 3MG/0.5MG NEB 3 ML VIAL NEB SCH (20:16)
[2022-11-25] MEDS ORDERED: LIDOCAINE 5% 1 PATCH TD PRN (21:49)
[2022-11-25] MEDS: INSULIN ASPART PER UNIT CHARGE SC SCH (22:27)
[2022-11-25] MEDS: LANTUS PER UNIT CHARGE SQ SCH (22:28)
[2022-11-25] MEDS: LACTATED RINGER'S 1,000 ML IV SCH (22:30)
[2022-11-25] MEDS: CYCLOBENZAPRINE HCL 5 MG TAB PO SCH (22:34)
[2022-11-25] MEDS: DOCUSATE SODIUM 100 MG CAP PO SCH (22:34)
[2022-11-25] MEDS: GABAPENTIN 300 MG CAP PO SCH (22:35)
[2022-11-25] MEDS: VENLAFAXINE HCL XR 150 MG CAPXR PO SCH (22:35)
[2022-11-25] MEDS: FAMOTIDINE 40 MG TABLET PO SCH (22:35)
[2022-11-25] MEDS: SIMVASTATIN 5 MG TAB PO SCH (22:35)
[2022-11-25] MEDS: guaiFENesin SUGAR FREE 200 MG/10 ML UDC PO SCH (23:36)
[2022-11-26] MEDS: MAGNESIUM SULFATE / D5W 1 GM/100 ML BAG IV SCH (00:11)
--- NOTE | 2022-11-26 00:37 | CT Scan Report ---
Exam(s): CT HEAD Without Contrast EXAM: CT Head Without Intravenous Contrast CLINICAL HISTORY: Reason for exam: recent fall, dizziness, ambulatory dysfunction. TECHNIQUE: Axial computed tomography images of the head/brain without intravenous contrast. CTDI is 36.19 mGy and DLP is 537.48 mGy-cm. Automated exposure control was utilized for the study. A dose lowering technique was utilized adhering to the principles of ALARA. COMPARISON: None. FINDINGS: Brain: Mild generalized brain atrophy. Slight decreased attenuation within the deep white matter consistent with mild microangiopathic white matter disease. No hemorrhage. Ventricles: Unremarkable. No ventriculomegaly. Bones/joints: Unremarkable. No acute fracture. Soft tissues: Unremarkable. Sinuses: Mucosal thickening of bilateral ethmoidal sinuses. Remainder of the visualized paranasal sinuses are clear. Mastoid air cells: Unremarkable as visualized. No mastoid effusion. IMPRESSION: Chronic changes as described. No acute intracranial hemorrhage or space-occupying lesion. Electronically signed by: Jeanna Smalls MD 11/26/22 00:36 AM
[2022-11-26] MEDS ORDERED: VANCOMYCIN HCL 1,250 MG in SODIUM CHLORIDE 0.9% 250 ML IV SCH (01:00)
[2022-11-26] MEDS: metroNIDAZOLE 500 MG/100 ML BAG IV SCH ×3 (01:58→17:46)
[2022-11-26] MEDS ORDERED: CEFEPIME 2,000 MG in SYRINGE 0 ML IV SCH (04:00)
[2022-11-26] MEDS ORDERED: SODIUM CHLORIDE 0.9% 1000ML 500 ML IV ONE (04:28)
[2022-11-26] MEDS: guaiFENesin SUGAR FREE 200 MG/10 ML UDC PO SCH ×2 (04:51→11:22)
[2022-11-26] MEDS: ALBUT/IPRATROP 3MG/0.5MG NEB 3 ML VIAL NEB SCH ×4 (07:15→18:59)
--- NOTE | 2022-11-26 07:19 | Pulmonary Consultation ---
Date of Consultation November 26, 2022 Assessment & Plan (1) Rhinovirus infection: (2) Multifocal pneumonia: (3) Sepsis: (4) Abnormal CT scan, chest: (5) Rheumatoid arthritis: Rheumatoid arthritis location: unspecified site Rheumatoid factor presence: unspecified presence Qualified Code(s): M06.9 - Rheumatoid arthritis, unspecified (6) Acute exacerbation of bronchiectasis: Plan CT chest 11/25/2022 personally reviewed: Diffuse tree-in-bud opacities appreciated bilaterally Traction bronchiectasis bilateral upper lobes Bronchiectasis bilateral lower lobes with consolidative process especially in the left lower lobe Mediastinal lymphadenopathy especially station 7 CAT scan is worse compared to HRCT done 12/28/2019 -- Multilobar pneumonia Affecting especially bilateral lower lobes pneumonia more on the left lower lobe Respiratory bio fire negative for everything except for entero/Rhino virus Nasal MRSA negative Procalcitonin 0.81 -- Chronic bronchiectasis Continue with hypertonic saline nebulized, flutter valve Patient has not been using chest vest therapy at home because of recent fall leading to chest tenderness -- Rheumatoid arthritis On 10 mg methotrexate, rituximab and sulfasalazine On chronic 5 mg prednisone Plan: DC vancomycin given negative nasal MRSA, add atypical coverage with doxycycline Hypertonic saline, flutter valve and Mucinex Continue with prednisone, I do not think need for stress dose steroids right now. Continue with cefepime, can consider discontinuing Flagyl We will see how the patient is doing tomorrow. If she still not getting better then we will consider bronchoscopy given the immunosuppressed status. Case was discussed with primary team Please note the above document was generated using voice recognition software. It may contain grammatical, syntax or spelling errors.Any formal questions or concerns about the content, text or information contained within the body of this dictation should be directly addressed to the provider for clarification. History of Present Illness Attending Physician: Marcos Clayton MD History of Present Illness 72-year-old female coming to pulmonary for worsening shortness of breath Past medical history: Bronchiectasis with multiple pulmonary nodules, rheumatoid arthritis on rituximab, methotrexate and sulfasalazine, Raynaud's disease, On chronic 5 mg of prednisone, hypertension, dyslipidemia, anxiety, depression Pulmonary consulted for abnormal chest CT Patient follows up with Dr. Sarmiento as an outpatient. Previous note reviewed At the time of examination patient says that she is doing better since she came to the hospital She has been coughing up and bringing up greenish phlegm. Denies any chest pain Shortness of breath is there on exertion. No headache, no blurry vision No dysuria, no diarrhea Patient has been compliant with her inhalers Social history: Approximately 95-lvhl-spup smoking history. No pets at home Allergies Allergy/AdvReac Type Severity Reaction Status Date / Time bee venom protein (honey bee) Allergy Unknown THROAT Verified 11/25/22 15:48 SWELLED, HIVES INSIDE AND OUT. Home Medications Medication Instructions Recorded Confirmed Type acetaminophen 300 mg-codeine 30 mg 1 tab PO Q8H PRN Pain 12/22/19 11/25/22 History tablet gabapentin 300 mg capsule 600 mg PO BID 12/22/19 11/25/22 History (Neurontin) insulin detemir U-100 100 unit/mL 22 unit subcut DAILYBB 12/22/19 11/25/22 History (3 mL) subcutaneous pen (Levemir FlexTouch U-100 Insulin) methotrexate sodium 2.5 mg tablet 10 mg PO WK 12/22/19 11/25/22 History prednisone 5 mg tablet 5 mg PO DAILY 12/22/19 11/25/22 History simvastatin 5 mg tablet 5 mg PO QPM 12/22/19 11/25/22 History venlafaxine 150 mg 150 mg PO QPM 12/22/19 11/25/22 History capsule,extended release 24 hr (Effexor XR) albuterol sulfate 90 mcg/actuation 2 puffs inhalation Q6H PRN 12/27/19 11/25/22 History aerosol inhaler (Ventolin HFA) Shortness Of Breath Or Wheezing rituximab 10 mg/mL 0 mg IV DIRECTED 12/27/19 11/25/22 History concentrate,intravenous (Rituxan) sulfasalazine 500 mg tablet 1,500 mg PO BID 12/27/19 11/25/22 History (Azulfidine) lidocaine 5 % topical patch 1 patch topical DAILY PRN pain #15 03/08/20 11/25/22 Rx ea chlorthalidone 25 mg tablet 25 mg PO DAILY 04/05/20 11/25/22 History cyclobenzaprine 5 mg tablet 5 mg PO HS 04/05/20 11/25/22 History cevimeline 30 mg capsule 30 mg PO TID 11/25/22 11/25/22 History famotidine 40 mg tablet 40 mg PO BID 11/25/22 11/25/22 History hydroxychloroquine 200 mg tablet 200 mg PO BID 11/25/22 11/25/22 History insulin NPH isoph U-100 human 100 15 units subcut QDB diabetes 11/25/22 11/25/22 History unit/mL subcutaneous suspension losartan 50 mg tablet 50 mg PO DAILY 11/25/22 11/25/22 History magnesium oxide 400 mg (241.3 mg 400 mg PO BID 11/25/22 11/25/22 History magnesium) tablet metformin 1,000 mg tablet 1,000 mg PO BID 11/25/22 11/25/22 History oxycodone 5 mg tablet 5 mg PO Q6H PRN Pain 11/25/22 11/25/22 History potassium chloride 10 mEq 10 meq PO DAILY 11/25/22 11/25/22 History tablet,extended release semaglutide 1 mg/dose (4 mg/3 mL) 1 mg subcut WK 11/25/22 11/25/22 History subcutaneous pen injector (Ozempic) Patient History Medical History (Updated 11/26/22 @ 13:34 by Sandra Lee PA-C) Abnormal CT scan, chest Acute exacerbation of bronchiectasis Anxiety and depression Bronchiectasis without complication Chronic steroid use Diabetes Hyperlipidemia Hypertension Neuropathy Rheumatoid arthritis Rheumatoid arthritis Splenomegaly Surgical History History of ankle fusion History of section History of repair of left hip joint Family History Other Family history non-contributory Social History Smoking Status: Former smoker Tobacco Type: Cigarettes packs per day: 1; Second Hand Exposure: No; Hx Alcohol Use: No Hx Substance Use: No Preferred Language: Persian Communication Ability: Effective 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 Beliefs That Will Affect Care: None marital status: Current Living Situation: Alone 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 Feels Safe at Home: Yes Assistive Devices: Denture - Upper and Denture - Lower Review of Systems Review of Systems: All systems reviewed & are unremarkable except as noted in HPI & below Physical Exam Physical Exam: Constitutional: No acute distress HEENT: EOMI, PERRLA Respiratory system: Decreased air entry bilaterally, no wheeze, positive rhonchi, positive crackles bilateral lower lobes CVS: S1-S2 positive, no murmurs or gallops Abdomen: Soft, nontender, nondistended, positive bowel sounds x4 Extremities: +2 pulses bilaterally radialis/ dorsalis pedis, no cyanosis, no edema, rheumatoid changes appreciated in bilateral hands Neuro: Awake alert oriented x3 Psych: Normal mood and affect G/U: No Bruce Skin: no rashes, warm and dry Lymphatic: no cervical or axillary lymphadenopathy Results & Data Results & Data Vital Signs (Past 12 Hours) Vital Signs Temp Pulse Resp BP Pulse Ox O2 Del Method 11/26/22 06:00 95/68 L 11/26/22 03:26 36.5 C 72 18 89/55 L 94 Room Air 11/25/22 21:30 Room Air 11/25/22 21:39 36.5 C 79 20 99/65 L 95 Room Air 11/25/22 20:00 74 20 85/43 L 90 Room Air Laboratory Results 11/26/22 06:38 11/26/22 06:38 PG Care Time/CCT Total # of Minutes Spent Total Time Spent with Patient: Total time spent is greater than 50% in coordination of care (as documented) at patient's floor/unit and/or counseling patient: Coding Level of Care Code 58727 INT INP/OBS CARE 375MIN Diagnoses Rhinovirus infection B34.8 Multifocal pneumonia J18.[address] scan, chest R93.89 Rheumatoid arthritis M06.9 Rheumatoid arthritis location: unspecified site Rheumatoid factor presence: unspecified presence Acute exacerbation of bronchiectasis J47.1
--- NOTE | 2022-11-26 07:43 | Hospitalist Progress Note ---
Date of Service November 26, 2022 Assessment & Plan (1) Sepsis: Plan: Soft BPs on admit, source felt 2nd to multifocal PNA w/ significant leukocytosis on admit and lactic of 4.2 (resolved on repeat after IVF, 2L NSS bolus in ER, 3rd on admit, and given 2bags LR @ 100cc/hr) ??sepsis in patient w/ chronic steroid use/hypotension on admit in setting of active infection w/ viral process, possible gram negative bacilli pneumonia (monitor final sputum culture) CTA Chest NEGATIVE for PE, noted progressively worsened extensive reticular nodular densities with perifissural micronodules and bronchial wall thickening compared to the 2019 study compatible with a chronic infectious or inflammatory pneumonitis/bronchiolitis. Follow-up with pulmonology recommended. There are new superimposed bilateral airspace opacities, most pronounced within the left greater than right lower lobes suggestive of multifocal pneumonia. Remains on Cefepime/Doxy/Flagyl for abx - MRSA nares NEGATIVE Biofire POSITIVE for rhinovirus/enterovirus Blood cultures pending Sputum cx pending Legionella urine pending Continue pulmonary toilet/incentive spirometer/flutter valve Duonebs +mucinex as well as hypertonic saline to help clear secretions Pulmonology to follow with her chronic respiratory disease and mediastinal lymphadenopathy with possible bronchiolitis on CT of the chest and her immunocompromised state --> possible bronchoscopy on Thursday CT head negative -- started Lovenox for DVT prophylaxis Supplemental O2 to maintain sats -- required 3L this morning --> CXR little fluffy/wheezing and resumed her chlorthalidone and discontinued further IVF --> Ordered hydrocortisone 50mg IV q8h for low -bp/chronic steroid use -- BP improved to 125/82 this afternoon as had been getting multiple IVF boluses overnight for borderline hypotension and requiring supplemental O2 this morning (note arcylic nails, use forehead probe) (2) Rhinovirus infection: Plan: as above isolation precautions (3) Dizziness: Plan: Patient has been experiencing dizziness with imbalance while walking over the past week -Patient denies symptoms at rest, unilateral weakness/numbness/tingling, vision/hearing/taste changes -The patient had a fall and hit her head approximately 1 month ago in [place], was apparently diagnosed with a severe concussion and discharged the same day from the ED CT head NEGATIVE Orthostatic VS positive -- IVF provided as above, no further symptoms and eating/drinking and discontinued further IVF -- ?if from combination dehydration from poor PO intake [employer] Denied any symptoms of such to myself today -- if ongoing issues can consider MRI brain Fall precautions, PT/OT (4) Rheumatoid arthritis: Plan: Hold methotrexate, sulfasalazine, Hydroxychloroquine, and rituxan with her acute illness f/u rheum at d/c for timing to resume pulm on consult as above (5) Hypomagnesemia: Plan: Mag 1.1 on admit, IV replacement ordered. K wnl Mag 2.0 on repeat (giving oral K replacement for 3.3 on AM BMP) Monitor labs in AM and on telemetry -- had been SR w/ PACs overnight in the 70s (6) Elevated troponin: Plan: Initial high sen trop elevated at 22.8, no acute ST segment or T-wave changes --> repeat 15 Patient is asymptomatic Likely demand ischemia from above illness, no CP reported Monitor on tele Also checked iron studies to r/o other causes of SOB (7) Hypertension: Plan: Initial hypotensive on arrival at 75/48, IVF bolus as above Random cortisol not significantly deplete however on chronic steroids and ordered hydrocortisone 50mg Q8H Will continue IV hydrocortisone and hold her PO prednisone for now for possible adrenal insufficiency Holding amloidpine/losartan for now -- keeping up with PO intake and likely can resume in AM (8) Multifocal pneumonia: Plan: -See sepsis , abx and sputum cx as outlined (9) Hyperlipidemia: Plan: -Continue statin (10) Anxiety and depression: Plan: -Continue Venlafaxine (11) Diabetes: Plan: Hold metformin and Ozempic -Monitor BSG ACHS, goal is 110-160 with steroid therapy -Start with 10 units Lantus BID, correction factor of 50 and carb ratio of 15 -DM II diet -Adjust regimen as needed (12) Anemia: Plan: in patient w/ chronic steroid use, MCV 79.2 on admit labs, currently 80.7 iron panel checked -- IRON low 27, trans % sat 13, ferritin pending but likely to be elevated in setting of infection as above Holding off IV venofer while BCx pending but likely benefit from dose prior to d/c as well as PO supplementation at d/c check fecal occult for completeness remains on pepcid BID, consider adding protonix if needed (cautious w/ low mag on admit) Monitor CBC in AM (13) Pneumonia: Plan: Suspected Gram-negative pneumoniacausing sepsis in an immunocompromised patient on top of viral process as above abx as outlined supplemental O2/pulm toilet monitor course Plan Continued inpatient stay Admission and Anticipated Discharge Date Admission Date: November 25, 2022 Supervising Physician Co-Signing Physician Notes The patient was seen by me. The chart was reviewed. Case discussed with VINCENT Goldstein. Agree with assessment and plan Subjective Patient eval this morning. Continued cough but reports breathing somewhat improved. Had been up to 3L NC, but currently back to room air. Seen by pulmonology this morning and possible bronch for Thursday. Discussed hypertonic saline, also improvement in PO appetite and resuming chlorthalidone and discontinuing further IVF. Given IV solumedrol given chronic steroid use this morning and low BP, improved and no lightheaded/dizziness reported. Will continue for now and transition back to her usual prednisone tomorrow or thursday. No fever/chills. No chest pain, abdominal pain, nausea at present. Questions/concerns addressed. Physical Exam Physical Exam: General: WD, chronically ill appearing female sitting up in chair eating lunch, NAD HEENT: head normocephalic, atraumatic, mmm, trachea midline Resp: upper airway congestion/rales, anterior chest>posterior, posterior wheezing, +cough, no distress, +clubbing CV: RRR, +murmur, no significant r/g, trace LE edema, pulses palpable GI: +BS, soft/NT MSK/Neuro: no focal deficit Psych: AOx3, cooperative with exam Results & Data Results & Data Vital Signs (Past 12 Hours) Vital Signs Temp Pulse Resp BP Pulse Ox O2 Del Method 11/26/22 07:16 84 16 83 L Room Air 11/26/22 06:00 95/68 L 11/26/22 03:26 36.5 C 72 18 89/55 L 94 Room Air 11/25/22 21:30 Room Air 11/25/22 21:39 36.5 C 79 20 99/65 L 95 Room Air 11/25/22 20:00 74 20 85/43 L 90 Room Air Laboratory Results 11/26/22 11/26/22 11/26/22 Range/Units 11:24 10:08 10:08 WBC (4.8-10.8) K/ul RBC (4.20-5.40) M/uL Hgb (12.0-16.0) g/dl Hct (37.0-47.0) % MCV (80.0-100.0) fL MCH (25.0-34.0) pg MCHC (32.0-36.0) g/dL RDW Std Deviation (36.4-46.3) fL RDW Coeff of Sandra (11.5-14.5) % Plt Count (130-400) K/uL MPV (9.4-12.4) fL Immature Gran % (Auto) % Neut % (Auto) % Lymph % (Auto) % [place] % (Auto) % Eos % (Auto) % Baso % (Auto) % Neut # (Auto) (1.40-6.50) K/uL Lymph # (Auto) (1.2-3.4) K/uL [place] # (Auto) (0.11-0.59) K/uL Eos # (Auto) (0-0.50) K/uL Baso # (Auto) (0-0.2) K/uL Immature Gran # (Auto) (0.01-0.20) K/uL Platelet Estimate (Normal) PT (9.0-12.0) Seconds INR (0.9-1.1) Sodium (136-145) mmol/L Potassium (3.5-5.1) mmol/L Chloride (98-107) mmol/L Carbon Dioxide (21-32) mmol/L Anion Gap (3-11) BUN (6-23) mg/dl Creatinine (0.6-1.2) mg/dl Est Cr Clr Drug Dosing Est GFR ( Amer) ml/min Est GFR (Non-Af Amer) ml/min BUN/Creatinine Ratio (10-20) Glucose (70-99(Fasting)) mg/dl POC Glucose 152 H (70-99) mg/dl Lactate (0.4-2.0) mmol/L Calcium (8.5-10.1) mg/dl Magnesium (1.7-2.4) mg/dl Iron 27 L (35-150) mcg/dl TIBC 215 L (250-450) mcg/dl Unsaturated IBC 188 (155-355) mcg/dl Transferrin % Sat 13 L (15-50) % Ferritin Pending Total Bilirubin (0.2-1.0) mg/dl Direct Bilirubin (0-0.2) mg/dl AST (13-39) U/L ALT (7-52) U/L Alkaline Phosphatase (34-104) U/L Troponin I High Sens (0-14) pg/ml Total Protein (6.0-8.3) gm/dl Albumin (3.4-5.0) gm/dl Globulin (2.5-4.0) gm/dl Albumin/Globulin Ratio (0.9-2) Folate 19.29 (>5.38) ng/ml Procalcitonin (0-0.5) ng/ml TSH (0.300-4.500) uIu/ml Random Cortisol mcg/dl Urine Color Urine Appearance (Clear) Urine pH (4.5-7.5) Ur Specific [place] (1.000-1.030) Urine Protein (Negative) Urine Glucose (UA) (Negative) Urine Ketones (Negative) Urine Blood (Negative) Urine Nitrite (Negative) Urine Bilirubin (Negative) Urine Urobilinogen (Negative) Ur Leukocyte Esterase (Negative) Urine WBC (Auto) (0-5) /hpf Urine RBC (Auto) (0-4) /hpf U Hyaline Cast (Auto) (0-5) /lpf U Epithel Cells (Auto) (0-5) /lpf Urine Bacteria (Auto) (Negative) Nasal Screen MRSA (PCR) (Negative) Adenovirus (PCR) (NotDetected) B. pertussis DNA (PCR) (NotDetected) B.parapertussis DNA PCR (NotDetected) C. pneumoniae DNA (PCR) (NotDetected) Coronavirus OC43 (PCR) (NotDetected) Coronavirus HKU1 (PCR) (NotDetected) Coronavirus 229E (PCR) (NotDetected) SARS-CoV-2 (PCR) (NotDetected) Coronavirus NL63 (PCR) (NotDetected) Human Metapneumovir PCR (NotDetected) Influenza Type A (PCR) (NotDetected) Influenza Type B (PCR) (NotDetected) Urine Legionella Ag M. pneumoniae (PCR) (NotDetected) Parainfluenza 1 (PCR) (NotDetected) Parainfluenza 2 (PCR) (NotDetected) Parainfluenza 3 (PCR) (NotDetected) Parainfluenza 4 (PCR) (NotDetected) RSV (PCR) (NotDetected) Entero/Rhino (PCR) (NotDetected) 11/26/22 11/26/22 11/26/22 Range/Units 07:25 06:38 06:38 WBC (4.8-10.8) K/ul RBC (4.20-5.40) M/uL Hgb (12.0-16.0) g/dl Hct (37.0-47.0) % MCV (80.0-100.0) fL MCH (25.0-34.0) pg MCHC (32.0-36.0) g/dL RDW Std Deviation (36.4-46.3) fL RDW Coeff of Sandra (11.5-14.5) % Plt Count (130-400) K/uL MPV (9.4-12.4) fL Immature Gran % (Auto) % Neut % (Auto) % Lymph % (Auto) % [place] % (Auto) % Eos % (Auto) % Baso % (Auto) % Neut # (Auto) (1.40-6.50) K/uL Lymph # (Auto) (1.2-3.4) K/uL [place] # (Auto) (0.11-0.59) K/uL Eos # (Auto) (0-0.50) K/uL Baso # (Auto) (0-0.2) K/uL Immature Gran # (Auto) (0.01-0.20) K/uL Platelet Estimate (Normal) PT 11.6 (9.0-12.0) Seconds INR 1.1 (0.9-1.1) Sodium 141 (136-145) mmol/L Potassium 3.3 L (3.5-5.1) mmol/L Chloride 106 (98-107) mmol/L Carbon Dioxide 27 (21-32) mmol/L Anion Gap 8 (3-11) BUN 15 (6-23) mg/dl Creatinine 0.74 D (0.6-1.2) mg/dl Est Cr Clr Drug Dosing 65.2 Est GFR ( Amer) 94.5 ml/min Est GFR (Non-Af Amer) 81.5 ml/min BUN/Creatinine Ratio 20.3 H (10-20) Glucose 89 (70-99(Fasting)) mg/dl POC Glucose 72 (70-99) mg/dl Lactate (0.4-2.0) mmol/L Calcium 8.1 L (8.5-10.1) mg/dl Magnesium 2.0 (1.7-2.4) mg/dl Iron (35-150) mcg/dl TIBC (250-450) mcg/dl Unsaturated IBC (155-355) mcg/dl Transferrin % Sat (15-50) % Ferritin Total Bilirubin 0.4 D (0.2-1.0) mg/dl Direct Bilirubin (0-0.2) mg/dl AST 13 (13-39) U/L ALT 8 (7-52) U/L Alkaline Phosphatase 57 (34-104) U/L Troponin I High Sens (0-14) pg/ml Total Protein 5.8 L (6.0-8.3) gm/dl Albumin 2.9 L (3.4-5.0) gm/dl Globulin 2.9 (2.5-4.0) gm/dl Albumin/Globulin Ratio 1.0 (0.9-2) Folate (>5.38) ng/ml Procalcitonin (0-0.5) ng/ml TSH (0.300-4.500) uIu/ml Random Cortisol mcg/dl Urine Color Urine Appearance (Clear) Urine pH (4.5-7.5) Ur Specific [place] (1.000-1.030) Urine Protein (Negative) Urine Glucose (UA) (Negative) Urine Ketones (Negative) Urine Blood (Negative) Urine Nitrite (Negative) Urine Bilirubin (Negative) Urine Urobilinogen (Negative) Ur Leukocyte Esterase (Negative) Urine WBC (Auto) (0-5) /hpf Urine RBC (Auto) (0-4) /hpf U Hyaline Cast (Auto) (0-5) /lpf U Epithel Cells (Auto) (0-5) /lpf Urine Bacteria (Auto) (Negative) Nasal Screen MRSA (PCR) (Negative) Adenovirus (PCR) (NotDetected) B. pertussis DNA (PCR) (NotDetected) B.parapertussis DNA PCR (NotDetected) C. pneumoniae DNA (PCR) (NotDetected) Coronavirus OC43 (PCR) (NotDetected) Coronavirus HKU1 (PCR) (NotDetected) Coronavirus 229E (PCR) (NotDetected) SARS-CoV-2 (PCR) (NotDetected) Coronavirus NL63 (PCR) (NotDetected) Human Metapneumovir PCR (NotDetected) Influenza Type A (PCR) (NotDetected) Influenza Type B (PCR) (NotDetected) Urine Legionella Ag M. pneumoniae (PCR) (NotDetected) Parainfluenza 1 (PCR) (NotDetected) Parainfluenza 2 (PCR) (NotDetected) Parainfluenza 3 (PCR) (NotDetected) Parainfluenza 4 (PCR) (NotDetected) RSV (PCR) (NotDetected) Entero/Rhino (PCR) (NotDetected) 11/26/22 11/25/22 11/25/22 Range/Units 06:38 23:30 21:56 WBC 7.16 D (4.8-10.8) K/ul RBC 4.15 L (4.20-5.40) M/uL Hgb 10.3 L (12.0-16.0) g/dl Hct 33.5 L (37.0-47.0) % MCV 80.7 (80.0-100.0) fL MCH 24.8 L (25.0-34.0) pg MCHC 30.7 L (32.0-36.0) g/dL RDW Std Deviation 52.4 H (36.4-46.3) fL RDW Coeff of Sandra 18.5 H (11.5-14.5) % Plt Count 296 (130-400) K/uL MPV 9.3 L (9.4-12.4) fL Immature Gran % (Auto) 0.8 % Neut % (Auto) 80.7 % Lymph % (Auto) 12.3 % [place] % (Auto) 4.5 % Eos % (Auto) 0.7 % Baso % (Auto) 1.0 % Neut # (Auto) 5.78 (1.40-6.50) K/uL Lymph # (Auto) 0.88 L (1.2-3.4) K/uL [place] # (Auto) 0.32 (0.11-0.59) K/uL Eos # (Auto) 0.05 (0-0.50) K/uL Baso # (Auto) 0.07 (0-0.2) K/uL Immature Gran # (Auto) 0.06 (0.01-0.20) K/uL Platelet Estimate Normal (Normal) PT (9.0-12.0) Seconds INR (0.9-1.1) Sodium (136-145) mmol/L Potassium (3.5-5.1) mmol/L Chloride (98-107) mmol/L Carbon Dioxide (21-32) mmol/L Anion Gap (3-11) BUN (6-23) mg/dl Creatinine (0.6-1.2) mg/dl Est Cr Clr Drug Dosing Est GFR ( Amer) ml/min Est GFR (Non-Af Amer) ml/min BUN/Creatinine Ratio (10-20) Glucose (70-99(Fasting)) mg/dl POC Glucose 159 H (70-99) mg/dl Lactate (0.4-2.0) mmol/L Calcium (8.5-10.1) mg/dl Magnesium (1.7-2.4) mg/dl Iron (35-150) mcg/dl TIBC (250-450) mcg/dl Unsaturated IBC (155-355) mcg/dl Transferrin % Sat (15-50) % Ferritin Total Bilirubin (0.2-1.0) mg/dl Direct Bilirubin (0-0.2) mg/dl AST (13-39) U/L ALT (7-52) U/L Alkaline Phosphatase (34-104) U/L Troponin I High Sens (0-14) pg/ml Total Protein (6.0-8.3) gm/dl Albumin (3.4-5.0) gm/dl Globulin (2.5-4.0) gm/dl Albumin/Globulin Ratio (0.9-2) Folate (>5.38) ng/ml Procalcitonin (0-0.5) ng/ml TSH (0.300-4.500) uIu/ml Random Cortisol mcg/dl Urine Color Urine Appearance (Clear) Urine pH (4.5-7.5) Ur Specific [place] (1.000-1.030) Urine Protein (Negative) Urine Glucose (UA) (Negative) Urine Ketones (Negative) Urine Blood (Negative) Urine Nitrite (Negative) Urine Bilirubin (Negative) Urine Urobilinogen (Negative) Ur Leukocyte Esterase (Negative) Urine WBC (Auto) (0-5) /hpf Urine RBC (Auto) (0-4) /hpf U Hyaline Cast (Auto) (0-5) /lpf U Epithel Cells (Auto) (0-5) /lpf Urine Bacteria (Auto) (Negative) Nasal Screen MRSA (PCR) (Negative) Adenovirus (PCR) (NotDetected) B. pertussis DNA (PCR) (NotDetected) B.parapertussis DNA PCR (NotDetected) C. pneumoniae DNA (PCR) (NotDetected) Coronavirus OC43 (PCR) (NotDetected) Coronavirus HKU1 (PCR) (NotDetected) Coronavirus 229E (PCR) (NotDetected) SARS-CoV-2 (PCR) (NotDetected) Coronavirus NL63 (PCR) (NotDetected) Human Metapneumovir PCR (NotDetected) Influenza Type A (PCR) (NotDetected) Influenza Type B (PCR) (NotDetected) Urine Legionella Ag Pending M. pneumoniae (PCR) (NotDetected) Parainfluenza 1 (PCR) (NotDetected) Parainfluenza 2 (PCR) (NotDetected) Parainfluenza 3 (PCR) (NotDetected) Parainfluenza 4 (PCR) (NotDetected) RSV (PCR) (NotDetected) Entero/Rhino (PCR) (NotDetected) 11/25/22 11/25/22 11/25/22 Range/Units 20:45 18:34 18:31 WBC (4.8-10.8) K/ul RBC (4.20-5.40) M/uL Hgb (12.0-16.0) g/dl Hct (37.0-47.0) % MCV (80.0-100.0) fL MCH (25.0-34.0) pg MCHC (32.0-36.0) g/dL RDW Std Deviation (36.4-46.3) fL RDW Coeff of Sandra (11.5-14.5) % Plt Count (130-400) K/uL MPV (9.4-12.4) fL Immature Gran % (Auto) % Neut % (Auto) % Lymph % (Auto) % [place] % (Auto) % Eos % (Auto) % Baso % (Auto) % Neut # (Auto) (1.40-6.50) K/uL Lymph # (Auto) (1.2-3.4) K/uL [place] # (Auto) (0.11-0.59) K/uL Eos # (Auto) (0-0.50) K/uL Baso # (Auto) (0-0.2) K/uL Immature Gran # (Auto) (0.01-0.20) K/uL Platelet Estimate (Normal) PT (9.0-12.0) Seconds INR (0.9-1.1) Sodium (136-145) mmol/L Potassium (3.5-5.1) mmol/L Chloride (98-107) mmol/L Carbon Dioxide (21-32) mmol/L Anion Gap (3-11) BUN (6-23) mg/dl Creatinine (0.6-1.2) mg/dl Est Cr Clr Drug Dosing Est GFR ( Amer) ml/min Est GFR (Non-Af Amer) ml/min BUN/Creatinine Ratio (10-20) Glucose (70-99(Fasting)) mg/dl POC Glucose 135 H (70-99) mg/dl Lactate (0.4-2.0) mmol/L Calcium (8.5-10.1) mg/dl Magnesium (1.7-2.4) mg/dl Iron (35-150) mcg/dl TIBC (250-450) mcg/dl Unsaturated IBC (155-355) mcg/dl Transferrin % Sat (15-50) % Ferritin Total Bilirubin (0.2-1.0) mg/dl Direct Bilirubin (0-0.2) mg/dl AST (13-39) U/L ALT (7-52) U/L Alkaline Phosphatase (34-104) U/L Troponin I High Sens (0-14) pg/ml Total Protein (6.0-8.3) gm/dl Albumin (3.4-5.0) gm/dl Globulin (2.5-4.0) gm/dl Albumin/Globulin Ratio (0.9-2) Folate (>5.38) ng/ml Procalcitonin (0-0.5) ng/ml TSH (0.300-4.500) uIu/ml Random Cortisol mcg/dl Urine Color Urine Appearance (Clear) Urine pH (4.5-7.5) Ur Specific [place] (1.000-1.030) Urine Protein (Negative) Urine Glucose (UA) (Negative) Urine Ketones (Negative) Urine Blood (Negative) Urine Nitrite (Negative) Urine Bilirubin (Negative) Urine Urobilinogen (Negative) Ur Leukocyte Esterase (Negative) Urine WBC (Auto) (0-5) /hpf Urine RBC (Auto) (0-4) /hpf U Hyaline Cast (Auto) (0-5) /lpf U Epithel Cells (Auto) (0-5) /lpf Urine Bacteria (Auto) (Negative) Nasal Screen MRSA (PCR) Negative (Negative) Adenovirus (PCR) Not Detected (NotDetected) B. pertussis DNA (PCR) Not Detected (NotDetected) B.parapertussis DNA PCR Not Detected (NotDetected) C. pneumoniae DNA (PCR) Not Detected (NotDetected) Coronavirus OC43 (PCR) Not Detected (NotDetected) Coronavirus HKU1 (PCR) Not Detected (NotDetected) Coronavirus 229E (PCR) Not Detected (NotDetected) SARS-CoV-2 (PCR) Not Detected (NotDetected) Coronavirus NL63 (PCR) Not Detected (NotDetected) Human Metapneumovir PCR Not Detected (NotDetected) Influenza Type A (PCR) Not Detected (NotDetected) Influenza Type B (PCR) Not Detected (NotDetected) Urine Legionella Ag M. pneumoniae (PCR) Not Detected (NotDetected) Parainfluenza 1 (PCR) Not Detected (NotDetected) Parainfluenza 2 (PCR) Not Detected (NotDetected) Parainfluenza 3 (PCR) Not Detected (NotDetected) Parainfluenza 4 (PCR) Not Detected (NotDetected) RSV (PCR) Not Detected (NotDetected) Entero/Rhino (PCR) DETECTED A* (NotDetected) 11/25/22 11/25/22 11/25/22 Range/Units 17:49 17:38 17:38 WBC (4.8-10.8) K/ul RBC (4.20-5.40) M/uL Hgb (12.0-16.0) g/dl Hct (37.0-47.0) % MCV (80.0-100.0) fL MCH (25.0-34.0) pg MCHC (32.0-36.0) g/dL RDW Std Deviation (36.4-46.3) fL RDW Coeff of Sandra (11.5-14.5) % Plt Count (130-400) K/uL MPV (9.4-12.4) fL Immature Gran % (Auto) % Neut % (Auto) % Lymph % (Auto) % [place] % (Auto) % Eos % (Auto) % Baso % (Auto) % Neut # (Auto) (1.40-6.50) K/uL Lymph # (Auto) (1.2-3.4) K/uL [place] # (Auto) (0.11-0.59) K/uL Eos # (Auto) (0-0.50) K/uL Baso # (Auto) (0-0.2) K/uL Immature Gran # (Auto) (0.01-0.20) K/uL Platelet Estimate (Normal) PT (9.0-12.0) Seconds INR (0.9-1.1) Sodium (136-145) mmol/L Potassium (3.5-5.1) mmol/L Chloride (98-107) mmol/L Carbon Dioxide (21-32) mmol/L Anion Gap (3-11) BUN (6-23) mg/dl Creatinine (0.6-1.2) mg/dl Est Cr Clr Drug Dosing Est GFR ( Amer) ml/min Est GFR (Non-Af Amer) ml/min BUN/Creatinine Ratio (10-20) Glucose (70-99(Fasting)) mg/dl POC Glucose (70-99) mg/dl Lactate 1.6 (0.4-2.0) mmol/L Calcium (8.5-10.1) mg/dl Magnesium (1.7-2.4) mg/dl Iron (35-150) mcg/dl TIBC (250-450) mcg/dl Unsaturated IBC (155-355) mcg/dl Transferrin % Sat (15-50) % Ferritin Total Bilirubin (0.2-1.0) mg/dl Direct Bilirubin (0-0.2) mg/dl AST (13-39) U/L ALT (7-52) U/L Alkaline Phosphatase (34-104) U/L Troponin I High Sens 15.0 H D (0-14) pg/ml Total Protein (6.0-8.3) gm/dl Albumin (3.4-5.0) gm/dl Globulin (2.5-4.0) gm/dl Albumin/Globulin Ratio (0.9-2) Folate (>5.38) ng/ml Procalcitonin (0-0.5) ng/ml TSH 0.692 (0.300-4.500) uIu/ml Random Cortisol mcg/dl Urine Color Urine Appearance (Clear) Urine pH (4.5-7.5) Ur Specific [place] (1.000-1.030) Urine Protein (Negative) Urine Glucose (UA) (Negative) Urine Ketones (Negative) Urine Blood (Negative) Urine Nitrite (Negative) Urine Bilirubin (Negative) Urine Urobilinogen (Negative) Ur Leukocyte Esterase (Negative) Urine WBC (Auto) (0-5) /hpf Urine RBC (Auto) (0-4) /hpf U Hyaline Cast (Auto) (0-5) /lpf U Epithel Cells (Auto) (0-5) /lpf Urine Bacteria (Auto) (Negative) Nasal Screen MRSA (PCR) (Negative) Adenovirus (PCR) (NotDetected) B. pertussis DNA (PCR) (NotDetected) B.parapertussis DNA PCR (NotDetected) C. pneumoniae DNA (PCR) (NotDetected) Coronavirus OC43 (PCR) (NotDetected) Coronavirus HKU1 (PCR) (NotDetected) Coronavirus 229E (PCR) (NotDetected) SARS-CoV-2 (PCR) (NotDetected) Coronavirus NL63 (PCR) (NotDetected) Human Metapneumovir PCR (NotDetected) Influenza Type A (PCR) (NotDetected) Influenza Type B (PCR) (NotDetected) Urine Legionella Ag M. pneumoniae (PCR) (NotDetected) Parainfluenza 1 (PCR) (NotDetected) Parainfluenza 2 (PCR) (NotDetected) Parainfluenza 3 (PCR) (NotDetected) Parainfluenza 4 (PCR) (NotDetected) RSV (PCR) (NotDetected) Entero/Rhino (PCR) (NotDetected) 11/25/22 11/25/22 11/25/22 Range/Units 15:04 13:42 13:14 WBC (4.8-10.8) K/ul RBC (4.20-5.40) M/uL Hgb (12.0-16.0) g/dl Hct (37.0-47.0) % MCV (80.0-100.0) fL MCH (25.0-34.0) pg MCHC (32.0-36.0) g/dL RDW Std Deviation (36.4-46.3) fL RDW Coeff of Sandra (11.5-14.5) % Plt Count (130-400) K/uL MPV (9.4-12.4) fL Immature Gran % (Auto) % Neut % (Auto) % Lymph % (Auto) % [place] % (Auto) % Eos % (Auto) % Baso % (Auto) % Neut # (Auto) (1.40-6.50) K/uL Lymph # (Auto) (1.2-3.4) K/uL [place] # (Auto) (0.11-0.59) K/uL Eos # (Auto) (0-0.50) K/uL Baso # (Auto) (0-0.2) K/uL Immature Gran # (Auto) (0.01-0.20) K/uL Platelet Estimate (Normal) PT (9.0-12.0) Seconds INR (0.9-1.1) Sodium (136-145) mmol/L Potassium (3.5-5.1) mmol/L Chloride (98-107) mmol/L Carbon Dioxide (21-32) mmol/L Anion Gap (3-11) BUN (6-23) mg/dl Creatinine (0.6-1.2) mg/dl Est Cr Clr Drug Dosing Est GFR ( Amer) ml/min Est GFR (Non-Af Amer) ml/min BUN/Creatinine Ratio (10-20) Glucose (70-99(Fasting)) mg/dl POC Glucose (70-99) mg/dl Lactate 3.1 H* 4.2 H* (0.4-2.0) mmol/L Calcium (8.5-10.1) mg/dl Magnesium (1.7-2.4) mg/dl Iron (35-150) mcg/dl TIBC (250-450) mcg/dl Unsaturated IBC (155-355) mcg/dl Transferrin % Sat (15-50) % Ferritin Total Bilirubin (0.2-1.0) mg/dl Direct Bilirubin (0-0.2) mg/dl AST (13-39) U/L ALT (7-52) U/L Alkaline Phosphatase (34-104) U/L Troponin I High Sens (0-14) pg/ml Total Protein (6.0-8.3) gm/dl Albumin (3.4-5.0) gm/dl Globulin (2.5-4.0) gm/dl Albumin/Globulin Ratio (0.9-2) Folate (>5.38) ng/ml Procalcitonin (0-0.5) ng/ml TSH (0.300-4.500) uIu/ml Random Cortisol mcg/dl Urine Color Dark Yellow Urine Appearance Turbid A (Clear) Urine pH 5.0 (4.5-7.5) Ur Specific [place] 1.023 (1.000-1.030) Urine Protein 2+ H (Negative) Urine Glucose (UA) Negative (Negative) Urine Ketones Trace H (Negative) Urine Blood Negative (Negative) Urine Nitrite Negative (Negative) Urine Bilirubin Negative (Negative) Urine Urobilinogen Negative (Negative) Ur Leukocyte Esterase Trace H (Negative) Urine WBC (Auto) 1-5 (0-5) /hpf Urine RBC (Auto) 0-4 (0-4) /hpf U Hyaline Cast (Auto) 10-30 H (0-5) /lpf U Epithel Cells (Auto) >30 H (0-5) /lpf Urine Bacteria (Auto) Negative (Negative) Nasal Screen MRSA (PCR) (Negative) Adenovirus (PCR) (NotDetected) B. pertussis DNA (PCR) (NotDetected) B.parapertussis DNA PCR (NotDetected) C. pneumoniae DNA (PCR) (NotDetected) Coronavirus OC43 (PCR) (NotDetected) Coronavirus HKU1 (PCR) (NotDetected) Coronavirus 229E (PCR) (NotDetected) SARS-CoV-2 (PCR) (NotDetected) Coronavirus NL63 (PCR) (NotDetected) Human Metapneumovir PCR (NotDetected) Influenza Type A (PCR) (NotDetected) Influenza Type B (PCR) (NotDetected) Urine Legionella Ag M. pneumoniae (PCR) (NotDetected) Parainfluenza 1 (PCR) (NotDetected) Parainfluenza 2 (PCR) (NotDetected) Parainfluenza 3 (PCR) (NotDetected) Parainfluenza 4 (PCR) (NotDetected) RSV (PCR) (NotDetected) Entero/Rhino (PCR) (NotDetected) 11/25/22 11/25/22 11/25/22 Range/Units 12:35 12:35 12:35 WBC (4.8-10.8) K/ul RBC (4.20-5.40) M/uL Hgb (12.0-16.0) g/dl Hct (37.0-47.0) % MCV (80.0-100.0) fL MCH (25.0-34.0) pg MCHC (32.0-36.0) g/dL RDW Std Deviation (36.4-46.3) fL RDW Coeff of Sandra (11.5-14.5) % Plt Count (130-400) K/uL MPV (9.4-12.4) fL Immature Gran % (Auto) % Neut % (Auto) % Lymph % (Auto) % [place] % (Auto) % Eos % (Auto) % Baso % (Auto) % Neut # (Auto) (1.40-6.50) K/uL Lymph # (Auto) (1.2-3.4) K/uL [place] # (Auto) (0.11-0.59) K/uL Eos # (Auto) (0-0.50) K/uL Baso # (Auto) (0-0.2) K/uL Immature Gran # (Auto) (0.01-0.20) K/uL Platelet Estimate (Normal) PT (9.0-12.0) Seconds INR (0.9-1.1) Sodium 134 L (136-145) mmol/L Potassium 4.0 (3.5-5.1) mmol/L Chloride 93 L (98-107) mmol/L Carbon Dioxide 28 (21-32) mmol/L Anion Gap 13 H (3-11) BUN 19 (6-23) mg/dl Creatinine 1.11 (0.6-1.2) mg/dl Est Cr Clr Drug Dosing Not Reportable Est GFR ( Amer) 57.9 ml/min Est GFR (Non-Af Amer) 49.9 ml/min BUN/Creatinine Ratio 17.1 (10-20) Glucose 212 H (70-99(Fasting)) mg/dl POC Glucose (70-99) mg/dl Lactate (0.4-2.0) mmol/L Calcium 9.3 (8.5-10.1) mg/dl Magnesium 1.1 L (1.7-2.4) mg/dl Iron (35-150) mcg/dl TIBC (250-450) mcg/dl Unsaturated IBC (155-355) mcg/dl Transferrin % Sat (15-50) % Ferritin Total Bilirubin 1.0 (0.2-1.0) mg/dl Direct Bilirubin 0.3 H (0-0.2) mg/dl AST 15 (13-39) U/L ALT 10 (7-52) U/L Alkaline Phosphatase 78 (34-104) U/L Troponin I High Sens 22.8 H (0-14) pg/ml Total Protein 6.8 (6.0-8.3) gm/dl Albumin 3.4 (3.4-5.0) gm/dl Globulin (2.5-4.0) gm/dl Albumin/Globulin Ratio (0.9-2) Folate (>5.38) ng/ml Procalcitonin 0.81 H (0-0.5) ng/ml TSH (0.300-4.500) uIu/ml Random Cortisol 13.11 mcg/dl Urine Color Urine Appearance (Clear) Urine pH (4.5-7.5) Ur Specific [place] (1.000-1.030) Urine Protein (Negative) Urine Glucose (UA) (Negative) Urine Ketones (Negative) Urine Blood (Negative) Urine Nitrite (Negative) Urine Bilirubin (Negative) Urine Urobilinogen (Negative) Ur Leukocyte Esterase (Negative) Urine WBC (Auto) (0-5) /hpf Urine RBC (Auto) (0-4) /hpf U Hyaline Cast (Auto) (0-5) /lpf U Epithel Cells (Auto) (0-5) /lpf Urine Bacteria (Auto) (Negative) Nasal Screen MRSA (PCR) (Negative) Adenovirus (PCR) (NotDetected) B. pertussis DNA (PCR) (NotDetected) B.parapertussis DNA PCR (NotDetected) C. pneumoniae DNA (PCR) (NotDetected) Coronavirus OC43 (PCR) (NotDetected) Coronavirus HKU1 (PCR) (NotDetected) Coronavirus 229E (PCR) (NotDetected) SARS-CoV-2 (PCR) (NotDetected) Coronavirus NL63 (PCR) (NotDetected) Human Metapneumovir PCR (NotDetected) Influenza Type A (PCR) (NotDetected) Influenza Type B (PCR) (NotDetected) Urine Legionella Ag M. pneumoniae (PCR) (NotDetected) Parainfluenza 1 (PCR) (NotDetected) Parainfluenza 2 (PCR) (NotDetected) Parainfluenza 3 (PCR) (NotDetected) Parainfluenza 4 (PCR) (NotDetected) RSV (PCR) (NotDetected) Entero/Rhino (PCR) (NotDetected) Diagnostic Findings Chest CTA 11/25/22 13:59 CT angio chest PE protocol CT DOSE: 584.75 mGy.cm HISTORY: 72 years-old Female with SOB, recent left rib fx, hypoxic, septic. Acute shortness of breath with sepsis TECHNIQUE: Multiple CTA images of the chest were obtained after the intravenous administration of 110 ml Optiray. Coronal and sagittal MIPS were obtained from the axial data set and were submitted for review. All measurements were obtained according to NASCET criteria. A dose lowering technique was utilized adhering to the principles of ALARA. COMPARISON: Chest radiograph of same day, chest CT 12/28/2019 FINDINGS: CTA: The heart is normal in size without pericardial effusion. Moderate coronary artery calcifications. Atherosclerosis of the thoracic aorta without aneurysm. Patency of the imaged great vessels. No pulmonary emboli identified. CT CHEST: No dominant thyroid nodule identified. Enlarged mediastinal lymph nodes include an index right paratracheal lymph node on image 209 measuring 1.3 cm, previously 8 mm. Subcarinal conglomerate lymphadenopathy measures up to 3.3 x 1.7 cm, also increased in size from prior. Mild associate bilateral hilar lymphadenopathy. Trace pleural effusions. No pneumothorax. Bronchial wall thickening with ext ensive bilateral reticulonodular opacities/perifissural micronodules. Mixed groundglass densities with bibasilar predominant consolidation, most pronounced within the left greater than right basal segments of the lower lobes with air bronchograms. Cholelithiasis. No acute process of the imaged upper abdomen. Hepatic steatosis. Degenerative changes of the shoulders and spine. Healing subacute appearing fractures of the left third through sixth ribs, some of which demonstrate minimal displacement. Mild superior endplate compression of the T6 vertebral body with mild inferior endplate compression at T3, new from prior. No retropulsion. IMPRESSION: 1. No pulmonary emboli identified. 2. Progressively worsened extensive reticular nodular densities with perifissural micronodules and bronchial wall thickening compared to the 2019 study compatible with a chronic infectious or inflammatory pneumonitis/bronchiolitis. Follow-up with pulmonology recommended. 3. There are new superimposed bilateral airspace opacities, most pronounced within the left greater than right lower lobes suggestive of multifocal pneumonia. 4. Pathologically enlarged mediastinal and hilar lymph nodes. 5. Trace pleural effusions. 6. Cholelithiasis. 7. Healing subacute left-sided rib fractures. Age-indeterminate mild T3 and T6 compression deformities without retropulsion are new from prior. ACT 112: Negative or not required by law. The above report was generated using voice recognition software. It may contain grammatical, syntax or spelling errors. Electronically signed by: Naveen Albrecht M.D. 11/25/2022 3:[address] 11/25/22 17:01 Exam(s): CT HEAD Without Contrast EXAM: CT Head Without Intravenous Contrast CLINICAL HISTORY: Reason for exam: recent fall, dizziness, ambulatory dysfunction. TECHNIQUE: Axial computed tomography images of the head/brain without intravenous contrast. CTDI is 36.19 mGy and DLP is 537.48 mGy-cm. Automated exposure control was utilized for the study. A dose lowering technique was utilized adhering to the principles of ALARA. COMPARISON: None. FINDINGS: Brain: Mild generalized brain atrophy. Slight decreased attenuation within the deep white matter consistent with mild microangiopathic white matter disease. No hemorrhage. Ventricles: Unremarkable. No ventriculomegaly. Bones/joints: Unremarkable. No acute fracture. Soft tissues: Unremarkable. Sinuses: Mucosal thickening of bilateral ethmoidal sinuses. Remainder of the visualized paranasal sinuses are clear. Mastoid air cells: Unremarkable as visualized. No mastoid effusion. IMPRESSION: Chronic changes as described. No acute intracranial hemorrhage or space-occupying lesion. Electronically signed by: Jeanna Smalls MD 11/26/22 00:36 AM PG Care Time/CCT Total # of Minutes Spent Total Time Spent with Patient: Total time spent is greater than 50% in coordination of care (as documented) at patient's floor/unit and/or counseling patient: Coding Level of Care Code 47039 SUB INP/OBS CARE 3/50MIN Diagnoses Sepsis A41.9 Rhinovirus infection B34.8 Dizziness R42 Rheumatoid arthritis M06.9 Rheumatoid arthritis location: unspecified site Rheumatoid factor presence: unspecified presence Hypomagnesemia E83.42 Elevated troponin R77.8 Hypertension I10 Hypertension type: essential hypertension Multifocal pneumonia J18.9 Hyperlipidemia E78.5 Anxiety and depression F41.9; F32.9 Diabetes E11.42; Z79.4 Diabetes mellitus complication detail: with polyneuropathy Diabetes mellitus complication status: with neurologic complications Diabetes mellitus technician terminal and repeater insulin use: with skilled nursing use Diabetes mellitus type: type 2 Anemia D64.9 Pneumonia J18.9 (4) Rheumatoid arthritis Rheumatoid arthritis location: unspecified site Rheumatoid factor presence: unspecified presence Qualified Code(s): M06.9 - Rheumatoid arthritis, unspecified (7) Hypertension Hypertension type: essential hypertension Qualified Code(s): I10 - Essential (primary) hypertension (11) Diabetes Diabetes mellitus complication detail: with polyneuropathy Diabetes mellitus complication status: with neurologic complications Diabetes mellitus skilled nursing insulin use: with skilled nursing use Diabetes mellitus type: type 2 Qualified Code(s): E11.42 - Type 2 diabetes mellitus with diabetic polyneuropathy; Z79.4 - [facility] (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
[2022-11-26] MEDS ORDERED: HYDROCORTISONE SOD 50 MG in SYRINGE 0 ML IV SCH (07:45)
[2022-11-26 07:54] LABS: Albumin Level 2.9 gm/dl (3.4-5.0); BUN Creatinine Ratio 20.3 (10-20); Bilirubin,Total 0.4 mg/dl (0.2-1.0); Calcium 8.1 mg/dl (8.5-10.1); Creatinine Clr Calc Pharmacy 65.2 ml/min; Est GFR (African American) 94.5 ml/min; Est GFR (Non-African American) 81.5 ml/min; Globulin 2.9 gm/dl (2.5-4.0); Potassium 3.3 mmol/L (3.5-5.1); Total Protein 5.8 gm/dl (6.0-8.3)
[2022-11-26 08:01] LABS: Basophils # (auto) 0.07 K/uL (0-0.2); Eosinophils # (auto) 0.05 K/uL (0-0.50); Eosinophils % (auto) 0.7 %; Hematocrit (blood only) 33.5 % (37.0-47.0); Hemoglobin 10.3 g/dl (12.0-16.0); Immature Granulocytes # (auto) 0.06 K/uL (0.01-0.20); Immature Granulocytes % (auto) 0.8 %; Lymphocytes # (auto) 0.88 K/uL (1.2-3.4); Lymphocytes % (auto) 12.3 %; Mean Corpuscular Hemoglobin 24.8 pg (25.0-34.0); Mean Corpuscular Hgb Conc 30.7 g/dL (32.0-36.0); Mean Corpuscular Volume 80.7 fL (80.0-100.0); Mean Platelet Volume 9.3 fL (9.4-12.4); Monocytes # (auto) 0.32 K/uL (0.11-0.59); Monocytes % (auto) 4.5 %; Neutrophils # (auto) 5.78 K/uL (1.40-6.50); Neutrophils % (auto) 80.7 %; Platelet Count 296 K/uL (130-400); Platelet Estimate Normal (Normal); RDW Coefficient of Variation 18.5 % (11.5-14.5); RDW Standard Deviation 52.4 fL (36.4-46.3); Red Blood Count 4.15 M/uL (4.20-5.40); White Blood Count 7.16 K/ul (4.8-10.8)
[2022-11-26 08:05] LABS: INR 1.1 (0.9-1.1); Prothrombin Time 11.6 Seconds (9.0-12.0)
[2022-11-26] MEDS: DOCUSATE SODIUM 100 MG CAP PO SCH ×2 (08:47→22:02)
[2022-11-26] MEDS: LACTATED RINGER'S 1,000 ML IV SCH (08:47)
[2022-11-26] MEDS: DOXYCYCLINE HYCLATE 100 MG in DEXTROSE 5% 100 ML IV SCH ×2 (08:47→21:43)
[2022-11-26] MEDS: INSULIN ASPART PER UNIT CHARGE SC SCH ×4 (08:49→21:49)
[2022-11-26] MEDS: FAMOTIDINE 40 MG TABLET PO SCH ×2 (08:49→21:46)
[2022-11-26] MEDS ORDERED: predniSONE 5 MG TAB PO SCH (09:00)
[2022-11-26] MEDS ORDERED: POTASSIUM CHLORIDE CRTAB 20 MEQ TABCR PO STA ×2 (09:11→11:42)
[2022-11-26] MEDS: LANTUS PER UNIT CHARGE SQ SCH ×2 (09:21→21:49)
[2022-11-26] MEDS: GABAPENTIN 300 MG CAP PO SCH ×2 (11:21→21:44)
[2022-11-26] MEDS ORDERED: CHLORTHALIDONE 25 MG TAB PO SCH (11:45)
--- NOTE | 2022-11-26 11:51 | Electrocardiogram Report ---
Test Reason : Blood Pressure : / mmHG Vent. Rate : 095 BPM Atrial Rate : 095 BPM P-R Int : 122 ms QRS Dur : 088 ms QT Int : 370 ms P-R-T Axes : 075 082 033 degrees QTc Int : 464 ms Normal sinus rhythm Possible Left atrial enlargement Low voltage QRS Borderline ECG When compared with ECG of 27-DEC-2019 16:51, Nonspecific T wave abnormality now evident in Anterior leads Confirmed by Isai Don ([id number]) on 11/26/2022 11:50:52 AM Referred By: REFERRED SELF Confirmed By:Wilfred Don
[2022-11-26] MEDS: SODIUM CHLOR 7% 4 ML NEB NEB SCH ×2 (11:56→19:00)
[2022-11-26] MEDS: CEFEPIME 2,000 MG in SYRINGE 0 ML IV SCH ×2 (13:00→21:50)
--- NOTE | 2022-11-26 15:08 | XRay Report ---
SINGLE VIEW CHEST CLINICAL HISTORY: Hypoxia FINDINGS: An AP, portable, upright chest radiograph is compared to chest x-ray and chest CT dated 11/06. The examination is degraded by portable technique and apical lordotic positioning. The heart is enlarged noting atherosclerotic calcification of the thoracic aorta. There is pulmonary vascular congestion. Chronic interstitial thickening and nodularity is again noted. There is increasing superi mposed airspace consolidation in both lungs. Small pleural effusions are suspected. No pneumothorax i s seen. The bony thorax is grossly intact. Advanced arthritic change is seen in the shoulders. IMPRESSION: 1. Cardiomegaly with pulmonary vascular congestion. 2. There are increasing bilateral airspace opacities as compared to yesterday. This could represent p ulmonary edema and/or worsening multifocal pneumonia. Clinical correlation will be essential and radi ographic follow-up to resolution is recommended. 3. Suspect small pleural effusions. ACT 112: Negative or not required by law. Electronically signed by: Luis A Vasquez M.D. 11/26/2022 3:07 PM
[2022-11-26 16:16] LABS: Ferritin 452.2 ng/ml (8-388)
[2022-11-26] MEDS: FORMOTEROL 20 MCG/2 ML VIAL INH SCH (18:59)
[2022-11-26] MEDS: SIMVASTATIN 5 MG TAB PO SCH (21:46)
[2022-11-26] MEDS: guaiFENesin 600 MG TABCR PO SCH (21:47)
[2022-11-26] MEDS: VENLAFAXINE HCL XR 150 MG CAPXR PO SCH (21:47)
[2022-11-26] MEDS: CYCLOBENZAPRINE HCL 5 MG TAB PO SCH (21:48)
[2022-11-27] MEDS: ALBUT/IPRATROP 3MG/0.5MG NEB 3 ML VIAL NEB SCH ×6 (00:10→19:28)
[2022-11-27] MEDS: metroNIDAZOLE 500 MG/100 ML BAG IV SCH (03:06)
[2022-11-27] MEDS ORDERED: FUROSEMIDE INJ 20 MG/2 ML VIAL IV ONE (03:57)
[2022-11-27] MEDS ORDERED: POTASSIUM CHLORIDE / WTR 10 MEQ/100 ML PLCT IV SCH (04:00)
[2022-11-27] MEDS ORDERED: SODIUM CHLOR 7% 4 ML NEB NEB ONE (04:29)
[2022-11-27] MEDS ORDERED: POTASSIUM CHLORIDE CRTAB 20 MEQ TABCR PO STA (04:44)
[2022-11-27 05:01] LABS: Albumin Globulin Ratio 0.9 (0.9-2); Albumin Level 3.2 gm/dl (3.4-5.0); Bilirubin,Total 0.6 mg/dl (0.2-1.0); Calcium 8.4 mg/dl (8.6-10.3); Creatinine Clr Calc Pharmacy 62.2 ml/min; Est GFR (Non-African American) 77.7 ml/min; Globulin 3.4 gm/dl (2.5-4.0); Magnesium 1.3 mg/dl (1.7-2.4); Potassium 3.4 mmol/L (3.5-5.1); Total Protein 6.6 gm/dl (6.0-8.3)
[2022-11-27] MEDS ORDERED: LORazepam 2 MG/1 ML VIAL IV STA (05:22)
[2022-11-27 05:35] LABS: iSTAT Allen Test Pass; iSTAT Art Bld Gas pCO2 Correct 50 mmHg (35-46); iSTAT Art Bld Gas pH Corrected 7.338 (7.35-7.45); iSTAT Arterial Blood Gas HCO3 27 meg/L (19-24); iSTAT Arterial Blood Gas pCO2 49 mmHg (35-46); iSTAT Arterial Blood Gas pH 7.34 (7.35-7.45); iSTAT Arterial Blood Gas pO2 83 mmHg (80-95); iSTAT Arterial Blood Gas pO2 C 85; iSTAT Carbon Dioxide 28 mmol/L (24-31); iSTAT FiO2 40 %; iSTAT Hematocrit 34 % (37-47); iSTAT Hemoglobin 11.6 g/dl (12.0-16.0); iSTAT Potassium 3.5 mmol/L (3.3-5.0); iSTAT Site R Radial; iSTAT Sodium 137 mmol/L (135-144)
[2022-11-27] MEDS: CEFEPIME 2,000 MG in SYRINGE 0 ML IV SCH (05:47)
--- NOTE | 2022-11-27 05:48 | Communication Note ---
Date of Service: November 27, 2022 Urgent message received from nursing at approximately 03:00 stating that the patient the patient was struggling to breath. She had been given Duoneb prior to my arrival. On my arrival, pt is alert and oriented x3 but certain appears diaphoretic, mottled, and struggling to breathe. Seems to have been gradual in onset but now requiring 6 L of O2 compared to 3L previously to saturate above 90%. Physical exam is as follows: Constitutional: In respiratory distress HEENT: PERRL Respiratory system:Decreased air entry bilaterally, decreased breath sounds in the lower lobes b/l. [place]. Crackles at the bases. CVS: RRR no murmurs Abdomen: Soft, nontender, nondistended Extremities: +2 pulses bilaterally radialis/ dorsalis pedis Neuro: Awake alert oriented x3 Psych: Anxious mood and affect Due to increase O2 demand and struggle with breathing, ordered stat ABG, EKG, chest XR, and Troponin. Chest xr was improved from yesterday but still showed c ardiomegaly with vascular congestion. EKG showed no ST changes and had no significant change per my interpretation. Troponin was elevated at over 200. ABG significant for acidosis with a pH of 7.3. Interventions: 20mg of IV lasix give 40 meq potassium oral, hypertonic saline nebulizer, bipap, powers catheter, percussive vest, ativan. Switched nasal cannula to bipap with pressures at 16/8 at 40% FIO2. Pt was saturating at 94% with these settings but RR was high 20's, low 30's. Pt continued to struggle to breath. Ordered stat chest CTA with PE protocol. In the meantime, discussed case with on-call farmworker cranberry and recommended transfer to ICU for impending respiratory failure. Transfer orders were placed and farmworker cranberry consulted, appreciated recommendations.
[2022-11-27] MEDS ORDERED: RAPID SEQUENCE INDUCTION BAG ONE (06:03)
[2022-11-27 06:06] LABS: Basophils # (auto) 0.14 K/uL (0-0.2); Basophils % (auto) 0.7 %; Eosinophils # (auto) 0.05 K/uL (0-0.50); Eosinophils % (auto) 0.3 %; Hematocrit (blood only) 34.8 % (37.0-47.0); Hemoglobin 10.7 g/dl (12.0-16.0); Immature Granulocytes # (auto) 0.39 K/uL (0.01-0.20); Lymphocytes # (auto) 1.96 K/uL (1.2-3.4); Lymphocytes % (auto) 10.1 %; Mean Corpuscular Hemoglobin 24.9 pg (25.0-34.0); Mean Corpuscular Hgb Conc 30.7 g/dL (32.0-36.0); Mean Corpuscular Volume 81.1 fL (80.0-100.0); Mean Platelet Volume 8.9 fL (9.4-12.4); Monocytes # (auto) 1.25 K/uL (0.11-0.59); Monocytes % (auto) 6.4 %; Neutrophils # (auto) 15.64 K/uL (1.40-6.50); Neutrophils % (auto) 80.5 %; Platelet Count 474 K/uL (130-400); RDW Coefficient of Variation 18.6 % (11.5-14.5); RDW Standard Deviation 52.6 fL (36.4-46.3); Red Blood Count 4.29 M/uL (4.20-5.40); White Blood Count 19.43 K/ul (4.8-10.8)
[2022-11-27] MEDS ORDERED: fentaNYL citrate 2,500 MCG/250 ML BAG IV ONE (06:23)
[2022-11-27] MEDS ORDERED: PROPOFOL IV EMULSION 10 MG/ML 100 ML VIAL IV ONE (06:24)
[2022-11-27] MEDS ORDERED: STAT IV Infusion **Titration per Protocol STA ×2 (06:36→09:51)
--- NOTE | 2022-11-27 06:36 | Communication Note ---
Date of Service: November 27, 2022 Reason for Transfer: Impending Respiratory Arrest in the setting of Acute Respiratory Failure, Tachycardia 72 YOF admitted for multilobar pneumonia and rhinovirus. Patient has chronic bronchiectasis as well and was receiving therapy with hypertonic saline, her home nebulizers and broad spectrum antibiotics. Patient was evaluated yesterday by Pulmonary with patient subjectively and objectively improving. This morning patient had acute onset of dyspnea and hypoxia, with increase in her oxygen demand that rapidly escalated to BiPAP. Patient initially appeared to respond to this with oxygenation as well as ventilation rate that decreased to the 20s. Around 0600 patient progressed to obtundation, diaphoresis, and HR of 160-17- which appears as sinus rythm. Patient was transferred to the ICU. She would awake to voice for short period of time. Decision was made to intubate the patient, Dr. Krueger from [facility] was notified and arrived to bedside (See her separate documentation). Patient also arrived without working IV so emergent "clean" access was obtained in the right groin by myself. Following Access RSI was performed and patient intubated. She is currently with adequate BP she is oxygenating well on -.40% FIO2. She will continue on broad spectrum abx with likely plan for bronchoscopy this morning. Consider imaging vs. prophyl actically anticoagulating for possibility of PE, however with her minimal o2 requirements consider this less likely but can not rule out. FULL ICU consult to follow this morning. Husam CARRASQUILLO (ACNP-) Coding Level of Care Code None
--- NOTE | 2022-11-27 06:36 | Procedure Note ---
Procedure Note Date of Service November 27, 2022 Note ARTERIAL LINE PROCEDURE NOTE: Procedure: Arterial Line Placement Proceduralist: Husam CARRASQUILLO ([facility] Attending: Dr. Godinez Indication: Monitoring on Pressors Anesthesia: [x]None/[]Lidocaine 1% Emergent consent was implied as patient is FULL CODE with impending respiratory arrest, required for frequent ABGS and Hemodynamic Monitoring Patients RIGHT wrist was prepped and draped in the usual sterile fashion. Ultrasound guidance was used to aid needle placement. A 20g Arrow arterial line was introduced into the RIGHT RADIAL artery, brisk flash of blood was noted, the wire was advanced without resistance, the catheter was threaded, and the needle was removed with appropriate blood return. Pressure Tubing was attached with appropriate waveform. The patient tolerated the procedure well. Blood Loss: Minimal Complications: None immediate Procedural Ultrasound Guidance: Procedure Date: Indication: Direct Visualization of arterial line placement Proceduralist: Husam Oconnor Attending: Dr. Godinez Artery Identified: YES Direct Visualization of needle in artery: YES Complications: NONE Patient tolerated procedure: WELL Coding CPT Codes Tubes, Drains, and Vasc Access - Tubes, Drains, and Vasc Access: [id number] Arterial Cath/Cannulation Sampling/Monitoring/Transfusion ([id number]) Tubes, Drains, and Vasc Access - Tubes, Drains, and Vasc Access: [id number] Ultrasound Guidance For Vascular ([id number]) [facility] [place] Procedure Codes (Charges) Tubes, Drains, and Vasc Access Procedure 1: Tubes, Drains, and Vasc Access: [id number] Arterial Cath/Cannulation Sampling/Monitoring/Transfusion Procedure 2: Tubes, Drains, and Vasc Access: [id number] Ultrasound Guidance For Vascular
--- NOTE | 2022-11-27 06:36 | Procedure Note ---
Procedure Note Date of Service November 27, 2022 Note Procedure: RIGHT FEMORAL VEIN CENTRAL LINE Proceduralist: Husam CARRASQUILLO ([facility]) Attending: Dr. Godinez Indication: Emergent access for impending respiratory arrest Anesthesia: [x]None Emergent was implied as patient had no vascular access and required intubation for impending respiratory arrest. This line was emergent and was not placed under full sterile barriers: Patients right groin was cleansed using Chloraprep. The FEMORAL Vein and FEMORAL Artery were identified using ultrasound. the FEMORAL vein was cannulated under direct ultrasound guidance using an introducer needle on a syringe. Good venous blood return was maintained prior to removal of syringe from introducer needle. Using Seldinger Technique, a guide wire was advanced through the introducer needle without resistance. The introducer needle was removed. A small incision was made in penetrating fashion at the guide wire insertion site utilizing an 11 blade scalpel. The dilator was advanced to the vessel without resistance. The dilator was exchanged for the triple lumen catheter which was advanced into the vessel without resistance. The guide wire was removed intact from the catheter without issue. Claves were placed on each catheter tip with confirmation of good blood flow from each lumen. Each port was easily flushed with sterile saline. The catheter was placed at 20 cm and sutured in place. BioPatch was applied to the catheter and a sterile Tegaderm dressing was applied over the catheter with careful attention to sterility. Patient tolerated procedure well. No immediate complications were met. Post procedure x-ray was completed, placement was appropriate and no pneumothorax was noted. Images obtained are saved for permanent record Procedural Ultrasound Guidance: Procedure Date: Indication: Direct Visualizaiton for Central Line Placement Proceduralist: Husam CARRASQUILLO ([facility]) Attending: Dr. Godinez Artery AND Vein visualized: YES Compressible Vein: YES Guidewire or Short Catheter seen in vein prior to dilation: YES Images were not saved to permanent record as this was emergent procedure. Coding CPT Codes Tubes, Drains, and Vasc Access - Tubes, Drains, and Vasc Access: [id number] Ultrasound Guidance For Vascular ([id number]) Tubes, Drains, and Vasc Access - Tubes, Drains, and Vasc Access: [id number] Insertion Of Non-tunneled Catheter Age 6 Yrs> ([id number]) [facility] Procedure Codes (Charges) Tubes, Drains, and Vasc Access Procedure 1: Tubes, Drains, and Vasc Access: [id number] Ultrasound Guidance For Vascular Procedure 2: Tubes, Drains, and Vasc Access: [id number] Insertion Of Non-tunneled Catheter Age 6 Yrs>
[2022-11-27] MEDS: NOREPINEPHRINE/D5W 4 MG/250 ML PLCT IV SCH ×2 (06:59→14:35)
[2022-11-27] MEDS: MAGNESIUM SULFATE / D5W 1 GM/100 ML BAG IV SCH ×4 (06:59→07:41)
[2022-11-27] MEDS: fentaNYL citrate 2,500 MCG/250 ML BAG IV SCH (07:00)
[2022-11-27] MEDS: propofoL 1,000 MG/100 ML VIAL IV SCH ×2 (07:01→14:37)
[2022-11-27] MEDS: FORMOTEROL 20 MCG/2 ML VIAL INH SCH ×2 (07:15→19:28)
[2022-11-27] MEDS: SODIUM CHLOR 7% 4 ML NEB NEB SCH ×2 (07:15→19:28)
--- NOTE | 2022-11-27 07:18 | XRay Report ---
XR chest 1V portable CLINICAL HISTORY: new intubation and central line placement TECHNIQUE: Single frontal radiograph of the chest was obtained. Comparison: Comparison is made to chest radiograph 11/27/2022 FINDINGS: Endotracheal tube is at the jerod. Enteric tube tip and side-port lie within the stomach. The cardio mediastinal silhouette is enlarged and calcification aorta is noted. Reticular interstitial opacities are seen. There is blunting of the costophrenic angles bilaterally may represent scarring or trace e ffusion. IMPRESSION: 1. Endotracheal tube is at the jerod and can be withdrawn approximately 3 cm for improved positioni ng. Enteric tube is in satisfactory position. No central line is clearly seen. 2. Cardiomegaly and pulmonary fibrotic changes. Bilateral effusions cannot be entirely excluded. ACT 112: Negative or not required by law. Electronically signed by: Bennie Mcintyre M.D. 11/27/2022 7:17 AM
--- NOTE | 2022-11-27 07:24 | XRay Report ---
XR chest 1V portable CLINICAL HISTORY: sob TECHNIQUE: Single frontal radiograph of the chest was obtained. Comparison: Comparison is made to chest radiograph 11/26/2022 FINDINGS: No lines and tubes are seen. Cardiomegaly is noted. The aortic arch is calcified. Interstitial opacit ies are seen. In addition there are increasing bilateral airspace opacities. No evidence of pleural e ffusion or pneumothorax. IMPRESSION: Worsening bilateral airspace opacities which may represent worsening pneumonia. ACT 112: Negative or not required by law. Electronically signed by: Bennie Mcitnyre M.D. 11/27/2022 7:22 AM
[2022-11-27] MEDS: INSULIN ASPART PER UNIT CHARGE SC SCH ×4 (07:38→21:50)
--- NOTE | 2022-11-27 07:49 | Critical Care Progress Note ---
Date of Service November 27, 2022 Assessment & Plan (1) Rhinovirus infection: (2) Multifocal pneumonia: (3) Sepsis: (4) Abnormal CT scan, chest: (5) Rheumatoid arthritis: (6) Acute exacerbation of bronchiectasis: Plan Reason Critically Ill: 72-year-old female past medical history of bronchiectasis, COPD, rheumatoid arthritis on rituximab, methotrexate, sulfasalazine and chronic mammogram prednisone was admitted to hospital with worsening shortness of breath and was found to have multi lobar pneumonia. Patient was found to be in severe respiratory distress was intubated and sent to the ICU for further management Neuro - [facility] ICU: Negative Sedation:-Propofol and fentanyl --History of anxiety/depression On venlafaxine at home Cardiac - --Elevated troponin Likely type II OK EKG shows sinus rhythm with PACs Repeat EKG and trend troponins --History of hypertension Hold blood pressure medication --Prolonged QTc Avoid QT prolonging medication Keep the potassium greater than 4, magnesium greater than 2, phosphorus greater than 3 Respiratory - CT chest 11/25/2022 personally reviewed: Diffuse tree-in-bud opacities appreciated bilaterally Traction bronchiectasis bilateral upper lobes Bronchiectasis bilateral lower lobes with consolidative process especially in the left lower lobe Mediastinal lymphadenopathy especially station 7 CAT scan is worse compared to HRCT done 12/28/2019 -- VDRF Likely secondary to multifocal pneumonia Continue with ventilatory support Keep RASS -1 Daily sedation holidays and SBT's -- Chronic bronchiectasis Continue with hypertonic saline nebulized, flutter valve Patient has not been using chest vest therapy at home because of recent fall leading to chest tenderness GI - -- GERD Continue with pantoprazole RENAL/LYTES - -- Monitor BUNs/creatinine Replace electrolytes as per ICU protocol - Continue with Bruce ENDO/Rheum - -- On chronic 5 mg prednisone Given that she is intubated now we will give her 40 mg of Solu-Medrol on a daily basis -- Rheumatoid arthritis On 10 mg methotrexate, rituximab and sulfasalazine On chronic 5 mg prednisone HEME - -- Normocytic anemia Monitor H&H ID - -- Multilobar pneumonia Affecting especially bilateral lower lobes pneumonia more on the left lower lobe Respiratory bio fire negative for everything except for entero/Rhino virus Nasal MRSA negative Procalcitonin 0.81 --Prophylaxis VTE: Heparin to be started after bronc GI: Pantoprazole Lines: Femoral TLC, right radial Diet: Tube feeds Plan: ABG 7.36/48/74 on 40% FiO2, tidal volume 400, respiratory rate of 18 Chest x-ray postintubation shows ET tube 1 cm above the jerod, with retracted by 2 cm. Patient likely had ventilatory failure from underlying multifocal pneumonia. There is a gradient but it is very mild. Unlikely to be pulmonary emboli but will order CTA as patient is prone for pulmonary embolism I will also order Doppler bilateral lower extremity Solu-Medrol 40 mg on a daily basis will be started as patient is on chronic pre dnisone and now she is in a stressful situation being intubated. Continue with doxycycline as well as cefepime Plan was to have a bronchoscopy tomorrow but given the patient is intubated we will do bronchoscopy today. We will start the patient on tube feeds I have personally spent 63 minutes of critical care time in the direct management of this patient. This is a life/limb threatening event. This includes time spent evaluating patient, direct bedside care, chart review, placing orders, interpretation of diagnostic studies, discussion with consultants, patient, and family members, as well as other required patient management activities. This time is exclusive of all separately billable procedures, and teaching time and separate from and in addition to any other critical care service time. Please note the above document was generated using voice recognition software. It may contain grammatical, syntax or spelling errors.Any formal questions or concerns about the content, text or information contained within the body of this dictation should be directly addressed to the provider for clarification. Admission and Anticipated Discharge Date Admission Date: November 25, 2022 Subjective Patient seen and examined at bedside. Patient was breathing with the vent. Her map was in the high 60s to low 70s. She was not on any vasopressors. Heart rate was in the low 100s. Saturation was 98% on 40%, I went down to 35% Review of Systems Review of Systems: Unobtainable due to endotracheal tube Physical Exam Physical Exam: Constitutional: No acute distress HEENT: PERRLA, + ETT Respiratory system: Decreased air entry bilaterally, no wheeze, positive rhonchi, positive crackles bilateral lower lobes (Velvro like) CVS: S1-S2 positive, no murmurs or gallops Abdomen: Soft, nontender, nondistended, positive bowel sounds x4 Extremities: +2 pulses bilaterally radialis/ dorsalis pedis, rheumatoid changes appreciated in bilateral hands, no edema, mottled bilateral feet Neuro: Intubated, sedated Psych: Unable to assess G/U: Positive Bruce Skin: no rashes, warm and dry Lymphatic: no cervical or axillary lymphadenopathy Results & Data Results & Data Vital Signs (Past 12 Hours) Vital Signs Temp Pulse Pulse Resp BP Pulse Ox O2 Del Method 11/27/22 05:10 120 H 38 H 95 11/27/22 06:15 170 H 18 96 11/27/22 06:37 169 H 18 94 11/27/22 00:00 86 11/27/22 03:19 110 H 28 H 93 Nasal Cannula 11/27/22 03:00 37.4 C 98 H 21 138/78 98 Nasal Cannula 11/27/22 00:11 94 H 22 91 Nasal Cannula 11/26/22 23:00 36.8 C 91 H 18 124/68 91 Nasal Cannula O2 Flow Rate FiO2 11/27/22 05:10 40 11/27/22 06:15 40 11/27/22 06:37 40 11/27/22 00:00 11/27/22 03:19 3 11/27/22 03:00 11/27/22 00:11 2 11/26/22 23:00 Laboratory Results 11/27/22 04:17 11/27/22 04:17 Coding Level of Care Code 39154 CRITICAL CARE 1ST 30-74M Diagnoses Rhinovirus infection B34.8 Multifocal pneumonia J18.[address] scan, chest R93.89 Rheumatoid arthritis M06.9 Rheumatoid arthritis location: unspecified site Rheumatoid factor presence: unspecified presence Acute exacerbation of bronchiectasis J47.1 Time Spent (min) 63 (5) Rheumatoid arthritis Rheumatoid arthritis location: unspecified site Rheumatoid factor presence: unspecified presence Qualified Code(s): M06.9 - Rheumatoid arthritis, unspecified
[2022-11-27] MEDS ORDERED: MAGNESIUM SULFATE / D5W 1 GM/100 ML BAG IV SCH (08:00)
[2022-11-27] MEDS: DOCUSATE SODIUM 100 MG CAP PO SCH (08:16)
--- NOTE | 2022-11-27 08:16 | Emergency Department Note ---
ED Visit Note Endotracheal Intubation-I was requested to come to the ICU for patient who was in respiratory failure requiring endotracheal intubation. Indication: Respiratory failure. The patient was on BiPAP prior to the procedure. Suction, airway equipment, RSI drugs, respiratory equipment, and appropriate personnel were prepared prior to the initiation of the procedure. A time out was taken. Preintubation O2 saturation was 91%. Induction was performed with IV etomidate and IV rocuronium. After observing the clinical benefit of the medications, the airway was easily visualized utilizing a 3.0 glide scope. A 7.5 size ETT tube was placed atraumatically to 24 cm using standard technique. The cuff inflated without signs of malfunction. There were bilateral breath sounds, positive colormetric change, no gastric sounds, and post procedure pulse oximetry was 98%. There were no complications. .
[2022-11-27] MEDS: POTASSIUM CHLORIDE / WTR 20 MEQ/100 ML PLCT IV SCH ×2 (08:17→10:43)
[2022-11-27] MEDS: guaiFENesin 600 MG TABCR PO SCH (08:23)
[2022-11-27 08:47] LABS: Phosphorus 3.9 mg/dl (2.5-4.9)
[2022-11-27] MEDS ORDERED: methylPREDNISolone 40 MG in SYRINGE 0 ML IV SCH (09:00)
--- NOTE | 2022-11-27 09:19 | Ultrasound Report ---
BILATERAL LOWER EXTREMITY VENOUS DOPPLER CLINICAL HISTORY: Concern for VTE COMPARISON STUDY: Left lower extremity venous Doppler ultrasound March 08, 2020. TECHNIQUE: Sonography of the deep venous system of the bilateral lower extremities was performed. Co mpression and augmentation were evaluated. FINDINGS: The bilateral common femoral, superficial femoral and popliteal veins were compressible. A ugmentation was normal. Right groin vessels were suboptimally assessed due to central line. Flow was shown within the deep calf vessels. IMPRESSION: No evidence of deep venous thrombus within the bilateral lower extremities. ACT 112: Negative or not required by law. Electronically signed by: James Mancera M.D. 11/27/2022 9:18 AM
[2022-11-27] MEDS ORDERED: OPTIRAY 320 500ml IV ONE (09:25)
--- NOTE | 2022-11-27 09:57 | CT Scan Report ---
CT ANGIOGRAPHY OF THE CHEST, PULMONARY EMBOLUS PROTOCOL CLINICAL HISTORY: Hypoxia. Evaluate for pulmonary embolus. COMPARISON STUDY: Chest CT November 25, 2022 and chest radiograph performed earlier today. Chest CT Dec. TECHNIQUE: Following IV administration of 120 mL of Optiray, helical axial images of the chest were o btained utilizing the pulmonary embolus protocol. Maximal intensity projections and sagittal and cor onal reformats were viewed on an independent 3D workstation. IV contrast was administered without co mplication. Automated exposure control was utilized for the study. A dose lowering technique was ut ilized adhering to the principles of ALARA. CT DOSE: 564.94 mGy.cm FINDINGS: No pulmonary emboli are identified. However, the lower lobe pulmonary arteries are subopti chapin assessed due to mixing artifact. There is no pericardial effusion. Small bilateral pleural effu sions have developed. There is no pneumothorax. Positioning of the endotracheal and nasogastric tubes is satisfactory. Interlobular septal thickening is again noted. There has been progression of multif ocal airspace opacities within the lungs. These are most pronounced within the bilateral lower lobes. Multifocal tree-in-bud nodules are again noted. Mildly enlarged mediastinal and bilateral hilar lymp h nodes are unchanged. There is no axillary lymphadenopathy. Multiple healing left-sided rib fracture s are again noted. A mild T6 compression deformity is unchanged. IMPRESSION: 1. No pulmonary emboli identified although lower lobe pulmonary arteries suboptimally assessed due to mixing artifact. 2. Interval development of small bilateral pleural effusions with progression of interstitial pulmona ry edema. 3. Increase in multifocal airspace opacities suggestive of pneumonia. Tree-in-bud nodules throughout the lungs are also likely infectious. Findings superimposed upon chronic interstitial changes within the lungs. 4. No change in mildly enlarged mediastinal and bilateral hilar lymph nodes. ACT 112: Negative or not required by law. Electronically signed by: James Mancera M.D. 11/27/2022 9:56 AM
[2022-11-27] MEDS: fentaNYL BOLUS from BAG IV PRN ×2 (10:05→10:08)
[2022-11-27] MEDS: PIPERACILLIN/TAZOBACTAM 4.5 GM CI (over 4 hours) IV SCH ×2 (10:34→17:05)
--- NOTE | 2022-11-27 10:36 | Procedure Note ---
Procedure Note: Bronchoscopy Procedure PREOPERATIVE DIAGNOSIS: Multilobar pneumonia POSTOPERATIVE DIAGNOSIS: Multilobar pneumonia with mucous plugging PROCEDURE PERFORMED: Flexible fiberoptic bronchoscopy with bronchoalveolar lavage and brushings COMPLICATIONS: None. INDICATION: Rule out atypical infection in the immunosuppressed patient with PROCEDURE: After obtaining an informed consent from patient's daughter, patient was preoxygenated while on the vent. The patient had appropriate oxygen, blood pressure, heart rate, and respiratory rate monitoring applied and monitored continuously throughout the procedure. Patient was given total of 50 mcg of fentanyl during the procedure The trachea appeared normal.The bronchoscope was then advanced through the jerod, which was sharp. The scope was then advanced into the right main stem and each segment, subsegement in the right upper lobe, right middle lobe and right lower lobe were visualized. There was mild to moderate amounts of greenish-yellow secretions noted. There were no other findings including evidence of mass, anatomic distortions, or hemorrhage. The bronchoscope was subsequently withdrawn and advanced into the left mainstem. Significant amount of grayish-yellow thin secretions were appreciated starting at left main and going into the left lower lobe. Again, each segment and subsegment was well visualized. No specific masses or other lesions were identified throughout the tracheobronchial tree on the left. There was moderate to severe amount of grayish-yellow thin secretions appreciated which were suctioned out The bronchoscope was then wedged in the left lower lobe anterior segment and bronchoalveolar lavage samples were obtained. 90 ml of saline was instilled and 40 ml of fluid was aspirated back.The bronchoscope was withdrawn and the area was suctioned clear. The bronchoscope was then wedged in the left lower lobe lateral and posterior segment and bronchoalveolar lavage samples were obtained. 80 ml of saline was instilled and 40 ml of fluid was aspirated back.The bronchoscope was withdrawn and the area was suctioned clear. The bronchoscope was then re-advanced into the left lower lobe anterior lateral segment and bronchial brushings were obtained. The bronchoscope was then withdrawn to the mainstem. The area was suctioned clear. The bronchoscope was then withdrawn. The patient tolerated the procedure well without evidence of desaturation or complications. Bronchoalveolar lavage samples were sent for cell count, Gram stain and bacterial culture, AFB culture and smear, fungal culture and smear cryptococcus and cytology. Recommendations: Follow-up micro, cytology and pathology Follow-up chest x-ray Please note the above document was generated using voice recognition software. It may contain grammatical, syntax or spelling errors.Any formal questions or concerns about the content, text or information contained within the body of this dictation should be directly addressed to the provider for clarification. [facility] [place]arges) Pulmonary/Thoracic Procedure 1: Pulmonary and Thoracic: 45900 Dx bronchoscopy/BAL Procedure 2: Pulmonary and Thoracic: 78297 Dx bronchoscopy/brush Procedure 3: Pulmonary and Thoracic: 82342 Bronchoscopy, clear airways
--- NOTE | 2022-11-27 10:51 | XRay Report ---
XR chest 1V portable CLINICAL HISTORY: Post Bronchoscopy TECHNIQUE: Single frontal radiograph of the chest was obtained. Comparison: Comparison is made to chest radiograph 11/27/2022 FINDINGS: Endotracheal tube has been withdrawn and the tip now lies 4 cm in the jerod, in satisfactory positio n. Enteric tube is stable. Cardiomegaly is noted. The aortic arch is calcified. Stable interstitial o pacities. IMPRESSION: 1. No acute abnormalities seen in particular no evidence of pneumothorax. 2. Stable cardiomegaly and pulmonary fibrotic changes. 3. Interval withdrawal of endotracheal tube. The tube is now in satisfactory position. ACT 112: Negative or not required by law. Electronically signed by: Bennie Mcintyre M.D. 11/27/2022 10:48 AM
[2022-11-27] MEDS: VASOPRESSIN 20 UNITS in 0.9 % SODIUM CHLORIDE 100 ML IV SCH ×2 (10:55→18:09)
[2022-11-27] MEDS: guaiFENesin SUGAR FREE 200 MG/10 ML UDC PO SCH ×3 (10:56→21:27)
[2022-11-27] MEDS: LANTUS PER UNIT CHARGE SQ SCH ×2 (11:00→21:51)
[2022-11-27] MEDS: DOXYCYCLINE HYCLATE 100 MG in DEXTROSE 5% 100 ML IV SCH ×2 (11:04→21:26)
[2022-11-27] MEDS: PANTOprazole 40 MG in SYRINGE 0 ML IV SCH (11:04)
[2022-11-27 12:37] LABS: Fluid Mono/Macrophage 5 %; Lymphocyte Body Fluid Man 2 %; Neutrophil Body Fluid Man 93 %
[2022-11-27] MEDS ORDERED: PEPTAMEN INTENSE VHP 1.0 CAL 1,000 ML BAG OG SCH (12:45)
[2022-11-27] MEDS: TUBE FEEDING WATER FLUSH OG SCH ×3 (12:55→23:47)
[2022-11-27] MEDS ORDERED: ROCURONIUM BROMIDE 10 MG/ML 5 ML VIAL IV ONE (13:22)
[2022-11-27] MEDS ORDERED: ETOMIDATE 2 MG/ML 20 ML VIAL IV ONE (13:22)
--- NOTE | 2022-11-27 14:10 | Electrocardiogram Report ---
Test Reason : Blood Pressure : / mmHG Vent. Rate : 109 BPM Atrial Rate : 109 BPM P-R Int : 148 ms QRS Dur : 066 ms QT Int : 328 ms P-R-T Axes : 050 -19 021 degrees QTc Int : 441 ms Poor data quality, interpretation may be adversely affected Sinus tachycardia with Premature atrial complexes Low voltage QRS Cannot rule out Anteroseptal infarct , age undetermined Abnormal ECG When compared with ECG of 25-NOV-2022 12:32, Premature atrial complexes are now Present Minimal criteria for Anteroseptal infarct are now Present Confirmed by Isai Don ([id number]) on 11/27/2022 2:09:53 PM Referred By: REFERRED SELF Confirmed By:Wilfred Don
--- NOTE | 2022-11-27 14:13 | Electrocardiogram Report ---
Test Reason : Blood Pressure : / mmHG Vent. Rate : 104 BPM Atrial Rate : 104 BPM P-R Int : 132 ms QRS Dur : 094 ms QT Int : 390 ms P-R-T Axes : 061 092 015 degrees QTc Int : 512 ms Sinus tachycardia with Premature atrial complexes Possible Left atrial enlargement Rightward axis Low voltage QRS Incomplete right bundle branch block Abnormal ECG Confirmed by Isai Don ([id number]) on 11/27/2022 2:13:27 PM Referred By: REFERRED SELF Confirmed By:Wilfred Don
--- NOTE | 2022-11-27 14:41 | Hospitalist Progress Note ---
Date of Service November 27, 2022 Assessment & Plan (1) Sepsis: Plan: With shock. Currently on cefepime, doxycycline, Flagyl. Vasopressor support as needed to maintain adequate MAP. 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 Due to sepsis and septic shock. Supportive care. Treat underlying infection. Maintain blood pressure with pressor support. CT head NEGATIVE (3) Rheumatoid arthritis: Plan: Hold methotrexate, sulfasalazine, Hydroxychloroquine, and rituxan with her acute illness . She is steroid-dependent. Now on intravenous hydrocortisone (4) Hypomagnesemia: Plan: Intravenous supplementation. Serial labs (5) Elevated troponin: Plan: Telemetry. Serial EKGs. Doubt acute coronary syndrome. (6) Hypertension: Plan: Oral antihypertensives are on hold. She is now hypotensive on vasopressor support. (7) Multifocal pneumonia: Plan: Continue antibiotic coverage with cefepime, doxycycline, metronidazole. Luken's trap sputum culture. (8) Hyperlipidemia: Plan: Treated with statin therapy (9) Anxiety and depression: Plan: Treated with venlafaxine (10) Diabetes: Plan: Holding metformin and Ozempic. Basal insulin. Accu-Cheks with sliding scale coverage. Currently intubated and n.p.o. (11) Anemia: Plan: Iron deficiency documented. Holding on IV venofer while BCx pending but likely benefit from parenteral iron prior to d/c as well as PO supplementation at d/c. FOB pending. Protonix therapy (12) Pneumonia: Plan: Suspected Gram-negative pneumoniacausing sepsis in an immunocompromised patient. Possible viral component. Currently on cefepime, doxycycline, Flagyl. Luken's trap sputum culture pending (13) Gastroenteritis: Plan: Probably viral etiology. Supportive care (14) Acute respiratory failure with hypoxia: Plan: Currently requiring ventilator support. Serial chest x-rays and serial ABGs. Wean as tolerated Plan To be determined Admission and Anticipated Discharge Date Admission Date: November 25, 2022 Subjective Intubated now and sedated. Diffuse bilateral lower extremity mottling. She is on vasopressor support. She is receiving intravenous hydrocortisone due to her steroid dependence. She remains on cefepime, doxycycline, Flagyl. Appreciate critical care management Review of Systems Review of Systems: The patient is intubated and sedated and cannot answer any questions regarding review of systems Physical Exam Physical Exam: General-intubated and sedated s HEENT-head atraumatic and normocephalic, pupils equal and reactive to light Neck-no lymphadenopathy or thyromegaly, trachea midline Chest-scattered bilateral rhonchi. No wheezing Cardiac-regular rate and rhythm, normal S1 and S2 Abdomen- hypoactive bowel sounds but present. Nondistended Extremities-extensive bilateral lower extremity mottling Neuro-cannot assess due to sedated state Psych-cannot assess due to sedated state Results & Data Results & Data Vital Signs (Past 12 Hours) Vital Signs Temp Pulse Pulse Resp BP BP Pulse Ox 11/27/22 14:16 85 18 95 11/27/22 14:16 126/88 11/27/22 14:15 37.1 C 86 18 95 11/27/22 14:01 88 18 95 11/27/22 14:00 88 18 96 11/27/22 13:45 85 18 97 11/27/22 13:45 115/81 11/27/22 13:30 84 18 99 11/27/22 13:30 124/78 11/27/22 13:15 83 18 99 11/27/22 13:15 114/73 11/27/22 13:00 82 18 100 11/27/22 13:00 114/82 11/27/22 12:46 107/79 11/27/22 12:46 85 18 98 11/27/22 12:45 85 18 100 11/27/22 12:30 88 18 99 11/27/22 12:30 114/73 11/27/22 12:15 88 18 99 11/27/22 12:15 107/77 11/27/22 12:00 85 18 97 11/27/22 12:00 108/83 11/27/22 11:45 89 18 95 11/27/22 11:45 110/80 11/27/22 11:31 88 18 95 11/27/22 11:31 111/64 11/27/22 11:30 88 18 96 11/27/22 11:15 90 18 96 11/27/22 11:15 125/78 11/27/22 11:00 90 18 96 11/27/22 11:00 118/84 11/27/22 10:45 94 H 18 98 11/27/22 10:45 106/76 11/27/22 10:30 95 H 18 97 11/27/22 10:30 107/72 11/27/22 10:16 101 H 16 99 11/27/22 10:16 131/80 11/27/22 10:15 98 H 16 100 11/27/22 10:01 113/67 11/27/22 10:01 98 H 18 92 11/27/22 10:00 99 H 18 92 11/27/22 09:45 103 H 18 92 11/27/22 09:45 132/84 11/27/22 09:44 101 H 18 92 11/27/22 09:44 126/85 11/27/22 09:38 105 H 18 11/27/22 09:15 109 H 18 95 11/27/22 09:00 101 H 18 96 11/27/22 11:20 88 18 95 11/27/22 10:30 11/27/22 08:45 100 H 18 95 11/27/22 08:30 101 H 18 94 11/27/22 08:15 102 H 18 98 11/27/22 08:15 104/71 11/27/22 08:00 103 H 18 99 11/27/22 07:45 103 H 18 99 11/27/22 07:30 99 H 18 99 11/27/22 07:30 94/67 L 11/27/22 07:15 146 H 18 98 11/27/22 07:15 102/71 11/27/22 07:00 147 H 18 97 11/27/22 08:30 11/27/22 05:10 120 H 38 H 95 11/27/22 06:15 170 H 18 96 11/27/22 06:37 169 H 18 94 11/27/22 03:19 110 H 28 H 93 11/27/22 03:00 37.4 C 98 H 21 138/78 98 O2 Del Method O2 Flow Rate FiO2 11/27/22 14:16 11/27/22 14:16 11/27/22 14:15 Mechanical Vent 0.4 11/27/22 14:01 11/27/22 14:00 11/27/22 13:45 11/27/22 13:45 11/27/22 13:30 11/27/22 13:30 11/27/22 13:15 11/27/22 13:15 11/27/22 13:00 11/27/22 13:00 11/27/22 12:46 11/27/22 12:46 11/27/22 12:45 11/27/22 12:30 11/27/22 12:30 11/27/22 12:15 11/27/22 12:15 11/27/22 12:00 11/27/22 12:00 11/27/22 11:45 11/27/22 11:45 11/27/22 11:31 11/27/22 11:31 11/27/22 11:30 11/27/22 11:15 11/27/22 11:15 11/27/22 11:00 11/27/22 11:00 11/27/22 10:45 11/27/22 10:45 11/27/22 10:30 11/27/22 10:30 11/27/22 10:16 11/27/22 10:16 11/27/22 10:15 11/27/22 10:01 11/27/22 10:01 11/27/22 10:00 11/27/22 09:45 11/27/22 09:45 11/27/22 09:44 11/27/22 09:44 11/27/22 09:38 11/27/22 09:15 11/27/22 09:00 11/27/22 11:20 40 11/27/22 10:30 Mechanical Vent 11/27/22 08:45 11/27/22 08:30 11/27/22 08:15 11/27/22 08:15 11/27/22 08:00 11/27/22 07:45 11/27/22 07:30 Mechanical Vent 11/27/22 07:30 11/27/22 07:15 11/27/22 07:15 11/27/22 07:00 11/27/22 08:30 Mechanical Vent 0.35 11/27/22 05:10 40 11/27/22 06:15 40 11/27/22 06:37 40 11/27/22 03:19 Nasal Cannula 3 11/27/22 03:00 Nasal Cannula Laboratory Results 11/27/22 04:17 11/27/22 04:17 PG Care Time/CCT Total # of Minutes Spent Total Time Spent with Patient: Total time spent is greater than 50% in coordination of care (as documented) at patient's floor/unit and/or counseling patient: Coding Level of Care Code 87217 SUB INP/OBS CARE 3/50MIN Diagnoses Sepsis A41.9 Dizziness R42 Rheumatoid arthritis M06.9 Rheumatoid arthritis location: unspecified site Rheumatoid factor presence: unspecified presence Hypomagnesemia E83.42 Elevated troponin R77.8 Hypertension I10 Hypertension type: essential hypertension Multifocal pneumonia J18.9 Hyperlipidemia E78.5 Anxiety and depression F41.9; F32.9 Diabetes E11.42; Z79.4 Diabetes mellitus type: type 2 Diabetes mellitus nursing home insulin use: with nursing home use Diabetes mellitus complication status: with neurologic complications Diabetes mellitus complication detail: with polyneuropathy Anemia D64.9 Pneumonia J18.9 Gastroenteritis K52.9 Acute respiratory failure with hypoxia J96.01 (3) Rheumatoid arthritis Rheumatoid arthritis location: unspecified site Rheumatoid factor presence: unspecified presence Qualified Code(s): M06.9 - Rheumatoid arthritis, unspecified (6) Hypertension Hypertension type: essential hypertension Qualified Code(s): I10 - Essential (primary) hypertension (10) Diabetes Diabetes mellitus type: type 2 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
[2022-11-27 16:13] LABS: BUN Creatinine Ratio 13.3 (10-20); Calcium 8.3 mg/dl (8.6-10.3); Creatinine Clr Calc Pharmacy 57.7 ml/min; Est GFR (African American) 82.2 ml/min; Est GFR (Non-African American) 70.9 ml/min; Phosphorus 3.7 mg/dl (2.5-4.9); Potassium 4.3 mmol/L (3.5-5.1)
[2022-11-27] MEDS: HYDROCORTISONE SOD 50 MG in SYRINGE 0 ML IV SCH (17:04)
[2022-11-27] MEDS ORDERED: PHARMACY GLYCEMIC MGMT CONSULT PRN (18:35)
[2022-11-27] MEDS: SIMVASTATIN 5 MG TAB PO SCH (21:27)
[2022-11-28] MEDS: INSULIN ASPART PER UNIT CHARGE SC SCH ×6 (00:42→20:34)
[2022-11-28] MEDS: TUBE FEEDING WATER FLUSH OG SCH ×6 (01:13→20:10)
[2022-11-28] MEDS: propofoL 1,000 MG/100 ML VIAL IV SCH ×3 (01:53→19:14)
[2022-11-28] MEDS: HYDROCORTISONE SOD 50 MG in SYRINGE 0 ML IV SCH ×3 (01:54→17:52)
[2022-11-28] MEDS: VASOPRESSIN 20 UNITS in 0.9 % SODIUM CHLORIDE 100 ML IV SCH (01:54)
[2022-11-28] MEDS: PIPERACILLIN/TAZOBACTAM 4.5 GM CI (over 4 hours) IV SCH ×3 (01:55→17:53)
[2022-11-28 03:53] LABS: iSTAT Art Bld Gas pCO2 Correct 43 mmHg (35-46); iSTAT Art Bld Gas pH Corrected 7.415 (7.35-7.45); iSTAT Arterial Blood Gas HCO3 28 meg/L (19-24); iSTAT Arterial Blood Gas pCO2 42 mmHg (35-46); iSTAT Arterial Blood Gas pH 7.43 (7.35-7.45); iSTAT Arterial Blood Gas pO2 86 mmHg (80-95); iSTAT Arterial Blood Gas pO2 C 91; iSTAT Carbon Dioxide 29 mmol/L (24-31); iSTAT FiO2 40 %; iSTAT Hematocrit 29 % (37-47); iSTAT Hemoglobin 9.9 g/dl (12.0-16.0); iSTAT Potassium 3.2 mmol/L (3.3-5.0); iSTAT Site Art Line; iSTAT Sodium 136 mmol/L (135-144)
[2022-11-28] MEDS: guaiFENesin SUGAR FREE 200 MG/10 ML UDC PO SCH ×4 (04:00→20:10)
[2022-11-28 05:05] LABS: Basophils # (auto) 0.06 K/uL (0-0.2); Basophils % (auto) 0.4 %; Hematocrit (blood only) 29.8 % (37.0-47.0); Hemoglobin 9.4 g/dl (12.0-16.0); Immature Granulocytes % (auto) 1.3 %; Lymphocytes % (auto) 8.4 %; Mean Corpuscular Hgb Conc 31.5 g/dL (32.0-36.0); Mean Corpuscular Volume 79.3 fL (80.0-100.0); Mean Platelet Volume 9.2 fL (9.4-12.4); Monocytes # (auto) 1.32 K/uL (0.11-0.59); Monocytes % (auto) 8.5 %; Neutrophils # (auto) 12.68 K/uL (1.40-6.50); Neutrophils % (auto) 81.4 %; Platelet Count 464 K/uL (130-400); RDW Coefficient of Variation 18.8 % (11.5-14.5); RDW Standard Deviation 52.3 fL (36.4-46.3); Red Blood Count 3.76 M/uL (4.20-5.40); White Blood Count 15.56 K/ul (4.8-10.8)
[2022-11-28 05:43] LABS: Albumin Globulin Ratio 0.9 (0.9-2); Albumin Level 2.8 gm/dl (3.4-5.0); BUN Creatinine Ratio 14.3 (10-20); Bilirubin,Total 0.5 mg/dl (0.2-1.0); Calcium 8.2 mg/dl (8.6-10.3); Creatinine Clr Calc Pharmacy 62.6 ml/min; Est GFR (Non-African American) 77.7 ml/min; Magnesium 1.6 mg/dl (1.7-2.4); Phosphorus 2.2 mg/dl (2.5-4.9); Potassium 3.3 mmol/L (3.5-5.1); Total Protein 5.8 gm/dl (6.0-8.3)
[2022-11-28] MEDS ORDERED: POTASSIUM PHOS 3 MMOL/1 ML INFUSION IV STA (06:46)
[2022-11-28] MEDS ORDERED: POTASSIUM CHLORIDE 20 MEQ/15 ML UDC PO STA (06:46)
[2022-11-28] MEDS ORDERED: POTASSIUM PHOSPHATE 21 MMOL in SODIUM CHLORIDE 0.9% 500 ML IV ONE (07:15)
[2022-11-28] MEDS: FORMOTEROL 20 MCG/2 ML VIAL INH SCH ×2 (07:16→19:34)
[2022-11-28] MEDS: ALBUT/IPRATROP 3MG/0.5MG NEB 3 ML VIAL NEB SCH ×4 (07:16→19:34)
[2022-11-28] MEDS: SODIUM CHLOR 7% 4 ML NEB NEB SCH ×2 (07:16→19:34)
--- NOTE | 2022-11-28 07:37 | Critical Care Progress Note ---
Date of Service November 28, 2022 Assessment & Plan (1) Rhinovirus infection: (2) Multifocal pneumonia: (3) Sepsis: (4) Abnormal CT scan, chest: (5) Rheumatoid arthritis: (6) Acute exacerbation of bronchiectasis: Plan Reason Critically Ill: 72-year-old female past medical history of bronchiectasis, COPD, rheumatoid arthritis on rituximab, methotrexate, sulfasalazine and chronic mammogram prednisone was admitted to hospital with worsening shortness of breath and was found to have multi lobar pneumonia. Patient was found to be in severe respiratory distress was intubated and sent to the ICU for further management Neuro - [facility] ICU: Negative Sedation:-Propofol and fentanyl --History of anxiety/depression On venlafaxine at home Cardiac - --Septic shock Likely due to multilobar pneumonia Continue with vasopressor support to keep MAP greater than 65 Patient also getting stress dose hydrocortisone given the chronic use of prednisone --Elevated troponin Likely type II PR EKG shows sinus rhythm with PACs Repeat EKG and trend troponins --History of hypertension Hold blood pressure medication --Prolonged QTc Avoid QT prolonging medication Keep the potassium greater than 4, magnesium greater than 2, phosphorus greater than 3 Respiratory - CT chest 11/25/2022 personally reviewed: Diffuse tree-in-bud opacities appreciated bilaterally Traction bronchiectasis bilateral upper lobes Bronchiectasis bilateral lower lobes with consolidative process especially in the left lower lobe Mediastinal lymphadenopathy especially station 7 CAT scan is worse compared to HRCT done 12/28/2019 -- VDRF Intubated 11/27/2022 Likely secondary to multifocal pneumonia Continue with ventilatory support Keep RASS -1 Daily sedation holidays and SBT's -- Chronic bronchiectasis Continue with hypertonic saline nebulized, flutter valve Patient has not been using chest vest therapy at home because of recent fall leading to chest tenderness GI - -- GERD Continue with pantoprazole RENAL/LYTES - -- Monitor BUNs/creatinine Replace electrolytes as per ICU protocol - Continue with Bruce ENDO/Rheum - -- On chronic 5 mg prednisone Given that she is intubated now we will give her 40 mg of Solu-Medrol on a daily basis -- Rheumatoid arthritis On 10 mg methotrexate, rituximab and sulfasalazine On chronic 5 mg prednisone HEME - -- Normocytic anemia Monitor H&H ID - -- Multilobar pneumonia Affecting especially bilateral lower lobes pneumonia more on the left lower lobe Respiratory bio fire negative for everything except for entero/Rhino virus Nasal MRSA negative Procalcitonin 0.81 Blood cultures negative to date S/p bronchoscopy 11/28/2022, follow-up cultures Musculoskeletal - -- Mottled skin bilateral lower extremities This is likely from patient's underlying history of rheumatoid arthritis Arterial duplex 11/27/22 did not show any signs of arterial stenosis --Prophylaxis VTE: Lovenox GI: Pantoprazole Lines: Femoral TLC, right radial Diet: Tube feeds Plan: In/out: -956, urine output 2775 ABG 7.43/42/86 on PEEP of 5, 40% Tmax 38.3 Continue with hydrocortisone 50 mg every 8 hours Continue with Zosyn and doxycycline Follow-up blood culture as well as bronc culture Tylenol as needed for fever Potassium, magnesium as well as phosphorus being replaced We will try to get a PICC line today I have personally spent 45 minutes of critical care time in the direct management of this patient. This is a life/limb threatening event. This includes time spent evaluating patient, direct bedside care, chart review, placing orders, interpretation of diagnostic studies, discussion with consultants, patient, and family members, as well as other required patient management activities. This time is exclusive of all separately billable procedures, and teaching time and separate from and in addition to any other critical care service time. Please note the above document was generated using voice recognition software. It may contain grammatical, syntax or spelling errors.Any formal questions or concerns about the content, text or information contained within the body of this dictation should be directly addressed to the provider for clarification Admission and Anticipated Discharge Date Admission Date: November 25, 2022 Subjective Patient seen and examined at bedside. No acute distress, no adverse events overnight Patient has been spiking fever Tmax 38.4 Was on Levophed 0.03, fentanyl 50, propofol 25 the time of examination with MAP in the low 70s to high 60s. She was waking up and following commands. Denied any headache, no chest pain Has been getting tube feeds Review of Systems Review of Systems: Unobtainable due to endotracheal tube Physical Exam Physical Exam: Constitutional: No acute distress HEENT: PERRLA, + ETT Respiratory system: Decreased air entry bilaterally, positive rhonchi, mild expiratory wheeze, positive crackles bilateral lower lobes (Velvro like) CVS: S1-S2 positive, no murmurs or gallops Abdomen: Soft, nontender, nondistended, positive bowel sounds x4 Extremities: +2 pulses bilaterally radialis/ dorsalis pedis, rheumatoid changes appreciated in bilateral hands, no edema, mottled bilateral feet (better than yesterday) Neuro: Intubated, sedated, RASS -1 Psych: Unable to assess G/U: Positive Bruce Skin: no rashes, warm and dry Lymphatic: no cervical or axillary lymphadenopathy Results & Data Results & Data Vital Signs (Past 12 Hours) Vital Signs Temp Pulse Resp BP Pulse Ox O2 Del Method O2 Flow Rate 11/28/22 04:30 38.0 C H 82 18 98 11/28/22 04:30 112/72 11/28/22 04:20 38.0 C H 78 16 99 11/28/22 04:15 38.0 C H 87 18 98 11/28/22 04:15 111/71 11/28/22 04:10 38.0 C H 78 18 98 11/28/22 04:00 38.0 C H 83 18 98 11/28/22 04:00 111/71 11/28/22 03:50 38.0 C H 78 16 98 11/28/22 03:45 38.0 C H 78 18 98 11/28/22 03:45 111/70 11/28/22 03:40 38.0 C H 78 18 98 11/28/22 03:30 38.0 C H 83 18 98 11/28/22 03:30 109/67 11/28/22 03:20 38.0 C H 85 16 98 11/28/22 03:15 112/71 11/28/22 03:15 38.0 C H 79 18 99 11/28/22 03:10 38.0 C H 80 18 99 11/28/22 03:00 38.0 C H 79 18 98 11/28/22 03:00 112/71 11/28/22 02:50 38.1 C H 79 16 99 11/28/22 02:45 109/71 11/28/22 02:45 38.1 C H 79 18 99 11/28/22 02:40 38.1 C H 78 18 98 11/28/22 02:30 38.1 C H 78 18 98 11/28/22 02:30 110/70 03/24/23 02:20 38.2 C H 79 16 98 11/28/22 02:15 107/67 11/28/22 02:15 38.2 C H 82 18 98 11/28/22 02:10 38.2 C H 80 18 98 11/28/22 02:00 38.4 C H 79 18 98 11/28/22 02:00 104/68 11/28/22 01:50 38.4 C H 89 16 98 11/28/22 01:45 38.4 C H 81 18 97 11/28/22 01:45 114/72 11/28/22 01:40 38.4 C H 81 18 97 11/28/22 01:30 38.5 C H 83 18 86 L 11/28/22 01:30 105/69 11/28/22 01:20 38.5 C H 16 11/28/22 01:10 38.5 C H 85 11 L 98 11/28/22 01:00 38.5 C H 84 11 L 95 11/28/22 00:50 38.4 C H 83 12 96 11/28/22 00:40 38.4 C H 81 18 95 11/28/22 00:30 38.4 C H 86 18 96 11/28/22 00:20 38.4 C H 83 18 96 11/28/22 00:15 38.4 C H 82 11 L 97 11/28/22 00:15 126/75 11/28/22 00:10 38.4 C H 82 19 96 11/28/22 00:00 38.4 C H 82 18 96 11/27/22 23:50 38.3 C H 82 18 97 11/28/22 03:25 80 19 99 11/28/22 00:00 82 11/28/22 01:05 11/27/22 23:30 38.3 C H 121/78 11/27/22 23:30 82 18 97 11/27/22 23:15 82 18 97 11/27/22 23:15 125/86 11/27/22 23:00 85 14 96 11/27/22 22:00 83 13 97 11/27/22 21:00 88 18 98 11/27/22 21:00 124/77 11/27/22 20:45 92 H 18 98 11/27/22 20:45 124/71 11/27/22 20:30 133/76 11/27/22 20:30 84 18 99 11/27/22 20:00 86 18 99 11/27/22 20:00 125/87 Mechanical Vent 40 11/27/22 19:45 87 18 100 11/27/22 19:45 131/81 11/27/22 23:13 82 18 96 11/27/22 23:02 Mechanical Vent 11/27/22 19:40 78 18 100 FiO2 11/28/22 04:30 11/28/22 04:30 11/28/22 04:20 11/28/22 04:15 11/28/22 04:15 11/28/22 04:10 11/28/22 04:00 11/28/22 04:00 11/28/22 03:50 11/28/22 03:45 11/28/22 03:45 11/28/22 03:40 11/28/22 03:30 11/28/22 03:30 11/28/22 03:20 11/28/22 03:15 11/28/22 03:15 11/28/22 03:10 11/28/22 03:00 11/28/22 03:00 11/28/22 02:50 11/28/22 02:45 11/28/22 02:45 11/28/22 02:40 11/28/22 02:30 11/28/22 02:30 11/28/22 02:20 11/28/22 02:15 11/28/22 02:15 11/28/22 02:10 11/28/22 02:00 11/28/22 02:00 11/28/22 01:50 11/28/22 01:45 11/28/22 01:45 11/28/22 01:40 11/28/22 01:30 11/28/22 01:30 11/28/22 01:20 11/28/22 01:10 11/28/22 01:00 11/28/22 00:50 11/28/22 00:40 11/28/22 00:30 11/28/22 00:20 11/28/22 00:15 11/28/22 00:15 11/28/22 00:10 11/28/22 00:00 11/27/22 23:50 11/28/22 03:25 40 11/28/22 00:00 11/28/22 01:05 40 11/27/22 23:30 11/27/22 23:30 11/27/22 23:15 11/27/22 23:15 11/27/22 23:00 11/27/22 22:00 11/27/22 21:00 11/27/22 21:00 11/27/22 20:45 11/27/22 20:45 11/27/22 20:30 11/27/22 20:30 11/27/22 20:00 11/27/22 20:00 11/27/22 19:45 11/27/22 19:45 11/27/22 23:13 40 11/27/22 23:02 40 11/27/22 19:40 40 Laboratory Results 11/28/22 04:41 11/28/22 04:41 Coding Level of Care Code 28966 CRITICAL CARE 1ST 30-74M Diagnoses Rhinovirus infection B34.8 Multifocal pneumonia J18.[address] scan, chest R93.89 Rheumatoid arthritis M06.9 Rheumatoid arthritis location: unspecified site Rheumatoid factor presence: unspecified presence Acute exacerbation of bronchiectasis J47.1 Time Spent (min) 45 (5) Rheumatoid arthritis Rheumatoid arthritis location: unspecified site Rheumatoid factor presence: unspecified presence Qualified Code(s): M06.9 - Rheumatoid arthritis, unspecified
[2022-11-28] MEDS: MAGNESIUM SULFATE / D5W 1 GM/100 ML BAG IV SCH ×3 (07:42→11:06)
[2022-11-28] MEDS: fentaNYL citrate 2,500 MCG/250 ML BAG IV SCH (07:43)
[2022-11-28] MEDS: fentaNYL BOLUS from BAG IV PRN ×2 (08:10→20:00)
[2022-11-28] MEDS: ACETAMINOPHEN 1,000 MG/100 ML VIAL IV PRN (08:16)
[2022-11-28] MEDS: NOREPINEPHRINE/D5W 4 MG/250 ML PLCT IV SCH (08:30)
[2022-11-28] MEDS ORDERED: FUROSEMIDE INJ 20 MG/2 ML VIAL IV ONE ×2 (08:30→18:00)
--- NOTE | 2022-11-28 08:47 | Ultrasound Report ---
US arterial duplex LE BI CLINICAL HISTORY: Bilateral lower extremity ischemia/discoloration. COMPARISON STUDY: None. FINDINGS: Suboptimal evaluation of the bilateral lower extremity arterial systems due to the patient' s overlying bandages and limited positioning. Specifically, the right common femoral artery was not w ell visualized. The right superficial femoral artery is labeled as the right common femoral artery on this study and appears patent. There are normal biphasic to triphasic waveforms seen throughout the visualized bilateral lower extremity are chose systems. No high-grade stenosis or occlusion identifie d. Mild scattered calcified plaque is noted. Bilateral peroneal arteries are suboptimally assessed bu t likely patent. IMPRESSION: No high-grade stenosis or occlusion within the visualized bilateral lower extremity osman rial systems. ACT 112: Negative or not required by law. Electronically signed by: Jose Alberto Rowland M.D. 11/28/2022 8:46 AM
--- NOTE | 2022-11-28 09:10 | XRay Report ---
XR chest 1V portable HISTORY: Respiratory failure. Follow-up. COMPARISON: Chest 11/27/2021. FINDINGS: Endotracheal tube terminates approximately 2.6 cm from the jerod. Nasogastric tube termina leland below the diaphragm. The tip is not included on this study. There are low lung volumes. No pneumo thorax. Patchy bilateral airspace opacities with interstitial thickening and small bilateral pleural effusions are again noted. The heart remains borderline enlarged. Calcifications again noted within t he aortic knob. IMPRESSION: 1. Satisfactory support line placement. 2. No significant change in the pulmonary edema and patchy bilateral airspace opacities. 3. Small bilateral pleural effusions persist. ACT 112: Negative or not required by law. Electronically signed by: Jose Alberto Rowland M.D. 11/28/2022 9:09 AM
[2022-11-28] MEDS: DOXYCYCLINE HYCLATE 100 MG in DEXTROSE 5% 100 ML IV SCH ×2 (09:28→20:10)
[2022-11-28] MEDS: LANTUS PER UNIT CHARGE SQ SCH (09:31)
[2022-11-28] MEDS: ENOXAPARIN INJ 40 MG/0.4 ML SYR SQ SCH (09:32)
[2022-11-28] MEDS: MULTI VIT W/MINERALS LIQUID 15 ML UDP PO SCH (09:43)
[2022-11-28] MEDS: PANTOprazole 40 MG in SYRINGE 0 ML IV SCH (11:07)
[2022-11-28 11:14] LABS: Estimated Average Glucose 160 mg/dl; Hemoglobin A1C 7.2 % (4.5-5.6)
[2022-11-28] MEDS: PROPOFOL BOLUS FROM BAG IV PRN ×2 (11:42→12:34)
--- NOTE | 2022-11-28 12:07 | Pharmacy Report ---
Pharmacy Glycemic Short Note 2 - Date of Service November 28, 2022 - Glycemic Short BSG Results (Last 24 hours): 11/27/22 11/27/22 11/27/22 11:39 15:23 15:23 Glucose 347 H* Cancelled POC Glucose POC Glucose (other) 295 H 11/27/22 11/27/22 11/28/22 18:10 21:35 00:37 Glucose POC Glucose POC Glucose (other) 362 H* 364 H* 290 H 11/28/22 11/28/22 11/28/22 04:01 04:41 08:15 Glucose 184 H POC Glucose POC Glucose (other) 192 H 189 H 11/28/22 11:38 Glucose POC Glucose 224 H POC Glucose (other) OUTPATIENT ANTIDIABETIC REGIMEN: * Metformin 1000 mg PO BID * Ozempic 1 mg SC weekly * Levemir 22 units SC daily with breakfast * NPH 15 units SC daily with prednisone * HbA1c: 7.2% (10/31/22) ASSESSMENT: * 72 yo F admitted on 11/25/22 secondary to sepsis. Worsening shortness of breath on 11/27/22 so patient was intubated and transferred to ICU. Pharmacy was consulted to assist with inpatient glycemic management at that time. T2DM as outpatient with controlled A1c on current outpatient regimen. * BSGs yesterday were: [phone] mg/dL. Uncontrolled hyperglycemia likely related to stress of events that occurred throughout the day. Was sta rted on Hydrocortisone 50 mg IV every 8 hours which continues today. * At the time of glycemic consult, basal was increased by 50% last evening. Novolog was also tightened to reflect weight/stress of 3. * Fasting BSG this AM was 189 mg/dL. Lunchtime BSG up to 224 mg/dL. Remains intubated and on pressors. Remains on broad spectrum abx and steroids. * Changed bolus insulin to q4h to cover for tube feeds which are currently running at 20 cc/hr. Also, tightened goal range to 110-140 to provide more bolus insulin. With lunchtime hyperglycemia, decided to tighten the carb ratio. Will trial this for the remainder of the day. * Continued with current basal dose in the AM. Will scale the PM basal dose to be based upon BSG given only intake is tube feeds. PLAN FOR INPATIENT GLYCEMIC CONTROL: * Hold outpatient oral diabetes medications * Basal insulin * Lantus 15 units SC AM * Lantus 0-15 units SC PM (see eMAR for more details) * Bolus insulin * NovoLog per scale ACHS or Q6hrs while NPO * Goal Range: Low 110 mg/dL - High 140 mg/dL * Correction Factor: 20 mg/dL/unit * Nutritional / Prandial insulin per carb ratio of 1 unit per 5 grams CHO consumed
--- NOTE | 2022-11-28 15:45 | Hospitalist Progress Note ---
Date of Service November 28, 2022 Assessment & Plan (1) Sepsis: Plan: With shock. Currently on doxycycline and Zosyn. Vasopressor support as needed to maintain adequate MAP. Management per manager report (2) Dizziness: Plan: Present on admission. Due to sepsis and septic shock. Supportive care. Treat underlying infection. Maintain blood pressure with pressor support. CT head NEGATIVE (3) Rheumatoid arthritis: Plan: Hold methotrexate, sulfasalazine, Hydroxychloroquine, and rituxan with her acute illness . She is steroid-dependent. Now on intravenous hydrocortisone (4) Hypomagnesemia: Plan: Intravenous supplementation. Serial labs (5) Elevated troponin: Plan: Telemetry. Serial EKGs. Doubt acute coronary syndrome. (6) Hypertension: Plan: Oral antihypertensives are on hold. She is now hypotensive on vasopressor support. (7) Multifocal pneumonia: Plan: Continue antibiotic coverage with doxycycline and Zosyn. She underwent broncho scopy on 11/27 (8) Hyperlipidemia: Plan: Treated with statin therapy (9) Anxiety and depression: Plan: Treated with venlafaxine (10) Diabetes: Plan: Holding metformin and Ozempic. Basal insulin. Accu-Cheks with sliding scale coverage. Currently intubated and n.p.o. (11) Anemia: Plan: Iron deficiency documented. Holding on IV venofer while BCx pending but likely benefit from parenteral iron prior to d/c as well as PO supplementation at d/c. FOB pending. Protonix therapy (12) Pneumonia: Plan: Suspected Gram-negative pneumoniacausing sepsis in an immunocompromised patient. Possible viral component. Currently on doxycycline and Zosyn. (13) Gastroenteritis: Plan: Probably viral etiology. Supportive care (14) Acute respiratory failure with hypoxia: Plan: Currently requiring ventilator support. Serial chest x-rays and serial ABGs. Wean as tolerated Plan To be determined Admission and Anticipated Discharge Date Admission Date: November 25, 2022 Subjective The patient remains intubated and sedated on pressor support. Review of Systems Review of Systems: The patient is intubated and sedated and cannot answer any questions regarding review of systems Physical Exam Physical Exam: General-intubated and sedated HEENT-head atraumatic and normocephalic, pupils equal and reactive to light Neck-no lymphadenopathy or thyromegaly, trachea midline Chest-scattered bilateral rhonchi. No wheezing Cardiac-regular rate and rhythm, normal S1 and S2 Abdomen- hypoactive bowel sounds but present. Nondistended Extremities-extensive bilateral lower extremity mottling Neuro-cannot assess due to sedated state Psych-cannot assess due to sedated state Results & Data Results & Data Vital Signs (Past 12 Hours) Vital Signs Temp Pulse Resp BP Pulse Ox O2 Del Method O2 Flow Rate 11/28/22 14:00 37.9 C H 85 14 97/58 L 96 Mechanical Vent 11/28/22 13:45 37.9 C H 77 14 88/49 L 95 Mechanical Vent 11/28/22 13:30 37.9 C H 84 14 100/55 L 95 Mechanical Vent 11/28/22 13:15 38.0 C H 86 14 87/52 L 95 Mechanical Vent 11/28/22 13:00 38.0 C H 87 14 90/50 L 95 Mechanical Vent 11/28/22 12:51 38.1 C H 85 13 91/52 L 95 Mechanical Vent 11/28/22 12:45 38.1 C H 88 13 89/49 L 95 Mechanical Vent 11/28/22 12:30 38.1 C H 97 H 16 104/74 93 Mechanical Vent 11/28/22 12:15 38.1 C H 106 H 16 99/64 L 92 Mechanical Vent 11/28/22 12:00 38.0 C H 108 H 18 105/84 92 Mechanical Vent 11/28/22 11:45 37.9 C H 103 H 15 103/61 92 Mechanical Vent 11/28/22 11:34 37.9 C H 108 H 22 104/80 96 Mechanical Vent 11/28/22 11:15 37.9 C H 87 15 109/61 97 Mechanical Vent 11/28/22 11:00 37.8 C H 76 13 91/62 L 97 Mechanical Vent 11/28/22 10:45 37.9 C H 81 14 93/59 L 97 Mechanical Vent 11/28/22 10:30 37.9 C H 76 14 96/62 L 96 Mechanical Vent 11/28/22 08:00 Mechanical Vent 11/28/22 08:00 11/28/22 11:05 75 15 98 11/28/22 10:15 37.9 C H 75 14 90/51 L 96 Mechanical Vent 11/28/22 10:00 37.9 C H 81 14 94/58 L 95 Mechanical Vent 11/28/22 09:45 38.0 C H 79 14 93/57 L 97 Mechanical Vent 11/28/22 09:30 38.1 C H 79 14 90/57 L 97 Mechanical Vent 11/28/22 09:15 38.1 C H 84 14 97/62 L 97 Mechanical Vent 11/28/22 09:00 38.2 C H 86 14 97/58 L 96 Mechanical Vent 11/28/22 08:45 38.3 C H 94 H 14 115/71 94 Mechanical Vent 11/28/22 08:30 38.3 C H 79 11 L 95/55 L 97 Mechanical Vent 11/28/22 08:25 38.3 C H 82 13 94/57 L 95 Mechanical Vent 35 11/28/22 08:15 38.4 C H 96 H 12 105/63 97 Mechanical Vent 35 11/28/22 08:01 38.4 C H 105 H 16 105/62 96 Mechanical Vent 35 11/28/22 07:45 38.3 C H 77 18 107/59 L 98 Mechanical Vent 11/28/22 07:30 38.2 C H 82 15 124/90 97 Mechanical Vent 11/28/22 07:21 38.2 C H 77 16 117/72 100 Mechanical Vent 11/28/22 07:15 38.2 C H 88 16 116/71 94 Mechanical Vent 11/28/22 07:00 38.1 C H 85 14 115/74 98 Mechanical Vent 11/28/22 09:33 14 11/28/22 07:20 81 18 98 11/28/22 04:30 38.0 C H 82 18 98 11/28/22 04:30 112/72 11/28/22 04:20 38.0 C H 78 16 99 11/28/22 04:15 38.0 C H 87 18 98 11/28/22 04:15 111/71 11/28/22 04:10 38.0 C H 78 18 98 11/28/22 04:00 38.0 C H 83 18 98 11/28/22 04:00 111/71 11/28/22 03:50 38.0 C H 78 16 98 11/28/22 03:45 38.0 C H 78 18 98 11/28/22 03:45 111/70 FiO2 11/28/22 14:00 35 11/28/22 13:45 35 11/28/22 13:30 35 11/28/22 13:15 35 11/28/22 13:00 35 11/28/22 12:51 35 11/28/22 12:45 35 11/28/22 12:30 35 11/28/22 12:15 35 11/28/22 12:00 35 11/28/22 11:45 35 11/28/22 11:34 35 11/28/22 11:15 35 11/28/22 11:00 35 11/28/22 10:45 35 11/28/22 10:30 35 11/28/22 08:00 35 11/28/22 08:00 35 11/28/22 11:05 35 11/28/22 10:15 35 11/28/22 10:00 35 11/28/22 09:45 35 11/28/22 09:30 35 11/28/22 09:15 35 11/28/22 09:00 35 11/28/22 08:45 35 11/28/22 08:30 35 11/28/22 08:25 11/28/22 08:15 11/28/22 08:01 11/28/22 07:45 35 11/28/22 07:30 35 11/28/22 07:21 40 11/28/22 07:15 40 11/28/22 07:00 40 11/28/22 09:33 35 11/28/22 07:20 40 11/28/22 04:30 11/28/22 04:30 11/28/22 04:20 11/28/22 04:15 11/28/22 04:15 11/28/22 04:10 11/28/22 04:00 11/28/22 04:00 11/28/22 03:50 11/28/22 03:45 11/28/22 03:45 Laboratory Results 11/28/22 04:41 PG Care Time/CCT Total # of Minutes Spent Total Time Spent with Patient: Total time spent is greater than 50% in coordination of care (as documented) at patient's floor/unit and/or counseling patient: Coding Level of Care Code 13081 SUB INP/OBS CARE 3/50MIN Diagnoses Sepsis A41.9 Dizziness R42 Rheumatoid arthritis M06.9 Rheumatoid arthritis location: unspecified site Rheumatoid factor presence: unspecified presence Hypomagnesemia E83.42 Elevated troponin R77.8 Hypertension I10 Hypertension type: essential hypertension Multifocal pneumonia J18.9 Hyperlipidemia E78.5 Anxiety and depression F41.9; F32.9 Diabetes E11.42; Z79.4 Diabetes mellitus type: type 2 Diabetes mellitus jail insulin use: with jail use Diabetes mellitus complication status: with neurologic complications Diabetes mellitus complication detail: with polyneuropathy Anemia D64.9 Pneumonia J18.9 Gastroenteritis K52.9 Acute respiratory failure with hypoxia J96.01 (3) Rheumatoid arthritis Rheumatoid arthritis location: unspecified site Rheumatoid factor presence: unspecified presence Qualified Code(s): M06.9 - Rheumatoid arthritis, unspecified (6) Hypertension Hypertension type: essential hypertension Qualified Code(s): I10 - Essential (primary) hypertension (10) Diabetes Diabetes mellitus type: type 2 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
[2022-11-28 15:54] LABS: BUN Creatinine Ratio 12.6 (10-20); Calcium 8.5 mg/dl (8.6-10.3); Creatinine Clr Calc Pharmacy 55.4 ml/min; Est GFR (African American) 77.7 ml/min; Magnesium 2.1 mg/dl (1.7-2.4); Phosphorus 2.6 mg/dl (2.5-4.9); Potassium 3.5 mmol/L (3.5-5.1)
[2022-11-28] MEDS ORDERED: MAGNESIUM SULFATE / D5W 1 GM/100 ML BAG IV ONE (16:05)
[2022-11-28] MEDS: POTASSIUM CHLORIDE / WTR 20 MEQ/100 ML PLCT IV SCH ×3 (16:37→20:08)
[2022-11-28] MEDS: SIMVASTATIN 5 MG TAB PO SCH (20:10)
[2022-11-28] MEDS ORDERED: LANTUS PER UNIT CHARGE SQ SCH (21:00)
[2022-11-29] MEDS: NOREPINEPHRINE/D5W 4 MG/250 ML PLCT IV SCH (00:25)
[2022-11-29] MEDS: INSULIN ASPART PER UNIT CHARGE SC SCH ×7 (00:48→20:00)
[2022-11-29] MEDS: TUBE FEEDING WATER FLUSH OG SCH ×3 (00:49→08:14)
[2022-11-29] MEDS: PIPERACILLIN/TAZOBACTAM 4.5 GM CI (over 4 hours) IV SCH ×3 (02:10→17:34)
[2022-11-29] MEDS: HYDROCORTISONE SOD 50 MG in SYRINGE 0 ML IV SCH ×3 (02:18→17:16)
[2022-11-29] MEDS: propofoL 1,000 MG/100 ML VIAL IV SCH ×3 (02:43→09:25)
[2022-11-29 04:03] LABS: iSTAT Allen Test Pass; iSTAT Arterial Blood Gas HCO3 33 meg/L (19-24); iSTAT Arterial Blood Gas pCO2 53 mmHg (35-46); iSTAT Arterial Blood Gas pH 7.41 (7.35-7.45); iSTAT Arterial Blood Gas pO2 87 mmHg (80-95); iSTAT Carbon Dioxide 35 mmol/L (24-31); iSTAT FiO2 35 %; iSTAT Site R Radial
[2022-11-29] MEDS: guaiFENesin SUGAR FREE 200 MG/10 ML UDC PO SCH ×4 (04:12→20:03)
[2022-11-29 06:21] LABS: Basophils # (auto) 0.04 K/uL (0-0.2); Basophils % (auto) 0.3 %; Hematocrit (blood only) 32.8 % (37.0-47.0); Hemoglobin 10.2 g/dl (12.0-16.0); Immature Granulocytes # (auto) 0.17 K/uL (0.01-0.20); Immature Granulocytes % (auto) 1.2 %; Lymphocytes # (auto) 0.48 K/uL (1.2-3.4); Lymphocytes % (auto) 3.5 %; Mean Corpuscular Hemoglobin 25.1 pg (25.0-34.0); Mean Corpuscular Hgb Conc 31.1 g/dL (32.0-36.0); Mean Corpuscular Volume 80.8 fL (80.0-100.0); Mean Platelet Volume 9.2 fL (9.4-12.4); Monocytes # (auto) 1.02 K/uL (0.11-0.59); Monocytes % (auto) 7.5 %; Neutrophils # (auto) 11.94 K/uL (1.40-6.50); Neutrophils % (auto) 87.5 %; Platelet Count 563 K/uL (130-400); RDW Coefficient of Variation 19.1 % (11.5-14.5); RDW Standard Deviation 54.4 fL (36.4-46.3); Red Blood Count 4.06 M/uL (4.20-5.40); White Blood Count 13.65 K/ul (4.8-10.8)
[2022-11-29 06:34] LABS: BUN Creatinine Ratio 11.8 (10-20); Calcium 8.9 mg/dl (8.6-10.3); Creatinine Clr Calc Pharmacy 51.3 ml/min; Est GFR (African American) 71.7 ml/min; Est GFR (Non-African American) 61.8 ml/min; Magnesium 1.8 mg/dl (1.7-2.4); Phosphorus 2.5 mg/dl (2.5-4.9); Potassium 3.6 mmol/L (3.5-5.1)
[2022-11-29] MEDS ORDERED: POTASSIUM CHLORIDE 20 MEQ/15 ML UDC PO STA (06:38)
[2022-11-29] MEDS: MAGNESIUM SULFATE / D5W 1 GM/100 ML BAG IV SCH ×5 (07:28→20:15)
--- NOTE | 2022-11-29 07:45 | Critical Care Progress Note ---
Date of Service November 29, 2022 Assessment & Plan (1) Rhinovirus infection: (2) Multifocal pneumonia: (3) Sepsis: (4) Abnormal CT scan, chest: (5) Rheumatoid arthritis: (6) Acute exacerbation of bronchiectasis: Plan Reason Critically Ill: 72-year-old female past medical history of bronchiectasis, COPD, rheumatoid arthritis on rituximab, methotrexate, sulfasalazine and chronic mammogram prednisone was admitted to hospital with worsening shortness of breath and was found to have multi lobar pneumonia. Patient was found to be in severe respiratory distress was intubated and sent to the ICU for further management Neuro - [facility] ICU: Negative Sedation:-Propofol and fentanyl --History of anxiety/depression On venlafaxine at home Cardiac - --Septic shock Likely due to multilobar pneumonia Continue with vasopressor support to keep MAP greater than 65 Patient also getting stress dose hydrocortisone given the chronic use of prednisone --Elevated troponin Likely type II [place] EKG shows sinus rhythm with PACs Repeat EKG and trend troponins --History of hypertension Hold blood pressure medication --Prolonged QTc Avoid QT prolonging medication Keep the potassium greater than 4, magnesium greater than 2, phosphorus greater than 3 Respiratory - CT chest 11/25/2022 personally reviewed: Diffuse tree-in-bud opacities appreciated bilaterally Traction bronchiectasis bilateral upper lobes Bronchiectasis bilateral lower lobes with consolidative process especially in the left lower lobe Mediastinal lymphadenopathy especially station 7 CAT scan is worse compared to HRCT done 12/28/2019 -- VDRF Intubated 11/27/2022 Likely secondary to multifocal pneumonia Continue with ventilatory support Keep RASS -1 Daily sedation holidays and SBT's -- Chronic bronchiectasis Continue with hypertonic saline nebulized, flutter valve Patient has not been using chest vest therapy at home because of recent fall leading to chest tenderness GI - -- GERD Continue with pantoprazole RENAL/LYTES - -- Monitor BUNs/creatinine Replace electrolytes as per ICU protocol - Continue with Bruce ENDO/Rheum - -- On chronic 5 mg prednisone Given that she is intubated now we will give her 40 mg of Solu-Medrol on a daily basis -- Rheumatoid arthritis On 10 mg methotrexate, rituximab and sulfasalazine On chronic 5 mg prednisone HEME - -- Normocytic anemia Monitor H&H ID - -- Multilobar pneumonia Affecting especially bilateral lower lobes pneumonia more on the left lower lobe Respiratory bio fire negative for everything except for entero/Rhino virus Nasal MRSA negative Procalcitonin 0.81 Blood cultures negative to date S/p bronchoscopy 11/28/2022, follow-up cultures Musculoskeletal - -- Mottled skin bilateral lower extremities This is likely from patient's underlying history of rheumatoid arthritis Arterial duplex 11/27/22 did not show any signs of arterial stenosis --Prophylaxis VTE: Lovenox GI: Pantoprazole Lines: Right arm picc Diet: Tube feeds Plan: In/out: -1.1 L, urine output 4525 ABG 7.41/53/87 on PEEP of 5, 35% Tmax 38.1 Give another dose of Lasix 20 mg today. Continue with antibiotics along with hydrocortisone Bronc cultures are negative to date Trial of extubation today Potassium, magnesium being replaced I have personally spent 42 minutes of critical care time in the direct management of this patient. This is a life/limb threatening event. This includes time spent evaluating patient, direct bedside care, chart review, placing orders, interpretation of diagnostic studies, discussion with consultants, patient, and family members, as well as other required patient management activities. This time is exclusive of all separately billable procedures, and teaching time and separate from and in addition to any other critical care service time. Please note the above document was generated using voice recognition software. It may contain grammatical, syntax or spelling errors.Any formal questions or concerns about the content, text or information contained within the body of this dictation should be directly addressed to the provider for clarification Admission and Anticipated Discharge Date Admission Date: November 25, 2022 Subjective Patient seen and examined at bedside. No acute distress, no adverse events overnight Patient was on Levophed 0.04 with MAP 68-70 On fentanyl 50, propofol 25 She was opening her eyes, following simple commands, moving all the extremities Denied any headache or chest pain Still spiking fever, Tmax 38.1 Review of Systems Review of Systems: All systems reviewed & are unremarkable except as noted in Subjective and Unobtainable due to endotracheal tube Physical Exam Physical Exam: Constitutional: No acute distress HEENT: PERRLA, + ETT Respiratory system: Decreased air entry bilaterally, positive rhonchi, mild expiratory wheeze, positive crackles bilateral lower lobes (Velvro like) CVS: S1-S2 positive, no murmurs or gallops Abdomen: Soft, nontender, nondistended, positive bowel sounds x4 Extremities: +2 pulses bilaterally radialis/ dorsalis pedis, rheumatoid changes appreciated in bilateral hands, no edema, mottled bilateral feet (better than before) Neuro: Intubated, sedated, RASS -1 Psych: Unable to assess G/U: Positive Bruce Skin: no rashes, warm and dry Lymphatic: no cervical or axillary lymphadenopathy Results & Data Results & Data Vital Signs (Past 12 Hours) Vital Signs Temp Pulse Resp BP Pulse Ox O2 Del Method O2 Flow Rate 11/29/22 05:45 38.1 C H 78 14 98 11/29/22 05:45 128/77 11/29/22 05:30 38.1 C H 78 14 98 11/29/22 05:30 134/78 11/29/22 05:15 38.1 C H 83 14 97 11/29/22 05:15 133/74 11/29/22 05:00 38.1 C H 81 14 97 11/29/22 05:00 123/73 11/29/22 04:45 38.1 C H 78 14 97 11/29/22 04:45 123/71 11/29/22 04:30 38.0 C H 78 14 97 11/29/22 04:30 122/70 11/29/22 04:15 38.0 C H 79 14 97 11/29/22 04:15 129/72 11/29/22 04:00 38.0 C H 80 14 97 11/29/22 04:00 118/73 11/29/22 03:45 38.0 C H 87 14 98 Mechanical Vent 35 11/29/22 03:45 123/79 11/29/22 03:30 38.0 C H 87 13 100 11/29/22 03:30 121/69 11/29/22 03:15 38.0 C H 79 14 98 11/29/22 03:15 113/70 11/29/22 03:00 37.9 C H 80 14 98 11/29/22 03:00 120/67 11/29/22 02:45 37.9 C H 78 14 98 11/29/22 02:45 115/70 11/29/22 02:30 37.9 C H 80 14 96 11/29/22 02:30 94/51 L 11/29/22 02:15 37.9 C H 80 14 100 11/29/22 02:15 129/75 11/29/22 02:00 37.9 C H 79 14 99 11/29/22 02:00 114/67 11/29/22 01:45 37.9 C H 79 14 99 11/29/22 01:45 116/68 11/29/22 01:30 37.9 C H 79 14 99 11/29/22 01:30 115/69 11/29/22 01:15 37.9 C H 79 14 98 11/29/22 01:15 119/67 11/29/22 01:00 37.8 C H 83 14 98 11/29/22 01:00 116/69 11/29/22 03:00 11/29/22 03:34 78 17 98 11/29/22 00:45 97/76 L 11/29/22 00:45 37.8 C H 80 14 98 11/29/22 00:30 118/69 11/29/22 00:30 37.8 C H 81 14 100 11/29/22 00:15 37.8 C H 77 14 100 11/29/22 00:15 117/72 11/29/22 00:08 37.8 C H 78 14 100 11/29/22 00:08 111/65 11/29/22 00:03 81/44 L 11/29/22 00:03 37.8 C H 79 14 98 11/29/22 00:01 75/47 L 11/29/22 00:01 37.8 C H 77 14 99 Mechanical Vent 35 11/29/22 00:00 37.8 C H 77 14 98 11/29/22 00:00 80/47 L 11/28/22 23:45 94/57 L 11/28/22 23:45 37.8 C H 78 14 99 11/28/22 23:30 95/57 L 11/28/22 23:30 37.8 C H 78 14 99 11/28/22 23:15 93/57 L 11/28/22 23:15 37.8 C H 79 14 99 11/28/22 23:00 37.8 C H 84 14 99 11/28/22 23:00 91/58 L 11/28/22 22:45 37.8 C H 82 14 99 11/28/22 22:45 94/56 L 11/28/22 22:30 91/53 L 11/28/22 22:30 37.8 C H 81 14 99 11/28/22 22:15 97/59 L 11/28/22 22:15 37.7 C H 86 14 97 11/28/22 22:00 37.7 C H 89 14 99 11/28/22 22:00 120/74 11/28/22 21:45 37.7 C H 83 14 96 11/28/22 21:45 96/55 L 11/28/22 21:30 91/58 L 11/28/22 21:30 37.7 C H 81 14 96 11/28/22 22:15 88 15 96 11/28/22 23:00 11/29/22 00:00 88 11/28/22 21:15 37.8 C H 80 13 97 11/28/22 21:15 94/56 L 11/28/22 21:00 37.8 C H 82 13 95 11/28/22 21:00 93/56 L 11/28/22 20:45 100/60 11/28/22 20:45 37.7 C H 84 14 95 11/28/22 20:30 37.6 C H 92 H 14 98 11/28/22 20:30 106/64 11/28/22 20:15 98/55 L 11/28/22 20:15 37.6 C H 84 14 97 11/28/22 20:00 37.6 C H 83 12 96 Mechanical Vent 35 11/28/22 20:00 97/54 L 11/28/22 19:45 95/57 L 11/28/22 19:45 37.6 C H 84 12 97 11/28/22 21:17 Mechanical Vent 11/28/22 19:43 11/28/22 19:53 80 14 96 FiO2 11/29/22 05:45 11/29/22 05:45 11/29/22 05:30 11/29/22 05:30 11/29/22 05:15 11/29/22 05:15 11/29/22 05:00 11/29/22 05:00 11/29/22 04:45 11/29/22 04:45 11/29/22 04:30 11/29/22 04:30 11/29/22 04:15 11/29/22 04:15 11/29/22 04:00 11/29/22 04:00 11/29/22 03:45 11/29/22 03:45 11/29/22 03:30 11/29/22 03:30 11/29/22 03:15 11/29/22 03:15 11/29/22 03:00 11/29/22 03:00 11/29/22 02:45 11/29/22 02:45 11/29/22 02:30 11/29/22 02:30 11/29/22 02:15 11/29/22 02:15 11/29/22 02:00 11/29/22 02:00 11/29/22 01:45 11/29/22 01:45 11/29/22 01:30 11/29/22 01:30 11/29/22 01:15 11/29/22 01:15 11/29/22 01:00 11/29/22 01:00 11/29/22 03:00 35 11/29/22 03:34 35 11/29/22 00:45 11/29/22 00:45 11/29/22 00:30 11/29/22 00:30 11/29/22 00:15 11/29/22 00:15 11/29/22 00:08 11/29/22 00:08 11/29/22 00:03 11/29/22 00:03 11/29/22 00:01 11/29/22 00:01 11/29/22 00:00 11/29/22 00:00 11/28/22 23:45 11/28/22 23:45 11/28/22 23:30 11/28/22 23:30 11/28/22 23:15 11/28/22 23:15 11/28/22 23:00 11/28/22 23:00 11/28/22 22:45 11/28/22 22:45 11/28/22 22:30 11/28/22 22:30 11/28/22 22:15 11/28/22 22:15 11/28/22 22:00 11/28/22 22:00 11/28/22 21:45 11/28/22 21:45 11/28/22 21:30 11/28/22 21:30 11/28/22 22:15 35 11/28/22 23:00 35 11/29/22 00:00 11/28/22 21:15 11/28/22 21:15 11/28/22 21:00 11/28/22 21:00 11/28/22 20:45 11/28/22 20:45 11/28/22 20:30 11/28/22 20:30 11/28/22 20:15 11/28/22 20:15 11/28/22 20:00 11/28/22 20:00 11/28/22 19:45 11/28/22 19:45 11/28/22 21:17 35 11/28/22 19:43 35 11/28/22 19:53 35 Laboratory Results 11/29/22 05:08 11/29/22 05:08 Coding Level of Care Code 59500 CRITICAL CARE 1ST 30-74M Diagnoses Rhinovirus infection B34.8 Multifocal pneumonia J18.[address] scan, chest R93.89 Rheumatoid arthritis M06.9 Rheumatoid arthritis location: unspecified site Rheumatoid factor presence: unspecified presence Acute exacerbation of bronchiectasis J47.1 Time Spent (min) 42 (5) Rheumatoid arthritis Rheumatoid arthritis location: unspecified site Rheumatoid factor presence: unspecified presence Qualified Code(s): M06.9 - Rheumatoid arthritis, unspecified
[2022-11-29] MEDS: ALBUT/IPRATROP 3MG/0.5MG NEB 3 ML VIAL NEB SCH ×4 (07:46→20:27)
[2022-11-29] MEDS: SODIUM CHLOR 7% 4 ML NEB NEB SCH ×2 (07:46→20:27)
[2022-11-29] MEDS: FORMOTEROL 20 MCG/2 ML VIAL INH SCH ×2 (07:46→20:51)
[2022-11-29] MEDS ORDERED: Nursing to Pharmacy Communication SCH (08:00)
[2022-11-29] MEDS: ACETAMINOPHEN 1,000 MG/100 ML VIAL IV PRN (08:03)
[2022-11-29] MEDS ORDERED: FUROSEMIDE INJ 20 MG/2 ML VIAL IV ONE (08:31)
[2022-11-29] MEDS: DOXYCYCLINE HYCLATE 100 MG in DEXTROSE 5% 100 ML IV SCH ×2 (08:47→20:01)
[2022-11-29] MEDS ORDERED: LANTUS PER UNIT CHARGE SQ SCH ×3 (09:00→21:00)
[2022-11-29] MEDS: POTASSIUM CHLORIDE / WTR 20 MEQ/100 ML PLCT IV SCH ×2 (09:26→11:39)
--- NOTE | 2022-11-29 09:30 | XRay Report ---
SINGLE VIEW CHEST CLINICAL HISTORY: Respiratory failure. FINDINGS: An AP, portable, upright chest radiograph is compared to study dated 11/28/2022 and correlat ed with chest CT dated 11/27/2022. The examination is degraded by portable technique and patient rotat ion. A right PICC line has been placed. The tip of the catheter projects below the diaphragm. An end otracheal tube abdomen enteric tube are unchanged in position. The heart is enlarged. There is pulmon mariely vascular congestion. Bilateral airspace opacities likely represent pulmonary edema. There are sma ll pleural effusions with dependent consolidation. No pneumothorax is seen. The skeletal structures a re osteopenic. The bony thorax is grossly intact. Advanced arthritic change is seen in the shoulders. IMPRESSION: 1. A right PICC line has been placed. The tip projects below the right hemidiaphragm. Repositioning m ay be indicated. 2. The remaining lines and tubes are stable. 3. Cardiomegaly with evidence of congestive failure and pulmonary edema. 4. Small pleural effusions with dependent consolidation. ACT 112: Negative or not required by law. Electronically signed by: Luis A Vasquez M.D. 11/29/2022 9:28 AM
[2022-11-29] MEDS: ENOXAPARIN INJ 40 MG/0.4 ML SYR SQ SCH (09:32)
[2022-11-29] MEDS: MULTI VIT W/MINERALS LIQUID 15 ML UDP PO SCH (09:55)
[2022-11-29] MEDS: PANTOprazole 40 MG in SYRINGE 0 ML IV SCH (11:38)
--- NOTE | 2022-11-29 13:50 | Pharmacy Report ---
Pharmacy Glycemic Short Note 2 - Date of Service November 29, 2022 - Glycemic Short BSG Results (Last 24 hours): 11/28/22 11/28/22 11/28/22 15:12 16:01 20:25 Glucose 228 H POC Glucose 205 H POC Glucose (other) 248 H 11/29/22 11/29/22 11/29/22 00:36 03:56 05:08 Glucose 176 H POC Glucose POC Glucose (other) 240 H 180 H 11/29/22 11/29/22 08:15 11:51 Glucose POC Glucose 165 H 132 H POC Glucose (other) OUTPATIENT ANTIDIABETIC REGIMEN: * Metformin 1000 mg PO BID * Ozempic 1 mg SC weekly * Levemir 22 units SC daily with breakfast * NPH 15 units SC daily with prednisone * HbA1c: 7.2% (10/31/22) ASSESSMENT: 11/29 * Patient received total of 57 units of insulin total yesterday, of which 30 units were basal * Fasting BSG 176 mg/dL - will continue with 30 units of basal another day as dose just increased yesterday * BSGs yesterday still above goal range in 200s, therefore will tighten CF this AM * Per notes, patient extubated this morning, continues on TFs at 20 ml/hr 11/28 * 72 yo F admitted on 11/25/22 secondary to sepsis. Worsening shortness of breath on 11/27/22 so patient was intubated and transferred to ICU. Pharmacy was consulted to assist with inpatient glycemic management at that time. T2DM as outpatient with controlled A1c on current outpatient regimen. * BSGs yesterday were: [id number] mg/dL. Uncontrolled hyperglycemia likely related to stress of events that occurred throughout the day. Was started on Hydrocortisone 50 mg IV every 8 hours which continues today. * At the time of glycemic consult, basal was increased by 50% last evening. Novolog was also tightened to reflect weight/stress of 3. * Fasting BSG this AM was 189 mg/dL. Lunchtime BSG up to 224 mg/dL. Remains intubated and on pressors. Remains on broad spectrum abx and steroids. * Changed bolus insulin to q4h to cover for tube feeds which are currently running at 20 cc/hr. Also, tightened goal range to 110-140 to provide more bolus insulin. With lunchtime hyperglycemia, decided to tighten the carb ratio. Will trial this for the remainder of the day. * Continued with current basal dose in the AM. Will scale the PM basal dose to be based upon BSG given only intake is tube feeds. PLAN FOR INPATIENT GLYCEMIC CONTROL: * Hold outpatient oral diabetes medications * Basal insulin * Lantus 20 units daily * Lantus 0-10 units SC PM (see eMAR for more details) * Bolus insulin * NovoLog per scale ACHS or Q6hrs while NPO * Goal Range: Low 110 mg/dL - High 140 mg/dL * Correction Factor: 15 mg/dL/unit * Nutritional / Prandial insulin per carb ratio of 1 unit per 5 grams CHO consumed
--- NOTE | 2022-11-29 13:57 | Hospitalist Progress Note ---
Date of Service November 29, 2022 Assessment & Plan (1) Sepsis: Plan: With shock. Currently on doxycycline and Zosyn. Vasopressor support has now been discontinued. Management per sybase developer (2) Dizziness: Plan: Present on admission. Due to sepsis and septic shock. Supportive care. Treat underlying infection. Initially maintained blood pressure with pressor support. CT head NEGATIVE (3) Rheumatoid arthritis: Plan: Holding methotrexate, sulfasalazine, Hydroxychloroquine, and rituxan with her acute illness . She is steroid-dependent. Now on intravenous hydrocortisone. Eventual switch back to oral dosing (4) Hypomagnesemia: Plan: Intravenous supplementation. Serial labs (5) Elevated troponin: Plan: Telemetry. Serial EKGs. Doubt acute coronary syndrome. (6) Hypertension: Plan: Oral antihypertensives are on hold. Will resume possibly tomorrow, November 30 . (7) Multifocal pneumonia: Plan: Continue antibiotic coverage with doxycycline and Zosyn. She underwent bronchoscopy on 11/27 (8) Hyperlipidemia: Plan: Treated with statin therapy (9) Anxiety and depression: Plan: Treated with venlafaxine (10) Diabetes: Plan: Holding metformin and Ozempic. Basal insulin. Accu-Cheks with sliding scale coverage. Eventual ADA diet (11) Anemia: Plan: Iron deficiency documented. Will likely benefit from parenteral iron prior to d/c as well as PO supplementation at d/c. FOB pending. Protonix therapy (12) Pneumonia: Plan: Suspected Gram-negative pneumoniacausing sepsis in an immunocompromised patient. Possible viral component. Currently on doxycycline and Zosyn. (13) Gastroenteritis: Plan: Probably viral etiology. Supportive care (14) Acute respiratory failure with hypoxia: Plan: Extubated this morning, November 29. Serial chest x-rays. Plan To be determined Admission and Anticipated Discharge Date Admission Date: November 25, 2022 Subjective The patient was extubated earlier this morning, November 29. She is not in any distress. Daughter is at the bedside. Sedation has not completely worn off and she is not able to respond to questioning at this time. Review of Systems Review of Systems: The patient has been extubated but is not able to answer any questions regarding review of systems at this time Physical Exam Physical Exam: General-extubated this morning, November 29. No fever or chills HEENT-head atraumatic and normocephalic, pupils equal and reactive to light Neck-no lymphadenopathy or thyromegaly, trachea midline Chest-scattered bilateral rhonchi. No wheezing Cardiac-regular rate and rhythm, normal S1 and S2 Abdomen- hypoactive bowel sounds but present. Nondistended Extremities-extensive bilateral lower extremity mottling appears to have improved but not completely resolved Neuro-cannot assess due to sedated state Psych-cannot assess due to sedated state Results & Data Results & Data Vital Signs (Past 12 Hours) Vital Signs Temp Pulse Pulse Resp BP Pulse Ox O2 Del Method 11/29/22 12:00 37.7 C H 86 24 106/57 L 99 Nasal Cannula 11/29/22 11:30 37.7 C H 98 H 21 124/86 96 Nasal Cannula 11/29/22 11:28 37.7 C H 80 18 104/59 L 97 Nasal Cannula 11/29/22 11:00 37.7 C H 79 17 98 Nasal Cannula 11/29/22 10:30 37.7 C H 84 21 106/65 100 Nasal Cannula 11/29/22 10:15 37.8 C H 78 17 99/61 L 100 11/29/22 10:00 37.8 C H 82 19 100 11/29/22 10:00 105/60 11/29/22 11:46 90 18 93 Nasal Cannula 11/29/22 09:45 37.9 C H 81 17 106/60 100 BiPAP 11/29/22 09:31 37.9 C H 82 21 90/52 L 100 BiPAP 11/29/22 09:15 37.9 C H 79 18 95/57 L 99 BiPAP 11/29/22 09:00 38.1 C H 83 18 101/52 L 97 BiPAP 11/29/22 08:58 38.1 C H 90 18 106/65 98 BiPAP 11/29/22 08:46 95 H 100 11/29/22 08:46 95 H 24 100 11/29/22 08:30 38.1 C H 116 H 13 106/57 L 99 CPAP, Mechanical Vent 11/29/22 08:16 38.1 C H 101 H 20 104/64 98 CPAP, Mechanical Vent 11/29/22 08:07 38.1 C H 97 H 23 115/76 97 CPAP, Mechanical Vent 11/29/22 08:00 38.0 C H 83 11 L 111/73 99 CPAP, Mechanical Vent 11/29/22 07:45 38.0 C H 69 12 99/58 L 96 Mechanical Vent 11/29/22 07:30 38.1 C H 74 12 112/65 97 Mechanical Vent 11/29/22 07:15 38.1 C H 78 12 125/75 98 Mechanical Vent 11/29/22 07:55 98 H 18 100 11/29/22 07:00 Mechanical Vent 11/29/22 07:00 11/29/22 05:45 38.1 C H 78 14 98 11/29/22 05:45 128/77 11/29/22 05:30 38.1 C H 78 14 98 11/29/22 05:30 134/78 11/29/22 05:15 38.1 C H 83 14 97 11/29/22 05:15 133/74 11/29/22 05:00 38.1 C H 81 14 97 11/29/22 05:00 123/73 11/29/22 04:45 38.1 C H 78 14 97 11/29/22 04:45 123/71 11/29/22 04:30 38.0 C H 78 14 97 11/29/22 04:30 122/70 11/29/22 04:15 38.0 C H 79 14 97 11/29/22 04:15 129/72 11/29/22 04:00 38.0 C H 80 14 97 11/29/22 04:00 118/73 11/29/22 03:45 38.0 C H 87 14 98 Mechanical Vent 11/29/22 03:45 123/79 11/29/22 03:30 38.0 C H 87 13 100 11/29/22 03:30 121/69 11/29/22 03:15 38.0 C H 79 14 98 11/29/22 03:15 113/70 11/29/22 03:00 37.9 C H 80 14 98 11/29/22 03:00 120/67 11/29/22 02:45 37.9 C H 78 14 98 11/29/22 02:45 115/70 11/29/22 02:30 37.9 C H 80 14 96 11/29/22 02:30 94/51 L 11/29/22 02:15 37.9 C H 80 14 100 11/29/22 02:15 129/75 03/25/23 02:00 37.9 C H 79 14 99 11/29/22 02:00 114/67 11/29/22 03:00 11/29/22 03:34 78 17 98 O2 Flow Rate FiO2 11/29/22 12:00 2 11/29/22 11:30 2 11/29/22 11:28 2 11/29/22 11:00 2 11/29/22 10:30 2 11/29/22 10:15 11/29/22 10:00 11/29/22 10:00 11/29/22 11:46 2 11/29/22 09:45 35 11/29/22 09:31 35 11/29/22 09:15 35 11/29/22 09:00 35 11/29/22 08:58 35 11/29/22 08:46 11/29/22 08:46 35 11/29/22 08:30 35 11/29/22 08:16 35 11/29/22 08:07 35 11/29/22 08:00 35 11/29/22 07:45 35 11/29/22 07:30 35 11/29/22 07:15 35 11/29/22 07:55 35 11/29/22 07:00 35 11/29/22 07:00 35 11/29/22 05:45 11/29/22 05:45 11/29/22 05:30 11/29/22 05:30 11/29/22 05:15 11/29/22 05:15 11/29/22 05:00 11/29/22 05:00 11/29/22 04:45 11/29/22 04:45 11/29/22 04:30 11/29/22 04:30 11/29/22 04:15 11/29/22 04:15 11/29/22 04:00 11/29/22 04:00 11/29/22 03:45 35 11/29/22 03:45 11/29/22 03:30 11/29/22 03:30 11/29/22 03:15 11/29/22 03:15 11/29/22 03:00 11/29/22 03:00 11/29/22 02:45 11/29/22 02:45 11/29/22 02:30 11/29/22 02:30 11/29/22 02:15 11/29/22 02:15 11/29/22 02:00 11/29/22 02:00 11/29/22 03:00 35 11/29/22 03:34 35 Laboratory Results 11/29/22 05:08 11/29/22 05:08 PG Care Time/CCT Total # of Minutes Spent Total Time Spent with Patient: Total time spent is greater than 50% in coordination of care (as documented) at patient's floor/unit and/or counseling patient: Coding Level of Care Code 05825 SUB INP/OBS CARE 3/50MIN Diagnoses Sepsis A41.9 Dizziness R42 Rheumatoid arthritis M06.9 Rheumatoid arthritis location: unspecified site Rheumatoid factor presence: unspecified presence Hypomagnesemia E83.42 Elevated troponin R77.8 Hypertension I10 Hypertension type: essential hypertension Multifocal pneumonia J18.9 Hyperlipidemia E78.5 Anxiety and depression F41.9; F32.9 Diabetes E11.42; Z79.4 Diabetes mellitus type: type 2 Diabetes mellitus snf insulin use: with extermination supervisor use Diabetes mellitus complication status: with neurologic complications Diabetes mellitus complication detail: with polyneuropathy Anemia D64.9 Pneumonia J18.9 Gastroenteritis K52.9 Acute respiratory failure with hypoxia J96.01 (3) Rheumatoid arthritis Rheumatoid arthritis location: unspecified site Rheumatoid factor presence: unspecified presence Qualified Code(s): M06.9 - Rheumatoid arthritis, unspecified (6) Hypertension Hypertension type: essential hypertension Qualified Code(s): I10 - Essential (primary) hypertension (10) Diabetes Diabetes mellitus type: type 2 Diabetes mellitus extermination supervisor insulin use: with snf use Diabetes mellitus complication status: with neurologic complications Diabetes mellitus complication detail: with polyneuropathy Qualified Code(s): E11.42 - Type 2 diabetes mellitus with diabetic polyneu ropathy; 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
[2022-11-29 15:23] LABS: Magnesium 1.9 mg/dl (1.7-2.4)
[2022-11-29 15:24] LABS: BUN Creatinine Ratio 11.5 (10-20); Calcium 8.7 mg/dl (8.6-10.3); Creatinine Clr Calc Pharmacy 49.7 ml/min; Est GFR (Non-African American) 59.5 ml/min; Potassium 3.7 mmol/L (3.5-5.1)
[2022-11-29] MEDS ORDERED: POTASSIUM PHOS 3 MMOL/1 ML INFUSION IV STA (16:14)
[2022-11-29] MEDS ORDERED: POTASSIUM PHOSPHATE 21 MMOL in SODIUM CHLORIDE 0.9% 500 ML IV ONE (16:30)
[2022-11-29] MEDS ORDERED: POTASSIUM CHLORIDE / WTR 20 MEQ/100 ML PLCT IV ONE (16:30)
[2022-11-29] MEDS: MoRPHine SULFATE 2 MG/ML CARP IV PRN (17:14)
[2022-11-29] MEDS: SIMVASTATIN 5 MG TAB PO SCH (20:03)
[2022-11-30] MEDS: PIPERACILLIN/TAZOBACTAM 4.5 GM CI (over 4 hours) IV SCH ×3 (02:06→17:55)
[2022-11-30] MEDS: HYDROCORTISONE SOD 50 MG in SYRINGE 0 ML IV SCH ×3 (02:07→21:36)
[2022-11-30] MEDS: MoRPHine SULFATE 2 MG/ML CARP IV PRN ×2 (03:08→07:48)
[2022-11-30] MEDS: INSULIN ASPART PER UNIT CHARGE SC SCH ×7 (03:57→21:44)
[2022-11-30] MEDS: guaiFENesin SUGAR FREE 200 MG/10 ML UDC PO SCH ×4 (03:58→21:37)
[2022-11-30 06:03] LABS: Basophils # (auto) 0.02 K/uL (0-0.2); Basophils % (auto) 0.3 %; Hematocrit (blood only) 30.4 % (37.0-47.0); Hemoglobin 9.2 g/dl (12.0-16.0); Immature Granulocytes # (auto) 0.07 K/uL (0.01-0.20); Immature Granulocytes % (auto) 1.1 %; Lymphocytes # (auto) 0.42 K/uL (1.2-3.4); Lymphocytes % (auto) 6.4 %; Mean Corpuscular Hemoglobin 24.9 pg (25.0-34.0); Mean Corpuscular Hgb Conc 30.3 g/dL (32.0-36.0); Mean Corpuscular Volume 82.4 fL (80.0-100.0); Monocytes # (auto) 0.55 K/uL (0.11-0.59); Monocytes % (auto) 8.4 %; Neutrophils # (auto) 5.47 K/uL (1.40-6.50); Neutrophils % (auto) 83.8 %; Platelet Count 349 K/uL (130-400); Red Blood Count 3.69 M/uL (4.20-5.40); White Blood Count 6.53 K/ul (4.8-10.8)
[2022-11-30 06:15] LABS: BUN Creatinine Ratio 13.6 (10-20); Calcium 8.7 mg/dl (8.6-10.3); Creatinine Clr Calc Pharmacy 59.2 ml/min; Est GFR (African American) 84.7 ml/min; Est GFR (Non-African American) 73.1 ml/min; Phosphorus 3.1 mg/dl (2.5-4.9); Potassium 3.4 mmol/L (3.5-5.1)
[2022-11-30] MEDS ORDERED: POTASSIUM CHLORIDE / WTR 10 MEQ/100 ML PLCT IV SCH (06:45)
[2022-11-30] MEDS ORDERED: FUROSEMIDE 40 MG/4 ML VIAL IV ONE (07:32)
[2022-11-30] MEDS: ALBUT/IPRATROP 3MG/0.5MG NEB 3 ML VIAL NEB SCH ×4 (07:37→20:01)
[2022-11-30] MEDS: FORMOTEROL 20 MCG/2 ML VIAL INH SCH ×2 (07:37→20:01)
[2022-11-30] MEDS: SODIUM CHLOR 7% 4 ML NEB NEB SCH ×2 (07:37→20:01)
[2022-11-30] MEDS: POTASSIUM CHLORIDE / WTR 20 MEQ/100 ML PLCT IV SCH ×4 (07:47→14:18)
[2022-11-30] MEDS: MAGNESIUM SULFATE / D5W 1 GM/100 ML BAG IV SCH ×2 (07:52→09:59)
--- NOTE | 2022-11-30 08:01 | Critical Care Progress Note ---
Date of Service November 30, 2022 Assessment & Plan (1) Rhinovirus infection: (2) Multifocal pneumonia: (3) Sepsis: (4) Abnormal CT scan, chest: (5) Rheumatoid arthritis: (6) Acute exacerbation of bronchiectasis: Plan Reason Critically Ill: 72-year-old female past medical history of bronchiectasis, COPD, rheumatoid arthritis on rituximab, methotrexate, sulfasalazine and chronic mammogram prednisone was admitted to hospital with worsening shortness of breath and was found to have multi lobar pneumonia. Patient was found to be in severe respiratory distress was intubated and sent to the ICU for further management Neuro - [facility] ICU: Negative --History of anxiety/depression On venlafaxine at home Cardiac - --S/p Septic shock Likely due to multilobar pneumonia Off vasopressor as of 11/29/2022 Patient also getting stress dose hydrocortisone given the chronic use of prednisone --Elevated troponin Likely type II PR EKG shows sinus rhythm with PACs Repeat EKG and trend troponins --History of hypertension Hold blood pressure medication --Prolonged QTc Avoid QT prolonging medication Keep the potassium greater than 4, magnesium greater than 2, phosphorus greater than 3 Respiratory - CT chest 11/25/2022 personally reviewed: Diffuse tree-in-bud opacities appreciated bilaterally Traction bronchiectasis bilateral upper lobes Bronchiectasis bilateral lower lobes with consolidative process especially in the left lower lobe Mediastinal lymphadenopathy especially station 7 CAT scan is worse compared to HRCT done 12/28/2019 -- S/p VDRF Intubated 11/27/2022 --> Extubated 11/29/2022 Likely secondary to multifocal pneumonia -- Chronic bronchiectasis Continue with hypertonic saline nebulized, flutter valve Patient has not been using chest vest therapy at home because of recent fall leading to chest tenderness GI - -- GERD Continue with pantoprazole RENAL/LYTES - -- Monitor BUNs/creatinine Replace electrolytes as per ICU protocol - Continue with Bruce ENDO/Rheum - -- On chronic 5 mg prednisone -- Rheumatoid arthritis On 10 mg methotrexate, rituximab and sulfasalazine On chronic 5 mg prednisone HEME - -- Normocytic anemia Monitor H&H ID - -- Multilobar pneumonia Affecting especially bilateral lower lobes pneumonia more on the left lower lobe Respiratory bio fire negative for everything except for entero/Rhino virus Nasal MRSA negative Procalcitonin 0.81 Blood cultures negative to date S/p bronchoscopy 11/28/2022, follow-up cultures Musculoskeletal - -- Mottled skin bilateral lower extremities This is likely from patient's underlying history of rheumatoid arthritis Arterial duplex 11/27/22 did not show any signs of arterial stenosis --Prophylaxis VTE: Lovenox GI: Pantoprazole Lines: Right arm picc Diet: Clear liquid, advance as tolerated Plan: In/out: + 227, urine output 1650, patient has some leakage around the catheter as well. Give another dose of Lasix 40 mg today. Continue with antibiotics. Decrease hydrocortisone to 50mg q12hrs Bronc cultures are negative to date Continue with Mucinex, hypertonic saline nebulized as well as CoughAssist Retract PICC line by approximately 4 cm Potassium, magnesium being replaced Patient hemodynamically stable to be downgrade to medical floor DC Bruce prior to downgrade Please note the above document was generated using voice recognition software. It may contain grammatical, syntax or spelling errors.Any formal questions or concerns about the content, text or information contained within the body of this dictation should be directly addressed to the provider for clarification. Admission and Anticipated Discharge Date Admission Date: November 25, 2022 Subjective Patient seen and examined at bedside. No acute distress, no adverse events overnight. Overall she says she is feeling much better. She did not use the BiPAP overnight Denies any chest pain, no headache, no nausea, no vomiting Asking if she can get a full diet. Is bringing up yellowish phlegm. No hemoptysis. Review of Systems Review of Systems: All systems reviewed & are unremarkable except as noted in Subjective Physical Exam Physical Exam: Constitutional: No acute distress HEENT: PERRLA, EOMI Respiratory system: Decreased air entry bilaterally, positive rhonchi, mild expiratory wheeze, positive crackles bilateral lower lobes (Velvro like) CVS: S1-S2 positive, no murmurs or gallops Abdomen: Soft, nontender, nondistended, positive bowel sounds x4 Extremities: +2 pulses bilaterally radialis/ dorsalis pedis, rheumatoid changes appreciated in bilateral hands, no edema Neuro: Awake alert oriented to self and place Psych: Normal mood and affect G/U: Positive Bruce Skin: no rashes, warm and dry Lymphatic: no cervical or axillary lymphadenopathy Results & Data Results & Data Vital Signs (Past 12 Hours) Vital Signs Temp Pulse Pulse Pulse Resp BP Pulse Ox 11/30/22 07:38 93 H 22 96 11/30/22 06:00 87 17 11/30/22 05:00 37.6 C H 91 H 20 95 11/30/22 05:00 122/75 11/30/22 04:00 37.8 C H 99 H 23 96 11/30/22 04:00 115/81 11/30/22 03:00 37.7 C H 105 H 27 H 86 L 11/30/22 03:00 134/82 11/30/22 03:32 87 30 H 98 11/30/22 02:00 37.6 C H 92 H 22 91 11/30/22 02:00 116/54 L 11/30/22 01:00 37.7 C H 80 20 89 L 11/30/22 01:00 112/61 11/30/22 00:00 37.8 C H 85 17 93 11/30/22 00:00 103/57 L 11/29/22 23:00 37.7 C H 100 H 16 98 11/29/22 23:00 109/60 11/29/22 22:00 37.7 C H 90 20 11/29/22 22:00 111/56 L 11/29/22 23:00 80 11/29/22 23:35 80 21 100 11/29/22 21:00 37.8 C H 83 25 H 98 11/29/22 21:00 98/51 L 11/29/22 20:00 37.7 C H 78 15 97 11/29/22 20:00 103/54 L 11/29/22 21:24 11/29/22 20:29 77 18 97 O2 Del Method O2 Flow Rate FiO2 11/30/22 07:38 Nasal Cannula 2 11/30/22 06:00 11/30/22 05:00 Room Air 11/30/22 05:00 11/30/22 04:00 Nasal Cannula 3 11/30/22 04:00 11/30/22 03:00 11/30/22 03:00 11/30/22 03:32 35 11/30/22 02:00 11/30/22 02:00 11/30/22 01:00 11/30/22 01:00 11/30/22 00:00 Nasal Cannula 2 11/30/22 00:00 11/29/22 23:00 11/29/22 23:00 11/29/22 22:00 11/29/22 22:00 11/29/22 23:00 11/29/22 23:35 35 11/29/22 21:00 11/29/22 21:00 11/29/22 20:00 Nasal Cannula 2 11/29/22 20:00 11/29/22 21:24 Nasal Cannula 2 11/29/22 20:29 Nasal Cannula 2 Laboratory Results 11/30/22 05:45 11/30/22 05:45 Coding Level of Care Code 83195 SUB INP/OBS CARE 3/50MIN Diagnoses Rhinovirus infection B34.8 Multifocal pneumonia J18.[address] scan, chest R93.89 Rheumatoid arthritis M06.9 Rheumatoid arthritis location: unspecified site Rheumatoid factor presence: unspecified presence Acute exacerbation of bronchiectasis J47.1 (5) Rheumatoid arthritis Rheumatoid arthritis location: unspecified site Rheumatoid factor presence: unspecified presence Qualified Code(s): M06.9 - Rheumatoid arthritis, unspecifi ed
[2022-11-30] MEDS: DOXYCYCLINE HYCLATE 100 MG in DEXTROSE 5% 100 ML IV SCH ×2 (09:41→21:35)
[2022-11-30] MEDS: ENOXAPARIN INJ 40 MG/0.4 ML SYR SQ SCH (09:42)
[2022-11-30] MEDS: MULTI VIT W/MINERALS LIQUID 15 ML UDP PO SCH (09:43)
[2022-11-30] MEDS: LANTUS PER UNIT CHARGE SQ SCH (10:00)
[2022-11-30] MEDS: PANTOprazole 40 MG in SYRINGE 0 ML IV SCH (12:09)
--- NOTE | 2022-11-30 12:13 | Hospitalist Progress Note ---
Date of Service November 30, 2022 Assessment & Plan (1) Sepsis: Plan: With shock. Now resolved. Currently on doxycycline and Zosyn. Vasopressor support been discontinued. Lower extremity peripheral mottling has resolved. (2) Dizziness: Plan: Present on admission. Due to sepsis and septic shock. Now resolved Head CT head NEGATIVE (3) Rheumatoid arthritis: Plan: Holding methotrexate, sulfasalazine, Hydroxychloroquine, and rituxan with her acute illness . She is steroid-dependent. Now on intravenous hydrocortisone which has been tapered down today, November 30. Eventual switch back to oral dosing (4) Hypomagnesemia: Plan: Intravenous supplementation. Serial labs (5) Elevated troponin: Plan: Telemetry. Serial EKGs. Doubt acute coronary syndrome. (6) Hypertension: Plan: Oral antihypertensives were held while on vasopressor support. Now restarted. (7) Multifocal pneumonia: Plan: Continue antibiotic coverage with doxycycline and Zosyn. She underwent bronchoscopy on 11/27. Serial chest x-ray (8) Hyperlipidemia: Plan: Treated with statin therapy (9) Anxiety and depression: Plan: Treated with venlafaxine (10) Diabetes: Plan: Holding metformin and Ozempic. Basal insulin. Accu-Cheks with sliding scale coverage. ADA diet (11) Anemia: Plan: Iron deficiency documented. Oral iron replacement therapy (12) Pneumonia: Plan: Suspected gram-negative pneumonia causing sepsis in an immunocompromised patient. Possible viral component. Currently on intravenous doxycycline and Zosyn. (13) Gastroenteritis: Plan: Probably viral etiology. Supportive care. Resolved (14) Acute respiratory failure with hypoxia: Plan: Extubated on November 29. Serial chest x-rays. Supplemental oxygen per nasal cannula. Wean off as tolerated Plan To be determined. OT and PT assessments requested. Probably will need temporary SNF placement at discharge Admission and Anticipated Discharge Date Admission Date: November 25, 2022 Subjective Alert and oriented thankfully. Peripheral mottling in the lower extremities has resolved. She has some erythema remaining however. Parenteral hydrocortisone dosing decreased to every 12 hours. Eventual switch back to her usual oral prednisone therapy. We will request OT and PT evaluations. Repeat portable chest x-ray tomorrow. She has a right upper extremity PICC line in place Review of Systems Review of Systems: Constitutional-no fever or chills ENT-no blurred vision, no double vision, no epistaxis, no sore throat Respiratory-no cough, no wheezing, no shortness of breath Cardiac-no palpitations, no chest pain, no syncope GI-no nausea, vomiting, diarrhea, melena, hematochezia -no urinary retention, no urinary incontinence, no dysuria, no hematuria Musculoskeletal-no joint pain, no muscle tenderness Skin-no bruising, no rashes, no pruritus Neuro-no isolated weakness, no paresthesia, no weakness Psych-no depression, no anxiety Physical Exam Physical Exam: General-alert and oriented x3, no fevers, no chills HEENT-head atraumatic and normocephalic, pupils equal and reactive to light, extraocular muscles intact Neck-no lymphadenopathy or thyromegaly, trachea midline Chest-bibasilar inspiratory rales. Scattered bilateral rhonchi. No wheezing Cardiac-regular rate and rhythm, normal S1 and S2 Abdomen-normal bowel sounds, nontender, no hepatosplenomegaly Extremities-1+ pitting edema bilateral lower extremities below the knees Neuro-cranial nerves II through XII intact, motor and sensory function within normal limits, strength symmetrical with generalized weakness , no focal deficits Psych-normal affect, normal mood Results & Data Results & Data Vital Signs (Past 12 Hours) Vital Signs Temp Pulse Pulse Resp BP Pulse Ox O2 Del Method 11/30/22 11:27 90 20 98 Nasal Cannula 11/30/22 10:00 100 H 21 112/56 L 91 Nasal Cannula 11/30/22 09:00 100 H 21 129/78 94 Nasal Cannula 11/30/22 08:00 91 H 23 118/68 93 Nasal Cannula 11/30/22 08:00 118/68 11/30/22 07:01 90 19 11/30/22 07:00 87 20 112/69 90 Nasal Cannula 11/30/22 09:13 Nasal Cannula 11/30/22 07:38 93 H 22 96 Nasal Cannula 11/30/22 06:00 87 17 11/30/22 05:00 37.6 C H 91 H 20 95 Room Air 11/30/22 05:00 122/75 11/30/22 04:00 37.8 C H 99 H 23 96 Nasal Cannula 11/30/22 04:00 115/81 11/30/22 03:00 37.7 C H 105 H 27 H 86 L 11/30/22 03:00 134/82 11/30/22 03:32 87 30 H 98 11/30/22 02:00 37.6 C H 92 H 22 91 11/30/22 02:00 116/54 L 11/30/22 01:00 37.7 C H 80 20 89 L 11/30/22 01:00 112/61 O2 Flow Rate FiO2 11/30/22 11:27 2 11/30/22 10:00 2 11/30/22 09:00 2 11/30/22 08:00 2 11/30/22 08:00 11/30/22 07:01 11/30/22 07:00 2 11/30/22 09:13 2 11/30/22 07:38 2 11/30/22 06:00 11/30/22 05:00 11/30/22 05:00 11/30/22 04:00 3 11/30/22 04:00 11/30/22 03:00 11/30/22 03:00 11/30/22 03:32 35 11/30/22 02:00 11/30/22 02:00 11/30/22 01:00 11/30/22 01:00 Laboratory Results 11/30/22 05:45 11/30/22 05:45 PG Care Time/CCT Total # of Minutes Spent Total Time Spent with Patient: Total time spent is greater than 50% in coordination of care (as documented) at patient's floor/unit and/or counseling patient: Coding Level of Care Code 13224 SUB INP/OBS CARE 3/50MIN Diagnoses Sepsis A41.9 Dizziness R42 Rheumatoid arthritis M06.9 Rheumatoid arthritis location: unspecified site Rheumatoid factor presence: unspecified presence Hypomagnesemia E83.42 Elevated troponin R77.8 Hypertension I10 Hypertension type: essential hypertension Multifocal pneumonia J18.9 Hyperlipidemia E78.5 Anxiety and depression F41.9; F32.9 Diabetes E11.42; Z79.4 Diabetes mellitus type: type 2 Diabetes mellitus terminal supervisor insulin use: with custodial use Diabetes mellitus complication status: with neurologic complications Diabetes mellitus complication detail: with polyneuropathy Anemia D64.9 Pneumonia J18.9 Gastroenteritis K52.9 Acute respiratory failure with hypoxia J96.01 (3) Rheumatoid arthritis Rheumatoid arthritis location: unspecified site Rheumatoid factor presence: unspecified presence Qualified Code(s): M06.9 - Rheumatoid arthritis, unspecified (6) Hypertension Hypertension type: essential hypertension Qualified Code(s): I10 - Essential (primary) hypertension (10) Diabetes Diabetes mellitus type: type 2 Diabetes mellitus custodial insulin use: with custodial use Diabetes mellitus complication status: with neurologic complications Diabetes mellitus complication detail: with polyneuropathy Qualified Code(s): E11.42 - Type 2 diabetes mellitus with diabetic polyneuropathy; Z79.4 - FDC (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
[2022-11-30] MEDS: GABAPENTIN 300 MG CAP PO SCH ×2 (12:42→21:34)
--- NOTE | 2022-11-30 13:11 | XRay Report ---
XR chest 1V portable CLINICAL HISTORY: f/u TECHNIQUE: Single frontal radiograph of the chest was obtained. Comparison: Comparison is made to chest radiograph 11/29/2022 FINDINGS: Lines and tubes are stable. Cardiomegaly is noted. The aortic arch is calcified. Prominence and cepha lization of the vasculature is seen. Small left pleural effusion. IMPRESSION: Cardiomegaly and mild pulmonary edema. This is unchanged from prior exam. Small left pleural effusion is seen. ACT 112: Negative or not required by law. Electronically signed by: Bennie Mcintyre M.D. 11/30/2022 1:09 PM
[2022-11-30 15:57] LABS: Calcium 8.7 mg/dl (8.6-10.3)
[2022-11-30 16:02] LABS: Creatinine Clr Calc Pharmacy 52.1 ml/min; Est GFR (African American) 72.6 ml/min; Est GFR (Non-African American) 62.6 ml/min; Phosphorus 2.5 mg/dl (2.5-4.9)
[2022-11-30] MEDS: FERROUS SULFATE 325 MG TAB PO SCH (16:36)
[2022-11-30] MEDS: DOCUSATE SODIUM 100 MG CAP PO SCH (21:35)
[2022-12-01] MEDS: PIPERACILLIN/TAZOBACTAM 4.5 GM CI (over 4 hours) IV SCH ×3 (02:10→17:19)
[2022-12-01] MEDS: guaiFENesin SUGAR FREE 200 MG/10 ML UDC PO SCH ×4 (04:13→21:11)
[2022-12-01 06:28] LABS: Basophils # (auto) 0.01 K/uL (0-0.2); Basophils % (auto) 0.2 %; Hematocrit (blood only) 31.8 % (37.0-47.0); Hemoglobin 9.5 g/dl (12.0-16.0); Immature Granulocytes # (auto) 0.06 K/uL (0.01-0.20); Immature Granulocytes % (auto) 1.3 %; Lymphocytes # (auto) 0.79 K/uL (1.2-3.4); Lymphocytes % (auto) 16.5 %; Mean Corpuscular Hemoglobin 24.8 pg (25.0-34.0); Mean Corpuscular Hgb Conc 29.9 g/dL (32.0-36.0); Mean Platelet Volume 9.4 fL (9.4-12.4); Monocytes # (auto) 0.56 K/uL (0.11-0.59); Monocytes % (auto) 11.7 %; Neutrophils # (auto) 3.37 K/uL (1.40-6.50); Neutrophils % (auto) 70.3 %; Nucleated RBC # (auto) 0.02 K/uL (0-0.12); Nucleated RBC % (auto) 0.4 %; Platelet Count 394 K/uL (130-400); RDW Coefficient of Variation 19.4 % (11.5-14.5); RDW Standard Deviation 55.7 fL (36.4-46.3); Red Blood Count 3.83 M/uL (4.20-5.40); White Blood Count 4.79 K/ul (4.8-10.8)
[2022-12-01 06:47] LABS: BUN Creatinine Ratio 17.6 (10-20); Calcium 8.7 mg/dl (8.6-10.3); Creatinine Clr Calc Pharmacy 56.6 ml/min; Est GFR (African American) 79.9 ml/min; Est GFR (Non-African American) 68.9 ml/min; Magnesium 1.6 mg/dl (1.7-2.4); Potassium 3.5 mmol/L (3.5-5.1)
[2022-12-01] MEDS: SODIUM CHLOR 7% 4 ML NEB NEB SCH ×2 (07:18→19:36)
[2022-12-01] MEDS: FORMOTEROL 20 MCG/2 ML VIAL INH SCH ×2 (07:18→19:36)
[2022-12-01] MEDS: ALBUT/IPRATROP 3MG/0.5MG NEB 3 ML VIAL NEB SCH ×4 (07:19→19:36)
[2022-12-01] MEDS: MAGNESIUM SULFATE / D5W 1 GM/100 ML BAG IV SCH ×2 (08:36→10:33)
[2022-12-01] MEDS: MULTI VIT W/MINERALS LIQUID 15 ML UDP PO SCH (08:36)
[2022-12-01] MEDS: DOCUSATE SODIUM 100 MG CAP PO SCH ×2 (08:37→21:11)
[2022-12-01] MEDS: ENOXAPARIN INJ 40 MG/0.4 ML SYR SQ SCH (08:37)
[2022-12-01] MEDS: FERROUS SULFATE 325 MG TAB PO SCH ×2 (08:37→17:19)
[2022-12-01] MEDS: INSULIN ASPART PER UNIT CHARGE SC SCH ×4 (08:38→20:33)
[2022-12-01] MEDS: LANTUS PER UNIT CHARGE SQ SCH (08:39)
[2022-12-01] MEDS: HYDROCORTISONE SOD 50 MG in SYRINGE 0 ML IV SCH ×2 (08:49→21:12)
--- NOTE | 2022-12-01 08:56 | XRay Report ---
SINGLE VIEW CHEST CLINICAL HISTORY: Respiratory failure. FINDINGS: An AP, portable, upright chest radiograph is compared to study dated 11/30/2022 and correlat ed with chest CT dated 11/27/2022. A right PICC line has been repositioned. The tip projects over the cavoatrial junction. The heart is enlarged. Pulmonary vascular congestion persists. Bilateral airspac e opacities likely represent pulmonary edema. There are small pleural effusions with dependent consol idation. No pneumothorax is seen. The skeletal structures are osteopenic. The bony thorax is grossly intact. Advanced arthritic change is seen in the shoulders. IMPRESSION: 1. A right PICC line has been repositioned as above. 2. Cardiomegaly with evidence of congestive failure and pulmonary edema. 3. Small pleural effusions with dependent consolidation. ACT 112: Negative or not required by law. Electronically signed by: Luis A Vasquez M.D. 12/01/2022 8:55 AM
--- NOTE | 2022-12-01 11:14 | Pulmonology Progress Note ---
Date of Service December 01, 2022 Assessment & Plan (1) Chronic interstitial lung disease: (2) Acute respiratory failure with hypoxia: (3) Acute exacerbation of bronchiectasis: Plan 72-year-old female on chronic immunosuppressive therapy for rheumatoid arthritis presenting to the hospital due to pneumonia. Immunosuppressive therapy on hold. Bronchoscopy cultures negative to date thus far. Continue twice daily neb therapy. Continue flutter valve to promote mucociliary clearance. Continue hypertonic saline. Continue broad-spectrum antibiotics with coverage for Pseudomonas for total 2 weeks. Can transition to oral Levaquin closer to discharge. Continue to wean oxygen to maintain saturations 88 to 92%. Anticipate patient will likely need oxygen upon discharge. Patient would likely benefit from acute inpatient rehab stay given her profound weakness. Thank you for the consultation. Please call with questions. Admission and Anticipated Discharge Date Admission Date: November 25, 2022 Subjective Patient seen and examined. She is sitting up in bed with physical therapy. She is on 2 L of oxygen. She endorses a cough that is occasionally productive of sputum. Denies hemoptysis. No chest pain. She does have exertional dyspnea. She feels bit better than yesterday overall. She is still very fatigued. Appetite poor. Review of Systems Review of Systems: All systems reviewed & are unremarkable except as noted in HPI & below Physical Exam Constitutional: WD/WN, vitals as above + obese ENMT: external ear and nose normal, oropharynx normal Neck: trachea midline, no thyromegaly Respiratory: normal respiratory effort Auscultation: + crackles Cardiovascular: RRR, no murmur, no edema Chest (Breasts): Chest: normal inspection of chest Gastrointestinal (Abdomen): normal bowel sounds, soft, nontender, no hepatosplenomegaly Musculoskeletal: Extremities: extremities normal to inspection; no cyanosis and no clubbing Neurologic: moves all extremities and awake; no focal motor deficits Psychiatric: A+Ox3, euthymic affect Lymphatic: no lymphedema Results & Data Results & Data Vital Signs (Past 12 Hours) Vital Signs Temp Pulse Pulse Resp BP BP Pulse Ox 12/01/22 10:47 92 12/01/22 10:47 36.8 C 98 H 19 125/74 95 12/01/22 10:38 93 12/01/22 07:48 36.8 C 93 H 17 124/75 93 12/01/22 03:21 88 22 98 12/01/22 02:00 36.5 C 91 H 20 139/77 91 O2 Del Method O2 Flow Rate FiO2 12/01/22 10:47 12/01/22 10:47 Nasal Cannula 2 12/01/22 10:38 2 12/01/22 07:48 Nasal Cannula 2 12/01/22 03:21 40 12/01/22 02:00 Nasal Cannula 2 PG Care Time/CCT Total # of Minutes Spent Total Time Spent with Patient: Total time spent is greater than 50% in coordination of care (as documented) at patient's floor/unit and/or counseling patient: Coding Level of Care Code 67778 SUB INP/OBS CARE 2/35MIN Diagnoses Chronic interstitial lung disease J84.9 Acute respiratory failure with hypoxia J96.01 Acute exacerbation of bronchiectasis J47.1
[2022-12-01] MEDS: PANTOprazole 40 MG in SYRINGE 0 ML IV SCH (12:03)
[2022-12-01] MEDS: GABAPENTIN 300 MG CAP PO SCH ×2 (12:24→21:12)
--- NOTE | 2022-12-01 13:35 | Hospitalist Progress Note ---
Date of Service December 01, 2022 Assessment & Plan (1) Sepsis: Plan: With shock. Now resolved. Currently on Zosyn. Vasopressor support been discontinued. Lower extremity peripheral mottling has resolved. Secondary to pneumonia (2) Multifocal pneumonia: Plan: Continue antibiotic coverage with Zosyn. She underwent bronchoscopy on 11/27. Serial chest x-ray Suspected gram-negative pneumonia causing sepsis in an immunocompromised patient. Possible viral component. Currently on intravenous Zosyn. (3) Dizziness: Plan: Present on admission. Due to sepsis and septic shock. Now resolved Head CT head NEGATIVE (4) Rheumatoid arthritis: Plan: Holding methotrexate, sulfasalazine, Hydroxychloroquine, and rituxan with her acute illness . She is steroid-dependent. Now on intravenous hydrocortisone which has been tapered down November 30. Eventual switch back to oral dosing (5) Hypomagnesemia: Plan: Intravenous supplementation. Serial labs (6) Elevated troponin: Plan: Telemetry. Serial EKGs. Doubt acute coronary syndrome. (7) Hypertension: Plan: Oral antihypertensives were held while on vasopressor support. Now restarted. (8) Hyperlipidemia: Plan: Treated with statin therapy (9) Anxiety and depression: Plan: Treated with venlafaxine (10) Diabetes: Plan: Holding metformin and Ozempic. Basal insulin. Accu-Cheks with sliding scale coverage. ADA diet (11) Anemia: Plan: Iron deficiency documented. Oral iron replacement therapy (12) Gastroenteritis: Plan: Probably viral etiology. Supportive care. Resolved (13) Acute respiratory failure with hypoxia: Plan: Extubated on November 29. Serial chest x-rays. Supplemental oxygen per nasal cannula. Wean off as tolerated Was being treated with Lasix up until yesterday Not needing Lasix today Monitor May need oxygen upon discharge (14) Pneumonia: Plan Patient is approaching discharge. OT and PT assessments requested. Probably will need temporary SNF placement at discharge Admission and Anticipated Discharge Date Admission Date: November 25, 2022 Subjective Patient denies chest pain or shortness of breath. She is on 2 L of oxygen per nasal cannula. Review of Systems Review of Systems: All systems reviewed & are unremarkable except as noted in Subjective Physical Exam Physical Exam: General: Awake, conversant Heart: S1, S2/regular rate and rhythm, no murmur rubs or gallops Lungs: Clear to auscultation bilaterally. Normal effort Abdomen: Soft/nontender/nondistended. No hepatosplenomegaly Extremities: No clubbing/cyanosis. No edema Behavior: Appropriate, cooperative Results & Data Results & Data Vital Signs (Past 12 Hours) Vital Signs Temp Pulse Pulse Resp BP BP Pulse Ox 12/01/22 11:43 102 H 20 91 12/01/22 10:47 92 12/01/22 10:47 36.8 C 98 H 19 125/74 95 12/01/22 10:38 93 12/01/22 07:48 36.8 C 93 H 17 124/75 93 12/01/22 03:21 88 22 98 12/01/22 02:00 36.5 C 91 H 20 139/77 91 O2 Del Method O2 Flow Rate FiO2 12/01/22 11:43 Nasal Cannula 2 12/01/22 10:47 12/01/22 10:47 Nasal Cannula 2 12/01/22 10:38 2 12/01/22 07:48 Nasal Cannula 2 12/01/22 03:21 40 12/01/22 02:00 Nasal Cannula 2 Laboratory Results Abnormal lab results 11/30/22 11/30/22 11/30/22 Range/Units 15:21 16:22 21:18 WBC (4.8-10.8) K/ul RBC (4.20-5.40) M/uL Hgb (12.0-16.0) g/dl Hct (37.0-47.0) % MCH (25.0-34.0) pg MCHC (32.0-36.0) g/dL RDW Std Deviation (36.4-46.3) fL RDW Coeff of Sandra (11.5-14.5) % Lymph # (Auto) (1.2-3.4) K/uL Chloride 96 L (98-107) mmol/L Carbon Dioxide 36 H (21-32) mmol/L Glucose 202 H (70-99(Fasting)) mg/dl POC Glucose 199 H 191 H (70-99) mg/dl Magnesium (1.7-2.4) mg/dl 12/01/22 12/01/22 12/01/22 Range/Units 05:49 05:49 07:52 WBC 4.79 L (4.8-10.8) K/ul RBC 3.83 L (4.20-5.40) M/uL Hgb 9.5 L (12.0-16.0) g/dl Hct 31.8 L (37.0-47.0) % MCH 24.8 L (25.0-34.0) pg MCHC 29.9 L (32.0-36.0) g/dL RDW Std Deviation 55.7 H (36.4-46.3) fL RDW Coeff of Sandra 19.4 H (11.5-14.5) % Lymph # (Auto) 0.79 L (1.2-3.4) K/uL Chloride 96 L (98-107) mmol/L Carbon Dioxide 37 H (21-32) mmol/L Glucose 217 H (70-99(Fasting)) mg/dl POC Glucose 190 H (70-99) mg/dl Magnesium 1.6 L (1.7-2.4) mg/dl 12/01/22 Range/Units 11:22 WBC (4.8-10.8) K/ul RBC (4.20-5.40) M/uL Hgb (12.0-16.0) g/dl Hct (37.0-47.0) % MCH (25.0-34.0) pg MCHC (32.0-36.0) g/dL RDW Std Deviation (36.4-46.3) fL RDW Coeff of Sandra (11.5-14.5) % Lymph # (Auto) (1.2-3.4) K/uL Chloride (98-107) mmol/L Carbon Dioxide (21-32) mmol/L Glucose (70-99(Fasting)) mg/dl POC Glucose 206 H (70-99) mg/dl Magnesium (1.7-2.4) mg/dl Diagnostic Findings Chest X-Ray 12/01/22 07:00 SINGLE VIEW CHEST CLINICAL HISTORY: Respiratory failure. FINDINGS: An AP, portable, upright chest radiograph is compared to study dated 11/30/2022 and correlated with chest CT dated 11/27/2022. A right PICC line has been repositioned. The tip projects over the cavoatrial junction. The heart is enlarged. Pulmonary vascular congestion persists. Bilateral airspace opacities likely represent pulmonary edema. There are small pleural effusions with dependent consolidation. No pneumothorax is seen. The skeletal structures are osteopenic. The bony thorax is grossly intact. Advanced arthritic change is seen in the shoulders. IMPRESSION: 1. A right PICC line has been repositioned as above. 2. Cardiomegaly with evidence of congestive failure and pulmonary edema. 3. Small pleural effusions with dependent consolidation. ACT 112: Negative or not required by law. Electronically signed by: Luis A Vasquez M.D. 12/01/2022 8:55 AM PG Care Time/CCT Total # of Minutes Spent Total Time Spent with Patient: Total time spent is greater than 50% in coordination of care (as documented) at patient's floor/unit and/or counseling patient: Coding Level of Care Code 53608 SUB INP/OBS CARE 235MIN Diagnoses Sepsis A41.9 Multifocal pneumonia J18.9 Dizziness R42 Rheumatoid arthritis M06.9 Rheumatoid arthritis location: unspecified site Rheumatoid factor presence: unspecified presence Hypomagnesemia E83.42 Elevated troponin R77.8 Hypertension I10 Hypertension type: essential hypertension Hyperlipidemia E78.5 Anxiety and depression F41.9; F32.9 Diabetes E11.42; Z79.4 Diabetes mellitus type: type 2 Diabetes mellitus chairman & chief executive officer insulin use: with chairman & chief executive officer use Diabetes mellitus complication status: with neurologic complications Diabetes mellitus complication detail: with polyneuropathy Anemia D64.9 Gastroenteritis K52.9 Acute respiratory failure with hypoxia J96.01 Pneumonia J18.9 (4) Rheumatoid arthritis Rheumatoid arthritis location: unspecified site Rheumatoid factor presence: unspecified presence Qualified Code(s): M06.9 - Rheumatoid arthritis, unspecified (7) Hypertension Hypertension type: essential hypertension Qualified Code(s): I10 - Essential (primary) hypertension (10) Diabetes Diabetes mellitus type: type 2 Diabetes mellitus fpc insulin use: with fpc use Diabetes mellitus complication status: with neurologic complications Diabetes mellitus complication detail: with polyneuropathy Qualified Code(s): E11.42 - Type 2 diabetes mellitus with diabetic polyneuropathy; Z79.4 - MCC (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
[2022-12-02] MEDS: PIPERACILLIN/TAZOBACTAM 4.5 GM CI (over 4 hours) IV SCH ×3 (01:59→17:28)
[2022-12-02] MEDS: guaiFENesin SUGAR FREE 200 MG/10 ML UDC PO SCH ×4 (03:50→20:59)
[2022-12-02 06:47] LABS: Basophils # (auto) 0.01 K/uL (0-0.2); Basophils % (auto) 0.2 %; Hematocrit (blood only) 33.2 % (37.0-47.0); Hemoglobin 9.8 g/dl (12.0-16.0); Immature Granulocytes # (auto) 0.03 K/uL (0.01-0.20); Immature Granulocytes % (auto) 0.6 %; Lymphocytes # (auto) 0.82 K/uL (1.2-3.4); Lymphocytes % (auto) 17.5 %; Mean Corpuscular Hemoglobin 24.6 pg (25.0-34.0); Mean Corpuscular Hgb Conc 29.5 g/dL (32.0-36.0); Mean Corpuscular Volume 83.4 fL (80.0-100.0); Mean Platelet Volume 9.4 fL (9.4-12.4); Monocytes # (auto) 0.52 K/uL (0.11-0.59); Monocytes % (auto) 11.1 %; Neutrophils # (auto) 3.31 K/uL (1.40-6.50); Neutrophils % (auto) 70.6 %; Platelet Count 392 K/uL (130-400); RDW Coefficient of Variation 19.8 % (11.5-14.5); RDW Standard Deviation 56.9 fL (36.4-46.3); Red Blood Count 3.98 M/uL (4.20-5.40); White Blood Count 4.69 K/ul (4.8-10.8)
[2022-12-02 07:08] LABS: BUN Creatinine Ratio 22.1 (10-20); Calcium 8.6 mg/dl (8.6-10.3); Creatinine Clr Calc Pharmacy 62.4 ml/min; Est GFR (Non-African American) 77.7 ml/min
[2022-12-02] MEDS: SODIUM CHLOR 7% 4 ML NEB NEB SCH ×2 (07:22→19:12)
[2022-12-02] MEDS: FORMOTEROL 20 MCG/2 ML VIAL INH SCH ×2 (07:22→19:12)
[2022-12-02] MEDS ORDERED: POTASSIUM CHLORIDE CRTAB 20 MEQ TABCR PO STA (07:36)
[2022-12-02] MEDS: ALBUT/IPRATROP 3MG/0.5MG NEB 3 ML VIAL NEB SCH ×2 (07:56→10:13)
[2022-12-02] MEDS: INSULIN ASPART PER UNIT CHARGE SC SCH ×4 (08:10→21:02)
[2022-12-02 08:11] LABS: Magnesium 1.6 mg/dl (1.7-2.4)
[2022-12-02] MEDS ORDERED: STAT IV Infusion **Titration per Protocol STA (08:28)
[2022-12-02] MEDS ORDERED: dilTIAZem HCL 125 MG in DEXTROSE 5% 100 ML IV SCH (08:30)
[2022-12-02] MEDS ORDERED: LANTUS PER UNIT CHARGE SQ SCH ×2 (09:00)
[2022-12-02] MEDS ORDERED: HYDROCORTISONE SOD 25 MG in SYRINGE 0 ML IV SCH (09:00)
[2022-12-02] MEDS: MAGNESIUM SULFATE / D5W 1 GM/100 ML BAG IV SCH ×2 (09:04→10:43)
[2022-12-02] MEDS: PANTOprazole 40 MG TAB PO SCH (09:14)
[2022-12-02] MEDS: MULTI VIT W/MINERALS LIQUID 15 ML UDP PO SCH (09:15)
[2022-12-02] MEDS ORDERED: INSULIN ASPART PER UNIT CHARGE SC ONE ×3 (09:15→09:34)
[2022-12-02] MEDS ORDERED: LANTUS PER UNIT CHARGE SQ ONE ×3 (09:15→09:34)
[2022-12-02] MEDS: FERROUS SULFATE 325 MG TAB PO SCH ×2 (09:15→17:28)
[2022-12-02] MEDS: ENOXAPARIN INJ 40 MG/0.4 ML SYR SQ SCH (09:15)
[2022-12-02] MEDS: DOCUSATE SODIUM 100 MG CAP PO SCH ×2 (09:46→21:02)
--- NOTE | 2022-12-02 10:36 | Pulmonology Progress Note ---
Date of Service December 02, 2022 Assessment & Plan (1) Chronic interstitial lung disease: (2) Acute respiratory failure with hypoxia: (3) Acute exacerbation of bronchiectasis: Plan 72-year-old female on chronic immunosuppressive therapy for rheumatoid arthritis presenting to the hospital due to pneumonia. Immunosuppressive therapy on hold. Bronchoscopy cultures negative to date thus far. Continue twice daily neb therapy. Continue flutter valve to promote mucociliary clearance. Continue hypertonic saline. Continue broad-spectrum antibiotics with coverage for Pseudomonas for total 2 weeks. Can transition to oral Levaquin closer to discharge. Continue to wean oxygen to maintain saturations 88 to 92%. Anticipate patient will likely need oxygen upon discharge. Thank you for the consultation. Please call with questions. Admission and Anticipated Discharge Date Admission Date: November 25, 2022 Subjective Patient seen examined. Complaining of dyspnea. Tachycardic today. Hospital service starting diltiazem drip. Review of Systems Review of Systems: All systems reviewed & are unremarkable except as noted in HPI & below Physical Exam Constitutional: WD/WN, vitals as above + obese ENMT: external ear and nose normal, oropharynx normal Neck: trachea midline, no thyromegaly Respiratory: normal respiratory effort Auscultation: + crackles Cardiovascular: RRR, no murmur, no edema Chest (Breasts): Chest: normal inspection of chest Gastrointestinal (Abdomen): normal bowel sounds, soft, nontender, no hepatosplenomegaly Musculoskeletal: Extremities: extremities normal to inspection; no cyanosis and no clubbing Neurologic: moves all extremities and awake; no focal motor deficits Psychiatric: A+Ox3, euthymic affect Lymphatic: no lymphedema Results & Data Results & Data Vital Signs (Past 12 Hours) Vital Signs Temp Pulse Pulse Pulse Resp BP Pulse Ox 12/02/22 10:13 111 H 20 95 12/02/22 08:50 90 20 94 12/02/22 07:45 93 H 12/02/22 07:07 36.7 C 114 H 18 127/89 93 12/02/22 04:00 36.5 C 97 H 20 128/79 97 12/02/22 03:38 12/02/22 00:00 12/01/22 23:28 37.3 C 102 H 20 138/75 93 O2 Del Method O2 Flow Rate 12/02/22 10:13 Nasal Cannula 2 03/28/23 08:50 Nasal Cannula 2 12/02/22 07:45 12/02/22 07:07 Nasal Cannula 12/02/22 04:00 Nasal Cannula 2 12/02/22 03:38 2 12/02/22 00:00 Nasal Cannula 2 12/01/22 23:28 Nasal Cannula 2 PG Care Time/CCT Total # of Minutes Spent Total Time Spent with Patient: Total time spent is greater than 50% in coordination of care (as documented) at patient's floor/unit and/or counseling patient: Coding Level of Care Code 07104 SUB INP/OBS CARE 2/35MIN Diagnoses Chronic interstitial lung disease J84.9 Acute respiratory failure with hypoxia J96.01 Acute exacerbation of bronchiectasis J47.1
[2022-12-02] MEDS ORDERED: FUROSEMIDE INJ 20 MG/2 ML VIAL IV ONE (11:18)
--- NOTE | 2022-12-02 11:22 | Hospitalist Progress Note ---
Date of Service December 02, 2022 Assessment & Plan (1) Septic shock: Plan: 2nd to b/l pneumonia. resolved. had been in ICU & required pressors. (2) Sepsis: Plan: 2nd to pneumonia. remains on zosyn IV. day #8 of broad-spectrum IV antibiotic therapy. pulmonary following. they advise continuing abx for total 14 days (can switch to levaquin soon) - with pseudomonas coverage. (3) Multifocal pneumonia: Plan: slowly improving. had been intubated/on vent in ICU earlier this stay. now down to NC O2. 2nd to rhinovirus infection and likely bacterial superinfection -- cannot rule out gram negative pneumonia despite negative bronchoscopy cultures from 11/27/22. Cont IV zosyn, then PO levaquin. Plan total 14 days in total (day #8 today). (4) Acute respiratory failure with hypoxia: Plan: Intubated November 27. Extubated November 29. Resp failure 2nd to severe b/l pneumonia + acute systolic CHF. cont IV abx. cont bronchodilators. cont lasix. add dexamethasone steroid. appreciate pulmonary assistance. all cultures from bronch earlier in the stay - negative. (5) Acute systolic CHF (congestive heart failure): Plan: EF 35-40% global hypokinesis per daughter no prior h/o CHF no prior echo for comparison purposes no prior h/o CAD or acute VA systolic CHF with pulmonary edema is contributing to #4 above add low-dose metoprolol 12.5mg BID with ultimate goal of metoprolol succinate give lasix 20mg IV x 1 will ultimately need SOFI or ARB consider cardiology consult while here etiology of CHF?? RA usually causes right-sided disease and RV function is intact on echo (6) Rheumatoid arthritis: Plan: Holding methotrexate, sulfasalazine, Hydroxychloroquine, and rituxan with her acute illness. She is steroid-dependent - takes prednisone 5mg daily. Has been on IV hydrocortisone taper for stress purposes. d/c hydrocortisone today; change to dexamethasone 6mg IV daily for ongoing severe wheezing. 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 (7) Hypomagnesemia: Plan: Mag sulfate 1gm IV x 2 today Repeat level am (8) Elevated troponin: Plan: Peak HS troponin = 275 Likely myocardial demand ischemia in the setting of septic shock/severe sepsis no evidence of ACS (9) Hypertension: Plan: Losartan, chlorthalidone on hold Metoprolol being started for systolic CHF which will also cover her BP (10) Hyperlipidemia: Plan: simvastatin on hold (11) Anxiety and depression: Plan: resume venlafaxine xr 150mg daily in the am tomorrow (12) Diabetes: Plan: Holding metformin and Ozempic. Cont basal-bolus insulin and adjust as needed. Hba1c 7.2%. (13) Anemia: Plan: h/o Fe def anemia Hb 9-10 range and stable (14) Hypokalemia: Plan: replace repeat BMP am replace low mag repeat mag am (15) Chronic interstitial lung disease: Plan: likely 2nd to RA along with bronchiectasis cont bronchodilators, saline nebs, etc. 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 Due to sepsis and septic shock. Head CT NEGATIVE. Plan daughter updated by phone this evening discussed echo findings with her cont PT/OT as tolerated Admission and Anticipated Discharge Date Admission Date: November 25, 2022 Subjective patient complaints of ongoing cough and dyspnea - both at rest and with exertion appetite fair-poor cough somewhat productive no chest pain she asks when she can go home she overall feels better in comparison to admission but is not yet back to baseline she does not use oxygen at home denies pain in any location feels constipated overnight her tele showed ongoing sinus tach with frequent ectopy Review of Systems Review of Systems: gen - fatigue, fair appetite, no fevers/chills cv - no cp; some orthopnea pulm - cough/congestion/wheezing/sputum/R[facility] GI - no pain or vomiting Physical Exam Physical Exam: gen - coughing incessantly throughout the visit, looks visibly dyspneic neck - mild JVD present mouth - MM dry heart - irregular, tachy, s1 s2, no murmur lungs - diffuse rales all lung segments anteriorly & posteriorly, diffuse b/l wheezing, coughing, increased work of breathing (tachypnea, minimal amount of retractions) abd - soft NT ND BS+ ext - 1+ edema b/l, pulses 2+ b/l skin - levido reticularis both legs Results & Data Results & Data Vital Signs (Past 12 Hours) Vital Signs Temp Pulse Pulse Pulse Resp BP Pulse Ox 12/02/22 10:13 111 H 20 95 12/02/22 08:50 90 20 94 12/02/22 07:45 93 H 12/02/22 07:07 36.7 C 114 H 18 127/89 93 12/02/22 04:00 36.5 C 97 H 20 128/79 97 12/02/22 03:38 12/02/22 00:00 12/01/22 23:28 37.3 C 102 H 20 138/75 93 O2 Del Method O2 Flow Rate 12/02/22 10:13 Nasal Cannula 2 12/02/22 08:50 Nasal Cannula 2 12/02/22 07:45 12/02/22 07:07 Nasal Cannula 12/02/22 04:00 Nasal Cannula 2 12/02/22 03:38 2 12/02/22 00:00 Nasal Cannula 2 12/01/22 23:28 Nasal Cannula 2 Laboratory Results Laboratory Results - last 24 hr 12/01/22 12/01/22 12/01/22 11:22 16:24 20:25 WBC RBC Hgb Hct MCV MCH MCHC RDW Std Deviation RDW Coeff of Sandra Plt Count MPV Immature Gran % (Auto) Neut % (Auto) Lymph % (Auto) Hawkins % (Auto) Eos % (Auto) Baso % (Auto) Neut # (Auto) Lymph # (Auto) Hawkins # (Auto) Eos # (Auto) Baso # (Auto) Immature Gran # (Auto) Sodium Potassium Chloride Carbon Dioxide Anion Gap BUN Creatinine Est Cr Clr Drug Dosing Est GFR ( Amer) Est GFR (Non-Af Amer) BUN/Creatinine Ratio Glucose POC Glucose 206 H 167 H 135 H Calcium Magnesium 12/02/22 12/02/22 12/02/22 05:26 05:26 05:26 WBC 4.69 L RBC 3.98 L Hgb 9.8 L Hct 33.2 L MCV 83.4 MCH 24.6 L MCHC 29.5 L RDW Std Deviation 56.9 H RDW Coeff of Sandra 19.8 H Plt Count 392 MPV 9.4 Immature Gran % (Auto) 0.6 Neut % (Auto) 70.6 Lymph % (Auto) 17.5 Hawkins % (Auto) 11.1 Eos % (Auto) 0.0 Baso % (Auto) 0.2 Neut # (Auto) 3.31 Lymph # (Auto) 0.82 L Hawkins # (Auto) 0.52 Eos # (Auto) 0.00 Baso # (Auto) 0.01 Immature Gran # (Auto) 0.03 Sodium 143 Potassium 3.0 L Chloride 96 L Carbon Dioxide 39 H Anion Gap 8 BUN 17 Creatinine 0.77 Est Cr Clr Drug Dosing 62.4 Est GFR ( Amer) 90.0 Est GFR (Non-Af Amer) 77.7 BUN/Creatinine Ratio 22.1 H Glucose 223 H POC Glucose Calcium 8.6 Magnesium 1.6 L Cancelled 12/02/22 07:08 WBC RBC Hgb Hct MCV MCH MCHC RDW Std Deviation RDW Coeff of Sandra Plt Count MPV Immature Gran % (Auto) Neut % (Auto) Lymph % (Auto) Hawkins % (Auto) Eos % (Auto) Baso % (Auto) Neut # (Auto) Lymph # (Auto) Hawkins # (Auto) Eos # (Auto) Baso # (Auto) Immature Gran # (Auto) Sodium Potassium Chloride Carbon Dioxide Anion Gap BUN Creatinine Est Cr Clr Drug Dosing Est GFR ( Amer) Est GFR (Non-Af Amer) BUN/Creatinine Ratio Glucose POC Glucose 209 H Calcium Magnesium PG Care Time/CCT Total # of Minutes Spent Total Time Spent with Patient: Total time spent is greater than 50% in coordination of care (as documented) at patient's floor/unit and/or counseling patient: Coding Level of Care Code 13121 SUB INP/OBS CARE 3/50MIN Diagnoses Septic shock A41.9; R65.21 Sepsis A41.9 Multifocal pneumonia J18.9 Acute respiratory failure with hypoxia J96.01 Acute systolic CHF (congestive heart failure) I50.21 Rheumatoid arthritis M06.9 Rheumatoid arthritis location: unspecified site Rheumatoid factor presence: unspecified presence Hypomagnesemia E83.42 Elevated troponin R77.8 Hypertension I10 Hypertension type: essential hypertension Hyperlipidemia E78.5 Anxiety and depression F41.9; F32.9 Diabetes E11.42; Z79.4 Diabetes mellitus complication detail: with polyneuropathy Diabetes mellitus complication status: with neurologic complications Diabetes mellitus nursing home insulin use: with nursing home use Diabetes mellitus type: type 2 Anemia D64.9 Hypokalemia E87.6 Chronic interstitial lung disease J84.9 Rhinovirus infection B34.8 Constipation K59.00 Livedo reticularis R23.1 Bronchiectasis without complication J47.9 Chronic steroid use Dizziness R42 (6) Rheumatoid arthritis Rheumatoid arthritis location: unspecified site Rheumatoid factor presence: unspecified presence Qualified Code(s): M06.9 - Rheumatoid arthritis, unspecified (9) Hypertension Hypertension type: essential hypertension Qualified Code(s): I10 - Essential (primary) hypertension (12) Diabetes Diabetes mellitus complication detail: with polyneuropathy Diabetes mellitus complication status: with neurologic complications Diabetes mellitus communication lecturer insulin use: with communication lecturer use Diabetes mellitus type: type 2 Qualified Code(s): E11.42 - Type 2 diabetes mellitus with diabetic polyneuropathy; Z79.4 - police magistrate (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
[2022-12-02] MEDS: SENNA 8.6 MG TAB PO SCH (11:50)
[2022-12-02] MEDS: POLYETHYLENE (MIRALAX) 17 GM PACK PO SCH (11:51)
[2022-12-02] MEDS: GABAPENTIN 300 MG CAP PO SCH ×2 (11:55→20:59)
[2022-12-02] MEDS ORDERED: POTASSIUM CHLORIDE CRTAB 20 MEQ TABCR PO ONE (12:00)
--- NOTE | 2022-12-02 13:44 | Electrocardiogram Report ---
Test Reason : Blood Pressure : / mmHG Vent. Rate : 119 BPM Atrial Rate : 119 BPM P-R Int : 124 ms QRS Dur : 084 ms QT Int : 382 ms P-R-T Axes : 078 091 013 degrees QTc Int : 537 ms Poor data quality, interpretation may be adversely affected Sinus tachycardia with frequent Premature atrial complexes Rightward axis Low voltage QRS Prolonged QT Abnormal ECG When compared with ECG of 27-NOV-2022 07:46, Premature atrial complexes are no longer Present Questionable change in initial forces of Anterior leads Non-specific change in ST segment in Anterior leads Nonspecific T wave abnormality, worse in Inferior leads Confirmed by Forrest Solo ([id number]) on 12/02/2022 1:44:12 PM Referred By: REFERRED SELF Confirmed By:Forrest Solo
--- NOTE | 2022-12-02 16:11 | XCELERA ---
[id number]
[2022-12-02] MEDS: dexAMETHasone 6 MG in SYRINGE 0 ML IV SCH (17:29)
[2022-12-02 18:42] LABS: Fungitell (1-3)-B-D-Glucan <31 pg/mL
[2022-12-02] MEDS ORDERED: XOPENEX/ATROVENT 1.25mg/0.5MG NEB COMBO NEB SCH (19:00)
[2022-12-02] MEDS: IPRATROPIUM BROMIDE NEB SOLN 0.02% 2.5 ML VIAL INH SCH ×2 (19:12→23:53)
[2022-12-02] MEDS: LEVALBUTEROL 1.25MG/0.5ML NEB INH SCH ×2 (19:12→23:53)
[2022-12-02] MEDS ORDERED: METOPROLOL TARTRATE 25 MG TAB PO SCH (21:00)
[2022-12-03] MEDS: PIPERACILLIN/TAZOBACTAM 4.5 GM CI (over 4 hours) IV SCH ×3 (01:54→17:04)
[2022-12-03] MEDS: guaiFENesin SUGAR FREE 200 MG/10 ML UDC PO SCH ×4 (05:46→23:36)
[2022-12-03] MEDS: FORMOTEROL 20 MCG/2 ML VIAL INH SCH ×2 (07:00→19:06)
[2022-12-03] MEDS: SODIUM CHLOR 7% 4 ML NEB NEB SCH ×2 (07:00→19:06)
[2022-12-03] MEDS: IPRATROPIUM BROMIDE NEB SOLN 0.02% 2.5 ML VIAL INH SCH ×3 (07:01→19:06)
[2022-12-03] MEDS: LEVALBUTEROL 1.25MG/0.5ML NEB INH SCH ×3 (07:01→19:06)
[2022-12-03 07:41] LABS: BUN Creatinine Ratio 23.2 (10-20); Calcium 9.1 mg/dl (8.6-10.3); Creatinine Clr Calc Pharmacy 50.4 ml/min; Est GFR (African American) 69.8 ml/min; Est GFR (Non-African American) 60.3 ml/min; Magnesium 1.5 mg/dl (1.7-2.4); Potassium 3.5 mmol/L (3.5-5.1)
[2022-12-03] MEDS ORDERED: POTASSIUM CHLORIDE CRTAB 20 MEQ TABCR PO STA ×2 (07:47→12:15)
[2022-12-03] MEDS: INSULIN ASPART PER UNIT CHARGE SC SCH ×4 (08:34→20:28)
[2022-12-03] MEDS: MAGNESIUM SULFATE / D5W 1 GM/100 ML BAG IV SCH ×3 (08:35→12:37)
[2022-12-03] MEDS: SENNA 8.6 MG TAB PO SCH (08:35)
[2022-12-03] MEDS: VENLAFAXINE HCL XR 150 MG CAPXR PO SCH (08:35)
[2022-12-03] MEDS: POLYETHYLENE (MIRALAX) 17 GM PACK PO SCH (08:35)
[2022-12-03] MEDS: FERROUS SULFATE 325 MG TAB PO SCH ×2 (08:37→16:08)
[2022-12-03] MEDS: ENOXAPARIN INJ 40 MG/0.4 ML SYR SQ SCH (08:37)
[2022-12-03] MEDS: PANTOprazole 40 MG TAB PO SCH (08:37)
[2022-12-03] MEDS: METOPROLOL TARTRATE 25 MG TAB PO SCH ×2 (08:38→19:31)
[2022-12-03] MEDS: LANTUS PER UNIT CHARGE SQ SCH ×2 (08:38→20:31)
[2022-12-03] MEDS: MULTI VIT W/MINERALS LIQUID 15 ML UDP PO SCH (08:40)
[2022-12-03] MEDS: DOCUSATE SODIUM 100 MG CAP PO SCH ×2 (08:45→19:31)
[2022-12-03] MEDS ORDERED: FUROSEMIDE INJ 20 MG/2 ML VIAL IV ONE ×2 (12:15→20:15)
[2022-12-03] MEDS: GABAPENTIN 300 MG CAP PO SCH ×2 (12:38→19:31)
[2022-12-03] MEDS: dexAMETHasone 6 MG in SYRINGE 0 ML IV SCH (16:07)
--- NOTE | 2022-12-03 20:11 | Communication Note ---
Date of Service: December 03, 2022 Code brunilda called ~2000. Upon arrival, vitals were stable and patient was mildly belly breathing but was alert and speaking in complete sentences. ABG ord ered. Lungs sounded wet, gave 1 dose IV lasix 20mg. Resident Activity Tracking Resident Involvement: Resident Care Provided Care Provided: Adult [facility]
--- NOTE | 2022-12-03 20:20 | Hospitalist Progress Note ---
Date of Service December 03, 2022 Assessment & Plan (1) Septic shock: Plan: 2nd to b/l pneumonia. resolved. had been in ICU & required pressors earlier in the stay. (2) Sepsis: Plan: 2nd to pneumonia. remains on zosyn IV. day #9 of broad-spectrum IV antibiotic therapy. pulmonary following. they advise continuing abx for total 14 days (can switch to levaquin soon) - with pseudomonas coverage. plan to recheck a cxr in the am tomorrow. (3) Multifocal pneumonia: Plan: slowly improving. had been intubated/on vent in ICU earlier this stay. now down to NC O2. 2nd to rhinovirus infection and likely bacterial superinfection -- cannot rule out gram negative pneumonia despite negative bronchoscopy cultures from 11/27/22. Cont IV zosyn, then PO levaquin. Plan total 14 days in total (day #9 today). Switch to levaquin in am tomorrow. (4) Acute respiratory failure with hypoxia: Plan: Intubated November 27. Extubated November 29. Resp failure 2nd to severe b/l pneumonia + acute systolic CHF. cont IV abx. switch to PO abx tomorrow. cont bronchodilators. cont lasix. cont dexamethasone steroid but lower to 4mg daily tomorrow. appreciate pulmonary assistance. all cultures from bronch earlier in the stay - negative. (5) Acute systolic CHF (congestive heart failure): Plan: EF 35-40% global hypokinesis per daughter no prior h/o CHF no prior echo for comparison purposes no prior h/o CAD or acute NM systolic CHF with pulmonary edema is contributing to #4 above increase metoprolol to 25mg BID with ultimate goal of metoprolol succinate give lasix 20mg IV x 1 again today, net neg goal 1.5 L daily will ultimately need SOFI or ARB consider cardiology consult while here etiology of CHF?? need for elective cath at some point down the line? RA usually causes right-sided disease and RV function is intact on echo (6) Rheumatoid arthritis: Plan: Holding methotrexate, sulfasalazine, Hydroxychloroquine, and rituxan with her acute illness. She is steroid-dependent - takes prednisone 5mg daily. Has been on IV hydrocortisone taper for stress purposes. changed to dexamethasone 6mg IV daily for ongoing severe wheezing on 12/02/22. 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 (7) Hypomagnesemia: Plan: Mag sulfate 1gm IV x 2 again today Repeat level am (8) Elevated troponin: Plan: Peak HS troponin = 275 Likely myocardial demand ischemia in the setting of septic shock/severe sepsis no evidence of ACS (9) Hypertension: Plan: Losartan, chlorthalidone on hold Metoprolol titrated today for systolic CHF which will also cover her BP (10) Hyperlipidemia: Plan: simvastatin on hold (11) Anxiety and depression: Plan: resume venlafaxine xr 150mg daily in the am tomorrow (12) Diabetes: Plan: Holding metformin and Ozempic. Cont basal-bolus insulin and adjust as needed. Hba1c 7.2%. (13) Anemia: Plan: h/o Fe def anemia Hb 9-10 range and stable (14) Hypokalemia: Plan: replaced repeat BMP am replace low mag again repeat mag am (15) Chronic interstitial lung disease: Plan: likely 2nd to RA along with bronchiectasis cont bronchodilators, saline nebs, etc. 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 Due to sepsis and septic shock. Head CT NEGATIVE. Plan daughter updated by phone yesterday evening updated son at bedside today patient still intent on going home post-d/c but she would really benefit from rehab cont PT/OT as tolerated Admission and Anticipated Discharge Date Admission Date: November 25, 2022 Subjective "I feel better" states her "wheezing" is improved today still coughing and still with sputum - slight yellow did walk around the room today with PT asks when she can go home son was at bedside today during the visit; questions answered son mentioned that his mother has been short of breath for 6-12 months with any exertional activity tele overnight - NSR Review of Systems Review of Systems: gen - no fever; appetite fair cv - no chest pain; no orthopnea pulm - wore CPAP last pm for a few hours; still with ongoing cough/congestion/RIVERA GI - no pain; had bowel movement today Physical Exam Physical Exam: gen - outward dyspnea looks a bit better today; not as wheezy nor coughing as much as yesterday; NAD neck - mild JVD mouth - MM very dry heart - RRR, s1 s2, no murmur lungs - diffuse rales all lung segments anteriorly & posteriorly, diffuse b/l wheezing IS improved today; no increased work of breathing today abd - soft NT ND BS+ ext - <1+ edema b/l, pulses 2+ b/l skin - levido reticularis both legs Results & Data Results & Data Vital Signs (Past 12 Hours) Vital Signs Temp Pulse Pulse Pulse Resp BP BP 12/03/22 19:52 37.3 C 80 24 124/80 12/03/22 19:43 37.3 C 12/03/22 19:07 80 23 12/03/22 19:02 79 22 128/78 12/03/22 16:00 93 H 12/03/22 15:06 36.4 C L 80 19 98/56 L 12/03/22 12:58 92 H 26 H 12/03/22 11:19 37.0 C 84 22 132/73 Pulse Ox O2 Del Method O2 Flow Rate 12/03/22 19:52 98 Nasal Cannula 12/03/22 19:43 12/03/22 19:07 93 Nasal Cannula 2 12/03/22 19:02 12/03/22 16:00 12/03/22 15:06 90 Nasal Cannula 2 12/03/22 12:58 92 Room Air 12/03/22 11:19 97 Nasal Cannula 2 Laboratory Results Laboratory Results - last 24 hr 12/02/22 12/03/22 12/03/22 20:49 06:09 07:13 Sodium 143 Potassium 3.5 Chloride 96 L Carbon Dioxide 37 H Anion Gap 10 BUN 22 Creatinine 0.95 Est Cr Clr Drug Dosing 50.4 Est GFR ( Amer) 69.8 Est GFR (Non-Af Amer) 60.3 BUN/Creatinine Ratio 23.2 H Glucose 255 H POC Glucose 199 H 217 H Calcium 9.1 Magnesium 1.5 L 12/03/22 12/03/22 12/03/22 11:15 16:21 19:59 Sodium Potassium Chloride Carbon Dioxide Anion Gap BUN Creatinine Est Cr Clr Drug Dosing Est GFR ( Amer) Est GFR (Non-Af Amer) BUN/Creatinine Ratio Glucose POC Glucose 219 H 166 H 129 H Calcium Magnesium PG Care Time/CCT Total # of Minutes Spent Total Time Spent with Patient: Total time spent is greater than 50% in coordination of care (as documented) at patient's floor/unit and/or counseling patient: Coding Level of Care Code 41564 SUB INP/OBS CARE 3/50MIN Diagnoses Septic shock A41.9; R65.21 Sepsis A41.9 Multifocal pneumonia J18.9 Acute respiratory failure with hypoxia J96.01 Acute systolic CHF (congestive heart failure) I50.21 Rheumatoid arthritis M06.9 Rheumatoid arthritis location: unspecified site Rheumatoid factor presence: unspecified presence Hypomagnesemia E83.42 Elevated troponin R77.8 Hypertension I10 Hypertension type: essential hypertension Hyperlipidemia E78.5 Anxiety and depression F41.9; F32.9 Diabetes E11.42; Z79.4 Diabetes mellitus complication detail: with polyneuropathy Diabetes mellitus complication status: with neurologic complications Diabetes mellitus predatory animal exterminator insulin use: with fpc use Diabetes mellitus type: type 2 Anemia D64.9 Hypokalemia E87.6 Chronic interstitial lung disease J84.9 Rhinovirus infection B34.8 Constipation K59.00 Livedo reticularis R23.1 Bronchiectasis without complication J47.9 Chronic steroid use Dizziness R42 (6) Rheumatoid arthritis Rheumatoid arthritis location: unspecified site Rheumatoid factor presence: unspecified presence Qualified Code(s): M06.9 - Rheumatoid arthritis, unspecified (9) Hypertension Hypertension type: essential hypertension Qualified Code(s): I10 - Essential (primary) hypertension (12) Diabetes Diabetes mellitus complication detail: with polyneuropathy Diabetes mellitus complication status: with neurologic complications Diabetes mellitus fpc insulin use: with predatory animal exterminator use Diabetes mellitus type: type 2 Qualified Code(s): E11.42 - Type 2 diabetes mellitus with diabetic polyneuropathy; Z79.4 - halfway (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
[2022-12-03 20:26] LABS: iSTAT Allen Test Pass; iSTAT Art Bld Gas pCO2 Correct 53 mmHg (35-46); iSTAT Art Bld Gas pH Corrected 7.489 (7.35-7.45); iSTAT Arterial Blood Gas HCO3 40 meg/L (19-24); iSTAT Arterial Blood Gas pCO2 52 mmHg (35-46); iSTAT Arterial Blood Gas pH 7.49 (7.35-7.45); iSTAT Arterial Blood Gas pO2 68 mmHg (80-95); iSTAT Arterial Blood Gas pO2 C 69; iSTAT Carbon Dioxide > 40 mmol/L (24-31); iSTAT Hematocrit 34 % (37-47); iSTAT Hemoglobin 11.6 g/dl (12.0-16.0); iSTAT Potassium 4.1 mmol/L (3.3-5.0); iSTAT Site R Radial; iSTAT Sodium 139 mmol/L (135-144)
[2022-12-04] MEDS: LEVALBUTEROL 1.25MG/0.5ML NEB INH SCH ×4 (01:09→19:25)
[2022-12-04] MEDS: IPRATROPIUM BROMIDE NEB SOLN 0.02% 2.5 ML VIAL INH SCH ×4 (01:09→19:25)
[2022-12-04] MEDS: PIPERACILLIN/TAZOBACTAM 4.5 GM CI (over 4 hours) IV SCH (01:34)
[2022-12-04] MEDS: guaiFENesin SUGAR FREE 200 MG/10 ML UDC PO SCH ×4 (05:34→22:09)
[2022-12-04 06:43] LABS: BUN Creatinine Ratio 29.5 (10-20); Est GFR (African American) 88.6 ml/min; Est GFR (Non-African American) 76.5 ml/min; Magnesium 1.6 mg/dl (1.7-2.4); Potassium 3.6 mmol/L (3.5-5.1)
[2022-12-04] MEDS: FORMOTEROL 20 MCG/2 ML VIAL INH SCH ×2 (06:55→19:25)
[2022-12-04] MEDS: SODIUM CHLOR 7% 4 ML NEB NEB SCH ×2 (06:55→19:25)
[2022-12-04] MEDS: INSULIN ASPART PER UNIT CHARGE SC SCH ×4 (08:35→20:23)
[2022-12-04] MEDS: FERROUS SULFATE 325 MG TAB PO SCH ×2 (08:36→17:06)
[2022-12-04] MEDS: MAGNESIUM SULFATE / D5W 1 GM/100 ML BAG IV SCH ×2 (08:37→09:45)
[2022-12-04] MEDS: DOCUSATE SODIUM 100 MG CAP PO SCH ×2 (08:37→20:17)
[2022-12-04] MEDS: dexAMETHasone 4 MG in SYRINGE 0 ML IV SCH (08:37)
[2022-12-04] MEDS: METOPROLOL TARTRATE 25 MG TAB PO SCH ×2 (08:38→20:15)
[2022-12-04] MEDS: MULTI VIT W/MINERALS LIQUID 15 ML UDP PO SCH (08:38)
[2022-12-04] MEDS: ENOXAPARIN INJ 40 MG/0.4 ML SYR SQ SCH (08:38)
[2022-12-04] MEDS: PANTOprazole 40 MG TAB PO SCH (08:39)
[2022-12-04] MEDS: POTASSIUM CHLORIDE CRTAB 20 MEQ TABCR PO SCH ×2 (08:39→17:06)
[2022-12-04] MEDS: SENNA 8.6 MG TAB PO SCH (08:39)
[2022-12-04] MEDS: POLYETHYLENE (MIRALAX) 17 GM PACK PO SCH (08:39)
[2022-12-04] MEDS: VENLAFAXINE HCL XR 150 MG CAPXR PO SCH (08:40)
[2022-12-04] MEDS: LANTUS PER UNIT CHARGE SQ SCH ×2 (08:43→20:26)
[2022-12-04] MEDS ORDERED: dexAMETHasone 6 MG in SYRINGE 0 ML IV SCH (09:00)
--- NOTE | 2022-12-04 12:31 | XRay Report ---
XR chest 2V PA/lateral HISTORY: Cough. Shortness of breath. pneumonia/CHF - interval change COMPARISON: 12/01/2022. FINDINGS: Mild anterior wedging within a mid thoracic spine vertebral bodies. This is likely chronic. A right PICC terminates in the SVC. No pneumothorax. The cardiac silhouette remains mildly enlarged. Diffuse interstitial/vascular thickening and small bilateral pleural effusions persist. This is cons istent with pulmonary edema. Advanced degenerative changes again noted within the shoulders. Patchy b ibasilar densities are also unchanged. Multiple healing left-sided rib fractures again noted. IMPRESSION: 1. No significant change in the cardiomegaly, mild pulmonary edema, and small bilateral pleural effus ions. 2. Bibasilar densities also persist. 3. Multiple healing left-sided rib fractures again noted. No pneumothorax. ACT 112: Negative or not required by law. Electronically signed by: Jose Alberto Rowland M.D. 12/04/2022 12:30 PM
[2022-12-04] MEDS: levoFLOXacin 750 MG TAB PO SCH (13:03)
[2022-12-04] MEDS: GABAPENTIN 300 MG CAP PO SCH ×2 (13:04→20:15)
[2022-12-04] MEDS: CEVIMELINE PO SCH (20:14)
--- NOTE | 2022-12-04 21:11 | Hospitalist Progress Note ---
Date of Service December 04, 2022 Assessment & Plan (1) Acute respiratory failure with hypoxia: Plan: Intubated November 27. Extubated November 29. Resp failure 2nd to severe b/l pneumonia + acute systolic CHF. cont to improve. cont abx but switch to PO levaquin 750mg daily x 5 days then stop all abx. cont bronchodilators. cont IV lasix. cont dexamethasone steroid but lower to 4mg daily today. appreciate pulmonary assistance. all cultures from bronch earlier in the stay - negative. (2) Multifocal pneumonia: Plan: improving. had been intubated/on vent in ICU earlier this stay. now down to NC O2. 2nd to rhinovirus infection and likely bacterial superinfection -- cannot rule out gram negative pneumonia despite negative bronchoscopy cultures from 11/27/22. Change IV zosyn to PO levaquin today x 5 doses. Plan total 14 days in total (day #10 of abx today). (3) Acute systolic CHF (congestive heart failure): Plan: EF 35-40% global hypokinesis per daughter no prior h/o CHF no prior echo for comparison purposes no prior h/o CAD or acute [place] HRs much better on metoprolol; continue 25mg BID with ultimate goal of metoprolol succinate give lasix 20mg IV x 1 again today, net neg goal 1.5 L daily will ultimately need SOFI or ARB etiology of CHF?? need for elective cath at some point down the line? cand idate for such? RA usually causes right-sided disease and RV function is intact on echo will consult [facility] from CHF clinic tomorrow (4) Septic shock: Plan: 2nd to b/l pneumonia. resolved. had been in ICU & required pressors earlier in the stay. (5) Sepsis: Plan: 2nd to pneumonia. sepsis resolved. day #10 of broad-spectrum IV antibiotic therapy. pulmonary following. they advise continuing abx for total 14 days (can switch to levaquin today). repeat cxr today with no significant changes however she overall feels better and sounds better on lung exam. (6) Rheumatoid arthritis: Plan: Holding methotrexate, sulfasalazine, Hydroxychloroquine, and rituxan with her acute illness. She is steroid-dependent - takes prednisone 5mg daily. Has been on IV hydrocortisone taper for stress purposes. changed to dexamethasone 6mg IV daily for ongoing severe wheezing on 12/02/22. now weaning the dexamethasone today down to 4mg. 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 (7) Hypomagnesemia: Plan: Mag sulfate 1gm IV x 2 again today Repeat level am (8) Elevated troponin: Plan: Peak HS troponin = 275 Likely myocardial demand ischemia in the setting of septic shock/severe sepsis no evidence of ACS (9) Hypertension: Plan: Losartan, chlorthalidone on hold cont Metoprolol 25mg BID (10) Hyperlipidemia: Plan: simvastatin on hold (11) Anxiety and depression: Plan: venlafaxine xr 150mg daily (12) Diabetes: Plan: Holding metformin and Ozempic. Cont basal-bolus insulin and adjust as needed. Hba1c 7.2%. control is satisfactory at this time. (13) Anemia: Plan: h/o Fe def anemia Hb 9-10 range and stable most recent transferrin sat was 13% ferritin elevated due to acute phase reactant from infections last Hb 9.8 (14) Hypokalemia: Plan: replaced resolved daily BMP while on lasix replace low mag again repeat mag am (15) Chronic interstitial lung disease: Plan: likely 2nd to RA along with bronchiectasis cont bronchodilators, saline nebs, etc. 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 Due to sepsis and septic shock. Head CT NEGATIVE. Plan daughter updated at bedside today updated son at bedside yesterday patient still intent on going home post-d/c but she would really benefit from rehab per PT/OT with that said it sounds like she will have 24/7 caregivers I did ask her to think again about rehab but my sense is that this is really not an option she is willing to consider cont PT/OT as tolerated Admission and Anticipated Discharge Date Admission Date: November 25, 2022 Subjective again reports ongoing improvement apparently though last pm a "code purple" was called due to her being unresponsive and increased work of breathing responders finally woke her up and she was alert and following commands the night-time resident ordered additional IV lasix for her at that time she reports sleeping ok through the night cough is improved tolerating chest PT -- she actually has a vest therapy device at home sputum improved RIVERA improved daughter was at bedside -- pt still intent on returning home daughter confirms "she won't be alone for at least a month" multiple family members will be staying with her at her home Review of Systems Review of Systems: gen - eating well cv - no chest pain, no PND pulm - cough/wheeze/congestion; dyspnea overall improving GI - no abd pain; has had BMs Physical Exam Physical Exam: gen - best she has looked all week, NAD, no resp distress neck - no JVD at 90 degrees mouth - MM very dry heart - RRR, s1 s2, no murmur lungs - diffuse rales all lung segments anteriorly & posteriorly - perhaps modestly better today; diffuse b/l wheezing much, much better; no increased work of breathing today abd - soft NT ND BS+ ext - trace-1+ edema b/l, pulses 2+ b/l skin - levido reticularis both legs with venous pooling of feet (feet were dangling off the bed) Results & Data Results & Data Vital Signs (Past 12 Hours) Vital Signs Temp Pulse Pulse Resp BP BP Pulse Ox 12/04/22 19:59 12/04/22 19:27 82 18 92 12/04/22 19:17 36.6 C 87 19 114/57 L 94 12/04/22 16:00 90 12/04/22 16:30 77 12/04/22 15:35 36.9 C 76 18 110/68 99 12/04/22 13:49 76 18 92 12/04/22 11:34 36.6 C 71 18 115/65 96 12/04/22 10:00 12/04/22 10:00 105 H O2 Del Method O2 Flow Rate 12/04/22 19:59 Nasal Cannula 2 12/04/22 19:27 Nasal Cannula 2 12/04/22 19:17 Nasal Cannula 2 12/04/22 16:00 12/04/22 16:30 12/04/22 15:35 Nasal Cannula 2 12/04/22 13:49 Nasal Cannula 2 12/04/22 11:34 Nasal Cannula 2 12/04/22 10:00 Nasal Cannula 2 12/04/22 10:00 Laboratory Results Laboratory Results - last 24 hr 12/04/22 12/04/22 12/04/22 05:36 06:10 07:15 Sodium 144 Potassium 3.6 Chloride 95 L Carbon Dioxide 39 H Anion Gap 10 BUN 23 Creatinine 0.78 Est Cr Clr Drug Dosing 60.0 Est GFR ( Amer) 88.6 Est GFR (Non-Af Amer) 76.5 BUN/Creatinine Ratio 29.5 H Glucose 95 POC Glucose 107 H Calcium 9.0 Magnesium 1.6 L Stool Occult Bld Scrn Negative 12/04/22 12/04/22 12/04/22 11:22 16:40 20:22 Sodium Potassium Chloride Carbon Dioxide Anion Gap BUN Creatinine Est Cr Clr Drug Dosing Est GFR ( Amer) Est GFR (Non-Af Amer) BUN/Creatinine Ratio Glucose POC Glucose 210 H 237 H 95 Calcium Magnesium Stool Occult Bld Scrn Diagnostic Findings Chest X-Ray 12/04/22 10:37 XR chest 2V PA/lateral HISTORY: Cough. Shortness of breath. pneumonia/CHF - interval change COMPARISON: 12/01/2022. FINDINGS: Mild anterior wedging within a mid thoracic spine vertebral bodies. This is likely chronic. A right PICC terminates in the SVC. No pneumothorax. The cardiac silhouette remains mildly enlarged. Diffuse interstitial/vascular thickening and small bilateral pleural effusions persist. This is consistent with pulmonary edema. Advanced degenerative changes again noted within the shoulders. Patchy bibasilar densities are also unchanged. Multiple healing left- sided rib fractures again noted. IMPRESSION: 1. No significant change in the cardiomegaly, mild pulmonary edema, and small bilateral pleural effusions. 2. Bibasilar densities also persist. 3. Multiple healing left-sided rib fractures again noted. No pneumothorax. ACT 112: Negative or not required by law. Electronically signed by: Jose Alberto Rowland M.D. 12/04/2022 12:30 PM PG Care Time/CCT Total # of Minutes Spent Total Time Spent with Patient: Total time spent is greater than 50% in coordination of care (as documented) at patient's floor/unit and/or counseling patient: Coding Level of Care Code 09836 SUB INP/OBS CARE 50MIN Diagnoses Acute respiratory failure with hypoxia J96.01 Multifocal pneumonia J18.9 Acute systolic CHF (congestive heart failure) I50.21 Septic shock A41.9; R65.21 Sepsis A41.9 Rheumatoid arthritis M06.9 Rheumatoid arthritis location: unspecified site Rheumatoid factor presence: unspecified presence Hypomagnesemia E83.42 Elevated troponin R77.8 Hypertension I10 Hypertension type: essential hypertension Hyperlipidemia E78.5 Anxiety and depression F41.9; F32.9 Diabetes E11.42; Z79.4 Diabetes mellitus complication detail: with polyneuropathy Diabetes mellitus complication status: with neurologic complications Diabetes mellitus terminal operations supervisor insulin use: with terminal operations supervisor use Diabetes mellitus type: type 2 Anemia D64.9 Hypokalemia E87.6 Chronic interstitial lung disease J84.9 Rhinovirus infection B34.8 Constipation K59.00 Livedo reticularis R23.1 Bronchiectasis without complication J47.9 Chronic steroid use Dizziness R42 (6) Rheumatoid arthritis Rheumatoid arthritis location: unspecified site Rheumatoid factor presence: unspecified presence Qualified Code(s): M06.9 - Rheumatoid arthritis, unspecified (9) Hypertension Hypertension type: essential hypertension Qualified Code(s): I10 - Essential (primary) hypertension (12) Diabetes Diabetes mellitus complication detail: with polyneuropathy Diabetes mellitus complication status: with neurologic complications Diabetes mellitus terminal operations supervisor insulin use: with retirement use Diabetes mellitus type: type 2 Qualified Code(s): E11.42 - Type 2 diabetes mellitus with diabetic polyneuropathy; Z79.4 - terminal operations supervisor (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
[2022-12-05] MEDS: LEVALBUTEROL 1.25MG/0.5ML NEB INH SCH ×4 (01:52→19:11)
[2022-12-05] MEDS: IPRATROPIUM BROMIDE NEB SOLN 0.02% 2.5 ML VIAL INH SCH ×4 (01:52→19:11)
[2022-12-05] MEDS: guaiFENesin SUGAR FREE 200 MG/10 ML UDC PO SCH ×4 (05:52→21:10)
[2022-12-05 06:25] LABS: BUN Creatinine Ratio 31.3 (10-20); Calcium 9.1 mg/dl (8.6-10.3); Creatinine Clr Calc Pharmacy 70.9 ml/min; Est GFR (African American) 102.5 ml/min; Est GFR (Non-African American) 88.4 ml/min; Magnesium 1.5 mg/dl (1.7-2.4); Potassium 3.7 mmol/L (3.5-5.1)
[2022-12-05] MEDS: SODIUM CHLOR 7% 4 ML NEB NEB SCH ×2 (07:11→19:11)
[2022-12-05] MEDS: FORMOTEROL 20 MCG/2 ML VIAL INH SCH ×2 (07:25→19:11)
[2022-12-05] MEDS: INSULIN ASPART PER UNIT CHARGE SC SCH ×4 (07:34→21:06)
[2022-12-05] MEDS: CARBOHYDRATES FOR HYPOGLYCEMIA PO PRN ×2 (07:34→08:00)
[2022-12-05] MEDS: METOPROLOL TARTRATE 25 MG TAB PO SCH ×2 (08:02→21:11)
[2022-12-05] MEDS: ENOXAPARIN INJ 40 MG/0.4 ML SYR SQ SCH (08:03)
[2022-12-05] MEDS: VENLAFAXINE HCL XR 150 MG CAPXR PO SCH (08:04)
[2022-12-05] MEDS: POTASSIUM CHLORIDE CRTAB 20 MEQ TABCR PO SCH ×2 (08:04→17:00)
[2022-12-05] MEDS: FERROUS SULFATE 325 MG TAB PO SCH ×2 (08:05→17:00)
[2022-12-05] MEDS: MULTI VIT W/MINERALS LIQUID 15 ML UDP PO SCH (08:05)
[2022-12-05] MEDS: dexAMETHasone 4 MG in SYRINGE 0 ML IV SCH (08:06)
[2022-12-05] MEDS: CEVIMELINE PO SCH ×3 (08:06→21:09)
[2022-12-05] MEDS: DOCUSATE SODIUM 100 MG CAP PO SCH ×2 (08:07→20:55)
[2022-12-05] MEDS: POLYETHYLENE (MIRALAX) 17 GM PACK PO SCH (08:07)
[2022-12-05] MEDS: PANTOprazole 40 MG TAB PO SCH (08:08)
[2022-12-05] MEDS: SENNA 8.6 MG TAB PO SCH (08:08)
[2022-12-05] MEDS: MAGNESIUM SULFATE / D5W 1 GM/100 ML BAG IV SCH ×3 (09:39→11:23)
[2022-12-05] MEDS ORDERED: FUROSEMIDE INJ 20 MG/2 ML VIAL IV ONE (10:30)
[2022-12-05] MEDS: levoFLOXacin 750 MG TAB PO SCH (10:32)
[2022-12-05] MEDS: GABAPENTIN 300 MG CAP PO SCH ×2 (10:32→21:11)
[2022-12-05] MEDS: LANTUS PER UNIT CHARGE SQ SCH (21:07)
--- NOTE | 2022-12-05 21:20 | Hospitalist Progress Note ---
Date of Service December 05, 2022 Assessment & Plan (1) Acute respiratory failure with hypoxia: Plan: fully resolved. Intubated November 27. Extubated November 29. [facility] was on supplemental NC O2 - now fully off all supplemental O2. Resp failure 2nd to severe b/l pneumonia + acute systolic CHF. cont levaquin. cont bronchodilators. cont IV lasix. cont dexamethasone. appreciate pulmonary assistance. all cultures from bronch earlier in the stay - negative. fungitell negative. legionella still pending. (2) Multifocal pneumonia: Plan: improving/resolving. had been intubated/on vent in ICU earlier this stay. off supplemental NC O2. 2nd to rhinovirus infection and likely bacterial superinfection -- cannot rule out gram negative pneumonia despite negative bronchoscopy cultures from 11/27/22. Cont PO levaquin x 5 doses. Today is day #2 of such. Plan total 14 days in total (day #11 of abx today). (3) Acute systolic CHF (congestive heart failure): Plan: EF 35-40% global hypokinesis no prior echo for comparison purposes no prior h/o CAD or acute SC cont metoprolol 25mg BID with ultimate goal of metoprolol succinate give lasix 20mg IV x 1 again today, net neg goal 1.5 L daily will ultimately need SOFI or ARB etiology of CHF?? need for elective cath at some point down the line? candidate for such? RA usually causes right-sided disease and RV function is intact on echo appreciate Love Hua consult from CHF clinic (4) Septic shock: Plan: 2nd to b/l pneumonia. resolved. had been in ICU & required pressors earlier in the stay. (5) Sepsis: Plan: 2nd to pneumonia. sepsis resolved. day #11 of broad-spectrum IV, now PO, antibiotic therapy. (6) Rheumatoid arthritis: Plan: Holding methotrexate, sulfasalazine, Hydroxychloroquine, and rituxan with her acute illness. She is steroid-dependent - takes prednisone 5mg daily. Has been on IV hydrocortisone taper for stress purposes. changed to dexamethasone 6mg IV daily for ongoing severe wheezing on 12/02/22. now on 4mg/day - wean every 3rd day, ultimately back over to her prednisone she takes chronically. 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 (7) Hypomagnesemia: Plan: Mag sulfate 1gm IV x 3 today Repeat level am (8) Elevated troponin: Plan: Peak HS troponin = 275 Likely myocardial demand ischemia in the setting of septic shock/severe sepsis no evidence of ACS (9) Hypertension: Plan: Losartan, chlorthalidone on hold cont Metoprolol 25mg BID controlled (10) Hyperlipidemia: Plan: can resume simvastatin (11) Anxiety and depression: Plan: venlafaxine xr 150mg daily (12) Diabetes: Plan: Holding metformin and Ozempic. Cont basal-bolus insulin and adjust as needed. Hba1c 7.2%. having lows -- will stop AM lantus. lower novolog parameters. (13) Anemia: Plan: h/o Fe def anemia Hb 9-10 range and stable most recent transferrin sat was 13% ferritin elevated due to acute phase reactant from infections last Hb 9.8 (14) Hypokalemia: Plan: replaced resolved daily BMP while on lasix replace low mag again repeat mag am (15) Chronic interstitial lung disease: Plan: likely 2nd to RA along with bronchiectasis cont bronchodilators, saline nebs, etc. 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 Due to sepsis and septic shock. Head CT NEGATIVE. Plan daughter updated at bedside yesterday updated son earlier this week patient still intent on going home post-d/c but she would really benefit from rehab per PT/OT with that said it sounds like she will have 24/7 caregivers cont PT/OT as tolerated Admission and Anticipated Discharge Date Admission Date: November 25, 2022 Subjective tele wnl overnight she cont to feel better she has been weaned off O2 this am cough improved less sputum walked in room today - denies any dyspnea w/ exertion eating fair-good anxious to go home met with Ms Hua today from CHF clinic - plans to follow there Review of Systems Review of Systems: gen - no fevers, good energy, eating well cv - no orthopnea pulm - all symptoms improved; no wheezing abd - no pain/N/V Physical Exam Physical Exam: gen - NAD, looks good, only coughed 1x the entire visit neck - no JVD mouth - MM more moist today heart - RRR, s1 s2, no murmur lungs - diffuse rales all lung segments anteriorly & posteriorly but improved again today; no wheezing; no increased work of breathing abd - soft NT ND BS+ ext - trace edema b/l, pulses 2+ b/l skin - levido reticularis both legs distally - no changes Results & Data Results & Data Vital Signs (Past 12 Hours) Vital Signs Temp Pulse Pulse Pulse Resp BP Pulse Ox 12/05/22 19:53 36.5 C 78 18 91 12/05/22 19:40 113/61 12/05/22 19:11 16 91 12/05/22 16:29 68 12/05/22 15:18 36.3 C L 73 18 107/56 L 90 12/05/22 13:47 86 18 90 12/05/22 12:00 36.7 C 66 20 98/55 L 96 12/05/22 10:00 12/05/22 10:00 75 O2 Del Method 12/05/22 19:53 Room Air 12/05/22 19:40 12/05/22 19:11 Room Air 12/05/22 16:29 12/05/22 15:18 Room Air 12/05/22 13:47 Room Air 12/05/22 12:00 Room Air 12/05/22 10:00 Room Air 12/05/22 10:00 Laboratory Results Laboratory Results - last 24 hr 12/05/22 12/05/22 12/05/22 05:44 07:25 07:26 Sodium 142 Potassium 3.7 Chloride 97 L Carbon Dioxide 39 H Anion Gap 6 BUN 21 Creatinine 0.67 Est Cr Clr Drug Dosing 70.9 Est GFR ( Amer) 102.5 Est GFR (Non-Af Amer) 88.4 BUN/Creatinine Ratio 31.3 H Glucose 64 L POC Glucose 52 L* 61 L* Calcium 9.1 Magnesium 1.5 L 12/05/22 12/05/22 12/05/22 07:50 08:15 08:18 Sodium Potassium Chloride Carbon Dioxide Anion Gap BUN Creatinine Est Cr Clr Drug Dosing Est GFR ( Amer) Est GFR (Non-Af Amer) BUN/Creatinine Ratio Glucose POC Glucose 53 L* 50 L* 128 H Calcium Magnesium 12/05/22 12/05/22 12/05/22 11:15 16:19 20:12 Sodium Potassium Chloride Carbon Dioxide Anion Gap BUN Creatinine Est Cr Clr Drug Dosing Est GFR ( Amer) Est GFR (Non-Af Amer) BUN/Creatinine Ratio Glucose POC Glucose 183 H 226 H 212 H Calcium Magnesium PG Care Time/CCT Total # of Minutes Spent Total Time Spent with Patient: Total time spent is greater than 50% in coordination of care (as documented) at patient's floor/unit and/or counseling patient: Coding Level of Care Code 73949 SUB INP/OBS CARE 2/35MIN Diagnoses Acute respiratory failure with hypoxia J96.01 Multifocal pneumonia J18.9 Acute systolic CHF (congestive heart failure) I50.21 Septic shock A41.9; R65.21 Sepsis A41.9 Rheumatoid arthritis M06.9 Rheumatoid arthritis location: unspecified site Rheumatoid factor presence: unspecified presence Hypomagnesemia E83.42 Elevated troponin R77.8 Hypertension I10 Hypertension type: essential hypertension Hyperlipidemia E78.5 Anxiety and depression F41.9; F32.9 Diabetes E11.42; Z79.4 Diabetes mellitus complication detail: with polyneuropathy Diabetes mellitus complication status: with neurologic complications 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 use Diabetes mellitus type: type 2 Anemia D64.9 Hypokalemia E87.6 Chronic interstitial lung disease J84.9 Rhinovirus infection B34.8 Constipation K59.00 Livedo reticularis R23.1 Bronchiectasis without complication J47.9 Chronic steroid use Dizziness R42 (6) Rheumatoid arthritis Rheumatoid arthritis location: unspecified site Rheumatoid factor presence: unspecified presence Qualified Code(s): M06.9 - Rheumatoid arthritis, unspecified (9) Hypertension Hypertension type: essential hypertension Qualified Code(s): I10 - Essential (primary) hypertension (12) Diabetes Diabetes mellitus complication detail: with polyneuropathy Diabetes mellitus complication status: with neurologic complications 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
[2022-12-06] MEDS: LEVALBUTEROL 1.25MG/0.5ML NEB INH SCH ×4 (02:03→19:32)
[2022-12-06] MEDS: IPRATROPIUM BROMIDE NEB SOLN 0.02% 2.5 ML VIAL INH SCH ×4 (02:03→19:32)
[2022-12-06] MEDS: guaiFENesin SUGAR FREE 200 MG/10 ML UDC PO SCH ×4 (04:18→21:05)
[2022-12-06] MEDS: SODIUM CHLOR 7% 4 ML NEB NEB SCH ×2 (07:11→20:09)
[2022-12-06] MEDS: FORMOTEROL 20 MCG/2 ML VIAL INH SCH ×2 (07:11→20:09)
[2022-12-06 07:14] LABS: BUN Creatinine Ratio 24.3 (10-20); Calcium 9.2 mg/dl (8.6-10.3); Creatinine Clr Calc Pharmacy 64.2 ml/min; Est GFR (African American) 94.5 ml/min; Est GFR (Non-African American) 81.5 ml/min; Magnesium 1.5 mg/dl (1.7-2.4); Potassium 3.7 mmol/L (3.5-5.1)
[2022-12-06] MEDS: dexAMETHasone 4 MG in SYRINGE 0 ML IV SCH (08:17)
[2022-12-06] MEDS: FERROUS SULFATE 325 MG TAB PO SCH ×2 (08:17→17:31)
[2022-12-06] MEDS: DOCUSATE SODIUM 100 MG CAP PO SCH ×2 (08:18→20:56)
[2022-12-06] MEDS: ENOXAPARIN INJ 40 MG/0.4 ML SYR SQ SCH (08:18)
[2022-12-06] MEDS: CEVIMELINE PO SCH ×3 (08:19→21:05)
[2022-12-06] MEDS: MULTI VIT W/MINERALS LIQUID 15 ML UDP PO SCH (08:19)
[2022-12-06] MEDS: METOPROLOL TARTRATE 25 MG TAB PO SCH ×2 (08:19→21:05)
[2022-12-06] MEDS: POLYETHYLENE (MIRALAX) 17 GM PACK PO SCH (08:20)
[2022-12-06] MEDS: PANTOprazole 40 MG TAB PO SCH (08:20)
[2022-12-06] MEDS: SENNA 8.6 MG TAB PO SCH (08:21)
[2022-12-06] MEDS: VENLAFAXINE HCL XR 150 MG CAPXR PO SCH (08:21)
[2022-12-06] MEDS: POTASSIUM CHLORIDE CRTAB 20 MEQ TABCR PO SCH ×2 (08:21→17:32)
[2022-12-06] MEDS: INSULIN ASPART PER UNIT CHARGE SC SCH ×4 (08:35→21:02)
[2022-12-06] MEDS: MAGNESIUM SULFATE / D5W 1 GM/100 ML BAG IV SCH ×3 (08:36→12:35)
[2022-12-06] MEDS ORDERED: FUROSEMIDE INJ 20 MG/2 ML VIAL IV ONE (10:00)
[2022-12-06] MEDS: levoFLOXacin 750 MG TAB PO SCH (10:46)
[2022-12-06] MEDS: GABAPENTIN 300 MG CAP PO SCH ×2 (10:46→21:05)
--- NOTE | 2022-12-06 20:03 | Hospitalist Progress Note ---
Date of Service December 06, 2022 Assessment & Plan (1) Acute respiratory failure with hypoxia: Plan: fully resolved. Intubated November 27. Extubated November 29. Following [facility] ventilation was on supplemental NC O2 - now fully off all supplemental O2 x 2 days. Resp failure 2nd to severe b/l pneumonia + acute systolic CHF. cont levaquin. cont bronchodilators. cont IV lasix. cont dexamethasone wean. appreciate pulmonary assistance. all cultures from bronch earlier in the stay - negative. fungitell negative. legionella negative. (2) Multifocal pneumonia: Plan: resolving. had been intubated/on vent in ICU earlier this stay. off supplemental NC O2. 2nd to rhinovirus infection and likely bacterial superinfection -- cannot rule out gram negative pneumonia despite negative bronchoscopy cultures from 11/27/22. Cont PO levaquin x 5 doses. Today is day #3 of such. Plan total 14 days in total (day #12 of abx today). (3) Acute systolic CHF (congestive heart failure): Plan: EF 35-40% global hypokinesis no prior echo for comparison purposes no prior h/o CAD or acute ID cont metoprolol 25mg BID with ultimate goal of metoprolol succinate give lasix 20mg IV x 1 again today -- BUN and Cr remain stable will ultimately need SOFI or ARB etiology of CHF?? need for elective cath at some point down the line? candidate for such? RA usually causes right-sided disease and RV function is intact on echo appreciate Love Hua consult from CHF clinic patient will be [place] [facility] [place]c (4) Septic shock: Plan: 2nd to b/l pneumonia. resolved. had been in ICU & required pressors earlier in the stay. (5) Sepsis: Plan: 2nd to pneumonia. sepsis resolved. day #12 of broad-spectrum IV, now PO, antibiotic therapy. (6) Rheumatoid arthritis: Plan: Holding methotrexate, sulfasalazine, Hydroxychloroquine, and rituxan with her acute illness. She is steroid-dependent - takes prednisone 5mg daily. Has been on IV hydrocortisone taper for stress purposes. changed to dexamethasone 6mg IV daily for ongoing severe wheezing on 12/02/22. now on 4mg/day - wean to 2mg starting 12/07/22. 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 (7) Hypomagnesemia: Plan: mag again low today replace IV mag sulfate repeat mag level am low mag is 2nd to lasix (8) Elevated troponin: Plan: Peak HS troponin = 275 Likely myocardial demand ischemia in the setting of septic shock/severe sepsis no evidence of ACS (9) Hypertension: Plan: Losartan, chlorthalidone on hold cont Metoprolol 25mg BID controlled (10) Hyperlipidemia: Plan: cont simvastatin (11) Anxiety and depression: Plan: venlafaxine xr 150mg daily (12) Diabetes: Plan: Holding metformin and Ozempic. Cont basal-bolus insulin and adjust as needed. Hba1c 7.2%. having lows -- lowered lantus dosing -- lows have resolved. cont novolog SSI. (13) Anemia: Plan: h/o Fe def anemia Hb 9-10 range and stable most recent transferrin sat was 13% ferritin elevated due to acute phase reactant from infections last Hb 9.8 check a cbc in am for stability (14) Hypokalemia: Plan: replaced resolved daily BMP while on lasix replace low mag again repeat mag am (15) Chronic interstitial lung disease: Plan: likely 2nd to RA along with bronchiectasis cont bronchodilators, saline nebs, etc. 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 Due to sepsis and septic shock. Head CT NEGATIVE. Plan daughter and son updated this week patient still intent on going home post-d/c but she would really benefit from rehab per PT/OT with that said it sounds like she will have 24/7 caregivers and thus will allow home with HH and home PT/OT cont PT/OT as tolerated while here Admission and Anticipated Discharge Date Admission Date: November 25, 2022 Subjective tele remains wnl she continues to feel better each day cough largely resolved remains off of NC O2 no dyspnea on exertion denies orthopnea eating well denies any new complaints she is hopeful for d/c next couple of days Review of Systems Review of Systems: gen - no fevers, chills; appetite has improved nicely cv - no cp pulm - no dyspnea at rest; no wheezing; no RIVERA GI - no N/V - voiding fine Physical Exam Physical Exam: gen - NAD, looks very good neck - no JVD mouth - MMM heart - RRR, s1 s2, no murmur lungs - diffuse rales all lung segments anteriorly & posteriorly but each day is less crackly; airation continues to improve; no wheezing; no increased work of breathing abd - soft NT ND BS+ ext - no edema b/l, pulses 2+ b/l skin - skin irritation b/l lips; levido reticularis both legs distally - no changes psych - a/o x 3 Results & Data Results & Data Vital Signs (Past 12 Hours) Vital Signs Temp Pulse Pulse Pulse Resp BP Pulse Ox 12/06/22 19:26 36.5 C 72 18 108/47 L 92 12/06/22 15:00 67 12/06/22 15:40 36.4 C L 70 17 107/68 90 12/06/22 14:08 86 18 94 12/06/22 11:57 12/06/22 11:18 36.4 C L 71 17 108/64 92 O2 Del Method 12/06/22 19:26 Room Air 12/06/22 15:00 12/06/22 15:40 Room Air 12/06/22 14:08 Room Air 12/06/22 11:57 Room Air 12/06/22 11:18 Room Air Laboratory Results Laboratory Results - last 24 hr 12/05/22 12/06/22 12/06/22 20:12 06:16 07:19 Sodium 141 Potassium 3.7 Chloride 98 Carbon Dioxide 37 H Anion Gap 6 BUN 18 Creatinine 0.74 Est Cr Clr Drug Dosing 64.2 Est GFR ( Amer) 94.5 Est GFR (Non-Af Amer) 81.5 BUN/Creatinine Ratio 24.3 H Glucose 82 POC Glucose 212 H 63 L* Calcium 9.2 Magnesium 1.5 L 12/06/22 12/06/22 12/06/22 07:24 11:09 16:09 Sodium Potassium Chloride Carbon Dioxide Anion Gap BUN Creatinine Est Cr Clr Drug Dosing Est GFR ( Amer) Est GFR (Non-Af Amer) BUN/Creatinine Ratio Glucose POC Glucose 87 102 H 204 H Calcium Magnesium PG Care Time/CCT Total # of Minutes Spent Total Time Spent with Patient: Total time spent is greater than 50% in coordination of care (as documented) at patient's floor/unit and/or counseling patient: Coding Level of Care Code 56680 SUB INP/OBS CARE 2/35MIN Diagnoses Acute respiratory failure with hypoxia J96.01 Multifocal pneumonia J18.9 Acute systolic CHF (congestive heart failure) I50.21 Septic shock A41.9; R65.21 Sepsis A41.9 Rheumatoid arthritis M06.9 Rheumatoid arthritis location: unspecified site Rheumatoid factor presence: unspecified presence Hypomagnesemia E83.42 Elevated troponin R77.8 Hypertension I10 Hypertension type: essential hypertension Hyperlipidemia E78.5 Anxiety and depression F41.9; F32.9 Diabetes E11.42; Z79.4 Diabetes mellitus complication detail: with polyneuropathy Diabetes mellitus complication status: with neurologic complications 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 dyeing machine tender use Diabetes mellitus type: type 2 Anemia D64.9 Hypokalemia E87.6 Chronic interstitial lung disease J84.9 Rhinovirus infection B34.8 Constipation K59.00 Livedo reticularis R23.1 Bronchiectasis without complication J47.9 Chronic steroid use Dizziness R42 (6) Rheumatoid arthritis Rheumatoid arthritis location: unspecified site Rheumatoid factor presence: unspecified presence Qualified Code(s): M06.9 - Rheumatoid arthritis, unspecified (9) Hypertension Hypertension type: essential hypertension Qualified Code(s): I10 - Essential (primary) hypertension (12) Diabetes Diabetes mellitus complication detail: with polyneuropathy Diabetes mellitus complication status: with neurologic complications 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 [facility] use Diabetes mellitus type: type 2 Qualified Code(s): E11.42 - Type 2 diabetes mellitus with diabetic polyneuropathy; 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
[2022-12-06] MEDS ORDERED: LANTUS PER UNIT CHARGE SQ SCH (21:00)
[2022-12-06] MEDS: SIMVASTATIN 5 MG TAB PO SCH (21:05)
[2022-12-07] MEDS: IPRATROPIUM BROMIDE NEB SOLN 0.02% 2.5 ML VIAL INH SCH ×4 (00:14→20:00)
[2022-12-07] MEDS: LEVALBUTEROL 1.25MG/0.5ML NEB INH SCH ×4 (00:14→20:00)
[2022-12-07] MEDS: guaiFENesin SUGAR FREE 200 MG/10 ML UDC PO SCH ×4 (03:48→21:35)
[2022-12-07] MEDS: SODIUM CHLOR 7% 4 ML NEB NEB SCH ×2 (06:58→19:52)
[2022-12-07] MEDS: FORMOTEROL 20 MCG/2 ML VIAL INH SCH ×2 (06:58→19:51)
[2022-12-07 06:59] LABS: Hematocrit (blood only) 37.1 % (37.0-47.0); Hemoglobin 11.1 g/dl (12.0-16.0); Mean Corpuscular Hemoglobin 25.1 pg (25.0-34.0); Mean Corpuscular Hgb Conc 29.9 g/dL (32.0-36.0); Mean Corpuscular Volume 83.7 fL (80.0-100.0); Mean Platelet Volume 10.4 fL (9.4-12.4); Platelet Count 479 K/uL (130-400); RDW Standard Deviation 61.8 fL (36.4-46.3); Red Blood Count 4.43 M/uL (4.20-5.40); White Blood Count 7.08 K/ul (4.8-10.8)
[2022-12-07 07:18] LABS: BUN Creatinine Ratio 22.6 (10-20); Calcium 9.4 mg/dl (8.6-10.3); Creatinine Clr Calc Pharmacy 56.1 ml/min; Est GFR (Non-African American) 69.9 ml/min; Magnesium 1.6 mg/dl (1.7-2.4)
[2022-12-07] MEDS: MAGNESIUM SULFATE / D5W 1 GM/100 ML BAG IV SCH ×2 (08:50→11:18)
[2022-12-07] MEDS: DOCUSATE SODIUM 100 MG CAP PO SCH ×2 (08:51→20:18)
[2022-12-07] MEDS: FERROUS SULFATE 325 MG TAB PO SCH ×2 (08:51→16:34)
[2022-12-07] MEDS: dexAMETHasone 1 MG TAB PO SCH (08:51)
[2022-12-07] MEDS: ENOXAPARIN INJ 40 MG/0.4 ML SYR SQ SCH (08:51)
[2022-12-07] MEDS: MULTI VIT W/MINERALS LIQUID 15 ML UDP PO SCH (08:52)
[2022-12-07] MEDS: METOPROLOL TARTRATE 25 MG TAB PO SCH ×2 (08:52→21:35)
[2022-12-07] MEDS: CEVIMELINE PO SCH ×3 (08:52→21:36)
[2022-12-07] MEDS: POLYETHYLENE (MIRALAX) 17 GM PACK PO SCH (08:53)
[2022-12-07] MEDS: PANTOprazole 40 MG TAB PO SCH (08:53)
[2022-12-07] MEDS: VENLAFAXINE HCL XR 150 MG CAPXR PO SCH (08:54)
[2022-12-07] MEDS: SENNA 8.6 MG TAB PO SCH (08:54)
[2022-12-07] MEDS: POTASSIUM CHLORIDE CRTAB 20 MEQ TABCR PO SCH ×2 (08:54→16:35)
[2022-12-07] MEDS: INSULIN ASPART PER UNIT CHARGE SC SCH ×4 (09:14→21:31)
[2022-12-07] MEDS ORDERED: FUROSEMIDE INJ 20 MG/2 ML VIAL IV ONE (10:00)
[2022-12-07] MEDS: levoFLOXacin 750 MG TAB PO SCH (10:28)
[2022-12-07] MEDS: GABAPENTIN 300 MG CAP PO SCH ×2 (11:37→22:14)
[2022-12-07] MEDS: metFORMIN HCL 500 MG TAB PO SCH ×2 (11:37→16:34)
--- NOTE | 2022-12-07 19:55 | Hospitalist Progress Note ---
Date of Service December 07, 2022 Assessment & Plan (1) Acute respiratory failure with hypoxia: Plan: fully resolved. Intubated November 27. Extubated November 29. Following [facility] ventilation was on supplemental NC O2 - now fully off all supplemental O2 x 3 days. Resp failure 2nd to severe b/l pneumonia + acute systolic CHF. cont levaquin. cont bronchodilators. cont IV lasix. cont dexamethasone wean. appreciate pulmonary assistance. all cultures from bronch earlier in the stay - negative. fungitell negative. legionella negative. (2) Multifocal pneumonia: Plan: resolving. had been intubated/on vent in ICU earlier this stay. off supplemental NC O2. 2nd to rhinovirus infection and likely bacterial superinfection -- cannot rule out gram negative pneumonia despite negative bronchoscopy cultures from 11/27/22. Cont PO levaquin x 5 doses. Today is day #4 of such. Plan total 14 days in total (day #13 of abx today). (3) Acute systolic CHF (congestive heart failure): Plan: EF 35-40% with global hypokinesis of LV no prior echo for comparison purposes no prior h/o CAD or acute PR cont metoprolol 25mg BID with ultimate goal of metoprolol succinate - will change to such in am tomorrow give lasix 20mg IV x 1 again today -- BUN and Cr remain stable I do believe she is approaching euvolemia - likely tomorrow or next day will ultimately need SOFI or ARB plan 20mg of po lasix at discharge to be used daily etiology of CHF?? need for elective cath at some point down the line? candidate for such? RA usually causes right-sided disease and RV function is intact on echo appreciate Love Hua consult from CHF clinic patient will be followed by [facility] Cardiology post-d/c (4) Septic shock: Plan: 2nd to b/l pneumonia. resolved. had been in ICU & required pressors earlier in the stay. (5) Sepsis: Plan: 2nd to pneumonia. sepsis resolved. day #13 of broad-spectrum IV, now PO, antibiotic therapy. (6) Rheumatoid arthritis: Plan: Holding methotrexate, sulfasalazine, Hydroxychloroquine, and rituxan with her acute illness. She is steroid-dependent - takes prednisone 5mg daily. Had been on IV hydrocortisone taper for stress purposes. Changed to dexamethasone 6mg IV daily for ongoing severe wheezing on 12/02/22. now on 2mg/day starting today. can go back to prednisone on 12/09/22. 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 can resume sulfasalazine & plaquenil at d/c. MTx - likely soon after that. 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 Have stopped lantus. Remains on novolog SSI. Resume metformin 1gm BID w/ meals today. (13) Anemia: Plan: h/o Fe def anemia most recent transferrin sat was 13% ferritin elevated due to acute phase reactant from infections remains on PO Fe supplementation Hb 11.1 today and stable (14) Hypokalemia: Plan: replaced resolved daily BMP while on lasix replace low mag again today repeat mag am (15) Chronic interstitial lung disease: Plan: likely 2nd to RA; along with bronchiectasis cont bronchodilators, saline nebs, etc. 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 Due to sepsis and septic shock. Head CT NEGATIVE. Plan daughter updated by phone this pm d/c home with nursing, home PT/OT anticipate d/c home next 48 hours making great progress Admission and Anticipated Discharge Date Admission Date: November 25, 2022 Subjective patient feeling well offers no new complaints tele remains stable she is eating well she feels her strength is better cough is minimal no dyspnea at rest or with exertion no orthopnea sleeping ok anxious to go home soon Review of Systems Review of Systems: gen - no fevers or chills cv - no chest pain pulm - minimal sputum at this point GI - moving bowels; no N/V Physical Exam Physical Exam: gen - NAD, looks very good; didn't cough at all during the visit today neck - no JVD mouth - MMM heart - RRR, s1 s2, no murmur lungs - diffuse rales all lung segments but airation continues to improve; no wheezing; no increased work of breathing abd - soft NT ND BS+ ext - no edema b/l, pulses 2+ b/l skin - skin irritation b/l lips; levido reticularis both legs distally - no changes Results & Data Results & Data Vital Signs (Past 12 Hours) Vital Signs Temp Pulse Pulse Pulse Resp BP Pulse Ox 12/07/22 19:22 36.5 C 86 17 118/51 L 90 12/07/22 16:00 36.8 C 75 16 98/68 L 95 12/07/22 15:00 71 12/07/22 13:26 68 18 93 12/07/22 09:38 O2 Del Method 12/07/22 19:22 Room Air 12/07/22 16:00 Room Air 12/07/22 15:00 12/07/22 13:26 Room Air 12/07/22 09:38 Room Air Laboratory Results Laboratory Results - last 24 hr 12/06/22 12/07/22 12/07/22 20:32 06:00 06:00 WBC 7.08 RBC 4.43 Hgb 11.1 L Hct 37.1 MCV 83.7 MCH 25.1 MCHC 29.9 L RDW Std Deviation 61.8 H RDW Coeff of Sandra 21.0 H Plt Count 479 H MPV 10.4 Sodium 140 Potassium 4.0 Chloride 98 Carbon Dioxide 34 H Anion Gap 8 BUN 19 Creatinine 0.84 Est Cr Clr Drug Dosing 56.1 Est GFR ( Amer) 81.0 Est GFR (Non-Af Amer) 69.9 BUN/Creatinine Ratio 22.6 H Glucose 149 H POC Glucose 187 H Calcium 9.4 Magnesium 1.6 L 12/07/22 12/07/22 12/07/22 07:16 11:28 11:44 WBC RBC Hgb Hct MCV MCH MCHC RDW Std Deviation RDW Coeff of Sandra Plt Count MPV Sodium Potassium Chloride Carbon Dioxide Anion Gap BUN Creatinine Est Cr Clr Drug Dosing Est GFR ( Amer) Est GFR (Non-Af Amer) BUN/Creatinine Ratio Glucose POC Glucose 111 H 146 H 185 H Calcium Magnesium 12/07/22 16:03 WBC RBC Hgb Hct MCV MCH MCHC RDW Std Deviation RDW Coeff of Sandra Plt Count MPV Sodium Potassium Chloride Carbon Dioxide Anion Gap BUN Creatinine Est Cr Clr Drug Dosing Est GFR ( Amer) Est GFR (Non-Af Amer) BUN/Creatinine Ratio Glucose POC Glucose 131 H Calcium Magnesium PG Care Time/CCT Total # of Minutes Spent Total Time Spent with Patient: Total time spent is greater than 50% in coordination of care (as documented) at patient's floor/unit and/or counseling patient: Coding Level of Care Code 78015 SUB INP/OBS CARE 235MIN Diagnoses Acute respiratory failure with hypoxia J96.01 Multifocal pneumonia J18.9 Acute systolic CHF (congestive heart failure) I50.21 Septic shock A41.9; R65.21 Sepsis A41.9 Rheumatoid arthritis M06.9 Rheumatoid arthritis location: unspecified site Rheumatoid factor presence: unspecified presence Hypomagnesemia E83.42 Elevated troponin R77.8 Hypertension I10 Hypertension type: essential hypertension Hyperlipidemia E78.5 Anxiety and depression F41.9; F32.9 Diabetes E11.42; Z79.4 Diabetes mellitus complication detail: with polyneuropathy Diabetes mellitus complication status: with neurologic complications Diabetes mellitus half-way insulin use: with buttermaker use Diabetes mellitus type: type 2 Anemia D64.9 Hypokalemia E87.6 Chronic interstitial lung disease J84.9 Rhinovirus infection B34.8 Constipation K59.00 Livedo reticularis R23.1 Bronchiectasis without complication J47.9 Chronic steroid use Dizziness R42 (6) Rheumatoid arthritis Rheumatoid arthritis location: unspecified site Rheumatoid factor presence: unspecified presence Qualified Code(s): M06.9 - Rheumatoid arthritis, unspecified (9) Hypertension Hypertension type: essential hypertension Qualified Code(s): I10 - Essential (primary) hypertension (12) Diabetes Diabetes mellitus complication detail: with polyneuropathy Diabetes mellitus complication status: with neurologic complications Diabetes mellitus buttermaker insulin use: with buttermaker use Diabetes mellitus type: type 2 Qualified Code(s): E11.42 - Type 2 diabetes mellitus with diabetic polyneuropathy; Z79.4 - FPC (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
[2022-12-07] MEDS: SIMVASTATIN 5 MG TAB PO SCH (21:35)
[2022-12-08] MEDS: IPRATROPIUM BROMIDE NEB SOLN 0.02% 2.5 ML VIAL INH SCH ×4 (01:10→19:36)
[2022-12-08] MEDS: LEVALBUTEROL 1.25MG/0.5ML NEB INH SCH ×4 (01:10→19:36)
[2022-12-08] MEDS: guaiFENesin SUGAR FREE 200 MG/10 ML UDC PO SCH ×4 (04:35→20:37)
[2022-12-08 06:21] LABS: BUN Creatinine Ratio 27.3 (10-20); Calcium 9.2 mg/dl (8.6-10.3); Creatinine Clr Calc Pharmacy 52.3 ml/min; Est GFR (African American) 76.6 ml/min; Est GFR (Non-African American) 66.1 ml/min; Magnesium 1.4 mg/dl (1.7-2.4); Potassium 3.9 mmol/L (3.5-5.1)
[2022-12-08] MEDS: SODIUM CHLOR 7% 4 ML NEB NEB SCH ×2 (07:07→19:32)
[2022-12-08] MEDS: FORMOTEROL 20 MCG/2 ML VIAL INH SCH ×2 (07:07→19:32)
[2022-12-08] MEDS: MAGNESIUM SULFATE / D5W 1 GM/100 ML BAG IV SCH ×3 (08:18→12:11)
[2022-12-08] MEDS: POTASSIUM CHLORIDE CRTAB 20 MEQ TABCR PO SCH (08:19)
[2022-12-08] MEDS: ENOXAPARIN INJ 40 MG/0.4 ML SYR SQ SCH (08:20)
[2022-12-08] MEDS: MULTI VIT W/MINERALS LIQUID 15 ML UDP PO SCH (08:20)
[2022-12-08] MEDS: METOPROLOL SUCC 25MG EXT REL TAB PO SCH (08:20)
[2022-12-08] MEDS: PANTOprazole 40 MG TAB PO SCH (08:20)
[2022-12-08] MEDS: FERROUS SULFATE 325 MG TAB PO SCH ×2 (08:21→16:42)
[2022-12-08] MEDS: metFORMIN HCL 500 MG TAB PO SCH ×2 (08:21→16:41)
[2022-12-08] MEDS: VENLAFAXINE HCL XR 150 MG CAPXR PO SCH (08:25)
[2022-12-08] MEDS: SENNA 8.6 MG TAB PO SCH (08:26)
[2022-12-08] MEDS: CEVIMELINE PO SCH ×3 (08:26→20:36)
[2022-12-08] MEDS: DOCUSATE SODIUM 100 MG CAP PO SCH ×2 (08:28→20:35)
[2022-12-08] MEDS: POLYETHYLENE (MIRALAX) 17 GM PACK PO SCH (08:28)
[2022-12-08] MEDS: INSULIN ASPART PER UNIT CHARGE SC SCH ×4 (08:32→20:34)
--- NOTE | 2022-12-08 09:36 | XRay Report ---
TWO VIEW CHEST CLINICAL HISTORY: Interstitial lung disease. Dyspnea. Consolidation. FINDINGS: AP and lateral chest radiographs are compared to study dated 12/04/2022 and correlated with chest CT dated 11/27/2022. A right PICC line is unchanged in position. The heart is enlarged. Chronic interstitial thickening is similar to previous. Multifocal bilateral airspace opacities are similar t o previous. Small pleural effusions are noted. There is no pneumothorax. The skeletal structures are osteopenic. The bony thorax appears intact. Advanced arthritic change is seen in the shoulders. IMPRESSION: 1. Cardiomegaly and chronic parenchymal changes. 2. Bilateral airspace opacities are unchanged and could represent pulmonary edema and/or multifocal p neumonia. Clinical correlation will be required and radiographic follow-up to resolution is recommend ed. 3. Small pleural effusions. ACT 112: Negative or not required by law. Electronically signed by: Luis A Vasquez M.D. 12/08/2022 9:35 AM
[2022-12-08] MEDS: dexAMETHasone 1 MG TAB PO SCH (09:52)
[2022-12-08] MEDS: GABAPENTIN 300 MG CAP PO SCH ×2 (11:43→20:35)
[2022-12-08] MEDS: levoFLOXacin 750 MG TAB PO SCH (11:43)
[2022-12-08 12:02] LABS: Legionella Culture Source *LEFT LOWER LOBE; Pneumocystis jirovecii Source LEFT LOWER LOBE; Source LEFT LOWER LOBE
--- NOTE | 2022-12-08 12:49 | Hospitalist Progress Note ---
Date of Service December 08, 2022 Assessment & Plan (1) Acute respiratory failure with hypoxia: Plan: fully resolved. Intubated November 27. Extubated November 29. [facility] was on supplemental NC O2 - now fully off all supplemental O2 x 3 days. Resp failure 2nd to severe b/l pneumonia (rhinovirus + likely bacterial superinfection) + acute systolic CHF. today is final dose of PO levaquin. cont bronchodilators. no further diuresis - BUN and Cr trending up, looks euvolemic on exam. dexamethasone today, then PO prednisone tomorrow. plan prednisone 10mg daily x 2-3 days, then back to chronic usual dose of 5mg/day. appreciate pulmonary assistance. all cultures from bronch earlier in the stay - negative. fungitell negative. legionella negative. (2) Multifocal pneumonia: Plan: resolved. had been intubated/on vent in ICU earlier this stay. off supplemental NC O2 completely. 2nd to rhinovirus infection and likely bacterial superinfection -- cannot rule out gram negative pneumonia despite negative bronchoscopy cultures from 11/27/22. Cont PO levaquin x 5 doses. Today is day #5 of such. Plan total 14 days in total (day #14 of abx today). (3) Acute systolic CHF (congestive heart failure): Plan: EF 35-40% with global hypokinesis of LV no prior echo for comparison purposes no prior h/o CAD or acute NH cont metoprolol but convert to metoprolol succinate 25mg once each morning no lasix today - likely euvolemic or even slightly dry tomorrow plan for lasix 20mg PO qam and send home on this dose along with K/mag supplementation will ultimately need SOFI or ARB - had been on ARB prior to this hospital stay but defer for now etiology of CHF?? need for elective cath at some point down the line? candidate for such? RA usually causes right-sided disease and RV function is intact on echo appreciate Love Hua consult from CHF clinic she will need to see Ms Hua in about 1 week post-discharge (4) Septic shock: Plan: 2nd to b/l pneumonia. resolved. had been in ICU & required pressors earlier in the stay. (5) Sepsis: Plan: 2nd to pneumonia. sepsis resolved. day #14 of broad-spectrum IV, now PO, antibiotic therapy. (6) Rheumatoid arthritis: Plan: Holding methotrexate, sulfasalazine, Hydroxychloroquine, and rituxan with her acute illness. She is steroid-dependent - takes prednisone 5mg daily. She has been on tapering doses of IV/PO dexamethasone. Stop dexamethasone today. Convert to PO prednisone 10mg/day on 12/09/22. Plan 2-3 days of po prednisone 10mg, then lower to her CHRONIC Prednisone dose of 5mg/day. Consider resuming sulfasalazine & plaquenil at d/c. MTx - would wait about 1-2 weeks to resume. 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 Sees Dr Tung Mejia in [place] for her RA. (7) Hypomagnesemia: Plan: mag again low today at 1.4 give 3 grams mag sulfate IV resume her usual mag oxide 400mg BID tonight repeat mag level AM (8) Elevated troponin: Plan: Peak HS troponin = 275 Likely myocardial demand ischemia in the setting of septic shock/severe sepsis no evidence of ACS (9) Hypertension: Plan: Losartan, chlorthalidone - would not resume either at this time cont Metoprolol 25mg BID -- change to toprol xl 25mg daily today BPs controlled (10) Hyperlipidemia: Plan: cont simvastatin (11) Anxiety and depression: Plan: cont venlafaxine xr 150mg daily (12) Diabetes: Plan: Hba1c 7.2%. Have stopped lantus. Remains on novolog SSI. Resumed metformin 1gm BID w/ meals. (13) Anemia: Plan: h/o Fe def anemia most recent transferrin sat was 13% ferritin elevated due to acute phase reactant from infections remains on PO Fe supplementation most recent Hb 11.1 (14) Hypokalemia: Plan: replaced resolved daily BMP while on lasix replace low mag again today repeat mag am will need K supplementation at discharge due to plan for daily lasix use (15) Chronic interstitial lung disease: Plan: likely 2nd to RA; along with bronchiectasis cont bronchodilators, saline nebs, etc. 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 Due to sepsis and septic shock. Head CT NEGATIVE. Resolved & has not recurred. (22) Physical deconditioning: Plan: patient to have 24/7 caregivers upon d/c home multiple family members will be readily available for the next month to help her home PT/OT and nursing to be set up prescription for rollator walker completed patient also requires a hospital bed for home; due to her severe rheumatoid arthritis and joint deformities along with severe lung disease she requires a hospital bed. The hospital bed will allow positioning of the body that a standard bed cannot provide. The hospital bed will allow optimal respiratory function at night-time and allow relief of joint pain from her rheumatoid. Plan daughter updated by phone 12/07/22 left message for daughter Marli on 12/08/22 d/c home with nursing, home PT/OT, etc on 12/09/22 will need metoprolol xl 25mg daily, lasix 20mg qam, mag oxide 400mg BID, K-dur 20meq daily at discharge d/c losartan and d/c chlorthalidone f/u [facility] f/u [facility] CHF clinic - Love Hua patient also requesting new PCP with [facility] Admission and Anticipated Discharge Date Admission Date: November 25, 2022 Subjective pt feels good a little tired because she didn't sleep well overnight but otherwise feels good anxious to go home no cough no wheezing no RIVERA still remains off O2 no new complaints Review of Systems Review of Systems: gen - no fevers, chills, or appetite issues cv - no orthopnea pulm - no dyspnea at any time GI - no abd pain, nausea, vomiting; + stools Physical Exam Physical Exam: gen - looks tired otherwise NAD neck - no JVD mouth - MMM heart - RRR, s1 s2, no murmur lungs - diffuse rales all lung segments but airation continues to improve each day; no wheezing; no increased work of breathing abd - soft NT ND BS+ ext - no edema b/l, pulses 2+ b/l skin - skin irritation b/l lips; levido reticularis both legs distally Results & Data Results & Data Vital Signs (Past 12 Hours) Vital Signs Temp Pulse Pulse Pulse Pulse Resp BP 12/08/22 11:24 36.6 C 74 20 111/64 12/08/22 07:30 36.5 C 82 18 121/67 12/08/22 07:00 73 12/08/22 07:07 72 16 12/08/22 02:40 36.9 C 75 18 130/75 12/08/22 01:12 72 18 Pulse Ox O2 Del Method 12/08/22 11:24 93 Room Air 12/08/22 07:30 94 Room Air 12/08/22 07:00 12/08/22 07:07 92 Room Air 12/08/22 02:40 94 Room Air 12/08/22 01:12 91 Room Air Laboratory Results Laboratory Results - last 24 hr 11/27/22 12/07/22 12/07/22 Unknown 11:28 16:03 Sodium Potassium Chloride Carbon Dioxide Anion Gap BUN Creatinine Est Cr Clr Drug Dosing Est GFR ( Amer) Est GFR (Non-Af Amer) BUN/Creatinine Ratio Glucose POC Glucose 146 H 131 H Calcium Magnesium Legionella Source *LEFT LOWER LOBE Legionella Culture see note Pneumocystis Source LEFT LOWER LOBE Pneumocyst jirovecii PCR TNP Resp Virus Cult Rapid SEE NOTE Viral Specimen Source LEFT LOWER LOBE 12/07/22 12/08/22 12/08/22 20:44 05:28 07:45 Sodium 140 Potassium 3.9 Chloride 100 Carbon Dioxide 32 Anion Gap 8 BUN 24 H Creatinine 0.88 Est Cr Clr Drug Dosing 52.3 Est GFR ( Amer) 76.6 Est GFR (Non-Af Amer) 66.1 BUN/Creatinine Ratio 27.3 H Glucose 148 H POC Glucose 136 H 123 H Calcium 9.2 Magnesium 1.4 L Legionella Source Legionella Culture Pneumocystis Source Pneumocyst jirovecii PCR Resp Virus Cult Rapid Viral Specimen Source 12/08/22 11:21 Sodium Potassium Chloride Carbon Dioxide Anion Gap BUN Creatinine Est Cr Clr Drug Dosing Est GFR ( Amer) Est GFR (Non-Af Amer) BUN/Creatinine Ratio Glucose POC Glucose 184 H Calcium Magnesium Legionella Source Legionella Culture Pneumocystis Source Pneumocyst jirovecii PCR Resp Virus Cult Rapid Viral Specimen Source PG Care Time/CCT Total # of Minutes Spent Total Time Spent with Patient: Total time spent is greater than 50% in coordination of care (as documented) at patient's floor/unit and/or counseling patient: Coding Level of Care Code 32801 SUB INP/OBS CARE 3/50MIN Diagnoses Acute respiratory failure with hypoxia J96.01 Multifocal pneumonia J18.9 Acute systolic CHF (congestive heart failure) I50.21 Septic shock A41.9; R65.21 Sepsis A41.9 Rheumatoid arthritis M06.9 Rheumatoid arthritis location: unspecified site Rheumatoid factor presence: unspecified presence Hypomagnesemia E83.42 Elevated troponin R77.8 Hypertension I10 Hypertension type: essential hypertension Hyperlipidemia E78.5 Anxiety and depression F41.9; F32.9 Diabetes E11.42; Z79.4 Diabetes mellitus complication detail: with polyneuropathy Diabetes mellitus complication status: with neurologic complications Diabetes mellitus longterm insulin use: with buttermaker use Diabetes mellitus type: type 2 Anemia D64.9 Hypokalemia E87.6 Chronic interstitial lung disease J84.9 Rhinovirus infection B34.8 Constipation K59.00 Livedo reticularis R23.1 Bronchiectasis without complication J47.9 Chronic steroid use Dizziness R42 Physical deconditioning R53.81 (6) Rheumatoid arthritis Rheumatoid arthritis location: unspecified site Rheumatoid factor presence: unspecified presence Qualified Code(s): M06.9 - Rheumatoid arthritis, unspecified (9) Hypertension Hypertension type: essential hypertension Qualified Code(s): I10 - Essential (primary) hypertension (12) Diabetes Diabetes mellitus complication detail: with polyneuropathy Diabetes mellitus complication status: with neurologic complications Diabetes mellitus longterm insulin use: with buttermaker use Diabetes mellitus type: type 2 Qualified Code(s): E11.42 - Type 2 diabetes mellitus with diabetic polyneuropathy; Z79.4 - buttermaker continuous churn (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
[2022-12-08] MEDS: FUROSEMIDE 20 MG TAB PO SCH (14:36)
[2022-12-08] MEDS: MAGNESIUM OXIDE 400 MG TAB PO SCH (20:35)
[2022-12-08] MEDS: SIMVASTATIN 5 MG TAB PO SCH (20:37)
[2022-12-09] MEDS: LEVALBUTEROL 1.25MG/0.5ML NEB INH SCH ×3 (01:03→12:39)
[2022-12-09] MEDS: IPRATROPIUM BROMIDE NEB SOLN 0.02% 2.5 ML VIAL INH SCH ×3 (01:03→12:39)
[2022-12-09] MEDS: guaiFENesin SUGAR FREE 200 MG/10 ML UDC PO SCH ×2 (04:00→11:19)
[2022-12-09] MEDS: SODIUM CHLOR 7% 4 ML NEB NEB SCH (06:58)
[2022-12-09] MEDS: FORMOTEROL 20 MCG/2 ML VIAL INH SCH (06:58)
[2022-12-09 07:51] LABS: BUN Creatinine Ratio 23.9 (10-20); Calcium 9.1 mg/dl (8.6-10.3); Creatinine Clr Calc Pharmacy 50.9 ml/min; Est GFR (African American) 72.6 ml/min; Est GFR (Non-African American) 62.6 ml/min; Magnesium 1.3 mg/dl (1.7-2.4); Potassium 3.7 mmol/L (3.5-5.1)
[2022-12-09] MEDS: ENOXAPARIN INJ 40 MG/0.4 ML SYR SQ SCH (08:19)
[2022-12-09] MEDS: MULTI VIT W/MINERALS LIQUID 15 ML UDP PO SCH (08:20)
[2022-12-09] MEDS: VENLAFAXINE HCL XR 150 MG CAPXR PO SCH (08:20)
[2022-12-09] MEDS: MAGNESIUM OXIDE 400 MG TAB PO SCH (08:20)
[2022-12-09] MEDS: FERROUS SULFATE 325 MG TAB PO SCH (08:21)
[2022-12-09] MEDS: METOPROLOL SUCC 25MG EXT REL TAB PO SCH (08:21)
[2022-12-09] MEDS: FUROSEMIDE 20 MG TAB PO SCH (08:21)
[2022-12-09] MEDS: PANTOprazole 40 MG TAB PO SCH (08:21)
[2022-12-09] MEDS: POTASSIUM CHLORIDE CRTAB 20 MEQ TABCR PO SCH (08:21)
[2022-12-09] MEDS: CEVIMELINE PO SCH (08:22)
[2022-12-09] MEDS: metFORMIN HCL 500 MG TAB PO SCH (08:22)
[2022-12-09] MEDS: INSULIN ASPART PER UNIT CHARGE SC SCH ×2 (08:24→11:47)
[2022-12-09] MEDS ORDERED: predniSONE 10 MG TABLET PO SCH (09:00)
[2022-12-09] MEDS: DOCUSATE SODIUM 100 MG CAP PO SCH (09:24)
[2022-12-09] MEDS: SENNA 8.6 MG TAB PO SCH (09:24)
[2022-12-09] MEDS: POLYETHYLENE (MIRALAX) 17 GM PACK PO SCH (09:24)
[2022-12-09] MEDS: GABAPENTIN 300 MG CAP PO SCH (11:19)
--- NOTE | 2022-12-09 14:23 | Discharge Summary ---
Discharge Summary Date of Service December 09, 2022 Admission HPI Per Admitting Provider Magdalene White is a 72 year old female with a PMH significant for RA on Sulfasalazine, Rituxan, methotrexate, and hydroxychloroquine, Raynaud disease, Severe reactive lung disease on chronic prednisone therapy, DM II, HTN, hyperlipidemia, anxiety and depression who presented to the [facility] ED on 11/25/22 with a chief complaint of dizziness and ambulatory dysfunction. In the ED the patient was found to be hypotensive at 75/48 and hypoxic at 86% on RA. Labs were remarkable for a leukocytosis of 18 with left shift of 16, Hgb of 11 (down from 13.6 as of 09/12/20), platelets of 371, lymphocyte count of 0.74, stable cr of 1.11, glucose of 212, corrected sodium of 136, mag of 1.1, AG of 13 with bicarb of 28, lactate of 3.1, LFTs WNL, initi al high sensitivity trop of 22.8, procal of 0.81, UA with turbid color, 2+ protein, trace ketones, negative bacteria and negative nitrites. Chest xray was read as Cardiomegaly with reticular interstitial opacities have progressively worsened compared to the study from 2020. Worsening fibrosis versus a nonspecific superimposed infectious or inflammatory pneumonitis considered.. CTA of the chest with PE protocol was read as 1. No pulmonary emboli identified. 2. Progressively worsened extensive reticular nodular densities with perifissural micronodules and bronchial wall thickening compared to the 2020 study compatible with a chronic infectious or inflammatory pneumonitis/bronchiolitis. Follow-up with pulmonology recommended. 3. There are new superimposed bilateral airspace opacities, most pronounced within the left greater than right lower lobes suggestive of multifocal pneumonia. 4. Pathologically enlarged mediastinal and hilar lymph nodes. 5. Trace pleural effusions. 6. Cholelithiasis. 7. Healing subacute left-sided rib fractures. Age- indeterminate mild T3 and T6 compression deformities without retropulsion are new from prior.. Prior to admission the patient was given a total of 2L NSS bolus and ordered an additional liter of NSS was being started, one dose of vancomycin, one dose of cefepime, and ordered 2 bags of IV magnesium. At the time of the exam the patient was lying in bed in no acute distress with her Daughter sitting bedside, history was obtained from both. They state that over the past 3-4 days the patient has been experiencing dizziness and ambulatory dysfunction. The patient states that she is asymptomatic at rest and does not think that her symptoms start until she begins to walk. She states that she will experienced a [id number] sensation where she feels intermittently confused. She denies any changes in the vision, hearing, taste, smell, or sensation when these episodes occur. She denies loss of consciousness or permanent confusion when these episodes occur. They explain that she had a fall approximately one month ago in [place] where she hit her head and was diagnosed with a severe concussion; She is no on anticoagulation. She states that she did receive imaging of her brain and was discharged from the ED the same day. She denies recent fevers or chills, chest pain, heart palpitations, abd pain, nausea, vomiting, diarrhea, dysuria, hematuria, melena, LE swelling or other falls since last month. She has a chronic dry cough with her reactive airway disease but has been experiencing a productive cough with yellow-green sputum over the past week. The patient states that she is currently asymptomatic at rest and feels slightly better than when she came into the ED. She and her daughter explain that she was [place] the [employer] earlier today to receive a routine injection in her left eye for macular degeneration, there were no complications. She currently has some eye discomfort which she states occurs after every eye injection. She wishes to be a Full Code and for her Daughter and her Son to make decisions for her if she could not make them herself. Of note, at the beginning of my exam the patient was on 4L NC. Upon inspection it was noted that the patient has acrylic nails on the hand which had the pulse oximetry sensor. A pulse oximetry sticker was placed on the patient's forehead and she was noted to be stable on RA for the rest of my exam. Please refer to Dr. Clayton's attestation for any changes to the treatment plan Admission Exam Per Admitting Provider General:In no acute distress, stated age, is ill appearing but non-toxic HEENT:Normocephalic, atraumatic, no scleral icterus, pupils around round, symmetrical, and reactive to light, left eye currently with some irritation but the patient denies vision changes, moist mucus membranes, trachea midline, no thyromegaly Chest/Pulm:No respiratory distress, symmetrical chest expansion, scattered rhonchi and wheezing noted throughout Cardiac:RRR, no murmurs noted Abdomen:Negative for ascites and bruising, normoactive bowel sounds, soft, non-tender to palpation throughout Musculoskeletal:Patient with limited ROM and chronic pain from previous LUE injury and surgery, otherwise no acute trauma noted Extremities:Radial, dorsalis pedis, and posterior tibial pulses are intact and symmetrical, no edema noted in the BL LE's Skin:Warm, dry, no rashes, patient with well-healing skin tear on the left great toe which is currently scabbed and without signs of infection Neuro:Alert and oriented to person, place, month, year, and president, no focal defects, CN II-XII tested and intact, no tremors noted, symmetrical strength in the BL LE's Psych:No acute distress, calm and cooperative during the exam Principal Dx & Hospital Course #1 = Principal Diagnosis (1) Acute respiratory failure with hypoxia: fully resolved. Intubated November 27. Extubated November 29. Resp failure 2nd to severe b/l pneumonia (rhinovirus + likely bacterial huntley perinfection) + acute systolic CHF. completed Levaquin and diuresis plan prednisone 10mg daily x 3 days, then back to chronic usual dose of 5mg/day. Pulm follow up scheduled (2) Multifocal pneumonia: 2nd to rhinovirus infection and likely bacterial superinfection -- cannot rule out gram negative pneumonia despite negative bronchoscopy cultures from 11/27/22. Completed 14 days of Abx (3) Acute systolic CHF (congestive heart failure): EF 35-40% with global hypokinesis of LV no prior echo for comparison purposes no prior h/o CAD or acute MD cont metoprolol succinate 25mg once each morning lasix 20mg PO qam and sent home on this dose along with K/mag supplementation Defer ARB due to hypotension, follow up with CHF clinic who may resume FU scheduled with [facility] with CHF clinic (4) Septic shock: 2nd to b/l pneumonia. resolved. had been in ICU & required pressors earlier in the stay. (5) Rheumatoid arthritis: Convert to PO prednisone 10mg/day on 12/09/22. Plan 2-3 days of po prednisone 10mg, then lower to her CHRONIC Prednisone dose of 5mg/day. Resumed sulfasalazine & plaquenil at d/c. MTx - would wait about 1-2 weeks to resume, fu Rheumatology Rituxan - per her radiator specialist Dr. Mejia (6) Hypomagnesemia: Resume her usual mag oxide 400mg BID on discharge (7) Elevated troponin: Peak HS troponin = 275 Likely myocardial demand ischemia in the setting of septic shock/severe sepsis no evidence of ACS (8) Hypertension: Holding chlorthalidone and losartan due to hypoTN cont Metoprolol 25mg daily (9) Hyperlipidemia: cont simvastatin (10) Anxiety and depression: cont venlafaxine xr 150mg daily (11) Diabetes: Hba1c 7.2%. Resume home medications (12) Anemia: h/o Fe def anemia most recent transferrin sat was 13% ferritin elevated due to acute phase reactant from infections remains on PO Fe supplementation most recent Hb 11.1 (13) Hypokalemia: Resolved Provided K supplementation at discharge due to plan for daily lasix use (14) Chronic interstitial lung disease: likely 2nd to RA; along with bronchiectasis cont bronchodilators, saline nebs, etc. 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 Due to sepsis and septic shock. Head CT NEGATIVE. Resolved & has not recurred. (19) Physical deconditioning: patient to have 24/7 caregivers upon d/c home multiple family members will be readily available for the next month to help her home PT/OT and nursing set up prescription for rollator walker completed patient also requires a hospital bed for home; due to her severe rheumatoid arthritis and joint deformities along with severe lung disease she requires a hospital bed. The hospital bed will allow positioning of the body that a standard bed cannot provide. The hospital bed will allow optimal respiratory function at night-time and allow relief of joint pain from her rheumatoid. Plan d/c home with HH nursing, home PT/OT, family support Discharge Exam Constitutional WD/WN, vitals as above Respiratory normal respiratory effort, lungs clear to auscultation Psychiatric A+Ox3, euthymic affect Updated Medication List Medication Instructions Recorded Confirmed Type acetaminophen 300 mg-codeine 30 mg 1 tab PO Q8H PRN Pain 12/22/19 11/25/22 History tablet gabapentin 300 mg capsule 600 mg PO BID 12/22/19 11/25/22 History (Neurontin) insulin detemir U-100 100 unit/mL 22 unit subcut DAILYBB 12/22/19 11/25/22 History (3 mL) subcutaneous pen (Levemir FlexTouch U-100 Insulin) prednisone 5 mg tablet 5 mg PO DAILY 12/22/19 11/25/22 History simvastatin 5 mg tablet 5 mg PO QPM 12/22/19 11/25/22 History albuterol sulfate 90 mcg/actuation 2 puffs inhalation Q6H PRN 12/27/19 11/25/22 History aerosol inhaler (Ventolin HFA) Shortness Of Breath Or Wheezing rituximab 10 mg/mL 0 mg IV DIRECTED 12/27/19 11/25/22 History concentrate,intravenous (Rituxan) sulfasalazine 500 mg tablet 1,500 mg PO BID 12/27/19 11/25/22 History (Azulfidine) lidocaine 5 % topical patch 1 patch topical DAILY PRN pain #15 03/08/20 11/25/22 Rx ea cyclobenzaprine 5 mg tablet 5 mg PO HS 04/05/20 11/25/22 History cevimeline 30 mg capsule 30 mg PO TID 11/25/22 11/25/22 History famotidine 40 mg tablet 40 mg PO BID 11/25/22 11/25/22 History hydroxychloroquine 200 mg tablet 200 mg PO BID 11/25/22 11/25/22 History insulin NPH isoph U-100 human 100 15 units subcut QDB diabetes 11/25/22 11/25/22 History unit/mL subcutaneous suspension magnesium oxide 400 mg (241.3 mg 400 mg PO BID 11/25/22 11/25/22 History magnesium) tablet metformin 1,000 mg tablet 1,000 mg PO BID 11/25/22 11/25/22 History oxycodone 5 mg tablet 5 mg PO Q6H PRN Pain 11/25/22 11/25/22 History semaglutide 1 mg/dose (4 mg/3 mL) 1 mg subcut WK 03/21/23 03/21/23 History subcutaneous pen injector (Ozempic) venlafaxine 150 mg 150 mg PO DAILY #30 caps 12/08/22 11/25/22 Rx capsule,extended release 24 hr (Effexor XR) ferrous sulfate 325 mg (65 mg 325 mg PO BIDM #60 tabs 12/09/22 Rx iron) tablet,delayed release furosemide 20 mg tablet 20 mg PO QAM #30 tabs 12/09/22 Rx metoprolol succinate 25 mg 25 mg PO QAM #30 tabs 12/09/22 Rx tablet,extended release 24 hr pantoprazole 40 mg tablet,delayed 40 mg PO QAM 30 days #30 tabs 12/09/22 Rx release potassium chloride 20 mEq 20 meq PO QAM #30 tabs 12/09/22 Rx tablet,extended release(part/cryst) prednisone 10 mg tablet 10 mg PO QAM 3 days #3 tabs 12/09/22 Rx sodium chloride 7 % for 4 ml NEB BIDR 30 days #240 mL 12/09/22 Rx nebulization Hospital Stay Data Consultations 11/25/22 16:30 ED Decision to Admit Stat 11/25/22 17:35 Consult Pulmonology Routine Diagnostic Imagining Performed 11/25/22 13:59 CT angio chest PE protocol Stat 11/25/22 17:01 CT head/brain wo con Stat 11/27/22 05:21 CT angio chest PE protocol Stat 11/27/22 07:51 US venous duplex leg [US venous doppler LE BI] Stat 11/27/22 19:38 US arterial duplex LE BI Routine Pending Results Patient Have Any Pending Studies at Discharge: No Discharge Instructions Given to Patient (Per Discharging Provider) You were treated in the hospital for a severe pneumonia, first with IV antibiotics, which were then turned into oral antibiotics. You completed a total of 2 weeks of antibiotics, so you do not need any more antibiotics when you go home. You were also given IV steroids, which were switched to oral steroids before your discharge. You will have three more days of prednisone at the 10 milligram dose, and then you can return to your normal daily dose of 5 milligrams. You were also started on some new nebulizers, that you can also continue when you go home. These will be sent to your pharmacy. Because you are on daily steroids, in order to protect your stomach, you were started on a medication called pantoprazole (also called Protonix). You should continue this on discharge home. While in the hospital, you were found to have some decrease in your heart function. Because of this, several medications were added to your medicine list, or adjusted. Please review the list below, as it will be your most up to date medicine list. You should take this list to any upcoming doctor appointments you have. These medications were sent to [facility] in [place]. You have close follow ups with both Cardiology, to closely monitor your fluids while on diuretic pill Lasix, as well as follow up with Pulmonology for your lung history and hospitalization. Regarding your medications before your admission, you should STOP (at least until follow up appointments with the doctors who prescribe them or talking to them over the phone) chlorthalidone, losartan, and methotrexate. Your potassium supplement was CHANGED to 20 milligrams daily with the Lasix medication. If you have any worsening of symptoms or medical questions, call your doctors at the numbers above. If you have urgent concerns about your health or safety, please seek urgent evaluation at the hospital. Total Time Total Time Spent Total Time Spent (In Minutes): 35 min Coding Level of Care Code 83431 INP/OBS DISCH >30 MIN Diagnoses Acute respiratory failure with hypoxia J96.01 Multifocal pneumonia J18.9 Acute systolic CHF (congestive heart failure) I50.21 Septic shock A41.9; R65.21 Rheumatoid arthritis M06.9 Rheumatoid arthritis location: unspecified site Rheumatoid factor presence: unspecified presence Hypomagnesemia E83.42 Elevated troponin R77.8 Hypertension I10 Hypertension type: essential hypertension Hyperlipidemia E78.5 Anxiety and depression F41.9; F32.9 Diabetes E11.42; Z79.4 Diabetes mellitus type: type 2 Diabetes mellitus usp insulin use: with usp use Diabetes mellitus complication status: with neurologic complications Diabetes mellitus complication detail: with polyneuropathy Anemia D64.9 Hypokalemia E87.6 Chronic interstitial lung disease J84.9 Rhinovirus infection B34.8 Constipation K59.00 Livedo reticularis R23.1 Dizziness R42 Physical deconditioning R53.81
== END 2022-12-09 15:14 | disposition home health service (06) | DRG 871 ==
LOC: ED 11:50 → SUATTDRO 17:00 → 2S 17:00 → 1E 11-27 06:15 → 2E 11-30 21:26